=== PATIENT | female | born 1950 | race Caucasian/White ===

== ENCOUNTER 2020-11-29 09:10 | Outpatient (REF) | payer MEDICARE, SELFPAY ==
--- NOTE | ~2020-11-29 | XR_ITS ---
EXAMINATION: XR CERVICAL SPINE CLINICAL INFORMATION: Cervical radiculopathy at C6. COMPARISON: None TECHNIQUE: 3 views of the cervical spine were obtained. FINDINGS: There is mild straightening of cervical lordosis. The vertebral heights and alignment are normal. There is loss of C4-C5, C5-C6 and C6-C7 disc heights with mild ventral spondylosis. There is bilateral mild narrowing of neural foramina C3-C4, C4-C5, C5-C6 and C6-C7 disc levels from uncovertebral hypertrophic changes. No visible acute fracture or dislocation. The prevertebral and paravertebral soft tissues are normal. XR/XR cervical spine 4V IMPRESSION: Degenerative disc changes with ventral spondylosis of C4-C5 through C6-C7 disc levels with bilateral mild narrowing of neural foramina from underlying uncovertebral hypertrophic changes. There is straightening of cervical lordosis likely spasm. No visible acute fracture or dislocation seen.
== END 2020-11-29 09:11 | disposition home or self-care (01) ==
LOC: HO.XRAY 09:10
PROVIDERS: PCP Internal Medicine; Visit Provider Psychiatry & Neurology Neurology
DX: M54.12 Radiculopathy, cervical region (principal)
CPT/HCPCS: 72050

== ENCOUNTER → 2020-12-02 10:03 | Outpatient (REF) | payer MEDICARE, SELFPAY | LOC: HO.SL 10:03 | PROVIDERS: PCP Internal Medicine; Visit Provider Internal Medicine | DX: G47.33 Obstructive sleep apnea (adult) (pediatric) (principal) | CPT/HCPCS: 95806 ==

== ENCOUNTER → 2021-02-15 10:39 | Outpatient (BNVA) | payer MEDICARE, SELFPAY | PROVIDERS: PCP Internal Medicine; Referring Provider Internal Medicine; Visit Provider Psychiatry & Neurology Neurology | DX: G47.33 Obstructive sleep apnea (adult) (pediatric) (principal); G25.81 Restless legs syndrome | CPT/HCPCS: 99202 ==

== ENCOUNTER 2021-03-02 07:27 | Outpatient (REF) | payer MEDICARE, SELFPAY ==
[2021-03-02 07:40] LABS: MANUAL DIFF FLAG NO
[2021-03-02 08:07] LABS: Basophils Absolute Auto 0.1 X10*3/uL (0.0-0.2); Basophils Percent Auto 0.6 % (0-2); Eosinophils Absolute Auto 0.3 X10*3/uL (0.0-0.4); Eosinophils Percent Auto 2.8 % (0-4); Hematocrit 45.8 % (37-47); Hemoglobin 15.2 g/dl (12.0-16.0); Imm Gran Abs Auto 0.06 X10*3/uL (0.00-0.03); Imm Gran Pct Auto 0.6 % (0.0-0.4); Lymphocytes Absolute Auto 3.4 X10*3/uL (1.2-4.9); Lymphocytes Percent Auto 32.2 % (20-40); Mean Corpuscular HGB Conc 33.2 g/dl (31.0-35.0); Mean Corpuscular Hemoglobin 31.1 pg (27.0-33.0); Mean Corpuscular Volume 93.7 fL (80-98); Mean Platelet Volume 9.3 fL (9.4-12.3); Monocytes Absolute Auto 0.7 X10*3/uL (0.1-1.2); Monocytes Percent Auto 6.6 % (2-11); Neutrophils Percent Auto 57.2 % (45-73); Platelet Count 278 X10*3/uL (160-400); Red Blood Count 4.89 X10*6/uL (4.20-5.50); Red Cell Distribution Width 12.1 % (11.0-16.0); White Blood Count 10.5 X10*3/uL (4.8-10.8)
[2021-03-02 08:33] LABS: Alanine Aminotransferase 20 U/L (0-31); Albumin Level 4.1 g/dL (3.5-5.0); Alkaline Phosphatase 81 U/L (39-117); Anion Gap 9 (12-20); Aspartate Amino Transferase 17 U/L (5-31); Bilirubin Total 0.4 mg/dL (0.0-1.0); Blood Urea Nitrogen 11 mg/dL (9-16); Calcium 9.8 mg/dL (8.4-10.2); Carbon Dioxide 33 mmol/L (22-29); Chloride 103 mmol/L (96-108); Cholesterol 174 mg/dL; Estimated Glomerular Filt Rate > 60; Glucose Random 136 mg/dL (60-115); HDL Cholesterol 58 mg/dL; LDL Cholesterol Calculated 87 mg/dl; Potassium 4.9 mmol/L (3.3-5.1); Sodium 140 mmol/L (135-145); Total Protein 6.7 g/dL (6.5-8.0); Triglycerides 147 mg/dL
[2021-03-02 08:34] LABS: Creatinine Urine 103.54 mg/dL; Microalbum/Creatinine Ratio Ur 7.7 ug/mg cr
[2021-03-02 08:53] LABS: Free T4 (Free Thyroxine) 1.02 ng/dL (0.71-1.85); Thyroid Stimulating Hormone 1.46 uIU/mL (0.32-4.0)
[2021-03-02 09:47] LABS: Estimated Average Glucose 137 mg/dL; Hemoglobin A1c % 6.4 %
[2021-03-02 09:49] LABS: Folate 19.4 ng/mL (> or = 4.0); Vitamin B12 753 pg/mL (200-900)
== END 2021-03-02 07:28 | disposition home or self-care (01) ==
LOC: HO.LAB 07:27
PROVIDERS: PCP Internal Medicine; Visit Provider Internal Medicine
DX: E11.65 Type 2 diabetes mellitus with hyperglycemia (principal); K21.9 Gastro-esophageal reflux disease without esophagitis; E78.00 Pure hypercholesterolemia, unspecified
CPT/HCPCS: 36415; 80053; 80061; 82043; 82306; 82607; 82746; 83036; 84439; 84443; 85025

== ENCOUNTER 2021-04-11 07:43 | Day surgery (SDC) | payer MEDICARE, SELFPAY ==
[2021-04-04 10:43] VITALS: BMI 36.2
--- NOTE | 2021-04-07 08:18 | MHC.SHP ---
Pre-Procedural Eval Section A Date of Service: 04/07/21 The patient is an INPATIENT: No Changes since office visit: No Cold of Flu in the past 2 weeks, No New Medical Problems, No Changes in Medication and No Patient answered all questions The History & Physical has been completed within 30 days and I have reviewed it.: Yes Section B Chief Complaint: cataract right eye Allergies: Allergies Allergy/AdvReac Type Severity Reaction Status Date / Time cabergoline [CABERGOLINE] Allergy Severe ANGIOEDEMA Verified 04/04/21 10:39 lisinopril [LISINOPRIL] Allergy Severe ANGIOEDEMA Verified 04/04/21 10:39 empagliflozin [Jardiance] Allergy Intermediate skin Verified 04/04/21 10:39 infection Plan Diagnosis/Plan: Unchanged I have reviewed the history and physical and performed a pertinent physical examination on my patient. No changes have occurred unless specified.
--- NOTE | 2021-04-08 08:42 | HO.ANESPROP2 ---
Documented by User: Rosalina Tipton NP 04/08/21 08:43 HPI - Anesthesia Eval Consult details Narrative: 70yo F for Right Cataract Extraction IOL Insertion No prev cataract on record PCP cleared [facility] Active Problems Active Problems: All Active Problems (Updated 04/04/21 @ 10:46 by Genny Garrison RN) Shoulder pain, right (Acute) Restless legs syndrome (Acute) Screening for colon cancer (Acute) Post-menopausal (Acute) Adult general medical exam (Acute) Pre-op evaluation (Acute) GERD (gastroesophageal reflux disease) (Acute) Anxiety (Acute) Hypertension (Acute) Angioedema (Acute) Hypercholesteremia (Acute) Obstructive sleep apnea (Acute) Obesity (BMI 30-39.9) (Acute) Type 2 diabetes mellitus with hyperglycemia (Acute) Past Medical History Medical History (Updated 04/04/21 @ 10:46 by Genny Garrison RN) Angioedema Anxiety Basal cell carcinoma (BCC) in situ of skin COVID-19 vaccine series completed Diverticular disease GERD (gastroesophageal reflux disease) Hypercholesteremia Hypertension Obesity (BMI 30-39.9) Obstructive sleep apnea Polymyalgia rheumatica Type 2 diabetes mellitus with hyperglycemia Family History Family History Father Prostate cancer Acute CVA (cerebrovascular accident) Mother Uterine cancer COPD (chronic obstructive pulmonary disease) Sister Melanoma Brother Melanoma Paternal Grandfather Acute CVA (cerebrovascular accident) Paternal Aunt Breast cancer Surgical History Surgical History (Updated 04/04/21 @ 10:42 by Genny Garrison RN) History of arthroplasty of right knee History of cholecystectomy History of colonoscopy Hx of appendectomy S/P ADRIÁN-BSO Social History Social History Housing: House Are you a primary adult caregiver to a significant other at home: No Do you presently have visiting nurse or other home services: No Alcohol intake: former Patient Tobacco Use Status: Former Tobacco user Quit Date: age 20's Tobacco use type: Cigarette e-Cigarette/Vaping Use: Never Used Second Hand Smoke Exposure: No Use of substances other than those prescribed or required for medical reasons: No Have you been hit, kicked, punched, or otherwise hurt by someone within the past year? If so, by whom?: No Are you DNR?: No Advance Directives: Yes Advance Directives Information Provided: Yes Advance Directives on File: Yes Advance Directives Date on File: 02/08/16 Recently lost weight without trying: No Eating poorly because of decreased appetite: No Nutrition Risks: No Nutritional Risk Poor oral hygiene: No Current occupational status: employed Meds Allergies Allergy/AdvReac Type Severity Reaction Status Date / Time cabergoline [CABERGOLINE] Allergy Severe ANGIOEDEMA Verified 04/04/21 10:39 lisinopril [LISINOPRIL] Allergy Severe ANGIOEDEMA Verified 04/04/21 10:39 empagliflozin [Jardiance] Allergy Intermediate skin Verified 04/04/21 10:39 infection Home Medications Medication Instructions Recorded Confirmed Last Taken Type acetaminophen 325 mg tablet 325 mg PO QID PRN 03/10/20 04/04/21 Unknown History (Tylenol) aspirin 81 mg tablet,delayed 81 mg PO DAILY 03/10/20 04/04/21 Unknown History release (Adult Aspirin Regimen) cranberry 400 mg capsule 400 mg PO DAILY 03/10/20 04/04/21 Unknown History famotidine 20 mg tablet 20 mg PO BEDTIME 03/10/20 04/04/21 Unknown History fexofenadine 180 mg tablet 180 mg PO DAILY 03/10/20 04/04/21 Unknown History (Jesusita Allergy) meclizine 25 mg tablet 25 mg PO TID PRN 03/10/20 04/04/21 Unknown History multivitamin 1 tab PO DAILY 03/10/20 04/04/21 Unknown History naproxen 250 mg tablet 250 mg PO BID PRN 03/10/20 04/04/21 Unknown History omega-3 fatty acids 1,000 mg 1,000 mg PO DAILY 03/10/20 04/04/21 Unknown History capsule vitamin B complex 1 cap PO DAILY 03/10/20 04/04/21 Unknown History ascorbic acid (vitamin C) 500 mg 500 mg PO DAILY 03/25/21 04/04/21 Unknown History capsule sitagliptin 50 mg-metformin ER 500 1 tab PO BID tab 03/25/21 04/04/21 Unknown History mg tablet,extended release 24h mp (Janumet XR) losartan 100 mg tablet 100 mg PO BEDTIME 04/04/21 04/04/21 Unknown History Exam Exam Date and Time: April 08, 2021 0842 Height,Weight and Vital Signs: Height 5 ft 2 in Weight 89.811 kg Assessment and Plan Assessment Anesthesia Assessment: Chart Reviewed Documented by User: Maru Mendez MD 04/11/21 10:01 [facility] Past Medical History Medical History (Updated 04/04/21 @ 10:46 by Genny Garrison RN) Angioedema Anxiety Basal cell carcinoma (BCC) in situ of skin COVID-19 vaccine series completed Diverticular disease GERD (gastroesophageal reflux disease) Hypercholesteremia Hypertension Obesity (BMI 30-39.9) Obstructive sleep apnea Polymyalgia rheumatica Type 2 diabetes mellitus with hyperglycemia Family History Family History Father Prostate cancer Acute CVA (cerebrovascular accident) Mother Uterine cancer COPD (chronic obstructive pulmonary disease) Sister Melanoma Brother Melanoma Paternal Grandfather Acute CVA (cerebrovascular accident) Paternal Aunt Breast cancer Family history of problems with anesthesia: No Surgical History Surgical History (Updated 04/04/21 @ 10:42 by Genny Garrison RN) History of arthroplasty of right knee History of cholecystectomy History of colonoscopy Hx of appendectomy S/P ADRIÁN-BSO History of Problems with Anesthesia: No Social History Social History Housing: House Are you a primary adult caregiver to a significant other at home: No Do you presently have visiting nurse or other home services: No Alcohol intake: former Patient Tobacco Use Status: Former Tobacco user Quit Date: age 20's Tobacco use type: Cigarette e-Cigarette/Vaping Use: Never Used Second Hand Smoke Exposure: No Use of substances other than those prescribed or required for medical reasons: No Have you been hit, kicked, punched, or otherwise hurt by someone within the past year? If so, by whom?: No Are you DNR?: No Advance Directives: Yes Advance Directives Information Provided: Yes Advance Directives on File: Yes Advance Directives Date on File: 02/08/16 Recently lost weight without trying: No Eating poorly because of decreased appetite: No Nutrition Risks: No Nutritional Risk Poor oral hygiene: No Current occupational status: employed Meds Allergies Allergy/AdvReac Type Severity Reaction Status Date / Time cabergoline [CABERGOLINE] Allergy Severe ANGIOEDEMA Verified 04/04/21 10:39 lisinopril [LISINOPRIL] Allergy Severe ANGIOEDEMA Verified 04/04/21 10:39 empagliflozin [Jardiance] Allergy Intermediate skin Verified 04/04/21 10:39 infection Home Medications Medication Instructions Recorded Confirmed Last Taken Type acetaminophen 325 mg tablet 325 mg PO QID PRN 03/10/20 04/04/21 Unknown History (Tylenol) aspirin 81 mg tablet,delayed 81 mg PO DAILY 03/10/20 04/04/21 Unknown History release (Adult Aspirin Regimen) cranberry 400 mg capsule 400 mg PO DAILY 03/10/20 04/04/21 Unknown History famotidine 20 mg tablet 20 mg PO BEDTIME 03/10/20 04/04/21 Unknown History fexofenadine 180 mg tablet 180 mg PO DAILY 03/10/20 04/04/21 Unknown History (Jesusita Allergy) meclizine 25 mg tablet 25 mg PO TID PRN 03/10/20 04/04/21 Unknown History multivitamin 1 tab PO DAILY 03/10/20 04/04/21 Unknown History naproxen 250 mg tablet 250 mg PO BID PRN 03/10/20 04/04/21 Unknown History omega-3 fatty acids 1,000 mg 1,000 mg PO DAILY 03/10/20 04/04/21 Unknown History capsule vitamin B complex 1 cap PO DAILY 03/10/20 04/04/21 Unknown History ascorbic acid (vitamin C) 500 mg 500 mg PO DAILY 03/25/21 04/04/21 Unknown History capsule sitagliptin 50 mg-metformin ER 500 1 tab PO BID tab 03/25/21 04/04/21 Unknown History mg tablet,extended release 24h mp (Janumet XR) losartan 100 mg tablet 100 mg PO BEDTIME 04/04/21 04/04/21 Unknown History Exam Height,Weight and Vital Signs: Height 5 ft 2 in Weight 89.811 kg Vital Signs Temp Pulse Resp BP Pulse Ox 04/11/21 08:58 997.3 F H 78 16 150/85 H 97 Pertinent Lab Results Pertinent Lab Results: Lab Results 04/11/21 Range/Units 09:02 POC Glucose 125 H (60-115) mg/dL Narrative Narrative: Patient states feels a little swelling on lower lip right side. Episodes usually mild. Resolve spontaneously. Brought on by stress or fever. Sometimes steroids but states di not help. Never intubated. Usually superficial swelling. Only affected throat once several years ago. May have been one of the episodes related to drugs - cabergoline or lisinopril.Did not need intubation. Airway Mallampati Class: III TM Dist: >3cm Neck ROM: Full Loose/Missing/Broken Teeth: No Heart: RRR Lungs: CTAB Assessment and Plan Assessment Anesthesia Assessment: Anesthesia Plan Discussed Final Anesthetic Review Family History of Problems with Anesthesia: No History of Problems with Anesthesia: No NPO: Yes ASA Class: III Final Preanesthetic Review: No Changes in Pt Med Stat, Meds/Allgs Chart Reviewed, Consent Obtained/Reviewed and Anes Risks/Benef Reviewed Patient Risk: Intermediate Procedure Risk: Low Assessment/Block/Sedation in SS: Assess/Block/Sedation-SS Anesthetic Plan Anesthetic Plan: MAC: Disposition: Standard PACU
[2021-04-11 08:58] VITALS: BP 150/85; PULSE 78; RESP 16; TEMP 536.3; TEMP 997.3; O2SAT 97
[2021-04-11] MEDS: Tetracaine HCl/PF 0.5% Oph Sol 4 ML DROPS 1 DROP EYE-RIGHT (09:05)
[2021-04-11] MEDS: Lactated Ringers 500 ML 50 ML IV (09:07)
[2021-04-11] MEDS: Tropicamide 1 % Ophth Sol 3 ML BTL 1 DROP EYE-RIGHT ×3 (09:07→09:14)
[2021-04-11] MEDS: Phenylephrine HCL 2.5% Oph SoL 2 ML BOTTLE 1 DROP EYE-RIGHT ×3 (09:09→09:18)
[2021-04-11 09:14] LABS: Glucose, Whole Blood 125 mg/dL (60-115)
--- NOTE | 2021-04-11 10:41 | HO.PNOPHT ---
Ophthalmology Procedure Procedure Date of Service: 04/11/21 Ophthalmology Viscoelastic: Healon Duet Dual Pack Pro Ophthalmology Lenses: TECNIS [id number] (21.5) Procedure Notes: PREOPERATIVE DIAGNOSIS: Decreased visual acuity right eye secondary to cataract POSTOPERATIVE DIAGNOSIS: Same PROCEDURE: Right cataract extraction with intraocular lens insertion SURGEON: Ankit Bucio M.D. ANESTHESIA: Topical/MAC ESTIMATED BLOOD LOSS: None COMPLICATIONS: None After obtaining informed consent, the patient was brought to the operating room suite and placed in the supine position. After adequate sedation per anesthesia, topical drops of Tetracaine were given to the right eye. The eye was then prepped and draped in the usual sterile fashion. The operating room microscope was then positioned over the operative eye and a lid speculum placed. A paracentesis was created. Viscoelastic was then instilled into the anterior chamber. A three plane incision was then created temporally, utilizing a 2.85 mm keratome. Capsulotomy forceps were then utilized to create a circular tear capsulotomy. Hydrodissection and hydrodelineation were carried out until adequate mobilization of the nucleus occurred. Phacoemulsification was then utilized to remove the dense central nucleus followed by removal of the cortical material utilizing the automated aspiration irrigation unit. Viscoelastic was instilled into the posterior capsular bag followed by placement of a posterior chamber intraocular lens without difficulty. The residual Viscoelastic was then removed utilizing the automated IA machine. The wound was checked and found to be watertight. The patient tolerated the procedure well and the lid speculum was removed. Intracameral injection of Vigamox 0.1 mL followed by a subtenon injection of Kenalog-40 0.2 mL were administered. The patient will be seen in the a.m.
[2021-04-11 11:04] VITALS: BP 131/71; PULSE 84; RESP 16; TEMP 36.1; O2SAT 100
== END 2021-04-11 11:22 | disposition home or self-care (01) ==
PROVIDERS: PCP Internal Medicine; Visit Provider Ophthalmology
PROC: (CPT 66985; principal; 2021-04-11 10:30)
DX: H25.11 Age-related nuclear cataract, right eye (principal); Z83.511 Family history of glaucoma; H52.4 Presbyopia; I10 Essential (primary) hypertension; E11.65 Type 2 diabetes mellitus with hyperglycemia; M35.3 Polymyalgia rheumatica; G47.33 Obstructive sleep apnea (adult) (pediatric); E66.9 Obesity, unspecified; Z68.36 Body mass index [BMI] 36.0-36.9, adult; Z79.84 Long term (current) use of oral hypoglycemic drugs; Z79.82 Long term (current) use of aspirin; Z79.899 Other long term (current) drug therapy; Z99.89 Dependence on other enabling machines and devices; Z88.8 Allergy status to other drugs, medicaments and biological substances; Z87.891 Personal history of nicotine dependence
CPT/HCPCS: 66984; 82947; J2250; J3010; J3300; V2632

== ENCOUNTER 2021-04-21 08:32 | Outpatient (REF) | payer MEDICARE, SELFPAY ==
--- NOTE | ~2021-04-21 | MM_ITS ---
EXAMINATION: BONE DENSITOMETRY CLINICAL INDICATION: Asymptomatic menopausal state. COMPARISON: Previous BD dated 08/17/2016 and baseline BD dated 10/08/2006. TECHNIQUE: Using a [employer] DXA System (software version: 13.1) manufactured by [employer], dual-energy x-ray absorptiometry was performed of the lumbar spine and left hip. The images are of good technical quality. Summary results are attached. FINDINGS: AP SPINE L1-L4: Current: BMD 1.355 g/cm2, Z-score 2.3, T-score 1.5, normal, 10.1% increase from previous, 10.9% increase from baseline (<5% change is not significant). Prior: BMD 1.231 g/cm2. Baseline: BMD 1.222 g/cm2. LEFT FEMUR, NECK: Current: BMD 0.973 g/cm2, Z-score 0.7, T-score -0.5, normal. Prior: BMD 0.906 g/cm2. Baseline: BMD 1.110 g/cm2. LEFT FEMUR, TOTAL: Current: BMD 1.160 g/cm2, Z-score 2.1, T-score 1.2, normal, 4.7% increase from previous, 12.5% decrease from baseline (<5% change is not significant). Prior: BMD 1.108 g/cm2. Baseline: BMD 1.325 g/cm2. IDENTIFIED RISK FACTORS: Menopause, hysterectomy, bilateral oophorectomy, anticonvulsant. HISTORY OF FRACTURE: None listed. MEDICATIONS: Multivitamin. MM/XR DEXA axial skeleton IMPRESSION: 1. DIAGNOSIS: Normal bone density based on the lowest T-score value of -0.5 in the femoral neck applying World Health Organization criteria. 2. 10-YEAR FRACTURE RISK PREDICTION, FRAX: Major osteoporotic fracture (clinical spine, forearm, hip or shoulder) 7.2%. Hip fracture 0.5%. 3. Treatment Recommendations: NOF guidelines recommend consideration for treatment in postmenopausal women and men age 50 and older presenting with the following: -A hip or vertebral (clinical or morphometric) fracture. -T-score less than or equal to -2.5 at the femoral neck or spine after appropriate evaluation to exclude secondary causes. -Low bone mass at the hip or spine and a 10-year fracture probability by FRAX of greater than or equal to 3% for hip fracture or greater than or equal to 20% for major osteoporotic fracture based on the [place] adapted WHO algorithm. 4. Other Recommendations: All treatment decisions require clinical judgment and consideration of individual patient factors, including patient preferences, comorbidities, previous drug use, risk factors not captured in the FRAX model (e.g. frailty, falls, vitamin D deficiency, increased bone turnover, interval significant decline in bone density) and possible under or overestimation of fracture risk by FRAX. FUTURE SCAN RECOMMENDATION: People with diagnosed cases of osteoporosis or at high risk for fracture should have regular bone mineral density tests. For patients eligible for Medicare, routine testing is allowed once every 2 years. The testing frequency can be increased to one year for patients who have rapidly progressing disease, those who are receiving or discontinuing medical therapy to restore bone mass, or have additional risk factors.
== END 2021-04-21 08:33 | disposition home or self-care (01) ==
LOC: HO.MAMMO 08:32
PROVIDERS: PCP Internal Medicine; Visit Provider Nurse Practitioner Family
DX: Z13.820 Encounter for screening for osteoporosis (principal); Z78.0 Asymptomatic menopausal state; Z79.899 Other long term (current) drug therapy; Z90.710 Acquired absence of both cervix and uterus; Z90.722 Acquired absence of ovaries, bilateral
CPT/HCPCS: 77080

== ENCOUNTER 2021-04-25 06:54 | Day surgery (SDC) | payer MEDICARE, SELFPAY ==
[2021-04-04 10:48] VITALS: BMI 36.2
--- NOTE | 2021-04-21 16:17 | MHC.SHP ---
Pre-Procedural Eval Section A Date of Service: 04/21/21 The patient is an INPATIENT: No Changes since office visit: No Cold of Flu in the past 2 weeks, No New Medical Problems, No Changes in Medication and No Patient answered all questions The History & Physical has been completed within 30 days and I have reviewed it.: Yes Section B Chief Complaint: cataract left Allergies: Allergies Allergy/AdvReac Type Severity Reaction Status Date / Time cabergoline [CABERGOLINE] Allergy Severe ANGIOEDEMA Verified 04/04/21 10:39 lisinopril [LISINOPRIL] Allergy Severe ANGIOEDEMA Verified 04/04/21 10:39 empagliflozin [Jardiance] Allergy Intermediate skin Verified 04/04/21 10:39 infection Plan Diagnosis/Plan: Unchanged I have reviewed the history and physical and performed a pertinent physical examination on my patient. No changes have occurred unless specified.
--- NOTE | 2021-04-22 08:37 | P.CONAN_ITS ---
Documented by User: Rosalina Tipton NP 04/22/21 08:37 HPI - Anesthesia Eval Consult details Narrative: 70yo F for Left Cataract Extraction IOL Insertion PCP Cleared Right eye 04/11/2021 with TIVA: Fentanyl 50, Midaz 2 PMFSH Active Problems Active Problems: All Active Problems (Updated 04/04/21 @ 10:46 by Genny Garrison, BRYAN) Shoulder pain, right (Acute) Restless legs syndrome (Acute) Screening for colon cancer (Acute) Post-menopausal (Acute) Adult general medical exam (Acute) Pre-op evaluation (Acute) GERD (gastroesophageal reflux disease) (Acute) Anxiety (Acute) Hypertension (Acute) Angioedema (Acute) Hypercholesteremia (Acute) Obstructive sleep apnea (Acute) Obesity (BMI 30-39.9) (Acute) Type 2 diabetes mellitus with hyperglycemia (Acute) Past Medical History Medical History Angioedema Anxiety Basal cell carcinoma (BCC) in situ of skin COVID-19 vaccine series completed Diverticular disease GERD (gastroesophageal reflux disease) Hypercholesteremia Hypertension Obesity (BMI 30-39.9) Obstructive sleep apnea Polymyalgia rheumatica Type 2 diabetes mellitus with hyperglycemia Family History Family History Father Prostate cancer Acute CVA (cerebrovascular accident) Mother Uterine cancer COPD (chronic obstructive pulmonary disease) Sister Melanoma Brother Melanoma Paternal Grandfather Acute CVA (cerebrovascular accident) Paternal Aunt Breast cancer Family history of problems with anesthesia: No Surgical History Surgical History History of arthroplasty of right knee History of cholecystectomy History of colonoscopy Hx of appendectomy S/P ADRIÁN-BSO History of Problems with Anesthesia: No Social History Social History Housing: House Are you a primary urgent care physician assistant to a significant other at home: No Do you presently have visiting nurse or other home services: No Alcohol intake: former Patient Tobacco Use Status: Former Tobacco user Quit Date: age 20's Tobacco use type: Cigarette e-Cigarette/Vaping Use: Never Used Second Hand Smoke Exposure: No Use of substances other than those prescribed or required for medical reasons: No Have you been hit, kicked, punched, or otherwise hurt by someone within the past year? If so, by whom?: No Are you DNR?: No Advance Directives: Yes (states is Aramis Hardy) Advance Directives Information Provided: Yes Advance Directives on File: Yes Advance Directives Date on File: 02/08/16 Recently lost weight without trying: No Eating poorly because of decreased appetite: No Nutrition Risks: No Nutritional Risk Poor oral hygiene: No Current occupational status: employed Meds Allergies Allergy/AdvReac Type Severity Reaction Status Date / Time cabergoline [CABERGOLINE] Allergy Severe ANGIOEDEMA Verified 04/04/21 10:39 lisinopril [LISINOPRIL] Allergy Severe ANGIOEDEMA Verified 04/04/21 10:39 empagliflozin [Jardiance] Allergy Intermediate skin Verified 04/04/21 10:39 infection Home Medications Medication Instructions Recorded Confirmed Last Taken Type acetaminophen 325 mg tablet 325 mg PO QID PRN 03/10/20 04/04/21 Unknown History (Tylenol) aspirin 81 mg tablet,delayed 81 mg PO DAILY 03/10/20 04/04/21 Unknown History release (Adult Aspirin Regimen) cranberry 400 mg capsule 400 mg PO DAILY 03/10/20 04/04/21 Unknown History famotidine 20 mg tablet 20 mg PO BEDTIME 03/10/20 04/04/21 Unknown History fexofenadine 180 mg tablet 180 mg PO DAILY 03/10/20 04/04/21 Unknown History (Jesusita Allergy) meclizine 25 mg tablet 25 mg PO TID PRN 03/10/20 04/04/21 Unknown History multivitamin 1 tab PO DAILY 03/10/20 04/04/21 Unknown History naproxen 250 mg tablet 250 mg PO BID PRN 03/10/20 04/04/21 Unknown History omega-3 fatty acids 1,000 mg 1,000 mg PO DAILY 03/10/20 04/04/21 Unknown History capsule vitamin B complex 1 cap PO DAILY 03/10/20 04/04/21 Unknown History ascorbic acid (vitamin C) 500 mg 500 mg PO DAILY 03/25/21 04/04/21 Unknown His tory capsule sitagliptin 50 mg-metformin ER 500 1 tab PO BID tab 03/25/21 04/04/21 Unknown History mg tablet,extended release 24h mp (Janumet XR) losartan 100 mg tablet 100 mg PO BEDTIME 04/04/21 04/04/21 Unknown History Exam Exam Date and Time: April 22, 2021 0837 Height,Weight and Vital Signs: Height 5 ft 2 in Weight 89.811 kg Assessment and Plan Assessment Anesthesia Assessment: Chart Reviewed Final Anesthetic Review Family History of Problems with Anesthesia: No History of Problems with Anesthesia: No Documented by User: Maru Mendez MD 04/25/21 10:31 [facility] Past Medical History Medical History Angioedema Anxiety Basal cell carcinoma (BCC) in situ of skin COVID-19 vaccine series completed Diverticular disease GERD (gastroesophageal reflux disease) Hypercholesteremia Hypertension Obesity (BMI 30-39.9) Obstructive sleep apnea Polymyalgia rheumatica Type 2 diabetes mellitus with hyperglycemia Family History Family History Father Prostate cancer Acute CVA (cerebrovascular accident) Mother Uterine cancer COPD (chronic obstructive pulmonary disease) Sister Melanoma Brother Melanoma Paternal Grandfather Acute CVA (cerebrovascular accident) Paternal Aunt Breast cancer Surgical History Surgical History History of arthroplasty of right knee History of cholecystectomy History of colonoscopy Hx of appendectomy S/P ADRIÁN-BSO Social History Social History Housing: House Are you a primary urgent care physician assistant to a significant other at home: No Do you presently have visiting nurse or other home services: No Alcohol intake: former Patient Tobacco Use Status: Former Tobacco user Quit Date: age 20's Tobacco use type: Cigarette e-Cigarette/Vaping Use: Never Used Second Hand Smoke Exposure: No Use of substances other than those prescribed or required for medical reasons: No Have you been hit, kicked, punched, or otherwise hurt by someone within the past year? If so, by whom?: No Are you DNR?: No Advance Directives: Yes (states is Aramis Hardy) Advance Directives Information Provided: Yes Advance Directives on File: Yes Advance Directives Date on File: 02/08/16 Recently lost weight without trying: No Eating poorly because of decreased appetite: No Nutrition Risks: No Nutritional Risk Poor oral hygiene: No Current occupational status: employed Meds Allergies Allergy/AdvReac Type Severity Reaction Status Date / Time cabergoline [CABERGOLINE] Allergy Severe ANGIOEDEMA Verified 04/04/21 10:39 lisinopril [LISINOPRIL] Allergy Severe ANGIOEDEMA Verified 04/04/21 10:39 empagliflozin [Jardiance] Allergy Intermediate skin Verified 04/04/21 10:39 infection Home Medications Medication Instructions Recorded Confirmed Last Taken Type acetaminophen 325 mg tablet 325 mg PO QID PRN 03/10/20 04/04/21 Unknown History (Tylenol) aspirin 81 mg tablet,delayed 81 mg PO DAILY 03/10/20 04/04/21 Unknown History release (Adult Aspirin Regimen) cranberry 400 mg capsule 400 mg PO DAILY 03/10/20 04/04/21 Unknown History famotidine 20 mg tablet 20 mg PO BEDTIME 03/10/20 04/04/21 Unknown History fexofenadine 180 mg tablet 180 mg PO DAILY 03/10/20 04/04/21 Unknown History (Jesusita Allergy) meclizine 25 mg tablet 25 mg PO TID PRN 03/10/20 04/04/21 Unknown History multivitamin 1 tab PO DAILY 03/10/20 04/04/21 Unknown History naproxen 250 mg tablet 250 mg PO BID PRN 03/10/20 04/04/21 Unknown History omega-3 fatty acids 1,000 mg 1,000 mg PO DAILY 03/10/20 04/04/21 Unknown History capsule vitamin B complex 1 cap PO DAILY 03/10/20 04/04/21 Unknown History ascorbic acid (vitamin C) 500 mg 500 mg PO DAILY 03/25/21 04/04/21 Unknown History capsule sitagliptin 50 mg-metformin ER 500 1 tab PO BID tab 03/25/21 04/04/21 Unknown History mg tablet,extended release 24h mp (Janumet XR) losartan 100 mg tablet 100 mg PO BEDTIME 04/04/21 04/04/21 Unknown History Exam Height,Weight and Vital Signs: Height 5 ft 2 in Weight 89.811 kg Vital Signs Temp Pulse Resp BP Pulse Ox 04/25/21 09:50 97.8 F 79 16 129/81 96 04/25/21 08:09 97 F 83 18 135/78 97 Pertinent Lab Results Pertinent Lab Results: Lab Results 04/25/21 Range/Units 08:14 POC Glucose 139 H (60-115) mg/dL Airway Mallampati Class: III TM Dist: >3cm Neck ROM: Full Loose/Missing/Broken Teeth: No Heart: RRR Lungs: CTAB Assessment and Plan Assessment Anesthesia Assessment: Anesthesia Plan Discussed Final Anesthetic Review NPO: Yes ASA Class: III Final Preanesthetic Review: No Changes in Pt Med Stat, Meds/Allgs Chart Reviewed, Consent Obtained/Reviewed and Anes Risks/Benef Reviewed Patient Risk: Intermediate Procedure Risk: Low Assessment/Block/Sedation in SS: Assess/Block/Sedation-SS Anesthetic Plan Anesthetic Plan: MAC: Disposition: Standard PACU
[2021-04-25 08:09] VITALS: BP 135/78; PULSE 83; RESP 18; TEMP 36.1; O2SAT 97
[2021-04-25] MEDS: Lactated Ringers 500 ML 50 ML IV (08:16)
[2021-04-25] MEDS: Phenylephrine HCL 2.5% Oph SoL 2 ML BOTTLE 1 DROP EYE-LEFT ×3 (08:17→08:18)
[2021-04-25] MEDS: Tropicamide 1 % Ophth Sol 3 ML BTL 1 DROP EYE-LEFT ×3 (08:17→08:19)
[2021-04-25] MEDS: Tetracaine HCl/PF 0.5% Oph Sol 4 ML DROPS 1 DROP EYE-LEFT (08:17)
[2021-04-25 08:22] LABS: Glucose, Whole Blood 139 mg/dL (60-115)
--- NOTE | 2021-04-25 09:28 | HO.PNOPHT ---
Ophthalmology Procedure Procedure Date of Service: 04/25/21 Ophthalmology Viscoelastic: Healon Duet Dual Pack Pro Ophthalmology Lenses: TECNIS [id number] (21.5) Procedure Notes: PREOPERATIVE DIAGNOSIS: Decreased visual acuity left eye secondary to cataract POSTOPERATIVE DIAGNOSIS: Same PROCEDURE: Left cataract extraction with intraocular lens insertion SURGEON: Ankit Bucio M.D. ANESTHESIA: Topical/MAC ESTIMATED BLOOD LOSS: None COMPLICATIONS: None After obtaining informed consent, the patient was brought to the operation room suite and placed in the supine position. After adequate sedation per anesthesia, topical drops of Tetracaine were given to the left eye. The eye was then prepped and draped in the usual sterile fashion. The operating room microscope was then positioned over the operative eye and a lid speculum placed. A paracentesis was created. Viscoelastic was then instilled into the anterior chamber. A three plane incision was then created temporally, utilizing a 2.85 mm keratome. Capsulotomy forceps were then utilized to create a circular tear capsulotomy. Hydrodissection and hydrodelineation were carried out until adequate mobilization of the nucleus occurred. Phacoemulsification was then utilized to remove the dense central nucleus followed by removal of the cortical material utilizing the automated aspiration irrigation unit. Viscoat elastic was instilled into the posterior capsular bag followed by placement of a posterior chamber intraocular lens without difficulty. The residual Viscoat elastic was then removed utilizing the automated IA machine. The wound was check and found to be watertight. The patient tolerated the procedure well and the lid speculum was removed. Intracameral injection of Vigamox 0.1 mL followed by a subtenon injection of Kenalog-40 0.2 mL were administered. The patient will be seen in the a.m.
[2021-04-25 09:50] VITALS: BP 129/81; PULSE 79; RESP 16; TEMP 36.6; O2SAT 96
== END 2021-04-25 09:58 | disposition home or self-care (01) ==
PROVIDERS: PCP Internal Medicine; Visit Provider Ophthalmology
PROC: (CPT 66985; principal; 2021-04-25 09:30)
DX: H25.12 Age-related nuclear cataract, left eye (principal); H54.7 Unspecified visual loss; Z83.511 Family history of glaucoma; G47.33 Obstructive sleep apnea (adult) (pediatric); M35.3 Polymyalgia rheumatica; I10 Essential (primary) hypertension; E11.65 Type 2 diabetes mellitus with hyperglycemia; Z79.84 Long term (current) use of oral hypoglycemic drugs; Z79.82 Long term (current) use of aspirin; Z79.899 Other long term (current) drug therapy; Z88.8 Allergy status to other drugs, medicaments and biological substances; Z87.891 Personal history of nicotine dependence
CPT/HCPCS: 66984; 82947; J2250; J3010; J3300; V2632

== ENCOUNTER → 2021-05-03 09:33 | Outpatient (BNVA) | payer MEDICARE, SELFPAY | PROVIDERS: PCP Internal Medicine; Referring Provider Internal Medicine; Visit Provider Psychiatry & Neurology Neurology | DX: G47.33 Obstructive sleep apnea (adult) (pediatric) (principal); G25.81 Restless legs syndrome | CPT/HCPCS: 99212 ==

== ENCOUNTER → 2021-11-15 08:51 | Outpatient (BNVA) | payer MEDICARE, SELFPAY | PROVIDERS: PCP Internal Medicine; Visit Provider Psychiatry & Neurology Neurology | DX: G25.81 Restless legs syndrome (principal); G47.33 Obstructive sleep apnea (adult) (pediatric); Z79.899 Other long term (current) drug therapy; Z99.89 Dependence on other enabling machines and devices | CPT/HCPCS: 99212 ==

== ENCOUNTER 2022-01-26 09:19 | Emergency (ER) | payer MEDICARE, SELFPAY ==
--- NOTE | ~2022-01-26 | XR_ITS ---
EXAMINATION: XR CHEST CLINICAL INFORMATION: Chest pain. COMPARISON: None TECHNIQUE: 2 views of the chest were obtained. FINDINGS: No significant abnormality is noted involving the heart, lungs, mediastinum, bony thorax or soft tissues. XR/XR chest 2V IMPRESSION: No acute cardiopulmonary process.
[2022-01-26 09:24] VITALS: BP 156/94; PULSE 82; RESP 16; O2SAT 97; BMI 35.6
--- NOTE | 2022-01-26 09:28 | ECG_ITS ---
Test Reason : chest pain Blood Pressure : / mmHG Vent. Rate : 077 BPM Atrial Rate : 077 BPM P-R Int : 130 ms QRS Dur : 124 ms QT Int : 404 ms P-R-T Axes : 009 002 -17 degrees QTc Int : 457 ms Normal sinus rhythm Non-specific intra-ventricular conduction delay T wave abnormality, consider inferior ischemia Abnormal ECG When compared with ECG of 08-MAY-2017 09:41, QRS duration has increased T wave inversion now evident in Inferior leads Referred By: Generic ED Physician Electronically Signed By:MARIMAR ALVAREZ
--- NOTE | 2022-01-26 09:42 | ED.CHESTPAIN ---
HPI - Chest Pain General Chief Complaint: Chest Pain Stated Complaint: chest pain Time Seen by Provider: 01/26/22 09:42 Source: patient Mode of arrival: ambulatory Limitations: no limitations History of Present Illness HPI narrative: Patient is a 71 year old female presenting to the emergency department today with chest pain. Patient states that she would burp and the chest pain would resolve. Patient states that yesterday, she took a lorazepam yesterday and that helped the chest pain as well. Patient states that the pain is central and has gotten much better. Patient denies any dizziness, lightheadedness, abdominal pain, nausea, vomiting, fever, chills, blurry vision, double vision, loss of vision, difficulty breathing, shortness of breath, back pain, night sweats, pain with urination, increased urinary frequency, increased urinary urgency, blood in her urine or stool, syncope or a near syncopal episode, recent trauma or falls, bowel incontinence, bladder incontinence, bowel retention, bladder retention, or any other complaints at this time. MD complaint: chest pain Pain location: substernal Pain radiation: none Severity: mild Pain scale (0-10): 3 Quality: dull Relieving factors: medication-other (lorazepam) Exacerbating factors: nothing Treatment prior to arrival: none Related Data Home Medications Medication Instructions Recorded Confirmed acetaminophen 325 mg tablet 325 mg PO QID PRN Pain 03/10/20 01/24/22 (Tylenol) aspirin 81 mg tablet,delayed 81 mg PO DAILY 03/10/20 01/24/22 release (Adult Aspirin Regimen) cranberry 400 mg capsule 400 mg PO DAILY 03/10/20 07/07/21 famotidine 20 mg tablet 20 mg PO BEDTIME 03/10/20 01/24/22 fexofenadine 180 mg tablet 180 mg PO DAILY 03/10/20 01/24/22 (Jesusita Allergy) meclizine 25 mg tablet 25 mg PO TID PRN Vertigo 03/10/20 07/07/21 multivitamin 1 tab PO DAILY 03/10/20 01/24/22 naproxen 250 mg tablet 250 mg PO BID PRN Pain 03/10/20 01/24/22 omega-3 fatty acids 1,000 mg 1,000 mg PO DAILY 03/10/20 01/24/22 capsule vitamin B complex 1 cap PO DAILY 03/10/20 07/07/21 ascorbic acid (vitamin C) 500 mg 500 mg PO DAILY 03/25/21 07/07/21 capsule losartan 100 mg tablet 100 mg PO BEDTIME 04/04/21 01/24/22 Previous Rx's Medication Instructions Recorded metformin 500 mg tablet 500 mg PO BID 90 days #180 tabs 03/16/21 simvastatin 5 mg tablet 5 mg PO DAILY 90 days #90 tabs 03/25/21 semaglutide 1 mg/dose (2 mg/1.5 2 mg (1.5 mL) subcut QWEEK 90 days 05/24/21 mL) subcutaneous pen injector #19.5 mL semaglutide 1 mg/dose (2 mg/1.5 2 mg (1.5 mL) subcut QWEEK 90 days 06/07/21 mL) subcutaneous pen injector #12 ea (Ozempic) blood sugar diagnostic 1 strip miscellaneous BID for 08/19/21 diabetes mellitus 90 days #100 strips blood sugar diagnostic (OneTouch #100 ea 08/19/21 Ultra Test strips) gabapentin 100 mg capsule See Rx Instructions PO BEDTIME 30 11/17/21 days #90 caps lorazepam 1 mg tablet 1 mg PO TID PRN anxiety #30 tabs 12/28/21 Allergies Allergy/AdvReac Type Severity Reaction Status Date / Time cabergoline [CABERGOLINE] Allergy Severe ANGIOEDEMA Verified 12/21/21 09:19 lisinopril [LISINOPRIL] Allergy Severe ANGIOEDEMA Verified 12/21/21 09:19 empagliflozin [Jardiance] Allergy Intermediate skin Verified 12/21/21 09:19 infection Review of Systems Constitutional: Constitutional: Reports no additional constitutional complaints, Denies chills, Denies fever(s) and Denies night sweats Eyes: Eyes: Reports no additional eye complaints, Denies blurry vision, Denies change in vision, Denies diplopia, Denies eye discharge, Denies loss of vision and Denies eye pain ENT: Denies dizziness Cardiovascular: Cardiovascular: Reports no additional cardiovascular complaints, Reports chest pain, Denies lightheadedness, Denies Loss of Consciousness and Denies dyspnea Respiratory: Respiratory: Reports no additional respiratory complaints and Denies dyspnea Gastrointestinal: Gastrointestinal: Reports no additional gastrointestinal complaints, Denies abdominal pain, Denies melena, Denies hematochezia, Denies change in bowel habits and Denies change in stool character Genitourinary: Genitourinary: Denies hematuria, Denies urinary frequency, Denies dysuria, Denies urinary incontinence, Denies urinary hesitancy and Denies urinary urgency Musculoskeletal: Musculoskeletal: Reports no additional musculoskeletal complaints, Denies numbness and Denies tingling Neurologic: Denies dizziness, Denies loss of vision, Denies numbness and Denies tingling Psychiatric: Psychiatric: Reports no additional psychiatric complaints Endocrine: Endocrine: Reports no additional endocrine complaints Hematologic/Lymphatic: Hematologic/Lymphatic: Reports no additional hematologic/lymphatic complaints Allergic/Immunologic: Allergic/Immunologic: Reports no additional allergic/immunologic complaints [facility] Past Medical History Attestation statement: The following information was validated with the patient. Source: old records reviewed Medical History Angioedema Anxiety Basal cell carcinoma (BCC) in situ of skin COVID-19 vaccine series completed Diverticular disease GERD (gastroesophageal reflux disease) Hypercholesteremia Hypertension Obesity (BMI 30-39.9) Obstructive sleep apnea Polymyalgia rheumatica RBBB (right bundle branch block) Type 2 diabetes mellitus with hyperglycemia Surgical History History of arthroplasty of right knee History of cholecystectomy History of colonoscopy Hx of appendectomy Hx of cataract extraction S/P ADRIÁN-BSO Family History Family History Father Prostate cancer Acute CVA (cerebrovascular accident) Mother Uterine cancer COPD (chronic obstructive pulmonary disease) Sister Melanoma Brother Melanoma Paternal Grandfather Acute CVA (cerebrovascular accident) Paternal Aunt Breast cancer Social History Social History Housing: House Are you a primary wound care technician to a significant other at home: No Do you presently have visiting nurse or other home services: No Alcohol intake: never Patient Tobacco Use Status: Former Tobacco user Quit Date: age 20's Tobacco use type: Cigarette Smoked in Last 30 Days: No e-Cigarette/Vaping Use: Never Used Second Hand Smoke Exposure: No Use of substances other than those prescribed or required for medical reasons: No Advance Directives: Yes Advance Directives on File: Yes Advance Directives Date on File: 04/12/21 Current occupational status: employed Cognitive needs: No Hearing needs: No Vision needs: Yes Physical Exam Vital Signs: Vital Signs: Last Vital Signs Temp 98.4 F 01/26/22 11:25 Pulse 79 01/26/22 11:25 Resp 12 01/26/22 11:25 BP 134/72 01/26/22 11:25 Pulse Ox 96 01/26/22 11:25 O2 Del Method 01/26/22 11:25 BMI result Body Mass Index 35.6 Const: General: cooperative, no acute distress, alert and awake Nutritional Appearance: well nourished Orientation/consciousness: patient oriented x3 Limitations: no limitations HEENT: Head: Yes normal to inspection and Yes atraumatic Ears: hearing grossly normal bilaterally and external ears normal General nose exam: Normal external nose present, no nasal discharge noted and no epistaxis Face and sinus: Yes normal facial exam, No abrasion and No laceration Mouth: Normal oral and palatal mucosa present, no drooling and no muffled voice Eyes: General: appearance normal, both eyes and all related structures Periorbital: periorbital findings normal Eyelids: Yes eyelids normal Conjunctivae: conjunctivae normal Pupils: Equal, round and reactive pupils present EOM: EOMs intact bilaterally Neck: Neck: Yes normal visual inspection, Yes full ROM and Yes no lymphadenopathy Chest: Chest palpation & inspection: normal inspection of the chest Resp: Effort & Inspection: normal respiratory effort and able to speak in complete sentences Auscultation: clear to auscultation bilaterally Cardio: Rate: regular rate Rhythm: regular rhythm GI: Inspection: Yes normal to inspection Neuro: General: patient oriented x3 and moves all extremities Cranial nerves: Yes Equal, round and reactive pupils present Cognition (Neuro): normal cognition Motor exam (neuro): 5/5 motor strength present throughout Sensory Exam: Normal double simultaneous stimulation for sensation Coordination: [id number] test normal Extrem: General: Yes normal to inspection, Yes full ROM and Yes capillary refill normal Psych: Appearance: grossly normal Mental Status: mental status grossly normal Affect: normal affect Attitude: cooperative Thought process: Normal thought process present Thought content: Normal thought content present Insight: Good insight present (Psych) MDM - Chest Pain MDM Narrative Medical decision making narrative: Patient is a 71 year old female presenting to the emergency department today with substernal chest pain. Patient's physical exam was unremarkable. Patient's blood work was unremarkable. Patient's EKG was unremarkable. Patient's chest x-ray showed no acute process. I explained my physical exam findings as well as all test results to the patient. I answered all questions asked by the patient. I stressed the importance of the patient taking her medication as prescribed. I stressed the importance of the patient following up with her primary care provider. I stressed the importance of the patient returning to the emergency department immediately if her symptoms were to worsen or if she were to develop any dizziness, shortness of breath, difficulty breathing, chest pain, blurry vision, loss of vision, nausea, vomiting, abdominal pain, fever, chills, back pain, or any other complaints. Patient verbalized agreement and understanding with this treatment plan and discharge. Differential Diagnosis Differential diagnosis: Likely stable angina and atypical chest pain Medical Records Data Attestation: I reviewed the patient's medical records. Lab Data Attestation: I reviewed the patient's lab results. Result diagrams: 01/26/22 10:18 01/26/22 10:18 Labs: Lab Results 01/26/22 01/26/22 01/26/22 Range/Units 10:18 10:18 10:18 WBC 8.6 (4.8-10.8) X10*3/uL RBC 4.73 (4.20-5.50) X10*6/uL Hgb 14.9 (12.0-16.0) g/dl Hct 43.9 (37.0-47.0) % MCV 92.8 (80.0-98.0) fL MCH 31.5 (27.0-33.0) pg MCHC 33.9 (31.0-35.0) g/dl RDW 11.9 (11.0-16.0) % Plt Count 256 (160-400) X10*3/uL MPV 8.8 L (9.4-12.3) fL Immature Gran % (Auto) 0.5 H (0.0-0.4) % Neut % (Auto) 61.8 (45-73) % Lymph % (Auto) 28.7 (20-40) % Collier % (Auto) 6.1 (2-11) % Eos % (Auto) 2.3 (0-4) % Baso % (Auto) 0.6 (0-2) % Lymph # (Auto) 2.5 (1.2-4.9) X10*3/uL Collier # (Auto) 0.5 (0.1-1.2) X10*3/uL Eos # (Auto) 0.2 (0.0-0.4) X10*3/uL Baso # (Auto) 0.1 (0.0-0.2) X10*3/uL Abs Immat Gran (auto) 0.04 H (0.00-0.03) X10*3/uL Absolute Neuts (auto) 5.3 (2.0-8.3) x10*3/uL Absolute Nucleated RBC 0.000 (0.0-0.012) X10*3/uL Nucleated RBC % (auto) 0.0 (0.0-0.2) /100WBC Sodium 142 (135-145) mmol/L Potassium 4.5 (3.3-5.1) mmol/L Chloride 105 (96-108) mmol/L Carbon Dioxide 25 (22-29) mmol/L Anion Gap 17 (12-20) BUN 12 (9-16) mg/dL Creatinine 0.68 (0.5-1.4) mg/dL Estim Creat Clear Calc 78.4 Estimated GFR > 60 Random Glucose 110 (60-115) mg/dL Calcium 9.4 (8.4-10.2) mg/dL Magnesium 1.8 (1.6-2.6) mg/dL Total Bilirubin 0.4 (0.0-1.0) mg/dL AST 20 (5-31) U/L ALT 20 (0-31) U/L Alkaline Phosphatase 71 (39-117) U/L Troponin I High Sens < 3.5 (<3.5-17.0) ng/L Total Protein 6.9 (6.5-8.0) g/dL Albumin 4.1 (3.5-5.0) g/dL COVID-19 (COLLEEN) (Negative) COVID-19 Clin Com 01/26/22 Range/Units 10:18 WBC (4.8-10.8) X10*3/uL RBC (4.20-5.50) X10*6/uL Hgb (12.0-16.0) g/dl Hct (37.0-47.0) % MCV (80.0-98.0) fL MCH (27.0-33.0) pg MCHC (31.0-35.0) g/dl RDW (11.0-16.0) % Plt Count (160-400) X10*3/uL MPV (9.4-12.3) fL Immature Gran % (Auto) (0.0-0.4) % Neut % (Auto) (45-73) % Lymph % (Auto) (20-40) % Collier % (Auto) (2-11) % Eos % (Auto) (0-4) % Baso % (Auto) (0-2) % Lymph # (Auto) (1.2-4.9) X10*3/uL Collier # (Auto) (0.1-1.2) X10*3/uL Eos # (Auto) (0.0-0.4) X10*3/uL Baso # (Auto) (0.0-0.2) X10*3/uL Abs Immat Gran (auto) (0.00-0.03) X10*3/uL Absolute Neuts (auto) (2.0-8.3) x10*3/uL Absolute Nucleated RBC (0.0-0.012) X10*3/uL Nucleated RBC % (auto) (0.0-0.2) /100WBC Sodium (135-145) mmol/L Potassium (3.3-5.1) mmol/L Chloride (96-108) mmol/L Carbon Dioxide (22-29) mmol/L Anion Gap (12-20) BUN (9-16) mg/dL Creatinine (0.5-1.4) mg/dL Estim Creat Clear Calc Estimated GFR Random Glucose (60-115) mg/dL Calcium (8.4-10.2) mg/dL Magnesium (1.6-2.6) mg/dL Total Bilirubin (0.0-1.0) mg/dL AST (5-31) U/L ALT (0-31) U/L Alkaline Phosphatase (39-117) U/L Troponin I High Sens (<3.5-17.0) ng/L Total Protein (6.5-8.0) g/dL Albumin (3.5-5.0) g/dL COVID-19 (COLLEEN) Negative (Negative) COVID-19 Clin Com See Note Imaging Data Chest x-ray: Attestation: I personally reviewed and interpreted this imaging study as follows: My impression: No acute process. Radiologist's impression: EXAMINATION: XR CHEST CLINICAL INFORMATION: Chest pain. COMPARISON: None TECHNIQUE: 2 views of the chest were obtained. FINDINGS: No significant abnormality is noted involving the heart, lungs, mediastinum, bony thorax or soft tissues. XR/XR chest 2V IMPRESSION: No acute cardiopulmonary process. Dictated By: Clive Butcher MD Signed By: Electronically signed by Clive Butcher MD 01/26/22 1137 ECG Data ECG #1: Attestation: I personally reviewed and interpreted this ECG as follows: ECG interpretation date: 01/26/22 ECG interpretation time: 09:30 Prior ECG tracings: available for review Interpretation: Vent. Rate: 077 BPM ? ? Atrial Rate: 077 BPM P-R Int: 130 ms? QRS Dur: 124 ms QT Int: 404 ms ? ? ? P-R-T Axes: 009 002 -17 degrees QTc Int: 457 ms ? Normal sinus rhythm Non-specific intra-ventricular conduction delay T wave abnormality, consider inferior ischemia Abnormal ECG When compared with ECG of 08-MAY-2017 09:41, QRS duration has increased T wave inversion now evident in Inferior leads ? Electronically Signed By:MARIMAR ROSADO DOFACP Dictated By: Marimar Rosado DO Signed By: Electronically signed by Marimar Rosado DO 01/26/22 1147 Discharge Plan Discharge Clinical Impression: Chest pain Patient Disposition: Home, Self-Care Instructions: Chest Pain (DC) Additional Instructions: Follow up with your primary care provider. Return to the emergency department immediately if your symptoms worsen or if you develop any dizziness, shortness of breath, difficulty breathing, chest pain, blurry vision, loss of vision, nausea, vomiting, abdominal pain, fever, chills, back pain, or any other complaints. Prescriptions: No Action metformin 500 mg tablet 500 mg PO BID 90 Days Qty: 180 2RF semaglutide 1 mg/dose (2 mg/1.5 mL) pen injector 2 mg subcut QWEEK 90 Days Qty: 19.5 3RF Ozempic 1 mg/dose (2 mg/1.5 mL) pen injector 2 mg subcut QWEEK 90 Days Qty: 12 2RF (DME) OneTouch Ultra Test Strip See Rx Instructions .Route Qty: 100 11RF Rx Instructions: test twice a day blood sugar diagnostic Strip 1 strip miscellaneous BID 90 Days Qty: 100 11RF gabapentin 100 mg capsule See Rx Instructions PO BEDTIME MDD 3caps 30 Days Qty: 90 6RF Rx Instructions: 1- 3 caps orally bedtime; 1-3 caps at bedtime lorazepam 1 mg tablet 1 mg PO TID PRN (Reason: anxiety) Qty: 30 2RF losartan 100 mg tablet 100 mg PO BEDTIME multivitamin Tablet 1 tab PO DAILY vitamin B complex Capsule 1 cap PO DAILY acetaminophen [Tylenol] 325 mg tablet 325 mg PO QID PRN (Reason: Pain) naproxen 250 mg tablet 250 mg PO BID PRN (Reason: Pain) omega-3 fatty acids 1,000 mg capsule 1,000 mg PO DAILY fexofenadine [Jesusita Allergy] 180 mg tablet 180 mg PO DAILY cranberry 400 mg capsule 400 mg PO DAILY Rx Instructions: administer with a meal aspirin [Adult Aspirin Regimen] 81 mg tablet,delayed release (DR/EC) 81 mg PO DAILY meclizine 25 mg tablet 25 mg PO TID PRN (Reason: Vertigo) famotidine 20 mg tablet 20 mg PO BEDTIME ascorbic acid (vitamin C) 500 mg capsule 500 mg PO DAILY simvastatin 5 mg tablet 5 mg PO DAILY 90 Days Qty: 90 2RF Referrals: Deon Crain MD [Primary Care Provider] - Interventions: ED Discharge Assessment Last Done: 01/26/22 11:57 Discharge Date/Time: 01/26/22 11:57 Print Language: Tamazight
[2022-01-26 09:46] VITALS: BP 122/67; PULSE 81; RESP 10; TEMP 36.6; O2SAT 98
[2022-01-26 09:55] VITALS: BP 126/63; PULSE 80; RESP 12; TEMP 37; O2SAT 97
[2022-01-26 10:25] LABS: MANUAL DIFF FLAG NO
[2022-01-26 10:31] LABS: Basophils Absolute Auto 0.1 X10*3/uL (0.0-0.2); Basophils Percent Auto 0.6 % (0-2); Eosinophils Absolute Auto 0.2 X10*3/uL (0.0-0.4); Eosinophils Percent Auto 2.3 % (0-4); Hematocrit 43.9 % (37.0-47.0); Hemoglobin 14.9 g/dl (12.0-16.0); Imm Gran Abs Auto 0.04 X10*3/uL (0.00-0.03); Imm Gran Pct Auto 0.5 % (0.0-0.4); Lymphocytes Absolute Auto 2.5 X10*3/uL (1.2-4.9); Lymphocytes Percent Auto 28.7 % (20-40); Mean Corpuscular HGB Conc 33.9 g/dl (31.0-35.0); Mean Corpuscular Hemoglobin 31.5 pg (27.0-33.0); Mean Corpuscular Volume 92.8 fL (80.0-98.0); Mean Platelet Volume 8.8 fL (9.4-12.3); Monocytes Absolute Auto 0.5 X10*3/uL (0.1-1.2); Monocytes Percent Auto 6.1 % (2-11); Neutrophils Absolute Auto 5.3 x10*3/uL (2.0-8.3); Neutrophils Percent Auto 61.8 % (45-73); Platelet Count 256 X10*3/uL (160-400); Red Blood Count 4.73 X10*6/uL (4.20-5.50); Red Cell Distribution Width 11.9 % (11.0-16.0); White Blood Count 8.6 X10*3/uL (4.8-10.8)
[2022-01-26 10:47] LABS: COVID-19 Test Negative (Negative); IDNOW Serial# 16C4AD1C
[2022-01-26 10:57] LABS: Alanine Aminotransferase 20 U/L (0-31); Albumin Level 4.1 g/dL (3.5-5.0); Alkaline Phosphatase 71 U/L (39-117); Anion Gap 17 (12-20); Aspartate Amino Transferase 20 U/L (5-31); Bilirubin Total 0.4 mg/dL (0.0-1.0); Blood Urea Nitrogen 12 mg/dL (9-16); Calcium 9.4 mg/dL (8.4-10.2); Carbon Dioxide 25 mmol/L (22-29); Chloride 105 mmol/L (96-108); Creatinine Clr Calc Pharmacy 78.4; Estimated Glomerular Filt Rate > 60; Glucose Random 110 mg/dL (60-115); Magnesium 1.8 mg/dL (1.6-2.6); Potassium 4.5 mmol/L (3.3-5.1); Sodium 142 mmol/L (135-145); Total Protein 6.9 g/dL (6.5-8.0)
[2022-01-26 10:58] LABS: Troponin-I High Sensitivity < 3.5 ng/L (<3.5-17.0)
[2022-01-26 11:25] VITALS: BP 134/72; PULSE 79; RESP 12; TEMP 36.9; O2SAT 96
== END 2022-01-26 11:57 | disposition home or self-care (01) ==
PROVIDERS: Physician Assistant Medical; Emergency Provider Emergency Medicine Emergency Medical Services; PCP Internal Medicine
DX: R07.89 Other chest pain (principal); Z20.822 Contact with and (suspected) exposure to COVID-19; Z79.899 Other long term (current) drug therapy; Z87.891 Personal history of nicotine dependence
CPT/HCPCS: 71046; 80053; 83735; 84484; 85025; 87635; 93005; 99283; 99284

== ENCOUNTER 2022-01-27 07:20 | Day surgery (SDC) | payer MEDICARE, SELFPAY ==
[2022-01-24 09:45] VITALS: BMI 35.4
--- NOTE | 2022-01-26 09:10 | P.CONAN_ITS ---
Documented by User: Rosalina Tipton NP 01/26/22 09:14 HPI - Anesthesia Eval Consult details Narrative: 71yo F for Colonoscopy Angioedema Type 3 PMFSH Active Problems Active Problems: All Active Problems (Updated 01/24/22 @ 09:47 by Genny Garrison RN) Shoulder pain, right (Acute) Restless legs syndrome (Acute) Screening for colon cancer (Acute) Post-menopausal (Acute) Adult general medical exam (Acute) Pre-op evaluation (Acute) Palpitations (Acute) Major depression (Acute) GERD (gastroesophageal reflux disease) (Acute) Anxiety (Acute) Hypertension (Acute) Angioedema (Acute) Hypercholesteremia (Acute) Obstructive sleep apnea (Acute) Obesity (BMI 30-39.9) (Acute) Type 2 diabetes mellitus with hyperglycemia (Acute) Past Medical History Medical History Angioedema Anxiety Basal cell carcinoma (BCC) in situ of skin COVID-19 vaccine series completed Diverticular disease GERD (gastroesophageal reflux disease) Hypercholesteremia Hypertension Obesity (BMI 30-39.9) Obstructive sleep apnea Polymyalgia rheumatica RBBB (right bundle branch block) Type 2 diabetes mellitus with hyperglycemia Family History Family History Father Prostate cancer Acute CVA (cerebrovascular accident) Mother Uterine cancer COPD (chronic obstructive pulmonary disease) Sister Melanoma Brother Melanoma Paternal Grandfather Acute CVA (cerebrovascular accident) Paternal Aunt Breast cancer Family history of problems with anesthesia: No Surgical History Surgical History History of arthroplasty of right knee History of cholecystectomy History of colonoscopy Hx of appendectomy Hx of cataract extraction S/P ADRIÁN-BSO History of Problems with Anesthesia: No Social History Social History Housing: House Are you a primary home health care social worker to a significant other at home: No Do you presently have visiting nurse or other home services: No Alcohol intake: never Patient Tobacco Use Status: Former Tobacco user Quit Date: 1975 Tobacco use type: Cigarette e-Cigarette/Vaping Use: Never Used Second Hand Smoke Exposure: No Use of substances other than those prescribed or required for medical reasons: No Are you DNR?: No Advance Directives: Yes Advance Directives on File: Yes Advance Directives Date on File: 04/12/21 Current occupational status: employed Cognitive needs: No Hearing needs: No Vision needs: Yes Meds Allergies Allergy/AdvReac Type Severity Reaction Status Date / Time cabergoline [CABERGOLINE] Allergy Severe ANGIOEDEMA Verified 12/21/21 09:19 lisinopril [LISINOPRIL] Allergy Severe ANGIOEDEMA Verified 12/21/21 09:19 empagliflozin [Jardiance] Allergy Intermediate skin Verified 12/21/21 09:19 infection Home Medications Medication Instructions Recorded Confirmed Last Taken Type acetaminophen 325 mg tablet 325 mg PO QID PRN Pain 03/10/20 01/24/22 Unknown History (Tylenol) aspirin 81 mg tablet,delayed 81 mg PO DAILY 03/10/20 01/24/22 Unknown History release (Adult Aspirin Regimen) cranberry 400 mg capsule 400 mg PO DAILY 03/10/20 07/07/21 Unknown History famotidine 20 mg tablet 20 mg PO BEDTIME 03/10/20 01/24/22 Unknown History fexofenadine 180 mg tablet 180 mg PO DAILY 03/10/20 01/24/22 Unknown History (Jesusita Allergy) meclizine 25 mg tablet 25 mg PO TID PRN Vertigo 03/10/20 07/07/21 Unknown History multivitamin 1 tab PO DAILY 03/10/20 01/24/22 Unknown History naproxen 250 mg tablet 250 mg PO BID PRN Pain 03/10/20 01/24/22 Unknown History omega-3 fatty acids 1,000 mg 1,000 mg PO DAILY 03/10/20 01/24/22 Unknown History capsule vitamin B complex 1 cap PO DAILY 03/10/20 07/07/21 Unknown History ascorbic acid (vitamin C) 500 mg 500 mg PO DAILY 03/25/21 07/07/21 Unknown History capsule losartan 100 mg tablet 100 mg PO BEDTIME 04/04/21 01/24/22 Unknown History Exam Exam Date and Time: January 26, 2022 0910 Height,Weight and Vital Signs: Height 5 ft 3.5 in Weight 92.079 kg Assessment and Plan Assessment Anesthesia Assessment: Chart Reviewed Final Anesthetic Review Family History of Problems with Anesthesia: No History of Problems with Anesthesia: No Documented by User: Maru Mendez MD 01/27/22 10:15 HPI - Anesthesia Eval Consult details Narrative: 71yo F for Colonoscopy. Seen in ER yesterday with c/o chest pain. EKG ?inferior ischemia. H/o RBBB. Troponin negative. Chest pain thought by ER to be related to GERD. Some chest pain this morning. Associated with burping. Has since resolved. (Most episodes of CP are in the morning). Repeat EKG this morning ST. RBBB. Advised patient to follow up with PCP for possible cardiology referral. Patient agrees with plan. Will proceed with colonoscopy Angioedema Type 3 PMFSH Past Medical History Medical History Angioedema Anxiety Basal cell carcinoma (BCC) in situ of skin COVID-19 vaccine series completed Diverticular disease GERD (gastroesophageal reflux disease) Hypercholesteremia Hypertension Obesity (BMI 30-39.9) Obstructive sleep apnea Polymyalgia rheumatica RBBB (right bundle branch block) Type 2 diabetes mellitus with hyperglycemia Family History Family History Father Prostate cancer Acute CVA (cerebrovascular accident) Mother Uterine cancer COPD (chronic obstructive pulmonary disease) Sister Melanoma Brother Melanoma Paternal Grandfather Acute CVA (cerebrovascular accident) Paternal Aunt Breast cancer Surgical History Surgical History History of arthroplasty of right knee History of cholecystectomy History of colonoscopy Hx of appendectomy Hx of cataract extraction S/P ADRIÁN-BSO Social History Social History Housing: House Are you a primary home health care social worker to a significant other at home: No Do you presently have visiting nurse or other home services: No Alcohol intake: never Patient Tobacco Use Status: Former Tobacco user Quit Date: 1975 Tobacco use type: Cigarette e-Cigarette/Vaping Use: Never Used Second Hand Smoke Exposure: No Use of substances other than those prescribed or required for medical reasons: No Are you DNR?: No Advance Directives: Yes Advance Directives on File: Yes Advance Directives Date on File: 04/12/21 Current occupational status: employed Cognitive needs: No Hearing needs: No Vision needs: Yes Meds Allergies Allergy/AdvReac Type Severity Reaction Status Date / Time cabergoline [CABERGOLINE] Allergy Severe ANGIOEDEMA Verified 12/21/21 09:19 lisinopril [LISINOPRIL] Allergy Severe ANGIOEDEMA Verified 12/21/21 09:19 empagliflozin [Jardiance] Allergy Intermediate skin Verified 12/21/21 09:19 infection Home Medications Medication Instructions Recorded Confirmed Last Taken Type acetaminophen 325 mg tablet 325 mg PO QID PRN Pain 03/10/20 01/24/22 Unknown History (Tylenol) aspirin 81 mg tablet,delayed 81 mg PO DAILY 03/10/20 01/24/22 Unknown History release (Adult Aspirin Regimen) cranberry 400 mg capsule 400 mg PO DAILY 03/10/20 07/07/21 Unknown History famotidine 20 mg tablet 20 mg PO BEDTIME 03/10/20 01/24/22 Unknown History fexofenadine 180 mg tablet 180 mg PO DAILY 03/10/20 01/24/22 Unknown History (Jesusita Allergy) meclizine 25 mg tablet 25 mg PO TID PRN Vertigo 03/10/20 07/07/21 Unknown History multivitamin 1 tab PO DAILY 03/10/20 01/24/22 Unknown History naproxen 250 mg tablet 250 mg PO BID PRN Pain 03/10/20 01/24/22 Unknown History omega-3 fatty acids 1,000 mg 1,000 mg PO DAILY 03/10/20 01/24/22 Unknown History capsule vitamin B complex 1 cap PO DAILY 03/10/20 07/07/21 Unknown History ascorbic acid (vitamin C) 500 mg 500 mg PO DAILY 03/25/21 07/07/21 Unknown History capsule losartan 100 mg tablet 100 mg PO BEDTIME 04/04/21 01/24/22 Unknown History Exam Height,Weight and Vital Signs: Height 5 ft 3.5 in Weight 92.079 kg Vital Signs Temp Pulse Resp BP Pulse Ox O2 Del Method 01/27/22 07:53 97.7 F 116 H 18 139/79 98 Room Air Pertinent Lab Results Pertinent Lab Results: Lab Results 01/27/22 Range/Units 08:00 POC Glucose 135 H (60-115) mg/dL Narrative Narrative: 01/26/22: EKG- NSR 77. Non- specific IVCD. T wave abnormality ?inferior ischemia 01/27/22: EKG- ST 107. RBBB Airway Mallampati Class: III TM Dist: >3cm Neck ROM: Full Loose/Missing/Broken Teeth: No Heart: RRR Lungs: CTAB Assessment and Plan Assessment Anesthesia Assessment: Anesthesia Plan Discussed Final Anesthetic Review NPO: Yes ASA Class: III Final Preanesthetic Review: No Changes in Pt Med Stat, Meds/Allgs Chart Reviewed, Consent Obtained/Reviewed and Anes Risks/Benef Reviewed Patient Risk: Intermediate Procedure Risk: Low Assessment/Block/Sedation in SS: Assess/Block/Sedation-SS Anesthetic Plan Anesthetic Plan: MAC: Disposition: Standard PACU
--- NOTE | 2022-01-27 | ECG_ITS ---
Test Reason : chest pain Blood Pressure : / mmHG Vent. Rate : 107 BPM Atrial Rate : 107 BPM P-R Int : 136 ms QRS Dur : 126 ms QT Int : 368 ms P-R-T Axes : 032 -04 -18 degrees QTc Int : 491 ms Sinus tachycardia Right bundle branch block Abnormal ECG When compared with ECG of 26-JAN-2022 09:30, Right bundle branch block has replaced Non-specific intra-ventricular conduction delay Referred By: Maru Mendez Electronically Signed By:MARIMAR ALVAREZ
[2022-01-27 07:53] VITALS: BP 139/79; PULSE 116; RESP 18; TEMP 36.5; O2SAT 98
[2022-01-27 08:03] LABS: Glucose, Whole Blood 135 mg/dL (60-115)
[2022-01-27] MEDS: Lactated Ringers 1,000 ML 100 ML IVCONT (08:08)
--- NOTE | 2022-01-27 08:20 | PC.NURSE ---
When questioned for current pain level, patient states I do have some here and gestured to mid chest area I wont say chest pain because I went to the ER yesterday for chest odom and they cleared me, I think its GERD Patient in 110s-120s HR today, ?v changes to rhythm compared to yesterdays EKG. Dr Mendez aware, new 12 Lead EKG ordered.
--- NOTE | 2022-01-27 08:40 | P.HPSUR_ITS ---
Pre-Procedural Eval Section A Date of Service: 01/27/22 Section B Chief Complaint: screening Details of Present Illness: see H&P no changes Relevant Family History (Specify if Yes): No Relevant Social History: None Present Medications: None Medical History: No relevant PMH History of Previous Operations: No relevant previous surgery Allergies: Allergies Allergy/AdvReac Type Severity Reaction Status Date / Time cabergoline [CABERGOLINE] Allergy Severe ANGIOEDEMA Verified 12/21/21 09:19 lisinopril [LISINOPRIL] Allergy Severe ANGIOEDEMA Verified 12/21/21 09:19 empagliflozin [Jardiance] Allergy Intermediate skin Verified 12/21/21 09:19 infection Review of Systems Sugical H&P ROS: Negative: Constitution, Cardiovascular, Respiratory, Neurological, Psychiatric, Hem-Onc, Allergic/Immunologic, Gastrointestinal, Genitourinary, Musculoskeletal, Integumentary, Endocrine and Eyes/Ears/Nose/Throat Exam Surgical H&P Exam: Normal: HEENT, Normal: Heart, Normal: Lungs, Normal: Extr emities, Normal: Abdomen, Normal: Skin and Normal: Neurological Plan Diagnosis/Plan: Unchanged I have reviewed the history and physical and performed a pertinent physical examination on my patient. No changes have occurred unless specified.
[2022-01-27 09:18] VITALS: BP 115/62; PULSE 83; RESP 18; TEMP 37.3; O2SAT 95
--- NOTE | 2022-01-27 09:18 | PM.OP ---
Brief Operative Note Date of Service: 01/27/22 Pre-op diagnosis: screening Post-op diagnosis: same Procedure: colonoscopy Surgeon: Abhi Pedroza Anesthesia: MAC Was an Immigration Services Officer used for this Procedure?: No Estimated blood loss (mL): 2 Pathology: other Condition: stable Disposition: PACU
[2022-01-27 09:32] VITALS: BP 123/75; PULSE 83; RESP 16; TEMP 36.6; O2SAT 95
--- NOTE | 2022-01-27 22:11 | OP_ITS ---
SURGEON: Abhi Pedroza MD INDICATIONS: Colon cancer screening. PREOPERATIVE DIAGNOSIS: POSTOPERATIVE DIAGNOSIS: PROCEDURE PERFORMED: ESTIMATED BLOOD LOSS: COMPLICATIONS: ANESTHESIA: ASSISTANTS: SPECIMENS: PROCEDURE: Colonoscopy to the terminal ileum and biopsy. 01/27/22. MEDICATIONS: Monitored anesthesia care. DESCRIPTION OF PROCEDURE: History and physical performed. The risks and benefits of the procedure were explained to the patient. Informed consent was obtained. The patient was placed in the left lateral decubitus position. A digital rectal exam was performed and was found to be normal. The Olympus pediatric video colonoscope was introduced into the rectum and advanced to the cecum without difficulty. The cecum was identified by transillumination, palpation, and identification of ileocecal valve. Examination was performed. The scope was removed. She tolerated the procedure well and was taken to recovery in stable condition. FINDINGS: The terminal ileum was normal. The visualized colonic mucosa was normal. The quality of the prep was good. There was mild sigmoid diverticulosis with at least 1 inverted diverticulum. At 30 cm from the anal verge, was a less than 5 mm sessile polyp, which was removed with biopsy forceps. No other polyps were identified. Retroflexed examination was normal. Random biopsies were obtained from the sigmoid, because of the patient's history of intermittent episodic diarrhea. IMPRESSION: Colon polyp. RECOMMENDATIONS: Follow up the biopsy results. MD GEORGE Lopez/ENE / [id number] MTDD
== END 2022-01-27 10:15 | disposition home or self-care (01) ==
PROVIDERS: PCP Internal Medicine; Visit Provider Internal Medicine Gastroenterology
PROC: 0DJD8ZZ Inspection of Lower Intestinal Tract, Via Natural or Artificial Opening Endoscopic (ICD-10-PCS; CPT 45378; principal; 2022-01-27 08:40)
DX: Z12.11 Encounter for screening for malignant neoplasm of colon (principal); K63.5 Polyp of colon; K57.30 Diverticulosis of large intestine without perforation or abscess without bleeding; R19.7 Diarrhea, unspecified; G47.33 Obstructive sleep apnea (adult) (pediatric); I10 Essential (primary) hypertension; E78.00 Pure hypercholesterolemia, unspecified; G62.9 Polyneuropathy, unspecified; T78.3XXA Angioneurotic edema, initial encounter; E11.9 Type 2 diabetes mellitus without complications; Z79.84 Long term (current) use of oral hypoglycemic drugs; Z79.82 Long term (current) use of aspirin; Z99.89 Dependence on other enabling machines and devices; Z90.49 Acquired absence of other specified parts of digestive tract; Z87.891 Personal history of nicotine dependence
CPT/HCPCS: 45380; 82947; 88305; 93005

== ENCOUNTER 2022-01-31 11:57 | Outpatient (REF) | payer MEDICARE, SELFPAY ==
[2022-01-31 12:29] LABS: MANUAL DIFF FLAG NO
[2022-01-31 13:21] LABS: Basophils Absolute Auto 0.1 X10*3/uL (0.0-0.2); Basophils Percent Auto 0.5 % (0-2); Eosinophils Absolute Auto 0.2 X10*3/uL (0.0-0.4); Eosinophils Percent Auto 2.2 % (0-4); Hematocrit 43.9 % (37.0-47.0); Imm Gran Abs Auto 0.06 X10*3/uL (0.00-0.03); Imm Gran Pct Auto 0.6 % (0.0-0.4); Lymphocytes Absolute Auto 2.8 X10*3/uL (1.2-4.9); Lymphocytes Percent Auto 26.9 % (20-40); Mean Corpuscular HGB Conc 34.2 g/dl (31.0-35.0); Mean Corpuscular Hemoglobin 31.1 pg (27.0-33.0); Mean Corpuscular Volume 91.1 fL (80.0-98.0); Mean Platelet Volume 9.3 fL (9.4-12.3); Monocytes Absolute Auto 0.7 X10*3/uL (0.1-1.2); Monocytes Percent Auto 6.4 % (2-11); Neutrophils Absolute Auto 6.7 x10*3/uL (2.0-8.3); Neutrophils Percent Auto 63.4 % (45-73); Platelet Count 278 X10*3/uL (160-400); Red Blood Count 4.82 X10*6/uL (4.20-5.50); Red Cell Distribution Width 11.9 % (11.0-16.0); White Blood Count 10.5 X10*3/uL (4.8-10.8)
[2022-01-31 13:38] LABS: Estimated Average Glucose 120 mg/dL; Hemoglobin A1c % 5.8 %
[2022-01-31 13:43] LABS: Creatinine Urine 30.83 mg/dL; Microalbumin Urine < 5.0 mg/L
[2022-01-31 13:46] LABS: Troponin-I High Sensitivity < 3.5 ng/L (<3.5-17.0)
[2022-01-31 13:54] LABS: Alanine Aminotransferase 22 U/L (0-31); Albumin Level 4.3 g/dL (3.5-5.0); Alkaline Phosphatase 78 U/L (39-117); Anion Gap 16 (12-20); Aspartate Amino Transferase 19 U/L (5-31); Bilirubin Total 0.4 mg/dL (0.0-1.0); Blood Urea Nitrogen 10 mg/dL (9-16); Calcium 10.4 mg/dL (8.4-10.2); Carbon Dioxide 30 mmol/L (22-29); Chloride 101 mmol/L (96-108); Cholesterol 152 mg/dL; Estimated Glomerular Filt Rate > 60; Glucose Random 94 mg/dL (60-115); HDL Cholesterol 55 mg/dL; LDL Cholesterol Calculated 72 mg/dl; Potassium 4.8 mmol/L (3.3-5.1); Sodium 142 mmol/L (135-145); Triglycerides 129 mg/dL
[2022-01-31 14:04] LABS: Free T4 (Free Thyroxine) 1.14 ng/dL (0.71-1.85); Thyroid Stimulating Hormone 0.91 uIU/mL (0.32-4.0); Vitamin D 25-OH Total 54.5 ng/mL (>30)
[2022-01-31 14:25] LABS: Folate > 20.0 ng/mL (> or = 4.0); Vitamin B12 752 pg/mL (200-900)
== END 2022-01-31 11:58 | disposition home or self-care (01) ==
LOC: HO.LAB 11:57
PROVIDERS: PCP Internal Medicine; Visit Provider Internal Medicine
DX: R07.2 Precordial pain (principal); I10 Essential (primary) hypertension; E78.00 Pure hypercholesterolemia, unspecified; G47.33 Obstructive sleep apnea (adult) (pediatric)
CPT/HCPCS: 36415; 80053; 80061; 82043; 82306; 82607; 82746; 83036; 84439; 84443; 84484; 85025; 93005; 99202

== ENCOUNTER → 2022-02-01 14:42 | Outpatient (REF) | payer MEDICARE, SELFPAY ==
--- NOTE | 2022-02-01 14:44 | CA_ITS ---
Transthoracic Echocardiogram Patient (Last, First, Middle): Beckie Hardy P Gender: Female Date of : 1950 Age: 71 Procedure Date: 02/01/2022 Procedure Type: Transthoracic Echocardiogram Location: OP Height: 157.48 cm Weight: 88.45 kg BSA: 1.89 m2 Heart Rate: bpm BP: 136 / 82 mmHg Floors Buffer: SONAL Referring MD: Edgar Luz MD Executive Assistant To General Counsel: Zan Barrow MD Symptoms: R07.2 - Precordial pain Study Quality: Adequate ECG Rhythm: Sinus Conclusions: - 1. Normal LV systolic function with grade 1 diastolic dysfunction 2. Normal cardiac valvular Doppler 3. Normal RV systolic pressure 4. No gross pericardial effusion Findings Left Ventricle Normal left ventricular size, thickness, and systolic function. The visually estimated ejection fraction is between 60-65%. Spectral Doppler is indicative of an impaired relaxation filling pattern. E/E prime ratio is <8, consistent with normal filling pressures. Evidence suggests grade I (mild) diastolic dysfunction. Right Ventricle Normal right ventricular cavity size and systolic function. Atria The left atrium is likely dilated. There is no evidence of interatrial shunt. The right atrium is normal in size. Aortic Valve The aortic valve structure and function is likely normal. There is no aortic valve stenosis. There is no aortic valve regurgitation. Mitral Valve Likely normal mitral valve structure and function. There is trace mitral valve regurgitation. There is no mitral valve stenosis. Pulmonic Valve The pulmonic valve was not well visualized. Tricuspid Valve Likely normal tricuspid valve structure and function. There is trace tricuspid valve regurgitation. The right ventricular systolic pressure is normal. The right ventricular systolic pressure is 24 mmHg. Normal right atrial pressure. There is no evidence of pulmonary hypertension. Great Vessels All visible segments of the aorta are normal in size. The pulmonary artery was not well visualized. Venous The inferior vena cava is normal in size and collapses greater than 50% with inspiration. Pericardium/Pleural There is no evidence of pericardial effusion. Prior Study Comparison No prior study available for comparison. Measurements 2D Linear Measurements IVSd: 0.88 0.6-0.9/0.6-1.0 cm LVIDd: 4.51 3.9-5.3/4.2-5.9 cm LVIDd Index: 2.39 2.4-3.2/2.2-3.1 cm/m2 LVIDs: 2.96 2.0-3.6 cm LVPWd: 0.73 0.7-1.1 cm LA Diam: 3.90 2.7-3.8/3.0-4.0 cm LAIDs Index: 2.06 1.5-2.3 cm/m2 LV Mass: 142.75 67-162/88-224 g LV Mass Index: 75.53 43-95/49-115 g/m2 LVOT Diam: 2.20 3.0+(-)1.3 cm 2D Systolic Function EF 4C: 64.60 >55% EF 2C: 64.50 >55% EF BiP: 64.20 >55% Mitral Valve MV Pk E: 0.69 MV PK A: 0.68 MV Decel Time: 182.00 E/A: 1.00 E'Lateral: 7.40 E'Medial: 7.18 E/E' Med: 9.60 E/E' Lat: 9.30 PHT: 53.00 MVA PHT: 4.15 Decel [place]: 3.77 Aortic Valve AoV Pk Kem: 1.39 AoV Mn Kem: 0.96 AoV VTI: 0.27 AoV Pk Grad: 8.00 Aov Mn Grad: 4.00 LIANNE Cont.VTI: 2.98 LVOT LVOT Pk Kem: 1.12 LVOT Mn Kem: 0.73 LVOT VTI: 0.21 LVOT Pk Grad: 5.00 LVOT Mn Grad: 3.00 LVOT Diam: 2.20 LVOT Area: 3.80 Diastolic Function MV Pk E: 0.69 MV Pk A: 0.68 E/A: 1.00 E'Medial: 7.18 E/E' Med: 9.60 E' Laterial: 7.40 E/E' Lat: 9.30 Right Ventricle TAPSE (mm): 21.40 TVS' Kem: 10.90 Tricuspid Valve TR Pk Kem: 2.29 TR Pk Grad: 21.00 RA Press: 3.00 RVSP: 24.00 Great Vessels Aorta Sinus of Valsalva: 3.20 2.0-3.5 cm Ao Asc: 3.90 2.1-3.4 cm Pulmonary Veins Pulm Vein S/D 1.20 Pulmonary Valve PV Pk Kem: 0.97 Peak PV Grad: 4.00 Updated in Other Vendor System with Status of Final Zan Barrow MD electronically signed on 02/01/2022 6:09:35 PM with status of Final
== END ==
LOC: HO.CARD 14:42
PROVIDERS: PCP Internal Medicine; Visit Provider Internal Medicine
DX: R07.2 Precordial pain (principal)
CPT/HCPCS: 93306

== ENCOUNTER → 2022-02-03 07:37 | Outpatient (REF) | payer MEDICARE, SELFPAY ==
--- NOTE | ~2022-02-03 | NM_ITS ---
Myocardial perfusion study Indication: Precordial chest pain Technique: The patient was brought in for a Lexiscan perfusion study on 02/03/2022. Patient performed low-level exercise and was injected 0.4 mg of Lexiscan intravenously. Within a minute of injection, 25 mCi of sestamibi was given intravenously. Images were obtained using the SPECT gamma camera interlaced with the gating device. Images were obtained in supine position. Resting perfusion study was performed on 02/06/2022. Patient was administered 25 mCi of sestamibi intravenously at rest. Images were then obtained in supine position. Images obtained with and without CT attenuation. Total DLP 135 mGy-cm. Images were processed with the software and compared side to side in short axis, horizontal long axis and vertical long axis views. Findings: The stress perfusion study showed non attenuated images show normal uptake of radiotracer in all segments of LV myocardium. Attenuation corrected images show mildly reduced uptake in the apex of the LV myocardium.. The gated study shows normal LV systolic function with calculated LVEF of 68%. LV cavity is normal in size. The gated study shows normal systolic wall thickening and contraction of segments. Resting study shows non attenuated images show uptake in the apex of the LV myocardium. Remainder of the LV myocardium is normally perfused. Attenuation corrected images show moderately reduced uptake in the apex of the LV myocardium.. Gating at rest reveals normal systolic wall motion with ejection fraction at 63%. The findings are consistent with normal myocardial perfusion. AK/AK cardiolite stress test Impression: 1. Myocardial perfusion imaging study shows normal myocardial perfusion 2. Gated LVEF is 68% 3. Transient ischemic dilatation not present EKG is Nondiagnostic for ischemia
--- NOTE | 2022-02-03 07:41 | CA_ITS ---
Acquisition Time: 2022-02-03 08:28:45 Total Exercise Time: 00:02:00 Test Indications: RBBB Medications: SEE CHART Protocol: LEXISCAN Max HR: 139 BPM 93% of Pred: 149 BPM Max BP: 154/100 mmHG Max Work Load: 1.0 METS Pharmacological stress test with Lexiscan injection, while sitting and kicking her legs, without anginal symptoms, without arrythmia, with normotensive response to injection, with nondiagnostic EKG for ischemia. In recovery she was treated with Aminophylline 75mg IVP to reverse Lexiscan. Nuclear images pending. Test reviewed [facility] Dr Barrow Referred By: Edgar Luz Overread By: BREANN ALFARO
== END ==
LOC: HO.CARD 07:37
PROVIDERS: PCP Internal Medicine; Visit Provider Internal Medicine
DX: R07.2 Precordial pain (principal)
CPT/HCPCS: 78452; 93017; A9500; J0280; J2785

== ENCOUNTER → 2022-02-13 10:13 | Outpatient (BNVA) | payer MEDICARE, SELFPAY | PROVIDERS: PCP Internal Medicine; Referring Provider Internal Medicine; Visit Provider Internal Medicine | DX: R07.2 Precordial pain (principal); E11.65 Type 2 diabetes mellitus with hyperglycemia; I10 Essential (primary) hypertension; E78.00 Pure hypercholesterolemia, unspecified; G47.33 Obstructive sleep apnea (adult) (pediatric) | CPT/HCPCS: 99212 ==

== ENCOUNTER → 2022-06-27 09:38 | Outpatient (BNVA) | payer MEDICARE, SELFPAY | PROVIDERS: PCP Internal Medicine; Visit Provider Nurse Practitioner Family | DX: G47.33 Obstructive sleep apnea (adult) (pediatric) (principal) | CPT/HCPCS: 99212 ==

== ENCOUNTER 2022-08-24 15:23 | Outpatient (REF) | payer MEDICARE, SELFPAY | END 2022-08-24 15:24 | disposition home or self-care (01) | LOC: HO.LAB 15:23 | PROVIDERS: PCP Internal Medicine; Visit Provider Internal Medicine Gastroenterology | DX: Z13.89 Encounter for screening for other disorder (principal) ==

== ENCOUNTER 2022-08-25 06:50 | Outpatient (REF) | payer MEDICARE, SELFPAY ==
[2022-08-25 10:14] LABS: Leukocytes Stool Qualitative NEGATIVE (NEGATIVE)
[2022-09-01 20:09] LABS: Calprotectin, Fecal 43 mcg/g
== END 2022-08-25 06:51 | disposition home or self-care (01) ==
LOC: HO.LNP 06:50
PROVIDERS: Visit Provider Internal Medicine Gastroenterology
DX: Z13.89 Encounter for screening for other disorder (principal)
CPT/HCPCS: 83993; 87177; 87209; 87507; 89055

== ENCOUNTER 2022-09-01 10:05 | Outpatient (REF) | payer MEDICARE, SELFPAY ==
[2022-09-01 14:14] LABS: Adenovirus F 40/41 Not Detected (Not Detect.); Astrovirus Not Detected (Not Detect.); Campylobacter Not Detected (Not Detect.); Cryptosporidium Not Detected (Not Detect.); Cyclospora cayetanensis Not Detected (Not Detect.); E. coli EAEC Not Detected (Not Detect.); E. coli EPEC Not Detected (Not Detect.); E. coli ETEC Not Detected (Not Detect.); E. coli STEC Not Detected (Not Detect.); Entamoeba histolytica Not Detected (Not Detect.); Giardia lamblia Not Detected (Not Detect.); Norovirus GI/GII Not Detected (Not Detect.); Plesiomonas shigelloides Not Detected (Not Detect.); Rotavirus A Not Detected (Not Detect.); Salmonella Not Detected (Not Detect.); Sapovirus Not Detected (Not Detect.); Shigella sp./EIEC Not Detected (Not Detect.); Vibrio Not Detected (Not Detect.); Vibrio Cholerae Not Detected (Not Detect.); Yersinia enterocolitica Not Detected (Not Detect.)
== END 2022-09-01 10:06 | disposition home or self-care (01) ==
LOC: HO.LNP 10:05
PROVIDERS: Visit Provider Internal Medicine Gastroenterology
DX: R19.7 Diarrhea, unspecified (principal)
CPT/HCPCS: 87507

== ENCOUNTER 2023-03-26 05:58 | Outpatient (REF) | payer MEDICARE, SELFPAY ==
[2023-03-26 06:11] LABS: MANUAL DIFF FLAG NO
[2023-03-26 07:38] LABS: Basophils Absolute Auto 0.1 X10*3/uL (0.0-0.2); Basophils Percent Auto 0.8 % (0-2); Eosinophils Absolute Auto 0.3 X10*3/uL (0.0-0.4); Eosinophils Percent Auto 3.2 % (0-4); Hematocrit 46.6 % (37.0-47.0); Hemoglobin 15.4 g/dl (12.0-16.0); Imm Gran Abs Auto 0.04 X10*3/uL (0.00-0.03); Imm Gran Pct Auto 0.4 % (0.0-0.4); Lymphocytes Absolute Auto 2.3 X10*3/uL (1.2-4.9); Lymphocytes Percent Auto 25.6 % (20-40); Mean Corpuscular Hemoglobin 31.4 pg (27.0-33.0); Mean Corpuscular Volume 95.1 fL (80.0-98.0); Mean Platelet Volume 9.3 fL (9.4-12.3); Monocytes Absolute Auto 0.6 X10*3/uL (0.1-1.2); Monocytes Percent Auto 6.6 % (2-11); Neutrophils Absolute Auto 5.7 x10*3/uL (2.0-8.3); Neutrophils Percent Auto 63.4 % (45-73); Platelet Count 262 X10*3/uL (160-400); Red Cell Distribution Width 11.9 % (11.0-16.0)
[2023-03-26 07:50] LABS: Estimated Average Glucose 117 mg/dL; Hemoglobin A1c % 5.7 % (<6.0)
[2023-03-26 08:38] LABS: Creatinine Urine 94.51 mg/dL; Microalbum/Creatinine Ratio Ur 7.4 ug/mg cr (<30)
[2023-03-26 08:38] LABS: Alanine Aminotransferase 23 U/L (0-31); Albumin Level 4.1 g/dL (3.5-5.0); Alkaline Phosphatase 90 U/L (39-117); Anion Gap 12 (12-20); Aspartate Amino Transferase 21 U/L (5-31); Bilirubin Total 0.5 mg/dL (0.0-1.0); Blood Urea Nitrogen 12 mg/dL (9-16); Calcium 10.1 mg/dL (8.4-10.2); Carbon Dioxide 30 mmol/L (22-29); Chloride 103 mmol/L (96-108); Cholesterol 176 mg/dL (<200); Estimated Glomerular Filt Rate > 60; Glucose Random 138 mg/dL (60-115); HDL Cholesterol 63 mg/dL (>40); LDL Cholesterol Calculated 99 mg/dL (<100); Potassium 5.1 mmol/L (3.3-5.1); Sodium 140 mmol/L (135-145); Total Protein 7.3 g/dL (6.5-8.0); Triglycerides 70 mg/dL (<150)
[2023-03-26 08:46] LABS: Vitamin D 25-OH Total 54.8 ng/mL (>30)
[2023-03-26 08:57] LABS: Thyroid Stimulating Hormone 2.12 uIU/mL (0.32-4.0)
[2023-03-26 09:00] LABS: Vitamin B12 654 pg/mL (200-900)
== END 2023-03-26 05:59 | disposition home or self-care (01) ==
LOC: HO.LAB 05:58
PROVIDERS: PCP Internal Medicine; Visit Provider Internal Medicine
DX: E11.65 Type 2 diabetes mellitus with hyperglycemia (principal); E78.00 Pure hypercholesterolemia, unspecified; E55.9 Vitamin D deficiency, unspecified
CPT/HCPCS: 36415; 80053; 80061; 82043; 82306; 82570; 82607; 82746; 83036; 84439; 84443; 85025

== ENCOUNTER 2023-03-30 09:22 | Outpatient (AMB) | payer MEDICARE, SELFPAY ==
--- NOTE | 2023-03-30 09:23 | A.OFFVIS_ITS ---
Intake Vital Signs 03/30/23 09:28 Height 5 ft 3 in Weight 187 lb 2 oz BMI 33.1 BP 130/70 Blood Pressure Location Lt brachial Position Sitting Pulse 74 Pulse Source Pulse Oximeter Pulse Oximetry (%) 95 Oxygen Delivery Method Room Air Intake Visit Reasons: [facility] G0439 Intake Note: Patient is here for an Annual Wellness Visit. Agricultural Extension Specialist Required: No Weather Analyst: Weather Analyst offered & declined Accompanied by: Self / Same As Patient Allergies cabergoline [CABERGOLINE] Allergy (Severe, Verified 03/30/23 09:38) ANGIOEDEMA lisinopril [LISINOPRIL] Allergy (Severe, Verified 03/30/23 09:38) ANGIOEDEMA empagliflozin [Jardiance] Allergy (Intermediate, Verified 03/30/23 09:38) skin infection Medication List - Last Reconciled 03/30/23 by NEFTALI Curran acetaminophen (Tylenol) 325 mg PO QID PRN ascorbic acid (vitamin C) 500 mg PO DAILY betamethasone valerate 0.1% 1 appl topical BID PRN blood sugar diagnostic 1 strip miscellaneous BID 90 days blood sugar diagnostic (OneTouch Ultra Test strips) test once a day cranberry 400 mg PO DAILY [Diabetic shoes and inserts As directed] famotidine 20 mg PO BID fexofenadine (Jesusita Allergy) 180 mg PO DAILY fluticasone propionate 50 mcg/actuation (Flonase Allergy Relief) 2 sprays intranasal DAILY gabapentin 100 - 300 mg (1 - 3 x 100 mg) PO BEDTIME 90 days lorazepam 1 mg PO TID PRN losartan 100 mg PO BEDTIME meclizine 25 mg PO TID PRN metformin 500 mg PO BID 90 days semaglutide 1 mg (0.75 mL) subcut QWEEK 90 days sertraline 25 mg PO DAILY simvastatin 5 mg PO DAILY 90 days vitamin B complex 1 cap PO DAILY HPI V G0439 HPI Details Patient is a 72-year-old female who presents today for subsequent wellness visit. Patient of Dr. Crain. Today we discussed patient's need for bone density screening. Mammogram normal 12/2022 with [facility]. Colonoscopy 01/2022 with hyperplastic mucosal polyp was done by Dr. Pedroza. Up-to-date with immunizations. [place] of care was reviewed with the patient and she was provided with a screening schedule. Healthcare proxy and MOLST forms on file. [facility] Medical History (Updated 03/30/23 @ 09:49 by NEFTALI Curran) Post-menopausal Medicare annual wellness visit, initial Pre-op evaluation Precordial chest pain Acute electrocardiogram changes RBBB (right bundle branch block) COVID-19 vaccine series completed Screening for colon cancer Diverticular disease Basal cell carcinoma (BCC) in situ of skin Polymyalgia rheumatica GERD (gastroesophageal reflux disease) Anxiety Hypertension Angioedema Hypercholesteremia Obstructive sleep apnea Obesity (BMI 30-39.9) Type 2 diabetes mellitus with hyperglycemia Surgical History Hx of cataract extraction History of colonoscopy History of arthroplasty of right knee Hx of appendectomy History of cholecystectomy S/P ADRIÁN-BSO Family History Father Prostate cancer Acute CVA (cerebrovascular accident) Mother Uterine cancer COPD (chronic obstructive pulmonary disease) Sister Melanoma Brother Melanoma Paternal Grandfather Acute CVA (cerebrovascular accident) Paternal Aunt Breast cancer Social History Housing: House Are you a primary acute care physical therapist to a significant other at home: No Do you presently have visiting nurse or other home services: No Alcohol intake: never Patient Tobacco Use Status: Former Tobacco user Quit Date: 1975 Tobacco use type: Cigarette e-Cigarette/Vaping Use: Never Used Second Hand Smoke Exposure: No Advance Directives Date on File: 04/12/21 Current occupational status: employed Cognitive needs: No Hearing needs: No Vision needs: Yes Questionnaire Medicare Wellness Checkup [age] What gender do you identify with?: female During the past 4 weeks, how much have you been bothered by emotional problems such as feeling anxious, depressed, irritable, sad or downhearted, and blue?: moderately During the past 4 weeks, has your physical & emotional health limited your social activities with family, friends, neighbors, or groups?: slightly During the past 4 weeks, how much bodily pain have you generally had?: moderate pain During the past 4 weeks, was someone available to help you if you needed & wanted help?: yes, as much as I wanted During the past 4 weeks, what was the hardest physical activity you could do for at least 2 minutes?: heavy Can you get to places out of walking distance without help? (For eg., can you travel alone on buses, taxis or drive your car?): Yes Can you go shopping for groceries or clothes without someone's help?: Yes Can you prepare your own meals?: Yes Can you do your housework without help?: Yes Because of any health problems, do you need the help of another person with your personal care needs such as eating, bathing, dressing or getting around the house?: No Can you handle your own money without help?: Yes During the past 4 weeks, how would you rate your health in general?: very good During the past 4 weeks how have things been going for you?: pretty well Are you having difficulties driving your car?: no Do you always fasten your seat belt when you are in a car?: yes, usually During past 4 weeks, have you been bothered by the following: never: Falling or dizzy when standing up, Sexual problems?, Trouble eating well? and Problems using the telephone? and sometimes: Teeth or denture problems? and Tiredness or fatigue? Have you fallen 2 or more times in the past year?: No Are you afraid of falling?: Yes Are you a smoker?: no During the past 4 weeks, how many drinks of wine, beer, or other alcoholic beverages did you have?: no alcohol at all Do you exercise for about 20 minutes 3 or more times a week?: yes, all the time Have you been given information to help with the following?: no: Hazards in your house that might hurt you? and no: Keeping track of your medications? How often do you have trouble taking medicines the way you have been told to take them?: I always take medicine as prescribed How confident are you that you can control & manage most of your health problems?: very confident What is your race?: White Mini Mental State Exam (MMSE) Orientation What is the (year) (season) (date) (day) (month)?: year, season, date, day and month Score Score: 5 Activity of Daily Living Bathing - sponge bath, tub bath or shower: receives no assistance (gets in/out by self, if usual bathing means Dressing - getting clothes from closets & drawers, including inner/outer garments & fasteners.: gets clothes & gets completely dressed without help Toileting - going to the 'toilet room' for urine/bowel elimination & cleaning self/arranging clothes: goes to toilet room, cleans self, arranges clothes without help Transfer: moves in & out of bed and chair without help (may use support object) Continence: controls urination/bowel movements completely by self Feeding: feeds self without help Total Score: 0 Information obtained from: patient Using telephone: independent Traveling: independent Shopping: independent Preparing meals: independent Housework: independent Taking medicine: independent Managing money: independent PHQ-9 Over the last 2 weeks, how often have you been bothered by any of the following problems? 1. Little interest or pleasure in doing things: not at all 2. Feeling down, depressed, or hopeless: several days 3. Trouble falling or staying asleep, or sleeping too much: several days 4. Feeling tired or having little energy: more than half the days 5. Poor appetite or overeating: more than half the days 6. Feeling bad about yourself - or that you are a failure or have let yourself or your family down: several days 7. Trouble concentrating on things, such as reading the newspaper or watching television: not at all 8. Moving or speaking so slowly that other people could have noticed. Or the opposite - being so fidgety or restless that you have been moving around a lot more than usual: not at all 9. Thoughts that you would be better off or of hurting yourself in some way: not at all Total score: 7 Depression Screening Interpretation: Negative Depression Screening Done: Yes 42044 - PHQ-9 Billing: Yes Source: Developed by Drs. Marcos Joshi, Margret Ochoa, Jeferson Mcintosh and colleagues, with an educational aaron from [employer]. Thrive Questionnaire Date Thrive assessed: 03/30/23 I am a: Patient What is your living situation today?: I have a steady place to live Within the past 12 months, did the food you bought not last and you didn't have the money to get more?: Never true Within the past 12 months, did you worry whether your food would run out before you got money to buy more?: Never true Do you have trouble paying for medicines?: No Do you have trouble getting transportation to medical appointments?: No Do you have trouble paying your heating and electricity bill?: No Do you have trouble taking care of your child, family member or friend?: No Do you have trouble with day-to-day activities such as bathing, preparing meals, shopping, managing finances, etc.?: No Are you currently unemployed and looking for a job?: No Are you interested in more education?: No Currently or been in a relationship where the following occur: no concerns reported SUSAN-7 AMB Questionnaire SUSAN-7 Date SUSAN - 7 assessed: 10/25/22 Source: Developed by Drs. Marcos Joshi, Margret Ochoa, Jeferson Mcintosh and colleagues, with an educational aaron from [employer]. Physical Exam Vital Signs: Last Vital Signs Pulse 74 03/30/23 09:28 BP 130/70 03/30/23 09:28 Pulse Ox 95 03/30/23 09:28 Oxygen Delivery Method Room Air 03/30/23 09:28 BMI result Body Mass Index 33.1 Const General: cooperative and no acute distress Orientation/consciousness: patient oriented x3 HEENT Other: Whisper test: pass Neuro Other: Balance: Normal Get up and walk: able to Romberg: negative Tandem gait: able to General: patient oriented x3 Assessment & Plan Assessment & Plan (1) Adult general medical exam: Code(s): Z00.00 - Encounter for general adult medical examination without abnormal findings (2) Post-menopausal: Code(s): Z78.0 - Asymptomatic menopausal state (3) GERD (gastroesophageal reflux disease): Code(s): K21.9 - Gastro-esophageal reflux disease without esophagitis Qualifiers: Esophagitis presence: without esophagitis Qualified Code(s): K21.9 - Gastro-esophageal reflux disease without esophagitis Plan: Famotidine 20 mg bid Encouraged to avoid GERD trigger foods (4) Anxiety: Code(s): F41.9 - Anxiety disorder, unspecified Plan: Lorazepam 1 mg 3 times a day as needed (5) Hypertension: Code(s): I10 - Essential (primary) hypertension Qualifiers: Hypertension type: essential hypertension Qualified Code(s): I10 - Essential (primary) hypertension Plan: Losartan 100 mg at hs Reinforced low-sodium diet (6) Hypercholesteremia: Code(s): E78.00 - Pure hypercholesterolemia, unspecified Plan: Simvastatin 5 mg daily Reinforced low-cholesterol diet (7) Obstructive sleep apnea: Comment: uses CPAP Code(s): G47.33 - Obstructive sleep apnea (adult) (pediatric) Plan: On CPAP, continue to follow-up with sleep medicine (8) Obesity (BMI 30-39.9): Code(s): E66.9 - Obesity, unspecified Plan: Encouraged healthy food choices and exercise as tolerated (9) Type 2 diabetes mellitus with hyperglycemia: Code(s): E11.65 - Type 2 diabetes mellitus with hyperglycemia Qualifiers: Diabetes mellitus director equipment insulin use: without director equipment use Qualified Code(s): E11.65 - Type 2 diabetes mellitus with hyperglycemia Plan: A1c 5.7 03/2023 Continue current treatment Reinforced low-carbohydrate diet Diabetic eye exam within the last year (10) Major depression: Comment: decline referral 03/2022 Code(s): F32.9 - Major depressive disorder, single episode, unspecified Plan: Continue sertraline (11) Angioedema: Comment: idiopathic angioedema type 3 [employer] Code(s): T78.3XXA - Angioneurotic edema, initial encounter Qualifiers: Encounter type: sequela Qualified Code(s): T78.3XXS - Angioneurotic edema, sequela Plan: Stable Orders: Orders XR DEXA axial skeleton 04/23/23 Z78.0 - Asymptomatic menopausal state Quality Reporting (2019) Depression/Bipolar (159/160/161/177) PHQ-9: Total score: 7 Coding Level of Care Code Medicare Subsequent (G0439) Diagnoses Adult general medical exam Z00.00 Post-menopausal Z78.0 Gastroesophageal reflux disease without esophagitis K21.9 Esophagitis presence: without esophagitis Anxiety F41.9 Essential hypertension I10 Hypertension type: essential hypertension Hypercholesteremia E78.00 Obstructive sleep apnea G47.33 Obesity (BMI 30-39.9) E66.9 Type 2 diabetes mellitus with hyperglycemia, without long-term current use of insulin E11.65 Diabetes mellitus director equipment insulin use: without mcc use Major depression F32.9 Angioedema, sequela T78.3XXS Encounter type: sequela CPT Codes Advance Care Planning - Advance Care Planning discussion: On file, no changes ([id number]) Advance Care Planning - Time spent: 1-15 minutes, on File ([id number]) Advance Care Planning Advance Care Planning discussion: On file, no changes Date of discussion: 03/30/23 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
[2023-03-30 09:28] VITALS: BP 130/70; PULSE 74; O2SAT 95; BMI 33.1
== END 2023-03-30 09:54 | disposition home or self-care (01) ==
PROVIDERS: Visit Provider Nurse Practitioner Family
DX: Z00.00 Encounter for general adult medical examination without abnormal findings (principal); E11.65 Type 2 diabetes mellitus with hyperglycemia; Z78.0 Asymptomatic menopausal state; K21.9 Gastro-esophageal reflux disease without esophagitis; F41.9 Anxiety disorder, unspecified; I10 Essential (primary) hypertension; E78.00 Pure hypercholesterolemia, unspecified; G47.33 Obstructive sleep apnea (adult) (pediatric); E66.9 Obesity, unspecified; F32.9 Major depressive disorder, single episode, unspecified; T78.3XXS Angioneurotic edema, sequela
CPT/HCPCS: 1123F; G0439

== ENCOUNTER 2023-04-25 07:55 | Outpatient (REF) | payer MEDICARE, SELFPAY ==
--- NOTE | ~2023-04-25 | MM_ITS ---
EXAMINATION: BONE DENSITOMETRY CLINICAL INDICATION: Menopause. COMPARISON: Previous BD dated 04/21/2021 and baseline BD dated 10/08/2006. TECHNIQUE: Using a [employer] DXA System (software version: 13.1) manufactured by [employer], dual-energy x-ray absorptiometry was performed of the lumbar spine and left hip. The images are of good technical quality. Summary results are attached. FINDINGS: LEFT FEMUR, NECK: Current: BMD 0.904 g/cm2, Z-score 0.4, T-score -1.0, normal. Prior: BMD 0.973 g/cm2. Baseline: BMD 1.110 g/cm2. LEFT FEMUR, TOTAL: Current: BMD 1.078 g/cm2, Z-score 1.7, T-score 0.6, normal, 7.1% decrease from previous, 18.6% decrease from baseline (<5% change is not significant). Prior: BMD 1.160 g/cm2. Baseline: BMD 1.325 g/cm2. AP SPINE L1-L4: Current: BMD 1.371 g/cm2, Z-score 2.7, T-score 1.6, normal, 1.2% increase from previous, 12.2% increase from baseline (<5% change is not significant). Prior: BMD 1.355 g/cm2. Baseline: BMD 1.222 g/cm2. IDENTIFIED RISK FACTORS: Menopause, hysterectomy, anticonvulsant, bilateral oophorectomy. HISTORY OF FRACTURE: None listed. MEDICATIONS: None listed. MM/XR DEXA axial skeleton IMPRESSION: 1. DIAGNOSIS: Normal bone density based on the lowest T-score value of -1.0 in the lumbar spine applying World Health Organization criteria. 2. 10-YEAR FRACTURE RISK PREDICTION, FRAX: According to the guidelines, FRAX calculation should only be performed on patients in the osteopenia bone density category. Therefore, FRAX was not performed on this patient. 3. Treatment Recommendations: NOF guidelines recommend consideration for treatment in postmenopausal women and men age 50 and older presenting with the following: -A hip or vertebral (clinical or morphometric) fracture. -T-score less than or equal to -2.5 at the femoral neck or spine after appropriate evaluation to exclude secondary causes. -Low bone mass at the hip or spine and a 10-year fracture probability by FRAX of greater than or equal to 3% for hip fracture or greater than or equal to 20% for major osteoporotic fracture based on the [place] adapted WHO algorithm. 4. Other Recommendations: All treatment decisions require clinical judgment and consideration of individual patient factors, including patient preferences, comorbidities, previous drug use, risk factors not captured in the FRAX model (e.g. frailty, falls, vitamin D deficiency, increased bone turnover, interval significant decline in bone density) and possible under or overestimation of fracture risk by FRAX. FUTURE SCAN RECOMMENDATION: People with diagnosed cases of osteoporosis or at high risk for fracture should have regular bone mineral density tests. For patients eligible for Medicare, routine testing is allowed once every 2 years. The testing frequency can be increased to one year for patients who have rapidly progressing disease, those who are receiving or discontinuing medical therapy to restore bone mass, or have additional risk factors.
== END 2023-04-25 07:56 | disposition home or self-care (01) ==
LOC: HO.MAMMO 07:55
PROVIDERS: PCP Internal Medicine; Visit Provider Nurse Practitioner Family
DX: Z13.820 Encounter for screening for osteoporosis (principal); Z78.0 Asymptomatic menopausal state
CPT/HCPCS: 77080

== ENCOUNTER 2023-06-26 08:43 | Outpatient (AMB) | payer MEDICARE, SELFPAY ==
--- NOTE | 2023-06-26 08:52 | A.OFFVIS_ITS ---
Intake Vital Signs 06/26/23 08:58 Height 5 ft 2 in Weight 186 lb BMI 34.0 BP 134/80 Blood Pressure Location Lt brachial Position Sitting Pulse 79 Pulse Source Pulse Oximeter Pulse Oximetry (%) 98 Oxygen Delivery Method Room Air Intake Visit Reasons: 1 year f/u for ANKUSH - CONF Intake Note: Patient presents for 1 year f/u not getting enough deep sleep Allergies cabergoline [CABERGOLINE] Allergy (Severe, Verified 06/26/23 08:56) ANGIOEDEMA lisinopril [LISINOPRIL] Allergy (Severe, Verified 06/26/23 08:56) ANGIOEDEMA empagliflozin [Jardiance] Allergy (Intermediate, Verified 06/26/23 08:56) skin infection HPI HPI Comments History of Present Illness Details 72 y/o female patient presents for follo w up of ANKUSH on CPAP. She had oral surgery done in March, not allow to use CPAP for two weeks. The CPAP compliance and therapy (03/28/22-06/25/22) response reviewed with the patient. Pt is on APAP [id number]. Usage days 100 % and average usage hours 9 hours. The median pressure is 10.9 and the residual AHI was 1.4 Pt reports that she sleeps well with CPAP, and daytime sleepiness has improved. She walks several times a week, lost wt some, too. [facility] Medical History (Updated 03/30/23 @ 09:49 by NEFTALI Curran) Post-menopausal Medicare annual wellness visit, initial Pre-op evaluation Precordial chest pain Acute electrocardiogram changes RBBB (right bundle branch block) COVID-19 vaccine series completed Screening for colon cancer Diverticular disease Basal cell carcinoma (BCC) in situ of skin Polymyalgia rheumatica GERD (gastroesophageal reflux disease) Anxiety Hypertension Angioedema Hypercholesteremia Obstructive sleep apnea Obesity (BMI 30-39.9) Type 2 diabetes mellitus with hyperglycemia Surgical History Hx of cataract extraction History of colonoscopy History of arthroplasty of right knee Hx of appendectomy History of cholecystectomy S/P ADRIÁN-BSO Family History Father Prostate cancer Acute CVA (cerebrovascular accident) Mother Uterine cancer COPD (chronic obstructive pulmonary disease) Sister Melanoma Brother Melanoma Paternal Grandfather Acute CVA (cerebrovascular accident) Paternal Aunt Breast cancer Social History Housing: House Are you a primary out of school hours care worker to a significant other at home: No Do you presently have visiting nurse or other home services: No Alcohol intake: never Patient Tobacco Use Status: Former Tobacco user Quit Date: 1975 Tobacco use type: Cigarette e-Cigarette/Vaping Use: Never Used Second Hand Smoke Exposure: No Advance Directives Date on File: 04/12/21 Current occupational status: employed Cognitive needs: No Hearing needs: No Vision needs: Yes Review of Systems Const All systems reviewed & are unremarkable except as noted in HPI and below Physical Exam Vital Signs: Last Vital Signs Pulse 79 06/26/23 08:58 BP 134/80 06/26/23 08:58 Pulse Ox 98 06/26/23 08:58 Oxygen Delivery Method Room Air 06/26/23 08:58 BMI result Body Mass Index 34.0 Const General: cooperative, healthy appearing, comfortable and no acute distress Orientation/consciousness: patient oriented x3 HEENT Head: Yes normal to inspection Mouth: other (mallampatti grade 3) Resp Effort & Inspection: normal respiratory effort and able to speak in complete sentences Neuro General: patient oriented x3 and gait normal Cranial nerves: Yes CN's II-XII intact bilaterally Cognition (Neuro): normal cognition Motor exam (neuro): 5/5 motor strength present throughout Psych Appearance: grossly normal Mental Status: mental status grossly normal Speech and movement: Normal speech and movement present Affect: normal affect Attitude: cooperative Assessment & Plan Assessment & Plan (1) Obstructive sleep apnea: Comment: uses CPAP Code(s): G47.33 - Obstructive sleep apnea (adult) (pediatric) Plan Advised patient to continue to use APAP [id number] as patient experiences good clinical effects. Continue to do regular exercise. Clean mask and tubing regularly. Coding Level of Care Code Est Pt Level 3 (73902) Diagnoses Obstructive sleep apnea G47.33
[2023-06-26 08:58] VITALS: BP 134/80; PULSE 79; O2SAT 98; BMI 34.0
== END 2023-06-26 09:17 | disposition home or self-care (01) ==
PROVIDERS: Visit Provider Nurse Practitioner Family
DX: G47.33 Obstructive sleep apnea (adult) (pediatric) (principal)
CPT/HCPCS: 99213

== ENCOUNTER → 2023-06-26 08:43 | Outpatient (BNVA) | payer MEDICARE, SELFPAY | PROVIDERS: Visit Provider Nurse Practitioner Family | DX: G47.33 Obstructive sleep apnea (adult) (pediatric) (principal) | CPT/HCPCS: 99212 ==

== ENCOUNTER 2023-10-04 09:49 | Outpatient (AMB) | payer MEDICARE, SELFPAY ==
--- NOTE | 2023-10-04 09:58 | MHC.PC.OV ---
Vital Signs 10/04/23 09:59 Height 5 ft 2 in Weight 191 lb BMI 34.9 BP 122/70 Blood Pressure Location Lt brachial Position Sitting Pulse 70 Pulse Source Pulse Oximeter Pulse Oximetry (%) 98 Oxygen Delivery Method Room Air Intake Visit Reasons: DM Allergies cabergoline [CABERGOLINE] Allergy (Severe, Verified 10/04/23 09:59) ANGIOEDEMA lisinopril [LISINOPRIL] Allergy (Severe, Verified 10/04/23 09:59) ANGIOEDEMA empagliflozin [Jardiance] Allergy (Intermediate, Verified 10/04/23 09:59) skin infection Medication List - Last Reconciled 10/04/23 by Deon Crain MD acetaminophen (Tylenol) 325 mg PO QID PRN ascorbic acid (vitamin C) 500 mg PO DAILY betamethasone valerate 0.1% 1 appl topical BID PRN blood sugar diagnostic 1 strip miscellaneous BID 90 days blood sugar diagnostic (OneTouch Ultra Test strips) test once a day cranberry 400 mg PO DAILY [Diabetic shoes and inserts As directed] famotidine 20 mg PO BID fexofenadine (Jesusita Allergy) 180 mg PO DAILY fluticasone propionate 50 mcg/actuation (Flonase Allergy Relief) 2 sprays intranasal DAILY gabapentin 100 - 300 mg (1 - 3 x 100 mg) PO BEDTIME 90 days loperamide (Imodium A-D) 2 mg PO Q6H PRN lorazepam 1 mg PO TID PRN losartan 100 mg PO BEDTIME magnesium oxide 500 mg PO DAILY meclizine 25 mg PO TID PRN metformin 500 mg PO BID 90 days semaglutide 1 mg (0.75 mL) subcut QWEEK 90 days sertraline 25 mg PO DAILY simvastatin 5 mg PO DAILY 90 days vitamin B complex 1 cap PO DAILY Tobacco use date assessed: 10/04/23 Fall risk assessment: No Falls in past year Last assessed Fall Risk: 10/04/23 Dental Screening Dental Screen Date: 10/04/23 Did you have a dental visit in the last 12 months?: Yes Did you have a dental problem in the last 6 months where you did not have access to dental care?: No Was dental information given to patient?: Patient has dentist HPI DM HPI Details 72-year-old obese female with GERD generalized anxiety hypertension hypercholesterolemia obstructive sleep apnea controlled diabetes mellitus and depression coming in for follow-up last seen in March 2023. Patient is endoscopy is up-to-date bone density is due mammogram is due. Patient follows up with Neurology for obstructive sleep apnea continues to use the CPAP and benefits from this. IBS diarrhea and advisde by GI immodium. Diet changed daughter move. [facility] Medical History (Updated 10/04/23 @ 10:38 by Deon Crain MD) Post-menopausal Medicare annual wellness visit, initial Pre-op evaluation Precordial chest pain Acute electrocardiogram changes RBBB (right bundle branch block) COVID-19 vaccine series completed Screening for colon cancer Diverticular disease Basal cell carcinoma (BCC) in situ of skin Polymyalgia rheumatica GERD (gastroesophageal reflux disease) Anxiety Hypertension Angioedema Hypercholesteremia Obstructive sleep apnea Obesity (BMI 30-39.9) Type 2 diabetes mellitus with hyperglycemia Surgical History Hx of cataract extraction History of colonoscopy History of arthroplasty of right knee Hx of appendectomy History of cholecystectomy S/P ADRIÁN-BSO Family History Father Prostate cancer Acute CVA (cerebrovascular accident) Mother Uterine cancer COPD (chronic obstructive pulmonary disease) Sister Melanoma Brother Melanoma Paternal Grandfather Acute CVA (cerebrovascular accident) Paternal Aunt Breast cancer Social History Housing: House Are you a primary ocular care aide to a significant other at home: No Do you presently have visiting nurse or other home services: No Alcohol intake: never Patient Tobacco Use Status: Former Tobacco user Quit Date: 1975 Tobacco use type: Cigarette e-Cigarette/Vaping Use: Never Used Second Hand Smoke Exposure: No Advance Directives Date on File: 04/12/21 Current occupational status: employed Cognitive needs: No Hearing needs: No Vision needs: Yes Questionnaire PHQ-9 Over the last 2 weeks, how often have you been bothered by any of the following problems? 1. Little interest or pleasure in doing things: not at all 2. Feeling down, depressed, or hopeless: several days 3. Trouble falling or staying asleep, or sleeping too much: several days 4. Feeling tired or having little energy: more than half the days 5. Poor appetite or overeating: more than half the days 6. Feeling bad about yourself - or that you are a failure or have let yourself or your family down: several days 7. Trouble concentrating on things, such as reading the newspaper or watching television: not at all 8. Moving or speaking so slowly that other people could have noticed. Or the opposite - being so fidgety or restless that you have been moving around a lot more than usual: not at all 9. Thoughts that you would be better off or of hurting yourself in some way: not at all Total score: 7 Depression Screening Interpretation: Negative Depression Screening Done: Yes 54308 - PHQ-9 Billing: Yes Source: Developed by Drs. Marcos Joshi, Margret Ochoa, Jeferson Mcintosh and colleagues, with an educational aaron from [employer]. Thrive Questionnaire Date Thrive assessed: 10/04/23 I am a: Patient What is your living situation today?: I have a steady place to live Within the past 12 months, did the food you bought not last and you didn't have the money to get more?: Never true Within the past 12 months, did you worry whether your food would run out before you got money to buy more?: Never true Do you have trouble paying for medicines?: No Do you have trouble getting transportation to medical appointments?: No Do you have trouble paying your heating and electricity bill?: No Do you have trouble taking care of your child, family member or friend?: No Do you have trouble with day-to-day activities such as bathing, preparing meals, shopping, managing finances, etc.?: No Are you currently unemployed and looking for a job?: No Are you interested in more education?: No Currently or been in a relationship where the following occur: no concerns reported THRIVE Score: 0 AUDIT C Alcohol Use Questionnaire (AUDIT-C) 1. How often do you have a drink containing alcohol?: Never 2. How many drinks containing alcohol do you have on a typical day when you are drinking?: 1 or 2 3. How often do you have six or more drinks on one occasion?: Never Total Score: 0 SUSAN-7 AMB Questionnaire SUSAN-7 Date SUSAN - 7 assessed: 10/04/23 Feeling nervous, anxious, or on edge: 0 = Not at all Not being able to stop or control worryin = Not at all Worrying too much about different things: 0 = Not at all Trouble relaxin = Not at all Being so restless that it is hard to sit still: 0 = Not at all Becoming easily annoyed or irritable: 0 = Not at all Feeling afraid as if something awful might happen: 0 = Not at all Total SUSAN-7 score (0-4 normal; 5-9 mild; 10-14 moderate; 15-21 severe): 0 Source: Developed by Drs. Marcos Joshi, Margret Ochoa, Jeferson Mcintosh and colleagues, with an educational aaron from [employer]. Physical exam (Primary Care) Vital Signs: Last Vital Signs Pulse 70 10/04/23 09:59 BP 122/70 10/04/23 09:59 Pulse Ox 98 10/04/23 09:59 Oxygen Delivery Method Room Air 10/04/23 09:59 BMI result Body Mass Index 34.9 Tobacco/Smoking Status: Tobacco use Status Tobacco use date assessed 10/04/23 10/04/23 10:00 Patient Tobacco Use Status Former Tobacco user 10/04/23 10:00 Tobacco use type Cigarette 10/04/23 10:00 e-Cigarette/Vaping Use Never Used 10/04/23 10:00 PHQ-9: PHQ-9 Score PHQ-9: Total score 7 10/04/23 10:17 Depression Screening Interpretation: Negative Thrive Assessment: Date of Thrive Assessment Date Thrive assessed 10/04/23 10/04/23 10:00 Currently or been in a relationship where the following occur: no concerns reported Const General: alert; No acute distress Eyes Conjunctivae: conjunctivae normal Resp Auscultation: clear to auscultation bilaterally Cardio Rate: regular rate Rhythm: regular rhythm GI Inspection: Yes normal to inspection Extrem General: Yes normal to inspection and No edema Results AMB Hemoglobin A1c AMB Hemoglobin A1c 5.7 % Last Edit by Alva Real CMA on 10/04/23 10:18 Results Reviewed Results Reviewed: Laboratory Last Values Hgb A1c (Clinic) 5.7 % (4.0-6.0) 10/04/23 10:00 Assessment and Plan Assessment & Plan (1) Type 2 diabetes mellitus with hyperglycemia: Code(s): E11.65 - Type 2 diabetes mellitus with hyperglycemia Qualifiers: Diabetes mellitus local intermodal truck driver insulin use: without local intermodal truck driver use Qualified Code(s): E11.65 - Type 2 diabetes mellitus with hyperglycemia Plan: Decrease the amount of carbohydrate intake, pasta, bread, rice and potatoes are all sugar and that is aside from all the sweet stuff, remember that fruits are good but they are Sweet also. Hemoglobin A1c goal of less than 7.0 presently on metformin 500 mg twice a day has been prescribed semaglutide question of covered (2) Obesity (BMI 30-39.9): Code(s): E66.9 - Obesity, unspecified Plan: Diet and exercise (3) Obstructive sleep apnea: Comment: uses CPAP Code(s): G47.33 - Obstructive sleep apnea (adult) (pediatric) Plan: Patient follows up with Neurology uses the CPAP faithfully more than 4 hours a night and benefits from this (4) Hypercholesteremia: Code(s): E78.00 - Pure hypercholesterolemia, unspecified Plan: Avoid fried foods, chicken skin, eggs, butter margarine, pastries and meat. Be it pork or beef they have a lot of cholesterol LDL goal of less than 100 and triglyceride of less than 150 March 2023 last blood work at goal on simvastatin 5 mg at bedtime (5) Hypertension: Code(s): I10 - Essential (primary) hypertension Qualifiers: Hypertension type: essential hypertension Qualified Code(s): I10 - Essential (primary) hypertension Plan: Continue with blood pressure medication. Decrease salt intake and exercise takes losartan 100 mg once a day (6) GERD (gastroesophageal reflux disease): Code(s): K21.9 - Gastro-esophageal reflux disease without esophagitis Qualifiers: Esophagitis presence: without esophagitis Qualified Code(s): K21.9 - Gastro-esophageal reflux disease without esophagitis Plan: Avoid the foods that causes that usually spicy foods, tomato products, juices, coffee, soda and foods that your sensitive to. After eating do not lie down, allow 3-4 hours before in lie down. And keep the head of bed above 30 degrees to avoid the acid from going up. (7) Major depression: Comment: decline referral 03/2022 Code(s): F32.9 - Major depressive disorder, single episode, unspecified Plan: Patient has been started on sertraline 25 mg once a day and lorazepam (8) Vertigo: Code(s): R42 - Dizziness and giddiness Orders: Orders AMB Hemoglobin A1c Today Z13.9 - Encounter for screening, unspecified Medications: Changed From sertraline 25 mg PO DAILY 90 tabs 2RF F32.9 - Major depressive disorder, single episode, unspecified To sertraline 50 mg PO DAILY 90 tabs 1RF F32.9 - Major depressive disorder, single episode, unspecified Refilled losartan 100 mg PO BEDTIME 90 tabs 3RF I10 - Essential (primary) hypertension gabapentin 100 - 300 mg (1 - 3 x 100 mg) PO BEDTIME 90 days 270 caps 3RF metformin 500 mg PO BID 90 days 180 tabs 2RF E11.65 - Type 2 diabetes mellitus with hyperglycemia Coding Level of Care Code Est Pt Level 4 (64453) Diagnoses Type 2 diabetes mellitus with hyperglycemia, without long-term current use of insulin E11.65 Diabetes mellitus local intermodal truck driver insulin use: without local intermodal truck driver use Obesity (BMI 30-39.9) E66.9 Obstructive sleep apnea G47.33 Hypercholesteremia E78.00 Essential hypertension I10 Hypertension type: essential hypertension Gastroesophageal reflux disease without esophagitis K21.9 Esophagitis presence: without esophagitis Major depression F32.9 Vertigo R42
[2023-10-04 09:59] VITALS: BP 122/70; PULSE 70; O2SAT 98; BMI 34.9
== END 2023-10-04 10:46 | disposition home or self-care (01) ==
PROVIDERS: PCP Internal Medicine; Visit Provider Internal Medicine
DX: E11.65 Type 2 diabetes mellitus with hyperglycemia (principal); E66.9 Obesity, unspecified; G47.33 Obstructive sleep apnea (adult) (pediatric); Z68.34 Body mass index [BMI] 34.0-34.9, adult; E78.00 Pure hypercholesterolemia, unspecified; I10 Essential (primary) hypertension; K21.9 Gastro-esophageal reflux disease without esophagitis; F32.9 Major depressive disorder, single episode, unspecified; R42 Dizziness and giddiness
CPT/HCPCS: 83036; 99214

== ENCOUNTER 2023-12-06 06:06 | Outpatient (REF) | payer MEDICARE, SELFPAY ==
[2023-12-06 06:18] LABS: MANUAL DIFF FLAG NO
[2023-12-06 07:20] LABS: Basophils Absolute Auto 0.1 X10*3/uL (0.0-0.2); Basophils Percent Auto 0.8 % (0-2); Eosinophils Absolute Auto 0.3 X10*3/uL (0.0-0.4); Eosinophils Percent Auto 3.7 % (0-4); Hematocrit 43.9 % (37.0-47.0); Hemoglobin 14.6 g/dl (12.0-16.0); Imm Gran Abs Auto 0.12 X10*3/uL (0.00-0.03); Imm Gran Pct Auto 1.4 % (0.0-0.4); Lymphocytes Absolute Auto 2.4 X10*3/uL (1.2-4.9); Lymphocytes Percent Auto 28.3 % (20-40); Mean Corpuscular HGB Conc 33.3 g/dl (31.0-35.0); Mean Corpuscular Hemoglobin 31.5 pg (27.0-33.0); Mean Corpuscular Volume 94.8 fL (80.0-98.0); Mean Platelet Volume 9.1 fL (9.4-12.3); Monocytes Absolute Auto 0.6 X10*3/uL (0.1-1.2); Monocytes Percent Auto 6.6 % (2-11); Neutrophils Absolute Auto 5.1 x10*3/uL (2.0-8.3); Neutrophils Percent Auto 59.2 % (45-73); Platelet Count 242 X10*3/uL (160-400); Red Blood Count 4.63 X10*6/uL (4.20-5.50); White Blood Count 8.6 X10*3/uL (4.8-10.8)
[2023-12-06 07:29] LABS: Appearance Urine Clear; Color Urine Yellow; Glucose Urine UA Negative (Negative); Leukocyte Esterase Urine Negative (Negative); Nitrite Urine Negative (Negative); Specific Gravity - Urine 1.015 (1.005-1.025); Urine Blood Negative (Negative); Urine Ketones Negative (Negative); Urine Protein Negative (Neg-Trace)
[2023-12-06 07:34] LABS: Bacteria Urine None Seen (None Seen); Hyaline Casts Urine 0-2 /LPF (0-2); RBC Urine 0-2 /HPF (0-2); Squamous Epithelial Cell Urine 0-2 /HPF (0-2); WBC Urine 0-5 /HPF (0-5)
[2023-12-06 07:49] LABS: Creatinine Urine 59.41 mg/dL
[2023-12-06 07:59] LABS: Alanine Aminotransferase 19 U/L (0-31); Albumin Level 4.1 g/dL (3.5-5.0); Alkaline Phosphatase 88 U/L (39-117); Anion Gap 17 (12-20); Aspartate Amino Transferase 17 U/L (5-31); Bilirubin Total 0.5 mg/dL (0.0-1.0); Blood Urea Nitrogen 14 mg/dL (9-16); Calcium 10.6 mg/dL (8.4-10.2); Carbon Dioxide 28 mmol/L (22-29); Chloride 101 mmol/L (96-108); Estimated Glomerular Filt Rate > 60; Glucose Random 145 mg/dL (60-115); Magnesium 1.9 mg/dL (1.6-2.6); Potassium 5.1 mmol/L (3.3-5.1); Sodium 141 mmol/L (135-145); Total Protein 6.7 g/dL (6.5-8.0)
[2023-12-06 08:00] LABS: Erythrocyte Sedimentation Rate 12 MM/HR (0-20)
[2023-12-06 08:14] LABS: Free T4 (Free Thyroxine) 0.99 ng/dL (0.71-1.85); Thyroid Stimulating Hormone 1.63 uIU/mL (0.32-4.0)
[2023-12-06 08:20] LABS: Vitamin B12 701 pg/mL (200-900)
== END 2023-12-06 06:07 | disposition home or self-care (01) ==
LOC: HO.LAB 06:06
PROVIDERS: PCP Internal Medicine; Visit Provider Internal Medicine
DX: M25.50 Pain in unspecified joint (principal); E11.65 Type 2 diabetes mellitus with hyperglycemia
CPT/HCPCS: 36415; 80053; 81001; 82550; 82570; 82607; 82746; 83735; 84439; 84443; 85025; 85652

== ENCOUNTER 2024-01-11 15:28 | Outpatient (AMB) | payer MEDICARE, SELFPAY ==
[2024-01-11 15:33] VITALS: BP 130/78; PULSE 81; O2SAT 96; BMI 34.7
--- NOTE | 2024-01-11 15:33 | A.OFFPC_ITS ---
Vital Signs 01/11/24 15:33 Height 5 ft 2 in Weight 190 lb BMI 34.7 BP 130/78 Blood Pressure Location Lt brachial Position Sitting Pulse 81 Pulse Source Pulse Oximeter Pulse Oximetry (%) 96 Oxygen Delivery Method Room Air Intake Visit Reasons: Rash Transition Mgr Rn Required: No Accompanied by: Self / Same As Patient Allergies cabergoline [CABERGOLINE] Allergy (Severe, Verified 01/11/24 15:34) ANGIOEDEMA lisinopril [LISINOPRIL] Allergy (Severe, Verified 01/11/24 15:34) ANGIOEDEMA empagliflozin [Jardiance] Allergy (Intermediate, Verified 01/11/24 15:34) skin infection Tobacco use date assessed: 01/11/24 Fall risk assessment: No Falls in past year Last assessed Fall Risk: 01/11/24 Dental Screening Dental Screen Date: 01/11/24 Did you have a dental visit in the last 12 months?: Yes Did you have a dental problem in the last 6 months where you did not have access to dental care?: No Was dental information given to patient?: Patient has dentist HPI Rash HPI Details 73-year-old obese female with diabetes m ellitus obstructive sleep apnea hypertension hypercholesterolemia GERD and major depression last seen in 10/08/2023. Patient is up-to-date with a colonoscopy January 2022 up-to-date with bone density and mammogram. stopped simvastatin due to pain . 2 weeks ago arm rash leg and L chest area. does weeding, did ointment and now benadryl gel. on [facility] Medical History (Updated 12/05/23 @ 16:02 by Deon Crain MD) Post-menopausal Medicare annual wellness visit, initial Pre-op evaluation Precordial chest pain Acute electrocardiogram changes RBBB (right bundle branch block) COVID-19 vaccine series completed Screening for colon cancer Diverticular disease Basal cell carcinoma (BCC) in situ of skin Polymyalgia rheumatica GERD (gastroesophageal reflux disease) Anxiety Hypertension Angioedema Hypercholesteremia Obstructive sleep apnea Obesity (BMI 30-39.9) Type 2 diabetes mellitus with hyperglycemia Surgical History Hx of cataract extraction History of colonoscopy History of arthroplasty of right knee Hx of appendectomy History of cholecystectomy S/P ADRIÁN-BSO Family History Father Prostate cancer Acute CVA (cerebrovascular accident) Mother Uterine cancer COPD (chronic obstructive pulmonary disease) Sister Melanoma Brother Melanoma Paternal Grandfather Acute CVA (cerebrovascular accident) Paternal Aunt Breast cancer Social History Housing: House Are you a primary day care assistant to a significant other at home: No Do you presently have visiting nurse or other home services: No Alcohol intake: never Patient Tobacco Use Status: Former Tobacco user Tobacco use type: Cigarette e-Cigarette/Vaping Use: Never Used Second Hand Smoke Exposure: No Advance Directives Date on File: 04/12/21 Current occupational status: employed Cognitive needs: No Hearing needs: No Vision needs: Yes Questionnaire PHQ-9 Over the last 2 weeks, how often have you been bothered by any of the following problems? 1. Little interest or pleasure in doing things: not at all 2. Feeling down, depressed, or hopeless: several days 3. Trouble falling or staying asleep, or sleeping too much: several days 4. Feeling tired or having little energy: more than half the days 5. Poor appetite or overeating: more than half the days 6. Feeling bad about yourself - or that you are a failure or have let yourself or your family down: several days 7. Trouble concentrating on things, such as reading the newspaper or watching television: not at all 8. Moving or speaking so slowly that other people could have noticed. Or the opposite - being so fidgety or restless that you have been moving around a lot more than usual: not at all 9. Thoughts that you would be better off or of hurting yourself in some way: not at all Total score: 7 Depression Screening Interpretation: Negative Depression Screening Done: Yes 21684 - PHQ-9 Billing: Yes Source: Developed by Drs. Marcos Joshi, Margret Ochoa, Jeferson Mcintosh and colleagues, with an educational aaron from [employer]. Thrive Questionnaire Date Thrive assessed: 01/11/24 I am a: Patient What is your living situation today?: I have a steady place to live Within the past 12 months, did the food you bought not last and you didn't have the money to get more?: Never true Within the past 12 months, did you worry whether your food would run out before you got money to buy more?: Never true Do you have trouble paying for medicines?: No Do you have trouble getting transportation to medical appointments?: No Do you have trouble paying your heating and electricity bill?: No Do you have trouble taking care of your child, family member or friend?: No Do you have trouble with day-to-day activities such as bathing, preparing meals, shopping, managing finances, etc.?: No Are you currently unemployed and looking for a job?: No Are you interested in more education?: No Please select the resources that you would like help with: None Currently or been in a relationship where the following occur: No concerns reported THRIVE Score: 0 AUDIT C Alcohol Use Questionnaire (AUDIT-C) 1. How often do you have a drink containing alcohol?: Never 2. How many drinks containing alcohol do you have on a typical day when you are drinking?: 1 or 2 3. How often do you have six or more drinks on one occasion?: Never Total Score: 0 SUSAN-7 AMB Questionnaire SUSAN-7 Date SUSAN - 7 assessed: 01/11/24 Feeling nervous, anxious, or on edge: 0 = Not at all Not being able to stop or control worryin = Not at all Worrying too much about different things: 0 = Not at all Trouble relaxin = Not at all Being so restless that it is hard to sit still: 0 = Not at all Becoming easily annoyed or irritable: 0 = Not at all Feeling afraid as if something awful might happen: 0 = Not at all Total SUSAN-7 score (0-4 normal; 5-9 mild; 10-14 moderate; 15-21 severe): 0 Source: Developed by Drs. Marcos Joshi, Margret Ochoa, Jeferson Mcintosh and colleagues, with an educational aaron from [employer]. Physical exam (Primary Care) Vital Signs: Last Vital Signs Pulse 81 01/11/24 15:33 BP 130/78 01/11/24 15:33 Pulse Ox 96 01/11/24 15:33 Oxygen Delivery Method Room Air 01/11/24 15:33 BMI result Body Mass Index 34.7 Tobacco/Smoking Status: Tobacco use Status Tobacco use date assessed 01/11/24 01/11/24 15:35 Patient Tobacco Use Status Former Tobacco user 01/11/24 15:35 Tobacco use type Cigarette 01/11/24 15:35 e-Cigarette/Vaping Use Never Used 01/11/24 15:35 PHQ-9: PHQ-9 Score PHQ-9: Total score 7 01/11/24 16:22 Depression Screening Interpretation: Negative Thrive Assessment: Date of Thrive Assessment Date Thrive assessed 01/11/24 01/11/24 15:35 Currently or been in a relationship where the following occur: No concerns reported Const General: alert; No acute distress Eyes Conjunctivae: conjunctivae normal Resp Auscultation: clear to auscultation bilaterally Cardio Rate: regular rate Rhythm: regular rhythm GI Inspection: Yes normal to inspection Extrem General: Yes normal to inspection and No edema Results AMB Hemoglobin A1c AMB Hemoglobin A1c 5.6 % Last Edit by SANIA Leone on 01/11/24 16 :32 Assessment and Plan Assessment & Plan (1) Type 2 diabetes mellitus with hyperglycemia: Code(s): E11.65 - Type 2 diabetes mellitus with hyperglycemia Qualifiers: Diabetes mellitus penitentiary insulin use: without intermediate frame tender use Qualified Code(s): E11.65 - Type 2 diabetes mellitus with hyperglycemia Plan: Decrease the amount of carbohydrate intake, pasta, bread, rice and potatoes are all sugar and that is aside from all the sweet stuff, remember that fruits are good but they are Sweet also. Hemoglobin A1c goal of less than 7.0 patient is on metformin and started on semaglutide (2) Obesity (BMI 30-39.9): Code(s): E66.9 - Obesity, unspecified Plan: Diet and exercise (3) Hypercholesteremia: Code(s): E78.00 - Pure hypercholesterolemia, unspecified Plan: Avoid fried foods, chicken skin, eggs, butter margarine, pastries and meat. Be it pork or beef they have a lot of cholesterol LDL goal of less than 100 and triglyceride of less than 150 on simvastatin 5 mg once a (4) Hypertension: Code(s): I10 - Essential (primary) hypertension Qualifiers: Hypertension type: essential hypertension Qualified Code(s): I10 - Essential (primary) hypertension Plan: Continue with blood pressure medication. Decrease salt intake and exercise takes losartan 100 mg once a day (5) Allergic contact dermatitis: Code(s): L23.9 - Allergic contact dermatitis, unspecified cause Plan: steroid and hydroxyzine prescription sent in Orders: Orders AMB Hemoglobin A1c Today E11.65 - Type 2 diabetes mellitus with hyperglycemia Medications: New hydroxyzine HCl 25 mg PO TID PRN 21 tabs 0RF itching L23.9 - Allergic contact dermatitis, unspecified cause prednisone 4 tabs QD x 2 days then 3 tabs QD x 2 days then 2 tabs Qd x 2 days then 1 tab QD x 2 days PO daily; 20 tabs 0RF J45.909 - Unspecified asthma, uncomplicated, L23.9 - Allergic contact dermatitis, unspecified cause Changed From semaglutide 1 mg (0.75 mL) subcut QWEEK 90 days 9.75 mL 3RF E11.65 - Type 2 diabetes mellitus with hyperglycemia To semaglutide 2 mg (0.75 mL) subcut QWEEK 90 days 9.75 mL 3RF E11.65 - Type 2 diabetes mellitus with hyperglycemia Coding Level of Care Code Est Pt Level 4 (93393) Diagnoses Type 2 diabetes mellitus with hyperglycemia, without long-term current use of insulin E11.65 Diabetes mellitus penitentiary insulin use: without intermediate frame tender use Obesity (BMI 30-39.9) E66.9 Hypercholesteremia E78.00 Essential hypertension I10 Hypertension type: essential hypertension Allergic contact dermatitis L23.9
== END 2024-01-11 16:52 | disposition home or self-care (01) ==
PROVIDERS: PCP Internal Medicine; Visit Provider Internal Medicine
DX: E11.65 Type 2 diabetes mellitus with hyperglycemia (principal); E66.9 Obesity, unspecified; Z68.34 Body mass index [BMI] 34.0-34.9, adult; E78.00 Pure hypercholesterolemia, unspecified; I10 Essential (primary) hypertension; L23.9 Allergic contact dermatitis, unspecified cause
CPT/HCPCS: 83036; 99214

== ENCOUNTER 2024-01-24 09:07 | Outpatient (REF) | payer MEDICARE, SELFPAY ==
--- NOTE | ~2024-01-24 | XR_ITS ---
EXAMINATION: XR LUMBOSACRAL SPINE CLINICAL INFORMATION: Back pain. COMPARISON: CT abdomen/pelvis dated 12/02/2014. TECHNIQUE: Three views of the lumbosacral spine. FINDINGS: Minimal levocurvature of the lumbar spine which may be positional. The lumbar lordosis is maintained. No acute fracture or subluxation. No loss of vertebral body height. Multilevel loss of intervertebral disc height with endplate osteophytes and multilevel bilateral facet arthropathy, progressed when compared to the prior CT. No concerning lytic or blastic osseous lesion. Right upper quadrant surgical clips. XR/XR lumbar spine 2-3V IMPRESSION: Multilevel degenerative disc disease and bilateral facet arthropathy, progressed when compared to the prior CT. Electronically signed by: Ben Bob MD 02/07/2024 08:56 PM EDT
--- NOTE | ~2024-01-24 | XR_ITS ---
EXAMINATION: XR BILATERAL HIPS WITH AP PELVIS CLINICAL INFORMATION: Left hip pain. Evaluate for DJD. COMPARISON: CT dated 12/02/2014. TECHNIQUE: AP view of the pelvis and frog-leg lateral views of each hip were obtained. FINDINGS: Small acetabular osteophytes are noted at both hips, left side greater than right. Joint spaces appear well-preserved. Pubic symphysis is normal. SI joints are unremarkable. Enthesopathic spurring is present at the anterior superior iliac spines. There is facet arthropathy in the lower lumbar spine. SI joints are unremarkable. No acute soft tissue findings. XR/XR hips LAUREL min 3V IMPRESSION: 1. 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 2. Facet arthropathy in the lower lumbar spine. Electronically signed by: Michael Young MD 01/30/2024 02:29 PM EDT RP
--- NOTE | ~2024-01-24 | XR_ITS ---
EXAMINATION: XR KNEE, RIGHT XR KNEE, LEFT CLINICAL INFORMATION: Status post right total knee arthroplasty. Evaluate for DJD in the knees. COMPARISON: 02/08/2017 TECHNIQUE: Three views of each knee. FINDINGS: RIGHT KNEE: Prosthetic components of the total knee arthroplasty are appropriately aligned without periprosthetic fracture or abnormal lucency. No component migration. Trace effusion. LEFT KNEE: [id number] tricompartmental osteophytes. Joint spaces appear relatively well preserved. No joint effusion. Bone mineralization is normal. Soft tissues are unremarkable. XR/XR knee LT 3V IMPRESSION: 1. Appropriate alignment of the right total knee arthroplasty without evidence of complications. 2. 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 Electronically signed by: Michael Young MD 01/30/2024 02:01 PM EDT
--- NOTE | ~2024-01-24 | XR_ITS ---
EXAMINATION: XR KNEE, RIGHT XR KNEE, LEFT CLINICAL INFORMATION: Status post right total knee arthroplasty. Evaluate for DJD in the knees. COMPARISON: 02/08/2017 TECHNIQUE: Three views of each knee. FINDINGS: RIGHT KNEE: Prosthetic components of the total knee arthroplasty are appropriately aligned without periprosthetic fracture or abnormal lucency. No component migration. Trace effusion. LEFT KNEE: [id number] tricompartmental osteophytes. Joint spaces appear relatively well preserved. No joint effusion. Bone mineralization is normal. Soft tissues are unremarkable. XR/XR knee RT 3V IMPRESSION: 1. Appropriate alignment of the right total knee arthroplasty without evidence of complications. 2. 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 Electronically signed by: Michael Young MD 01/30/2024 02:01 PM EDT
== END 2024-01-24 09:08 | disposition home or self-care (01) ==
LOC: HO.HOSX 09:07
PROVIDERS: PCP Internal Medicine; Visit Provider Physical Medicine & Rehabilitation
DX: M25.559 Pain in unspecified hip (principal); M54.9 Dorsalgia, unspecified; M25.50 Pain in unspecified joint
CPT/HCPCS: 72100; 73522; 73562; 99202

== ENCOUNTER 2024-01-24 09:07 | Outpatient (AMB) | payer MEDICARE, SELFPAY ==
--- NOTE | 2024-01-24 09:10 | A.OFFVIS_ITS ---
Vital Signs 01/24/24 09:12 Height 5 ft 2 in Weight 188 lb BMI 34.4 Intake Visit Reasons: MEDICAL DOCTOR- B/L hip pain Intake Note: Beckie is a 73 year old female who presents today as a new patient with complaints of bilateral hip pain radiating into her legs. Right worse than left. She expresses her legs feel very stiff and having very bad knee pain that radiates into her calves that started in early spring. Patient reports she has difficulty ambulating up and down stairs and getting up from kneeling after gardening. Her pain is localized in her hip, thigh and right knee but at night her right hip is what mainly keeps her up and describes this as an aching pain. Tylenol and ibuprofen offer her moderate relief. Denies numbness and tingling in her B/L hips and knees. Denies recent injuries. 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 Allergies cabergoline [CABERGOLINE] Allergy (Severe, Verified 01/24/24 09:12) ANGIOEDEMA lisinopril [LISINOPRIL] Allergy (Severe, Verified 01/24/24 09:12) ANGIOEDEMA empagliflozin [Jardiance] Allergy (Intermediate, Verified 01/24/24 09:12) skin infection Medication List - Last Reconciled 01/24/24 by Yvette Knight MD acetaminophen (Tylenol) 325 mg PO QID PRN ascorbic acid (vitamin C) 500 mg PO DAILY betamethasone valerate 0.1% 1 appl topical BID PRN blood sugar diagnostic 1 strip miscellaneous BID 90 days blood sugar diagnostic (OneTouch Ultra Test strips) test once a day cranberry 400 mg PO DAILY [Diabetic shoes and inserts As directed] famotidine 20 mg PO BID fexofenadine (Jesusita Allergy) 180 mg PO DAILY fluticasone propionate 50 mcg/actuation (Flonase Allergy Relief) 2 sprays intranasal DAILY gabapentin 100 - 300 mg (1 - 3 x 100 mg) PO BEDTIME 90 days hydroxyzine HCl 25 mg PO TID PRN loperamide (Imodium A-D) 2 mg PO Q6H PRN loperamide (Imodium A-D) 2 mg PO Q6H PRN lorazepam 1 mg PO TID PRN losartan 100 mg PO BEDTIME magnesium oxide 500 mg PO DAILY meclizine 25 mg PO TID PRN metformin 500 mg PO BID 90 days prednisone 4 tabs QD x 2 days then 3 tabs QD x 2 days then 2 tabs Qd x 2 days then 1 tab QD x 2 days PO daily; semaglutide 2 mg (0.75 mL) subcut QWEEK 90 days sertraline 50 mg PO DAILY simvastatin 5 mg PO DAILY 90 days vitamin B complex 1 cap PO DAILY HPI Comments Details: Says pain is generally pointing to bilateral hip/pelvis, going to calves, says sometimes whole body aches (both upper and lower body) in general. Feels tired easily. She still tries gardening and kneeling, but has gotten worse recently. Getting up from chair feels stiff and needs time. This started in the spring. Denies back pain. Years ago she was treated for PMR. She had elevated ESR back then which she says it is not elevated now. B12 and D were also within normal. CK not elevated. No imaging done. History of DM. History of following Dr. 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 PENDING SALE TO [facility] Medical History (Updated 01/24/24 @ 10:06 by Yvette Knight MD) Post-menopausal Medicare annual wellness visit, initial Pre-op evaluation Precordial chest pain Acute electrocardiogram changes RBBB (right bundle branch block) COVID-19 vaccine series completed Screening for colon cancer Diverticular disease Basal cell carcinoma (BCC) in situ of skin Polymyalgia rheumatica GERD (gastroesophageal reflux disease) Anxiety Hypertension Angioedema Hypercholesteremia Obstructive sleep apnea Obesity (BMI 30-39.9) Type 2 diabetes mellitus with hyperglycemia Surgical History Hx of cataract extraction History of colonoscopy History of arthroplasty of right knee Hx of appendectomy History of cholecystectomy S/P ADRIÁN-BSO Family History Father Prostate cancer Acute CVA (cerebrovascular accident) Mother Uterine cancer COPD (chronic obstructive pulmonary disease) Sister Melanoma Brother Melanoma Paternal Grandfather Acute CVA (cerebrovascular accident) Paternal Aunt Breast cancer Social History (Updated 01/24/24 @ 09:14 by MICKEY Lamas) Housing: House Are you a primary career resource specialist to a significant other at home: No Do you presently have visiting nurse or other home services: No Alcohol intake: never Patient Tobacco Use Status: Former Tobacco user Tobacco use type: Cigarette e-Cigarette/Vaping Use: Never Used Second Hand Smoke Exposure: No Advance Directives Date on File: 04/12/21 Current occupational status: employed 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 Patient was appropriately conversant and oriented. Good historian. MSK: No specific abnormalities found on inspection of the spine and all extremities. No pain with palpation over the lumbar area. Lumbar ROM was full. Bilateral hip, knee and ankle ROM WNL. No ligamentous laxity or crepitance. No increased effusion. Straight-leg raising test negative. FABERE test positive left groin pain. Strength is 5/5 in all muscle groups tested. No increased tone noted. Neurological: Neurologic examination of the upper and lower extremities was nonfocal with intact sensation, muscle stretch reflexes and without focal motor deficits . Robb?s negative bilaterally. Babinski was down going bilaterally. Clonus was negative. Gait is slightly antalgic without loss of balance. Results Reviewed Results Reviewed: Ordering Physician: Annalisa Penn Results: Date of Service: 04/25/23 Follow Up: Procedure(s): XR DEXA axial skeleton Accession Number(s): [id number] cc: Deon Crain MD; Annalisa Penn~ EXAMINATION: BONE DENSITOMETRY CLINICAL INDICATION: Menopause. COMPARISON: Previous BD dated 04/21/2021 and baseline BD dated 10/08/2006. TECHNIQUE: Using a [employer] DXA System (software version: 13.1) manufactured by [employer], dual-energy x-ray absorptiometry was performed of the lumbar spine and left hip. The images are of good technical quality. Summary results are attached. FINDINGS: LEFT FEMUR, NECK: Current: BMD 0.904 g/cm2, Z-score 0.4, T-score -1.0, normal. Prior: BMD 0.973 g/cm2. Baseline: BMD 1.110 g/cm2. LEFT FEMUR, TOTAL: Current: BMD 1.078 g/cm2, Z-score 1.7, T-score 0.6, normal, 7.1% decrease from previous, 18.6% decrease from baseline (<5% change is not significant). Prior: BMD 1.160 g/cm2. Baseline: BMD 1.325 g/cm2. AP SPINE L1-L4: Current: BMD 1.371 g/cm2, Z-score 2.7, T-score 1.6, normal, 1.2% increase from previous, 12.2% increase from baseline (<5% change is not significant). Prior: BMD 1.355 g/cm2. Baseline: BMD 1.222 g/cm2. IDENTIFIED RISK FACTORS: Menopause, hysterectomy, anticonvulsant, bilateral oophorectomy. HISTORY OF FRACTURE: None listed. MEDICATIONS: None listed. I reviewed records from the following: PCP Assessment & Plan Assessment & Plan (1) Joint pain: Code(s): M25.50 - Pain in unspecified joint Category: Medical Qualifiers: Joint pain location: hip Laterality: bilateral Qualified Code(s): M25.551 - Pain in right hip; M25.552 - Pain in left hip (2) Arthralgia, pelvis: Code(s): M25.559 - Pain in unspecified hip Category: Medical Qualifiers: Laterality: left Qualified Code(s): M25.552 - Pain in left hip Plan Somewhat diffuse arthralgia from hips to knees. Not specifically coming from lumbar spine. Described as easily fatigued and achy. Exam shows positive left groin pain with SUDHIR test, suggestive of hip DJD? Blood work recently done with normal ESR, CK, vitamin B12 and vitamin-D. We will do further imaging. Ordering lumbar spine x-rays, knee x-rays and hip x-rays. If lumbar spine x-ray shows disc space narrowing or severe spondylosis, then we will consider further imaging with lumbar MRI to rule out spinal stenosis. If hip x-ray shows DJD, we may possibly refer to pain management for intra- articular hip injection under fluoroscopy or ultrasound. Assessment and plan discussed with patient, and patient was agreeable. All questions were answered thoroughly. We will touch base with patient after x-ray results. Yvette Knight MD, PABLO Board Certified, [place] Board of Physical Medicine and Rehabilitation (ABPMR) Board Certified, [place] Board of Electrodiagnostic Medicine (ABEM) Orders: Orders XR lumbar spine 2-3V Today M25.50 - Pain in unspecified joint, M25.559 - Pain in unspecified hip, M54.9 - Dorsalgia, unspecified XR knee LT 3V Today M25.50 - Pain in unspecified joint, M25.559 - Pain in unspecified hip XR knee RT 3V Today M25.50 - Pain in unspecified joint, M25.559 - Pain in unspecified hip XR hips LAUREL min 3V Today M25.50 - Pain in unspecified joint, M25.559 - Pain in unspecified hip Coding Level of Care Code New Pt Level 4 (16852) Diagnoses Pain of both hip joints M25.551; M25.552 Joint pain location: hip Laterality: bilateral Arthralgia of left side of pelvis M25.552 Laterality: left
[2024-01-24 09:12] VITALS: BMI 34.4
== END 2024-01-24 10:05 | disposition home or self-care (01) ==
PROVIDERS: PCP Internal Medicine; Visit Provider Physical Medicine & Rehabilitation
DX: M25.551 Pain in right hip (principal); M25.552 Pain in left hip
CPT/HCPCS: 99203

== ENCOUNTER 2024-03-27 10:42 | Outpatient (AMB) | payer MEDICARE, SELFPAY ==
--- NOTE | 2024-03-27 10:44 | MHC.OFFVIS ---
Intake Visit Reasons: OV- B/L hip pain follow up Intake Note: Beckie is a 73 year old female who presents today for a follow up visit of her bilateral hip pain. She reports she has been doing PT, she is working on her weakness however she said this is not helping her pain in her thighs. She feels the PT is making her body more aware of her pains. She takes Aleve for pain and finds moderate relief. Today she would like to review her xray reports. Allergies cabergoline [CABERGOLINE] Allergy (Severe, Verified 03/27/24 10:48) ANGIOEDEMA lisinopril [LISINOPRIL] Allergy (Severe, Verified 03/27/24 10:48) ANGIOEDEMA empagliflozin [Jardiance] Allergy (Intermediate, Verified 03/27/24 10:48) skin infection Medication List - Last Reconciled 03/27/24 by Yvette Knight MD acetaminophen (Tylenol) 325 mg PO QID PRN ascorbic acid (vitamin C) 500 mg PO DAILY betamethasone valerate 0.1% 1 appl topical BID PRN blood sugar diagnostic 1 strip miscellaneous BID 90 days blood sugar diagnostic ([employer]comTouch Ultra Test strips) test once a day cranberry 400 mg PO DAILY [Diabetic shoes and inserts As directed] famotidine 20 mg PO BID fexofenadine (Jesusita Allergy) 180 mg PO DAILY fluticasone propionate 50 mcg/actuation (Flonase Allergy Relief) 2 sprays intranasal DAILY gabapentin 100 - 300 mg (1 - 3 x 100 mg) PO BEDTIME 90 days hydroxyzine HCl 25 mg PO TID PRN loperamide (Imodium A-D) 2 mg PO Q6H PRN loperamide (Imodium A-D) 2 mg PO Q6H PRN lorazepam 1 mg PO TID PRN losartan 100 mg PO BEDTIME magnesium oxide 500 mg PO DAILY meclizine 25 mg PO TID PRN metformin 500 mg PO BID 90 days prednisone 4 tabs QD x 2 days then 3 tabs QD x 2 days then 2 tabs Qd x 2 days then 1 tab QD x 2 days PO daily; semaglutide 2 mg (0.75 mL) subcut QWEEK 90 days sertraline 50 mg PO DAILY simvastatin 5 mg PO DAILY 90 days vitamin B complex 1 cap PO DAILY HPI Comments Details: Says pain is generally pointing to bilateral hip/pelvis, going to calves, says sometimes whole body aches (both upper and lower body) in general. Feels tired easily. She still tries gardening and kneeling, but has gotten worse recently. Getting up from chair feels stiff and needs time. This started in the spring. Denies back pain. Years ago she was treated for PMR. She had elevated ESR back then which she says it is not elevated now. B12 and D were also within normal. CK not elevated. No imaging done. History of DM. History of following Dr. 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 Most of pain is going up the stairs, usually in the outer thighs, which would feel rock hard. When she gets up from prolonged sitting, she'd have pain again for thighs. More aware of pain in the hips and lower back pain since she's been going to PT. No claudication, can walk 2 miles, 3-4 times a week. [facility] Medical History Post-menopausal Medicare annual wellness visit, initial Pre-op evaluation Precordial chest pain Acute electrocardiogram changes RBBB (right bundle branch block) COVID-19 vaccine series completed Screening for colon cancer Diverticular disease Basal cell carcinoma (BCC) in situ of skin Polymyalgia rheumatica GERD (gastroesophageal reflux disease) Anxiety Hypertension Angioedema Hypercholesteremia Obstructive sleep apnea Obesity (BMI 30-39.9) Type 2 diabetes mellitus with hyperglycemia Surgical History Hx of cataract extraction History of colonoscopy History of arthroplasty of right knee Hx of appendectomy History of cholecystectomy S/P ADRIÁN-BSO Family History Father Prostate cancer Acute CVA (cerebrovascular accident) Mother Uterine cancer COPD (chronic obstructive pulmonary disease) Sister Melanoma Brother Melanoma Paternal Grandfather Acute CVA (cerebrovascular accident) Paternal Aunt Breast cancer Social History Housing: House Are you a primary daycare director to a significant other at home: No Do you presently have visiting nurse or other home services: No Alcohol intake: never Patient Tobacco Use Status: Former Tobacco user Tobacco use type: Cigarette e-Cigarette/Vaping Use: Never Used Second Hand Smoke Exposure: No Advance Directives Date on File: 04/12/21 Current occupational status: employed 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 Patient was appropriately conversant and oriented. Good historian. MSK: No specific abnormalities found on inspection of the spine and all extremities. No pain with palpation over the lumbar area. No specific tenderness over SI joint or GT. Lumbar ROM was full. Bilateral hip, knee and ankle ROM WNL. No ligamentous laxity or crepitance. No increased effusion. Slump sit negative. Strength is 5/5 in all muscle groups tested. No increased tone noted. Neurological: Neurologic examination of the upper and lower extremities was nonfocal with intact sensation, muscle stretch reflexes and without focal motor deficits . Babinski was down going bilaterally. Clonus was negative. Gait is antalgic without loss of balance. Results Reviewed Results Reviewed: Ordering Physician: Yvette Fontana Date of Service: 01/24/24 Procedure(s): XR lumbar spine 2-3V Accession Number(s): [id number] cc: Deon Crain MD; Yvette Fontana EXAMINATION: XR LUMBOSACRAL SPINE CLINICAL INFORMATION: Back pain. COMPARISON: CT abdomen/pelvis dated 12/02/2014. TECHNIQUE: Three views of the lumbosacral spine. FINDINGS: Minimal levocurvature of the lumbar spine which may be positional. The lumbar lordosis is maintained. No acute fracture or subluxation. No loss of vertebral body height. Multilevel loss of intervertebral disc height with endplate osteophytes and multilevel bilateral facet arthropathy, progressed when compared to the prior CT. No concerning lytic or blastic osseous lesion. Right upper quadrant surgical clips. XR/XR lumbar spine 2-3V IMPRESSION: Multilevel degenerative disc disease and bilateral facet arthropathy, progressed when compared to the prior CT. Electronically signed by: Ben Bob MD 02/07/2024 08:56 PM EDT Ordering Physician: Yvette Fontana Date of Service: 01/24/24 Procedure(s): XR hips LAUREL min 3V Accession Number(s): [id number] cc: Deon Crain MD; Yvette Fontana~ EXAMINATION: XR BILATERAL HIPS WITH AP PELVIS CLINICAL INFORMATION: Left hip pain. Evaluate for DJD. COMPARISON: CT dated 12/02/2014. TECHNIQUE: AP view of the pelvis and frog-leg lateral views of each hip were obtained. FINDINGS: Small acetabular osteophytes are noted at both hips, left side greater than right. Joint spaces appear well-preserved. Pubic symphysis is normal. SI joints are unremarkable. Enthesopathic spurring is present at the anterior superior iliac spines. There is facet arthropathy in the lower lumbar spine. SI joints are unremarkable. No acute soft tissue findings. XR/XR hips LAUREL min 3V IMPRESSION: 1. 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 2. Facet arthropathy in the lower lumbar spine. Electronically signed by: Michael Young MD 01/30/2024 02:29 PM EDT Workstation: [employer] Ordering Physician: Yvette Fontana Date of Service: 01/24/24 Procedure(s): XR knee LT 3V Accession Number(s): [id number] cc: Deon Crain MD; Yvette Fontana~ EXAMINATION: XR KNEE, RIGHT XR KNEE, LEFT CLINICAL INFORMATION: Status post right total knee arthroplasty. Evaluate for DJD in the knees. COMPARISON: 02/08/2017 TECHNIQUE: Three views of each knee. FINDINGS: RIGHT KNEE: Prosthetic components of the total knee arthroplasty are appropriately aligned without periprosthetic fracture or abnormal lucency. No component migration. Trace effusion. LEFT KNEE: [id number] tricompartmental osteophytes. Joint spaces appear relatively well preserved. No joint effusion. Bone mineralization is normal. Soft tissues are unremarkable. XR/XR knee LT 3V IMPRESSION: 1. Appropriate alignment of the right total knee arthroplasty without evidence of complications. 2. 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 Electronically signed by: Michael Young MD 01/30/2024 02:01 PM EDT RP Workstation: [employer] Assessment & Plan Assessment & Plan (1) Joint pain: Code(s): M25.50 - Pain in unspecified joint Category: Medical Qualifiers: Joint pain location: hip Laterality: bilateral Qualified Code(s): M25.551 - Pain in right hip; M25.552 - Pain in left hip (2) Lumbar radiculopathy: Code(s): M54.16 - Radiculopathy, lumbar region Category: Medical Plan Presented initially with somewhat diffuse arthralgia from hips to knees. Degenerative changes seen on plain x-rays of lumbar and hips. Her description of pain today suggests lumbar origin rather than hip joint. Patient had undergone adequate conservative management including PT without complete improvement of condition. It would be reasonable to obtain further imaging such as MRI. An MRI would help rule out any serious condition, guide treatment and assess prognosis for recovery. Specifically ruling out L3-4 or L4-5 spinal stenosis or disc herniation. Assessment and plan discussed with patient, and patient was agreeable. All questions were answered thoroughly. Follow up after MRI. Yvette Knight MD, PABLO Board Certified, [place] [employer] and Rehabilitation (ABPMR) Board Certified, [place] Board [employer] Electrodiagnostic Medicine (ABEM) Orders: Orders MR lumbar spine wo con Today M54.16 - Radiculopathy, lumbar region Coding Level of Care Code Est Pt Level 4 (13152) Diagnoses Pain of both hip joints M25.551; M25.552 Joint pain location: hip Laterality: bilateral Lumbar radiculopathy M54.16
== END 2024-03-27 11:10 | disposition home or self-care (01) ==
LOC: HO.HOS 10:43
PROVIDERS: PCP Internal Medicine; Visit Provider Physical Medicine & Rehabilitation
DX: M25.551 Pain in right hip (principal); M25.552 Pain in left hip; M54.16 Radiculopathy, lumbar region
CPT/HCPCS: 99213

== ENCOUNTER → 2024-03-27 10:42 | Outpatient (BNVA) | payer MEDICARE, SELFPAY | PROVIDERS: PCP Internal Medicine; Visit Provider Physical Medicine & Rehabilitation | DX: M25.551 Pain in right hip (principal); M25.552 Pain in left hip; M79.652 Pain in left thigh; M79.651 Pain in right thigh; M54.16 Radiculopathy, lumbar region | CPT/HCPCS: 99212 ==

== ENCOUNTER 2024-04-04 15:17 | Outpatient (AMB) | payer MEDICARE, SELFPAY ==
[2024-04-04 15:18] VITALS: BP 140/82; PULSE 78; O2SAT 98; BMI 34.6
--- NOTE | 2024-04-04 15:18 | AM.OFFVISMDC ---
Intake Vital Signs 04/04/24 15:18 04/04/24 16:06 Height 5 ft 2 in Weight 189 lb BMI 34.6 BP 140/82 H 140/80 H Blood Pressure Location Lt brachial Lt brachial Position Sitting Sitting Pulse 78 Pulse Source Pulse Oximeter Pulse Oximetry (%) 98 Oxygen Delivery Method Room Air Intake Visit Reasons: AWV Intake Note: Patient is here for an Annual Wellness Visit. Allergies cabergoline [CABERGOLINE] Allergy (Severe, Verified 04/04/24 15:51) ANGIOEDEMA lisinopril [LISINOPRIL] Allergy (Severe, Verified 04/04/24 15:51) ANGIOEDEMA empagliflozin [Jardiance] Allergy (Intermediate, Verified 04/04/24 15:51) skin infection Medication List - Last Reconciled 04/04/24 by CHESTER Brown-Malcom acetaminophen (Tylenol) 325 mg PO QID PRN ascorbic acid (vitamin C) 500 mg PO DAILY betamethasone valerate 0.1% 1 appl topical BID PRN blood sugar diagnostic 1 strip miscellaneous BID 90 days blood sugar diagnostic (Stream MediaTouch Ultra Test strips) test once a day cranberry 400 mg PO DAILY [Diabetic shoes and inserts As directed] famotidine 20 mg PO BID fexofenadine (Jesusita Allergy) 180 mg PO DAILY fluticasone propionate 50 mcg/actuation (Flonase Allergy Relief) 2 sprays intranasal DAILY gabapentin 100 - 300 mg (1 - 3 x 100 mg) PO BEDTIME 90 days hydroxyzine HCl 25 mg PO TID PRN loperamide (Imodium A-D) 2 mg PO Q6H PRN loperamide (Imodium A-D) 2 mg PO Q6H PRN lorazepam 1 mg PO TID PRN losartan 100 mg PO BEDTIME magnesium oxide 500 mg PO DAILY meclizine 25 mg PO TID PRN metformin 500 mg PO BID 90 days semaglutide 2 mg (0.75 mL) subcut QWEEK 90 days sertraline 50 mg PO DAILY simvastatin 5 mg PO DAILY 90 days vitamin B complex 1 cap PO DAILY HPI AWV HPI Details 73-year-old obese female with diabetes mellitus, obstructive sleep apnea, hypertension, hypercholesterolemia, GERD, and major depression last seen by Dr. Crain December 2023 coming in for annual wellness visit. In review of the notes, patient was seen by Orthopedics for bilateral hip pain and advised to have MRI obtained. Patient states she has been working with physical therapy for her arthralgia and has scheduled for next Sunday. She mentioned she has been having more irritable bowel syndrome than usual and has not increase in diarrhea and fecal incontinence. She does have a previous history this and has not noticed an increase in her symptoms since increasing the Ozempic however it has becoming more of a problem for her. She follows with Dr. Bucio for regular eye exams. [facility] Medical History Post-menopausal Medicare annual wellness visit, initial Pre-op evaluation Precordial chest pain Acute electrocardiogram changes RBBB (right bundle branch block) COVID-19 vaccine series completed Screening for colon cancer Diverticular disease Basal cell carcinoma (BCC) in situ of skin Polymyalgia rheumatica GERD (gastroesophageal reflux disease) Anxiety Hypertension Angioedema Hypercholesteremia Obstructive sleep apnea Obesity (BMI 30-39.9) Type 2 diabetes mellitus with hyperglycemia Surgical History Hx of cataract extraction History of colonoscopy History of arthroplasty of right knee Hx of appendectomy History of cholecystectomy S/P ADRIÁN-BSO Family History Father Prostate cancer Acute CVA (cerebrovascular accident) Mother Uterine cancer COPD (chronic obstructive pulmonary disease) Sister Melanoma Brother Melanoma Paternal Grandfather Acute CVA (cerebrovascular accident) Paternal Aunt Breast cancer Social History Housing: House Are you a primary health care coordinator to a significant other at home: No Do you presently have visiting nurse or other home services: No Alcohol intake: never Patient Tobacco Use Status: Former Tobacco user Tobacco use type: Cigarette e-Cigarette/Vaping Use: Never Used Second Hand Smoke Exposure: No Advance Directives Date on File: 04/12/21 Current occupational status: employed Current occupation: [employer] Cognitive needs: No Hearing needs: No Vision needs: Yes Questionnaire Medicare Wellness Checkup [age] What gender do you identify with?: female During the past 4 weeks, how much have you been bothered by emotional problems such as feeling anxious, depressed, irritable, sad or downhearted, and blue?: slightly During the past 4 weeks, has your physical & emotional health limited your social activities with family, friends, neighbors, or groups?: moderately During the past 4 weeks, how much bodily pain have you generally had?: moderate pain During the past 4 weeks, was someone available to help you if you needed & wanted help?: yes, quite a bit During the past 4 weeks, what was the hardest physical activity you could do for at least 2 minutes?: moderate Can you get to places out of walking distance without help? (For eg., can you travel alone on buses, taxis or drive your car?): Yes Can you go shopping for groceries or clothes without someone's help?: Yes Can you prepare your own meals?: Yes Can you do your housework without help?: Yes Because of any health problems, do you need the help of another person with your personal care needs such as eating, bathing, dressing or getting around the house?: No Can you handle your own money without help?: Yes During the past 4 weeks, how would you rate your health in general?: good During the past 4 weeks how have things been going for you?: pretty well Are you having difficulties driving your car?: no Do you always fasten your seat belt when you are in a car?: yes, usually During past 4 weeks, have you been bothered by the following: never: Sexual problems?, Trouble eating well?, Teeth or denture problems? and Problems using the telephone?, seldom: Falling or dizzy when standing up and often: Tiredness or fatigue? Have you fallen 2 or more times in the past year?: No Are you afraid of falling?: Yes Are you a smoker?: no During the past 4 weeks, how many drinks of wine, beer, or other alcoholic beverages did you have?: no alcohol at all Do you exercise for about 20 minutes 3 or more times a week?: yes, all the time Have you been given information to help with the following?: no: Hazards in your house that might hurt you? and no: Keeping track of your medications? How often do you have trouble taking medicines the way you have been told to take them?: I always take medicine as prescribed How confident are you that you can control & manage most of your health problems?: very confident What is your race?: White PHQ-9 Over the last 2 weeks, how often have you been bothered by any of the following problems? 1. Little interest or pleasure in doing things: several days 2. Feeling down, depressed, or hopeless: several days 3. Trouble falling or staying asleep, or sleeping too much: several days 4. Feeling tired or having little energy: more than half the days 5. Poor appetite or overeating: several days 6. Feeling bad about yourself - or that you are a failure or have let yourself or your family down: not at all 7. Trouble concentrating on things, such as reading the newspaper or watching television: not at all 8. Moving or speaking so slowly that other people could have noticed. Or the opposite - being so fidgety or restless that you have been moving around a lot more than usual: not at all 9. Thoughts that you would be better off or of hurting yourself in some way: not at all Total score: 6 Depression Screening Interpretation: Positive Depression Screening Follow-up: Existing condition and In treatment Depression Screening Done: Yes 45898 - PHQ-9 Billing: Yes Source: Developed by Drs. Marcos Joshi, Margret Ochoa, Jeferson Mcintosh and colleagues, with an educational aaron from [employer]. Review of Systems Const Denies body aches, Denies fatigue, Denies fever(s), Denies frequent falls, Denies headache(s) and Denies weakness Eyes Reports no additional complaints and Denies change in vision ENT Denies dysphagia, Denies dizziness, Denies facial pain, Denies headache(s), Denies nasal congestion and Denies odynophagia Card Denies chest pain, Denies syncope, Denies irregular heart rhythm, Denies leg edema, Denies lightheadedness and Denies dyspnea Resp Denies cough and Denies dyspnea GI Denies abdominal pain, Denies constipation, Denies dysphagia, Denies dyspepsia, Reports fecal incontinence, Reports diarrhea, Reports loose stools, Reports nausea, Denies odynophagia and Denies vomiting Denies urinary frequency, Denies dysuria, Denies urinary hesitancy and Denies urinary urgency Musc Denies back pain and Denies myalgias Skin/Breast Reports system reviewed and no additional complaints, except as documented Neuro Denies dizziness, Denies syncope, Denies frequent falls, Denies headache(s) and Denies weakness Psych Reports no additional complaints Endo Denies fatigue Physical Exam Vital Signs: Last Vital Signs Pulse 78 04/04/24 15:18 BP 140/80 H 04/04/24 16:06 Pulse Ox 98 04/04/24 15:18 Oxygen Delivery Method Room Air 04/04/24 15:18 BMI result Body Mass Index 34.6 Const General: cooperative, healthy appearing, comfortable and no acute distress Orientation/consciousness: patient oriented x3 HEENT Head: Yes normocephalic Ears: hearing grossly normal bilaterally, external ears normal, TM's normal bilaterally and EAC's normal General nose exam: Normal external nose present Face and sinus: Yes normal facial exam and Yes sinuses nontender Mouth: Normal oral and palatal mucosa present and tongue normal Throat: Yes posterior oropharynx normal Eyes General: appearance normal, both eyes and all related structures Conjunctivae: conjunctivae normal Pupils: Equal, round and reactive pupils present EOM: EOMs intact bilaterally and No Nystagmus present Neck Neck: Yes normal visual inspection, Yes full ROM and Yes no lymphadenopathy Chest Chest palpation & inspection: normal inspection of the chest Resp Effort & Inspection: normal respiratory effort Auscultation: clear to auscultation bilaterally, no crackles, no rales, no rhonchi, no wheezes and breath sounds present Cardio Rate: regular rate Rhythm: regular rhythm Peripheral pulses: radial pulses present and dorsalis pedis present GI Inspection: Yes normal to inspection and No Abdominal wall edema Palpation (GI): Soft to palpation, not firm and nontender Auscultation: normal bowel sounds Rectal Exam - Female: deferred General: Yes no CVA tenderness Back/Spine/Pelvis Back: no CVA tenderness Skin General skin exam: no rashes or lesions noted Neuro General: patient oriented x3 Cranial nerves: Yes Equal, round and reactive pupils present, Yes Midline tongue present, Yes Ability to bilaterally elevate shoulders present and No Nystagmus present Gait exam (Neuro): Normal gait present Extrem General: Yes normal to inspection, Yes full ROM, No no pedal edema and No edema Psych Speech and movement: Normal speech and movement present Affect: normal affect Insight: Good insight present (Psych) Judgement: Good judgement present (Psych) Office Procedures Flu Questionnaire Does the patient have a severe egg allergy?: No Does the patient have severe life threatening allergies?: No Does the patient have a fever or illness today?: No Has the patient ever had Guillain-Haverhill Syndrome?: No Has the patient ever had any past reaction to a flu shot?: No Immunizations Fluarix Triv 3743-5484 (PF) 45 mcg (15 mcg x 3)/0.5 mL IM syringe Performing Provider: Suzan Irving PA-C Performing [facility] Administered by: SANIA Donovan on 04/04/24 16:13 Dose Route Admin Location Dispensed Lot Number Expiration Date [facility] Tissue Coordinator 0.5 mL IM Left Deltoid 0.5 mL [id number] 11/17/24 [id number] Talking Data VIS Given Date VIS Provided VIS Publication Date 04/04/24 Single Vaccine 20 Eligibility Eligibility Date Funding Source Not [facility] Eligible 04/04/24 Private Assessment & Plan Assessment & Plan (1) Back pain: Code(s): M54.9 - Dorsalgia, unspecified Plan: Continue to follow with Orthopedics. (2) Arthralgia, pelvis: Code(s): M25.559 - Pain in unspecified hip Qualifiers: Laterality: left Qualified Code(s): M25.552 - Pain in left hip Plan: Continue with the follow with Orthopedics. MRI to be scheduled. (3) Major depression: Comment: decline referral 03/2022 Code(s): F32.9 - Major depressive disorder, single episode, unspecified Plan: Continue on current medication regimen. Feels well on this medication. (4) GERD (gastroesophageal reflux disease): Code(s): K21.9 - Gastro-esophageal reflux disease without esophagitis Qualifiers: Esophagitis presence: without esophagitis Qualified Code(s): K21.9 - Gastro-esophageal reflux disease without esophagitis Plan: Avoid trigger foods such as citrus, tomato products, soda, caffeine, spicy foods and other foods that may be irritating to your stomach. Avoid laying flat 3-4 hours after eating and elevate the head of the bed 30 degrees to prevent acid from moving into the esophagus. (5) Anxiety: Code(s): F41.9 - Anxiety disorder, unspecified Plan: Patient feels generally well on her current medication regimen. Declining counseling referral at this time. (6) Hypertension: Code(s): I10 - Essential (primary) hypertension Qualifiers: Hypertension type: essential hypertension Qualified Code(s): I10 - Essential (primary) hypertension Plan: Continue on current blood pressure medication. Avoid salt intake and encourage healthy diet and regular exercise. Blood pressure elevated on exam advised to follow up in 3 months. (7) Hypercholesteremia: Code(s): E78.00 - Pure hypercholesterolemia, unspecified Plan: Avoid foods that are high in cholesterol such as red meat, fried foods, eggs and baked goods. Triglyceride goal of less than 150 and LDL goal of less than 100. Continue on simvastatin 5 (8) Obstructive sleep apnea: Comment: uses CPAP Code(s): G47.33 - Obstructive sleep apnea (adult) (pediatric) Plan: Uses CPAP faithfully at least 4 hours a night and benefits from this therapy. (9) Obesity (BMI 30-39.9): Code(s): E66.9 - Obesity, unspecified Plan: Healthy diet and regular exercise is encouraged. (10) Type 2 diabetes mellitus with hyperglycemia: Code(s): E11.65 - Type 2 diabetes mellitus with hyperglycemia Qualifiers: Diabetes mellitus terminal operations manager insulin use: without terminal operations manager use Qualified Code(s): E11.65 - Type 2 diabetes mellitus with hyperglycemia Plan: Decrease the amount of carbohydrates such as pasta, bread, rice, and potatoes and limit the amount of sweets. Although fruits are generally healthy they should be eaten in moderation as they are still high in sugar. Hemoglobin A1c goal of less than 7%. (11) Medicare annual wellness visit, subsequent: Code(s): Z00.00 - Encounter for general adult medical examination without abnormal findings Plan: Patient is up-to-date on all recommended routine screenings and vaccinations for her age. Follow up in 1 year or sooner if new problems arise. [place] of care was reviewed with patient patient was provided with a written screening schedule. Healthcare proxy/ MOLST forms were reviewed with patient and are on file. (12) Diarrhea: Code(s): R19.7 - Diarrhea, unspecified Plan: Referral placed for GI as she has tried Imodium and cholestyramine in the past without good relief. Has been seen by GI in the past and advised to use Imodium is looking for additional workup. (13) Fecal incontinence: Code(s): R15.9 - Full incontinence of feces Plan: See above (14) Decreased hearing: Code(s): H91.90 - Unspecified hearing loss, unspecified ear Plan: Referral placed for audiogram. Plan This note was constructed using voice recognition software. While every effort has been made to ensure accuracy and correctional treatment specialist, still areas may have been included sometimes these areas may affect the content or meeting of the given symptoms. Total time spent caring for the patient today was 30 minutes. This includes time spent before the visit reviewing the chart, time spent during the visit, and time spent after the visit and documentation. Orders: Orders Influenza [id number] Immunization Today Z23 - Encounter for immunization Referrals Speech and Hearing Referral H91.90 - Unspecified hearing loss, unspecified ear Gastroenterology Referral R15.9 - Full incontinence of feces, R19.7 - Diarrhea, unspecified Medications: New Fluarix Triv [id number] (PF) (flu vacc [id number] 6mos up(PF)) 0.5 mL IM ONCE 0.5 mL 0RF NS Z23 - Encounter for immunization Refilled famotidine 20 mg PO BID 180 tabs 2RF K21.9 - Gastro-esophageal reflux disease without esophagitis metformin 500 mg PO BID 180 tabs 2RF 90 days E11.65 - Type 2 diabetes mellitus with hyperglycemia sertraline 50 mg PO DAILY 90 tabs 1RF F32.9 - Major depressive disorder, single episode, unspecified blood sugar diagnostic (Stream MediaTouch Ultra Test strips) test once a day 100 ea 3RF test blood sugar once a day E11.65 - Type 2 diabetes mellitus with hyperglycemia Quality Reporting (2019) Depression/Bipolar (159/160/161/177) PHQ-9: Total score: 6 Coding Level of Care Code Medicare Subsequent (G0439) Diagnoses Back pain M54.9 Arthralgia of left side of pelvis M25.552 Laterality: left Major depression F32.9 Gastroesophageal reflux disease without esophagitis K21.9 Esophagitis presence: without esophagitis Anxiety F41.9 Essential hypertension I10 Hypertension type: essential hypertension Hypercholesteremia E78.00 Obstructive sleep apnea G47.33 Obesity (BMI 30-39.9) E66.9 Type 2 diabetes mellitus with hyperglycemia, without long-term current use of insulin E11.65 Diabetes mellitus terminal operations manager insulin use: without terminal operations manager use Medicare annual wellness visit, subsequent Z00.00 Diarrhea R19.7 Fecal incontinence R15.9 Decreased hearing H91.90 Additional Codes PHQ-9 - 60289 - PHQ-9 Billing: Yes ([id number])
[2024-04-04 16:06] VITALS: BP 140/80
== END 2024-04-04 16:35 | disposition home or self-care (01) ==
PROVIDERS: PCP Internal Medicine
DX: Z00.00 Encounter for general adult medical examination without abnormal findings (principal); E11.65 Type 2 diabetes mellitus with hyperglycemia; M54.9 Dorsalgia, unspecified; M25.552 Pain in left hip; F32.9 Major depressive disorder, single episode, unspecified; K21.9 Gastro-esophageal reflux disease without esophagitis; F41.9 Anxiety disorder, unspecified; I10 Essential (primary) hypertension; E78.00 Pure hypercholesterolemia, unspecified; G47.33 Obstructive sleep apnea (adult) (pediatric); E66.9 Obesity, unspecified; R19.7 Diarrhea, unspecified

== ENCOUNTER → 2024-04-04 15:17 | Outpatient (BNVA) | payer MEDICARE, SELFPAY | PROVIDERS: PCP Internal Medicine | DX: Z23 Encounter for immunization (principal); E11.65 Type 2 diabetes mellitus with hyperglycemia; M54.9 Dorsalgia, unspecified; M25.552 Pain in left hip; F32.9 Major depressive disorder, single episode, unspecified; K21.9 Gastro-esophageal reflux disease without esophagitis; F41.9 Anxiety disorder, unspecified; I10 Essential (primary) hypertension; E78.00 Pure hypercholesterolemia, unspecified; G47.33 Obstructive sleep apnea (adult) (pediatric); E66.9 Obesity, unspecified; R19.7 Diarrhea, unspecified; R15.9 Full incontinence of feces; H91.90 Unspecified hearing loss, unspecified ear | CPT/HCPCS: 90471; 90656; 96127 ==

== ENCOUNTER 2024-04-11 08:54 | Outpatient (RCR) | payer MEDICARE, SELFPAY ==
--- NOTE | 2024-03-10 15:21 | MHC.PT.EP ---
[facility] [place] Office [place] [facility] [place] [facility] [address] Tino Bronson [address] [phone] F: [phone] F: [phone] F: [phone] F: [phone] Physical Therapy Plan of Care Date of Evaluation: 03/10/24 Date of Surgery: Diagnosis: PAIN IN BILAT HIPS, ARTHRALGIA, PELVIS AND LBP Assessment: 73 YO FEMALE REF TO PT WITH LAUREL HIP PAIN/ ARTHRALGIA, PELVIC AND LS SORENESS- SHE HAS A H/O Rt TKA YRS AGO AND PERIPHERAL NEUROPATHY. OBJECTIVE FINDINGS: (+) LUMBOPELVIC ASYMM CREATING LLI, STRENGTH DEFICITS IN LUMBOPELVIC AND MILDLY IN HIPS, DECR TRUNK AROM, LIMITED SQUAT MECHANICS, AND FLUCTUATING PAIN IN HER HIPS AND THIGHS/ LUMBOSACRAL TENSION- MILD TRUNK AROM RESTRICTIONS. SHE HAS DECENT STRENGTH IN HER LEs. FUNCTIONALLY, THE Pt HAS DECR SRINIVAS TO PROLONGED STANDING, STAIR NAVIGATION, AND SHE NOTES INCR SORENESS AFTER A BUSY DAY. THE Pt AGREES W PT POC FOR BRIEF PT TO DEV A HEP/ SX MGMT TECHN. Frequency and Duration: The patient will be seen 2 x WK x 3 WKS Short Term Goals: *DECR HIP LEs SORENESS TO 2-3/10 *INITIATE HEP *INCREASE AWARENESS OF BODY MECH TO REDUCE LS STRESS Alf Goals: *INDEP HEP AND SX MGMT TECHN *IMPROVED FUNCT MOB SRINIVAS-> WFL FUNCT SQUAT AND GEN BODY MECH W SIMUL ADLs *IMPROVED LEFI, AT EVAL 52/80 Treatment Plan: Modalities to reduce pain, spasms and effusion. Manual therapy to restore motion and function. Therapeutic exercise to improve strength and flexibility. Neuromuscular re-education for posture and balance. Therapeutic activities to return to functional activities of daily living. Electronically signed by: LEONOR METZ,PT Please sign and return to therapist. Thank you for your referral.
--- NOTE | 2024-04-11 15:09 | MHC.PT.DC ---
[facility] [place] Office [place] Office [place] Office [address] [phone] F: [phone] F: [phone] F: [phone] F: [phone] Physical Therapy Discharge Report Diagnosis: PAIN IN BILAT HIPS, ARTHRALGIA, PELVIS AND LBP Date of Surgery: Date of Evaluation: 03/10/24 Date of Discharge: 04/11/24 Treatments to Date: 10 Cancellations to Date: 1 No Shows to Date: 0 Discharge Status: Achieved Goals Improved Function Independent with HEP Patient Elected to Stop Discharge Summary: Beckie has met her Pt goals at this time- We educ and simul body mechanics to improve her transfers/ reduce stress to LS/ hips as she is caring for her sister. She states the ex have helped her feel stronger and she is indep with her HEP. Her pain has decr significantly. her LEFI scaor at discharge is 55/80. Electronically signed by: Bessie Campo, PT Please sign and return to therapist. Thank you for your referral.
== END 2024-04-11 15:09 | disposition home or self-care (01) ==
LOC: HO.PT 08:54
PROVIDERS: PCP Internal Medicine; Visit Provider Physical Medicine & Rehabilitation
DX: M25.552 Pain in left hip (principal); M25.551 Pain in right hip; M54.9 Dorsalgia, unspecified
CPT/HCPCS: 97110; 97161; 97530

== ENCOUNTER → 2024-04-11 16:32 | Outpatient (BNV) | payer MEDICARE, SELFPAY | PROVIDERS: PCP Internal Medicine; Visit Provider Radiology Diagnostic Radiology | DX: M47.896 Other spondylosis, lumbar region (principal); N28.89 Other specified disorders of kidney and ureter | CPT/HCPCS: 72148 ==

== ENCOUNTER 2024-04-11 16:58 | Outpatient (REF) | payer MEDICARE, SELFPAY | END 2024-04-11 16:59 | disposition home or self-care (01) | LOC: HO.MRI 16:58 | PROVIDERS: PCP Internal Medicine; Visit Provider Physical Medicine & Rehabilitation | DX: M54.16 Radiculopathy, lumbar region (principal) | CPT/HCPCS: 72148 ==

== ENCOUNTER 2024-05-20 10:48 | Outpatient (REF) | payer MEDICARE, SELFPAY ==
--- OUTSIDE RECORDS SUMMARY | 2024-05-20 11:02 | XMS_ITS | Patient Health Record ---
Author Organization [facility] Address [address] [place] [address] Care Team Providers Care Tonger Name Role Phone Po Deon CAAL Primary Care Provider Abhi Marcus Jr ALLERGIES Allergen (clinical drug ingredient) Drug/Non Drug Allergy documented on EMR Reaction Allergy Type Onset Date Status cabergoline Cabergoline Unknown Drug Allergy Act amparo angiotensin-converting enzyme inhibitor (FN) LUKE Inhibitors Unknown Drug Allergy Acti ve REASON FOR REFERRAL No Information MEDICATIONS Medication SIG (Take, Route, Frequency, Duration) Notes Start Date End Date Status Aspirin 81 MG 1 tablet Orally Once a day Active Fish Oil 1200 MG 1 capsule Orally Onc e a day Active Vitamin C 500 MG 1 tablet Orally Once a day Active Multivitamin - 1 tablet Orally Once a day Active Fexofenadine HCl 30 MG 1 tablet Orally O nce a day Active Vitamin B Complex - as directed Orally Active Famotidine 40 MG 1 tablet at bedtime Orally Twice a day Active Sertraline HCl 25 MG 1 tablet Orally Onc e a day for 30 day(s) Active Gabapentin 300 MG 1 tablet Orally Once a day Active Naproxen Sodium 220 MG 1 tablet with sherry d or milk as needed Orally as needed for pain Active Ozempic (1 MG/DOSE) 4 MG/3ML as directed Subcutaneous once weekly Active Lorazepam Active MiraLax (colon prep) 17 GM/SCOOP mixed with Gatorade or Crystal Light Orally begin at 5:00 p.m. the day before the procedure for 1 day 11/14/2021 Active metFORMIN HCl 500 MG 1 tablet with a yessica l Orally bid Active Simvastatin 5 MG 1 tablet in the even ing Orally Once a day Active Acetaminophen 500 MG 2 tablets ORALLY as needed for pain Active Losartan Potassium 100 MG 1 tablet Orall y Once a day Active IMMUNIZATIONS Vaccine Route Administration Date Status Comme nts Influenza Unknown 02/18/2021 Administered Influenza Unknown 11/27/2022 Administered SOCIAL HISTORY Tobacco Use: Social History Observation Description Date Details (start date - stop date) Former Smoker NA - NA Sex Assigned At : Social History Observation Description Sex Assigned At Unknown Tobacco Use/Smoking Question Answer Notes Patient is a former smoker How long has it been since you last smoked? > 10 years Alcohol Screen Question Answer Notes Did you have a drink containing alcohol in the p ast year? No Points 0 Interpretation Negative PROBLEMS Problem Type ICD Code Onset Dates Problem Status W/U Status Risk SNOMED Code Notes Problem Colon cancer screening (Z12.11) Active confirmed 193708840 Problem Long-term use of aspirin therapy (Z79.82) Active confirmed 312073561 Problem Diarrhea, unspecified type (R19.7) Active confirmed 54077416 PLAN OF TREATMENT Pending Test Test Name Order Date STOOL WBC 08/22/2022 CALPROTECTIN, STOOL 08/22/2022 GI PANEL 08/22/2022 Future Test Test Name Order Date COLONOSCOPY 11/14/2021 Insurance Providers Payer Name Payer Address Payer Phone Subscriber Number Group Number Insured Name Patient Relationship to Insured Coverage Start Date Coverage End Date MEDICARE OF [place] [address] [place] [address] [phone] [id number] PREETI VILLALOBOS Self - patient is the insured MED[employer] ATTN CLAIMS [address] [place] [phone] [id number] PREETI VILLALOBOS Self - patient is the insured MEDICAL (GENERAL) HISTORY Medical History History ICD Code diabetes Hypertension Elevated cholesterol Neuropathy Angioedema ANKUSH/CPAP Colonoscopy 02/09, diverticul osis, hyperplastic polyp, normal biopsies, ten-year followup. Surgical History Surgery Date(Month/Year) gallbladder cataract both eyes 2020 appendix total hysterectomy 2008 right knee replacement 2015
--- OUTSIDE RECORDS SUMMARY | 2024-05-20 11:02 | XMS_ITS ---
Author Organization [facility] Address [address] [place] [phone] Care Team Providers Care Customer Sales Distributor Name Role Phone Po Deon CAAL Primary Care Provider Abhi Marcus Jr ALLERGIES Allergen (clinical drug ingredient) Drug/Non Drug Allergy documented on EMR Reaction Allergy Type Onset Date Status cabergoline Cabergoline Unknown Drug Allergy Act amparo angiotensin-converting enzyme inhibitor (FN) LUKE Inhibitors Unknown Drug Allergy Acti ve REASON FOR VISIT Patient presents today for DIARRHEA MEDICATIONS Medication SIG (Take, Route, Frequency, Duration) Notes Start Date End Date Status Gabapentin 300 MG 1 tablet Orally Once a day Active Ozempic (1 MG/DOSE) 4 MG/3ML as directed Subcutaneous once weekly Active MiraLax (colon prep) 17 GM/SCOOP mixed with Gatorade or Crystal Light Orally begin at 5:00 p.m. the day before the procedure for 1 day 11/14/2021 Active Simvastatin 5 MG 1 tablet in the even ing Orally Once a day Active Losartan Potassium 100 MG 1 tablet Orall y Once a day Active Aspirin 81 MG 1 tablet Orally Once a day Active Fish Oil 1200 MG 1 capsule Orally Onc e a day Active Multivitamin - 1 tablet Orally Once a day Active Fexofenadine HCl 30 MG 1 tablet Orally O nce a day Active Famotidine 40 MG 1 tablet at bedtime Orally Twice a day Active Vitamin C 500 MG 1 tablet Orally Once a day Active Naproxen Sodium 220 MG 1 tablet with sherry d or milk as needed Orally as needed for pain Active Lorazepam Active metFORMIN HCl 500 MG 1 tablet with a yessica l Orally bid Active Acetaminophen 500 MG 2 tablets ORALLY as needed for pain Active Vitamin B Complex - as directed Orally Active Sertraline HCl 25 MG 1 tablet Orally Onc e a day for 30 day(s) Active SOCIAL HISTORY Tobacco Use: Social History Observation [...] ast year? No Points 0 Interpretation Negative VITAL SIGNS BMI 31.63 kg/m2 11/27/2022 Blood pressure systolic 000 mm Hg 11/28/19 23 Blood pressure diastolic 00 mm Hg 023 Height 63.5 in 11/27/2022 Temperature 98.0 degrees Fahrenheit 11/28/19 23 Weight 181.4 lbs 11/27/2022 Encounters Encounter Location Date Provider Diagnosis [facility] [address] [place] [address] 11/27/2022 Abhi Pedroza Jr Diarrhea, unspecified type R19.7 ASSESSMENTS Encounter Date Diagnosis Assessment Notes Treatment Notes Treatment Clinical Notes 11/27/2022 Diarrhea, unspecified type (ICD-10 - R19.7) Diarrhea - what to ask your health care provider - adult material was printed PLAN OF TREATMENT Treatment Notes Assessment Notes Diarrhea, unspecified type Diarrhea - wh at to ask your health care provider - adult material was printed Next Appt Details Follow Up: 1 Year, Reason:
== END 2024-05-20 10:49 | disposition home or self-care (01) ==
LOC: HO.SH 10:48
DX: Z01.118 Encounter for examination of ears and hearing with other abnormal findings (principal); H91.93 Unspecified hearing loss, bilateral
CPT/HCPCS: 92557; 92567

== ENCOUNTER 2024-06-13 11:53 | Outpatient (AMB) | payer MEDICARE, SELFPAY ==
--- NOTE | 2024-06-13 11:59 | A.OFFVIS_ITS ---
Vital Signs 06/13/24 12:00 Height 5 ft 2 in Weight 189 lb BMI 34.6 Intake Visit Reasons: OV- Lumbar Spine MRI Review Intake Note: Beckie 73 yr old female presents today for her lumbar MRI review. Allergies cabergoline [CABERGOLINE] Allergy (Severe, Verified 06/13/24 12:01) ANGIOEDEMA lisinopril [LISINOPRIL] Allergy (Severe, Verified 06/13/24 12:01) ANGIOEDEMA empagliflozin [Jardiance] Allergy (Intermediate, Verified 06/13/24 12:01) skin infection Medication List - Last Reconciled 06/13/24 by Yvette Knight MD acetaminophen (Tylenol) 325 mg PO QID PRN ascorbic acid (vitamin C) 500 mg PO DAILY betamethasone valerate 0.1% 1 appl topical BID PRN blood sugar diagnostic 1 strip miscellaneous BID 90 days blood sugar diagnostic (Acuity Medical InternationalTouch Ultra Test strips) test once a day cranberry 400 mg PO DAILY [Diabetic shoes and inserts As directed] famotidine 20 mg PO BID fexofenadine (Jesusita Allergy) 180 mg PO DAILY fluticasone propionate 50 mcg/actuation (Flonase Allergy Relief) 2 sprays intranasal DAILY gabapentin 100 - 300 mg (1 - 3 x 100 mg) PO BEDTIME 90 days hydroxyzine HCl 25 mg PO TID PRN loperamide (Imodium A-D) 2 mg PO Q6H PRN loperamide (Imodium A-D) 2 mg PO Q6H PRN lorazepam 1 mg PO TID PRN losartan 100 mg PO BEDTIME magnesium oxide 500 mg PO DAILY meclizine 25 mg PO TID PRN metformin 500 mg PO BID 90 days semaglutide 2 mg (0.75 mL) subcut QWEEK 90 days sertraline 50 mg PO DAILY simvastatin 5 mg PO DAILY 90 days vitamin B complex 1 cap PO DAILY HPI Comments Details: Says pain is generally pointing to bilateral hip/pelvis, going to calves, says sometimes whole body aches (both upper and lower body) in general. Feels tired easily. She still tries gardening and kneeling, but has gotten worse recently. Getting up from chair feels stiff and needs time. This started in the spring. Denies back pain. Years ago she was treated for PMR. She had elevated ESR back then which she says it is not elevated now. B12 and D were also within normal. CK not elevated. No imaging done. History of DM. History of following Dr. 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 Most of pain is going up the stairs, usually in the outer thighs, which would feel rock hard. When she gets up from prolonged sitting, she'd have pain again for thighs. More aware of pain in the hips and lower back pain since she's been going to PT. No claudication, can walk 2 miles, 3-4 times a week. Visit today for MRI review. Disc desiccation seen on L3-4, L4-5 and L5-S1, resulting in foraminal stenosis. Facet degeneration. No significant central spinal stenosis. Today says right sided calf/leg pain is no longer, but has noted it more left side. After PT sessions, noting more buttocks ache especially with walking. COUNT INCLUDES THE [facility] Medical History Post-menopausal Medicare annual wellness visit, initial Pre-op evaluation Precordial chest pain Acute electrocardiogram changes RBBB (right bundle branch block) COVID-19 vaccine series completed Screening for colon cancer Diverticular disease Basal cell carcinoma (BCC) in situ of skin Polymyalgia rheumatica GERD (gastroesophageal reflux disease) Anxiety Hypertension Angioedema Hypercholesteremia Obstructive sleep apnea Obesity (BMI 30-39.9) Type 2 diabetes mellitus with hyperglycemia Surgical History Hx of cataract extraction History of colonoscopy History of arthroplasty of right knee Hx of appendectomy History of cholecystectomy S/P ADRIÁN-BSO Family History Father Prostate cancer Acute CVA (cerebrovascular accident) Mother Uterine cancer COPD (chronic obstructive pulmonary disease) Sister Melanoma Brother Melanoma Paternal Grandfather Acute CVA (cerebrovascular accident) Paternal Aunt Breast cancer Social History Housing: House Are you a primary nonfarm animal caretaker to a significant other at home: No Do you presently have visiting nurse or other home services: No Alcohol intake: never Patient Tobacco Use Status: Former Tobacco user Tobacco use type: Cigarette e-Cigarette/Vaping Use: Never Used Second Hand Smoke Exposure: No Advance Directives Date on File: 04/12/21 Current occupational status: employed 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 Patient was appropriately conversant and oriented. Good historian. Results Reviewed Results Reviewed: Ordering Physician: Yvette Fontana Date of Service: 04/11/24 Procedure(s): MR lumbar spine wo con Accession Number(s): [id number] cc: Deon Crain MD; Yvette Fontana~ EXAMINATION: MR LUMBAR SPINE WITHOUT CONTRAST CLINICAL INFORMATION: Radiculopathy, lumbar region. Evaluate L3-4 and L4-5 discs. COMPARISON: None available. TECHNIQUE: MRI of the lumbar spine was obtained using routine sequences without contrast. FINDINGS: Submitted for interpretation on May 08, 2024. Last rib-bearing vertebra labeled T12. Bone marrow inhomogeneity. No bone marrow STIR signal abnormality. Multilevel marginal osteophyte formation and disc desiccation from T11-12 to L4-5. Grade 1 retrolisthesis, L2-3. Conus medullaris ends at inferior endplate of L1 with normal signal. T12-L1: No disc herniation. No neuroforamina stenosis. L1-2: Facet joint hypertrophy as well as ligamentum flavum. No disc herniation. No neuroforamina stenosis. L2-3: Broad-based disc bulging. Facet joint and ligamentum flavum hypertrophy. Decreased AP diameter of the thecal sac. Bilateral neuroforamina narrowing involving mostly the right side. Small, 4 mm focal flow signal in the posterior left facet joint. L3-4: Broad-based disc bulging. Facet joint and ligamentum flavum hypertrophy. Reduced AP diameter of the thecal sac. Bilateral neuroforamina narrowing encroaching the neural elements. L4-5: Broad-based disc bulging abutting the L5 exiting nerve roots on the lateral recesses. Facet joint and ligamentum flavum hypertrophy. Reduced AP diameter of the thecal sac and bilateral neuroforamina stenosis encroaching the neural elements. L5-S1: Right-sided asymmetric disc bulging abutting the right S1 and L5 exiting nerve roots. Facet joint hypertrophy. No central spinal canal stenosis. Bilateral neuroforamina stenosis encroaching the neural elements on a degenerative basis. No prevertebral compartment hematoma, mass or fluid collection. There is a 1 cm hypointense T2 lesion in the posterior midportion/lower pole junction of the right kidney. MR/MR lumbar spine wo con IMPRESSION: Multilevel lumbar spondylosis more conspicuous at L4-5, L5-S1 and L3-4 encroaching the neural elements of the thecal sac and exiting nerve roots. Probable hemorrhagic versus calcific lesion, right kidney. Electronically signed by: Deon Emerson MD 05/08/2024 01:40 PM EST Assessment & Plan Assessment & Plan (1) Joint pain: Code(s): M25.50 - Pain in unspecified joint Category: Medical Qualifiers: Joint pain location: hip Laterality: bilateral Qualified Code(s): M25.551 - Pain in right hip; M25.552 - Pain in left hip (2) Lumbar radiculopathy: Code(s): M54.16 - Radiculopathy, lumbar region Category: Medical Plan We looked at lumbar MRI films together. Visualized disc desiccation in at least 3 levels with foraminal stenosis but no central spinal stenosis. We talked about injections but her pain keeps moving from 1 side to another. So we decided to defer injections for now. We talked about possibility of PMR. She was previously treated for PMR with methotrexate and Celebrex. But her more recent ESR was not that elevated. She would take Aleve 200 mg p.r.n. as needed. 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 Flanagan. The best she can do at this point I think is to keep active, try to walk for exercise daily. Assessment and plan discussed with patient, and patient was agreeable. All questions were answered thoroughly. She will call us if she needed injections. Yvette Knight MD, PABLO Board Certified, [place] Board of Physical Medicine and Rehabilitation (ABPMR) Board Certified, [place] Board of Electrodiagnostic Medicine (ABEM) Coding Level of Care Code Est Pt Level 3 (76958) Diagnoses Pain of both hip joints M25.551; M25.552 Joint pain location: hip Laterality: bilateral Lumbar radiculopathy M54.16
[2024-06-13 12:00] VITALS: BMI 34.6
--- OUTSIDE RECORDS SUMMARY | 2024-06-13 14:03 | XMS_ITS | Clinical Summary ---
Author Organization [facility] Address [address] [place] [address] Care Team Providers Care Batch Plant Operator Name Role Phone Unavailable Primary Care Provider Unavailabl e Social History Tobacco Use Types Packs/Day Years Used Date Smoking Tobacco: Never Assessed Intimate Partner Violence Answer Date R ecorded Fear of Current or Ex-Partner Not on file Emotionally Abused Not on file 01/11/2023 Physically Abused Not on file 01/11/2023 Sexually Abused Not on file 01/11/2023 Feel Safe at Home Not on file 01/11/2023 Comments Unknown Sex and Gender Information Value Date Recorded Sex Assigned at Not on file Legal Sex Female 1:43 PM EST Gender Identity Not on file Sexual Orientation Not on file Plan of Treatment Health Maintenance Due Date Last Done Comments Hepatitis C Screening 1950 DTaP/Tdap/Td (1 - Tdap) 1968 Mammogram/Breast Imaging 1990 Colon Cancer Screening 12/29/1995 Pneumococcal 50+ years (1 of 1 - PCV) 2000 Zoster (Shingrix) (1 of 2) 2000 Bone Density 12/29/2015 COVID-19 Vaccine ( - 2023-2 5 season) 2024 Influenza (#1) 2024 RSV (1 - 1-dose 75+ series) 2025 HPV Vaccine Aged Out No longer eligi ble based on patient's age to complete this topic Hep A Aged Out No longer eligi ble based on patient's age to complete this topic Hep B Aged Out No longer eligi ble based on patient's age to complete this topic Hib Aged Out No longer eligi ble based on patient's age to complete this topic Meningococcal ACWY Aged Out No longer eligible based on patient's age to complete this topic Pap Smear Discontinued Zoster (Zostavax) Discontinued
--- OUTSIDE RECORDS SUMMARY | 2024-06-13 14:03 | XMS_ITS | Patient Health Record ---
Author Organization [facility] Address [address] [place] [id number] Care Team Providers Care Deputy Sheriff Custody Name Role Phone Deon Crain MD Primary Care Provider Abhi Marcus Jr Unavailable ALLERGIES Allergen (clinical drug ingredient) Drug/Non Drug [...] Problem Colon cancer screening (Z12.11) Active confirmed [id number] Problem Long-term use of aspirin therapy (Z79.82) Active confirmed [id number] Problem Diarrhea, unspecified type (R19.7) Active confirmed [id number] Encounters Encounter Location Date Provider Diagnosis [facility] [address] [place] [address] 05/30/2024 Abhi Pedroza Jr PLAN OF TREATMENT Pending Test Test Name Order Date STOOL WBC 08/22/2022 CALPROTECTIN, STOOL 08/22/2022 GI PANEL 08/22/2022 Future Test Test Name Order Date COLONOSCOPY 11/14/2021 Next Appt Details Provider Name:Abhi marroquin Jr, 09/01/2024 01:15:00 PM, [address] [place] [address], [address], [place], [address], Insurance Providers Payer Name Payer Address Payer Phone Subscriber Number Group Number Insured Name Patient Relationship to Insured Coverage Start Date Coverage End Date [place]ARE [place] [address] [place] [address] [id number] PREETI VILLALOBOS Self - patient is the insured MEDEX ATTN CLAIMS [address] [place] [address] [id number] PREETI VILLALOBOS Self - patient is the insured MEDICAL (GENERAL) HISTORY Medical History History ICD Code diabetes Hypertension Elevated cholesterol Neuropathy Angioedema ANKUSH/CPAP Colonoscopy 02/09, diverticul osis, hyperplastic polyp, normal biopsies, ten-year followup. Surgical History Surgery Date(Month/Year) gallbladder cataract both eyes 2020 appendix total hysterectomy 2008 right knee replacement 2015
--- OUTSIDE RECORDS SUMMARY | 2024-06-13 14:04 | XMS_ITS ---
Author Organization [facility] Address [address] [place] [address] Care Team Providers Care Active Directory Systems Administrator Name Role Phone Deon Crain MD Primary Care Provider Abhi Marcus Jr [phone] REASON FOR VISIT we received referral Encounters Encounter Location Date Provider Diagnosis [facility] [address] [place] [address] [address] [place] [address] 05/30/2024 Abhi Pedroza Jr PLAN OF TREATMENT Next Appt Details Provider Name:Abhi marroquin Jr, 09/01/2024 01:15:00 PM, [address] [place] [address], [address], [place], [address],
== END 2024-06-13 12:24 | disposition home or self-care (01) ==
PROVIDERS: PCP Internal Medicine; Visit Provider Physical Medicine & Rehabilitation
DX: M25.551 Pain in right hip (principal); M25.552 Pain in left hip; M54.16 Radiculopathy, lumbar region
CPT/HCPCS: 99213

== ENCOUNTER → 2024-06-13 11:53 | Outpatient (BNVA) | payer MEDICARE, SELFPAY | PROVIDERS: PCP Internal Medicine; Visit Provider Physical Medicine & Rehabilitation | DX: M25.551 Pain in right hip (principal); M25.552 Pain in left hip; M54.16 Radiculopathy, lumbar region | CPT/HCPCS: 99212 ==

== ENCOUNTER → 2024-06-27 09:13 | Outpatient (BNVA) | payer MEDICARE, SELFPAY | PROVIDERS: PCP Internal Medicine; Visit Provider Physician Assistant Medical | DX: G47.33 Obstructive sleep apnea (adult) (pediatric) (principal); E66.9 Obesity, unspecified; F41.9 Anxiety disorder, unspecified; Z68.35 Body mass index [BMI] 35.0-35.9, adult | CPT/HCPCS: 99212 ==

== ENCOUNTER → 2024-06-27 09:13 | Outpatient (AMB) | payer MEDICARE, SELFPAY ==
--- NOTE | 2024-06-27 09:17 | A.OFFVIS_ITS ---
Vital Signs 06/27/24 09:17 Height 5 ft 2 in Weight 192 lb BMI 35.1 BP 130/80 Blood Pressure Location Lt brachial Position Sitting Pulse 79 Pulse Source Pulse Oximeter Pulse Oximetry (%) 95 Oxygen Delivery Method Room Air Intake Visit Reasons: 1yr follow up ANKUSH Batch Analyst Required: No Accompanied by: Self / Same As Patient Allergies cabergoline [CABERGOLINE] Allergy (Severe, Verified 06/27/24 09:22) ANGIOEDEMA lisinopril [LISINOPRIL] Allergy (Severe, Verified 06/27/24 09:22) ANGIOEDEMA empagliflozin [Jardiance] Allergy (Intermediate, Verified 06/27/24 09:22) skin infection HPI Comments Details: 73 year old female here for a one year sleep evaluation. She cleans her tubing, and nose pillows, fills the reservoir with water as needed. She goes to bed at 9pm and gets up at 5am, she wakes up for the bathroom 1x. She drinks lots of water daily and now taking metamucil, for IBS, she gets constipated however does move her bowels. She denies morning headaches. Denies RLS, and falls. She has an MRI in Apr 2024, bulging disc in thoracic and Lumbar spine with d egeneration. She goes to physical therapy and follows up with Dr. Fontana, Cutter Machine Tender. Her diet is good, she lives alone so doesn't cook, but occasionally will make one big meal, eats sweets. She is taking gabapentin for neuropathy ,burning, numbness, tingling, very sensitive. STM is poor at baseline, she doesn't remember what she ate yesterday, and uses a calendar on her phone. She is able to cope with stressors in her life. She walks 5x a week at least 2 miles in [employer], the [employer] indoors. She volunteers at the [employer], and forces herself to be more active. MMSE 30/30. [facility] Medical History Post-menopausal Medicare annual wellness visit, initial Pre-op evaluation Precordial chest pain Acute electrocardiogram changes RBBB (right bundle branch block) COVID-19 vaccine series completed Screening for colon cancer Diverticular disease Basal cell carcinoma (BCC) in situ of skin Polymyalgia rheumatica GERD (gastroesophageal reflux disease) Anxiety Hypertension Angioedema Hypercholesteremia Obstructive sleep apnea Obesity (BMI 30-39.9) Type 2 diabetes mellitus with hyperglycemia Surgical History Hx of cataract extraction History of colonoscopy History of arthroplasty of right knee Hx of appendectomy History of cholecystectomy S/P ADRIÁN-BSO Family History Father Prostate cancer Acute CVA (cerebrovascular accident) Mother Uterine cancer COPD (chronic obstructive pulmonary disease) Sister Melanoma Brother Melanoma Paternal Grandfather Acute CVA (cerebrovascular accident) Paternal Aunt Breast cancer Social History Housing: House Are you a primary customer care voice consultant to a significant other at home: No Do you presently have visiting nurse or other home services: No Alcohol intake: never Patient Tobacco Use Status: Former Tobacco user Tobacco use type: Cigarette e-Cigarette/Vaping Use: Never Used Second Hand Smoke Exposure: No Advance Directives Date on File: 04/12/21 Current occupational status: employed 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 Cognitive needs: No Hearing needs: No Vision needs: Yes Review of Systems Const All systems reviewed & are unremarkable except as noted in HPI and below Physical Exam Vital Signs: Last Vital Signs Pulse 79 06/27/24 09:17 BP 130/80 06/27/24 09:17 Pulse Ox 95 06/27/24 09:17 Oxygen Delivery Method Room Air 06/27/24 09:17 BMI result Body Mass Index 35.1 Const General: cooperative, comfortable and no acute distress Orientation/consciousness: patient oriented x3 HEENT Face and sinus: Yes normal facial exam and Yes face symmetric Throat: Yes other ([place] score of 4) Eyes Pupils: Equal, round and reactive pupils present Neck Neck: Yes full ROM Resp Effort & Inspection: normal respiratory effort and able to speak in complete sentences Neuro General: patient oriented x3 Cranial nerves: Yes CN's II-XII intact bilaterally, Yes Facial sensation intact/muscles of mastication intact, Yes Equal, round and reactive pupils present, Yes Normal accommodation reflex present, Yes Nystagmus not present, Yes Normal facial strength present, Yes Midline tongue present, Yes Ability to bilaterally rotate head present and Yes Ability to bilaterally elevate shoulders present Gait exam (Neuro): Normal gait present Motor exam (neuro): 5/5 motor strength present throughout, no tremor noted and N ormal motor muscle tone present throughout Deep tendon reflexes (DTR's): Right triceps reflex intensity grade: 2+, Left triceps reflex intensity grade: 2+, Rt Biceps (C5, C6): 2+, Left biceps reflex intensity grade: 2+, Right brachioradialis reflex intensity grade: 2+, Left brachioradialis reflex intensity grade: 2+, Right patellar reflex intensity grade: 3+ and Left patellar reflex intensity grade: 3+ Psych Thought process: Normal thought process present Thought content: Normal thought content present Orientation What is the (year) (season) (date) (day) (month)?: year, season, date, day and month Where are we (state) (county) (town or city) (hospital) (floor)?: state, county, town or city, hospital/clinic and floor Registration Name of 3 unrelated objects clearly and slowly, then ask patient to repeat all 3 of them. (1st repeat determines score. Make sure they can repeat all three): object 1, object 2 and object 3 Attention & Calculation (CHOOSE ONE) Ask pt to begin with 100 & count backward by 7. Stop after 5 repeats. If pt cannot ask them to spell the word WORLD backward.: 93, 86, 79, 72 and 65 Recall Ask patient to repeat the 3 items from question #3.: object 1, object 2 and object 3 Language Show patient a wristwatch & ask what it is. Repeat for pencil.: watch and pencil Ask the patient to repeat the phrase 'No ifs, ands, or buts' after you.: correct Ask the patient to 'take a piece of paper with their right hand' 'fold paper in half' 'place paper on floor': take paper in right hand, fold paper in half and place paper on floor Print the sentence 'CLOSE YOUR EYES' on a piece. If patient actually closes eyes then score.: followed written direction Give patient a blank piece of paper & ask to write a sentence. Score if it contains a noun & verb.: sentence contains subject and verb Ask patient to copy figure of intersecting pentagons exactly. Score if all 10 angles & 2 intersects are included.: all 10 angles present & 2 are intersected Score Score: 30 Results Reviewed Results Reviewed: ANKUSH Compliance Report 03/2024- 06/19/2024 >4 hours 90/90 8hours 26min APAP [id number] pressures 12.9- 17.3 Leaks 5-48 AHI 1.1 Assessment & Plan Assessment & Plan (1) Obstructive sleep apnea: Comment: uses CPAP Code(s): G47.33 - Obstructive sleep apnea (adult) (pediatric) Category: Medical (2) Obesity (BMI 30-39.9): Code(s): E66.9 - Obesity, unspecified Category: Medical (3) Anxiety: Code(s): F41.9 - Anxiety disorder, unspecified Category: Medical Plan Sleep Apnea Continue to use APAP [id number] as patient experiences good clinical effects. Continue to walk regularly and start to implement yoga for tone and strengthening. Clean mask and tubing regularly, and contact [facility] or office if you need adjustments in pressures and we can refer you for a titration study. Continue with Gabapentin 100-300mg PO at bedtime and Monitor A1c, for Neuropathy. F/U in one year or sooner as needed. Coding Level of Care Code Est Pt Level 3 (88121) Diagnoses Obstructive sleep apnea G47.33 Obesity (BMI 30-39.9) E66.9 Anxiety F41.9 Time Spent (min) 30 Comment Improving
== END | disposition home or self-care (01) ==
PROVIDERS: PCP Internal Medicine; Visit Provider Physician Assistant Medical
CPT/HCPCS: 99213

== ENCOUNTER 2024-07-07 08:53 | Outpatient (AMB) | payer MEDICARE, SELFPAY ==
--- OUTSIDE RECORDS SUMMARY | 2024-07-07 08:57 | XMS_ITS | Clinical Summary ---
Author Organization [facility] Address [address] [place] [address] Care Team Providers Care M48/M60 Tank Driver Name Role Phone Unavailable Primary Care Provider [...]
--- OUTSIDE RECORDS SUMMARY | 2024-07-07 08:57 | XMS_ITS ---
Author Organization [facility] Address [address] [place] [address] Care Team Providers Care Sap Basis Name Role Phone Deon Crain MD Primary Care Provider Abhi Marcus Jr REASON FOR VISIT we received referral Encounters Encounter Location Date Provider Diagnosis [facility] [address] [place] [address] [address] [place] [address] 05/30/2024 Abhi Pedroza Jr PLAN OF TREATMENT Next Appt Details Provider Name:Abhi marroquin Jr, 09/01/2024 01:15:00 PM, [address] [place] [address], [address], [place], [address],
--- OUTSIDE RECORDS SUMMARY | 2024-07-07 08:57 | XMS_ITS | Patient Health Record ---
Author Organization [facility] Address [address] [place] [id number] Care Team Providers Care Accounting Manager Assistant Controller Name Role Phone Deon Crain MD Primary Care Provider Ahbi Marcus Jr Unavailable ALLERGIES Allergen (clinical drug [...] Problem Colon cancer screening (Z12.11) Active confirmed [id number] Problem Long-term use of aspirin therapy (Z79.82) Active confirmed [id number] Problem Diarrhea, unspecified type (R19.7) Active confirmed [id number] Encounters Encounter Location Date Provider Diagnosis [facility] [address] [place] [address] 05/30/2024 Abhi Pedroza Jr PLAN OF TREATMENT Pending Test Test Name Order Date STOOL WBC 08/22/2022 CALPROTECTIN, STOOL 08/22/2022 GI PANEL 08/22/2022 Future Test Test Name Order Date COLONOSCOPY 11/14/2021 Next Appt Details Provider Name:Abhi marroquin Jr, 09/01/2024 01:15:00 PM, [address] [place] [address], [address], [place], [address], Insurance Providers Payer Name Payer Address Payer Phone Subscriber Number Group Number Insured Name Patient Relationship to Insured Coverage Start Date Coverage End Date MEDICARE [place] [address] [place] [address] [id number] PREETI VILLALOBOS Self - patient is the insured MEDEX ATTN CLAIMS [address] [place] [address] [id number] PREETI VILLALOBOS Self - patient is the insured MEDICAL (GENERAL) HISTORY Medical History History ICD Code diabetes Hypertension Elevated cholesterol Neuropathy Angioedema ANKUSH/CPAP Colonoscopy 02/09, diverticul osis, hyperplastic polyp, normal biopsies, ten-year followup. Surgical History Surgery Date(Month/Year) gallbladder cataract both eyes 2020 appendix total hysterectomy 2008 right knee replacement 2015
--- NOTE | 2024-07-07 09:14 | MHC.PC.OV ---
Vital Signs 07/07/24 09:24 Height 5 ft 2 in Weight 191 lb 12.835 oz BMI 35.1 BP 132/80 Blood Pressure Location Lt brachial Position Sitting Pulse 72 Pulse Source Pulse Oximeter Pulse Oximetry (%) 96 Oxygen Delivery Method Room Air Intake Visit Reasons: f/u DM and HTN Intake Note: Patient here for a follow up DM, HTN Pharmacy Operations Coordinator Required: No Allergies cabergoline [CABERGOLINE] Allergy (Severe, Verified 07/07/24 09:15) ANGIOEDEMA lisinopril [LISINOPRIL] Allergy (Severe, Verified 07/07/24 09:15) ANGIOEDEMA empagliflozin [Jardiance] Allergy (Intermediate, Verified 07/07/24 09:15) skin infection Medication List - Last Reconciled 07/07/24 by Suzan Irving PA-C acetaminophen (Tylenol) 325 mg PO QID PRN ascorbic acid (vitamin C) 500 mg PO DAILY betamethasone valerate 0.1% 1 appl topical BID PRN blood sugar diagnostic 1 strip miscellaneous BID 90 days blood sugar diagnostic (Medical Simulationuch Ultra Test strips) test once a day cranberry fruit 400 mg PO DAILY [Diabetic shoes and inserts As directed] famotidine 20 mg PO BID fexofenadine (Jesusita Allergy) 180 mg PO DAILY fluticasone propionate 50 mcg/actuation (Flonase Allergy Relief) 2 sprays intranasal DAILY gabapentin 100 - 300 mg (1 - 3 x 100 mg) PO BEDTIME 90 days hydroxyzine HCl 25 mg PO TID PRN loperamide (Imodium A-D) 2 mg PO Q6H PRN loperamide (Imodium A-D) 2 mg PO Q6H PRN lorazepam 1 mg PO TID PRN losartan 100 mg PO BEDTIME magnesium oxide 500 mg PO DAILY meclizine 25 mg PO TID PRN metformin 500 mg PO BID 90 days semaglutide 2 mg (0.75 mL) subcut QWEEK 90 days sertraline 50 mg PO DAILY simvastatin 5 mg PO DAILY 90 days vitamin B complex 1 cap PO DAILY Tobacco use date assessed: 07/07/24 Fall risk assessment: No Falls in past year Last assessed Fall Risk: 07/07/24 Dental Screening Dental Screen Date: 07/07/24 Did you have a dental visit in the last 12 months?: Yes Did you have a dental problem in the last 6 months where you did not have access to dental care?: No Was dental information given to patient?: Patient has dentist HPI f/u DM and HTN HPI Details 73-year-old female with past medical history of diabetes mellitus, obstructive sleep apnea, hypertension, hypercholesterolemia, GERD and major depression last seen 03/2024 coming in for follow up on diabetes. In review of the notes patient was seen by Neurology 06/2024 for obstructive sleep apnea advised to continue on CPAP and gabapentin and follow up in 1 year. Presenting with concerns regarding her Type 2 Diabetes Mellitus management. She reports chronic diarrhea effectively controlled by Metamucil, noting improved bowel regularity and consistency. Glycemic control is evidenced by an HbA1c of 5.1, with daily morning glucose readings between 120-140 mg/dL. The patient experienced significant weight loss with Ozempic, yet an increase to 2 mg provoked nausea without additional weight changes. She wishes to transition to Mounjaro for better symptom management. Notably, she has been on sertraline following a traumatic life event, impacting her emotional wellbeing, and is contemplating a gradual cessation of this medication. [facility] Medical History Post-menopausal Medicare annual wellness visit, initial Pre-op evaluation Precordial chest pain Acute electrocardiogram changes RBBB (right bundle branch block) COVID-19 vaccine series completed Screening for colon cancer Diverticular disease Basal cell carcinoma (BCC) in situ of skin Polymyalgia rheumatica GERD (gastroesophageal reflux disease) Anxiety Hypertension Angioedema Hypercholesteremia Obstructive sleep apnea Obesity (BMI 30-39.9) Type 2 diabetes mellitus with hyperglycemia Surgical History Hx of cataract extraction History of colonoscopy History of arthroplasty of right knee Hx of appendectomy History of cholecystectomy S/P ADRIÁN-BSO Family History Father Prostate cancer Acute CVA (cerebrovascular accident) Mother Uterine cancer COPD (chronic obstructive pulmonary disease) Sister Melanoma Brother Melanoma Paternal Grandfather Acute CVA (cerebrovascular accident) Paternal Aunt Breast cancer Social History Housing: House Are you a primary customer care consultant to a significant other at home: No Do you presently have visiting nurse or other home services: No Alcohol intake: never Patient Tobacco Use Status: Former Tobacco user Tobacco use type: Cigarette e-Cigarette/Vaping Use: Never Used Second Hand Smoke Exposure: No Advance Directives Date on File: 04/12/21 service: No Current occupational status: employed 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 1. Little interest or pleasure in doing things: not at all 2. Feeling down, depressed, or hopeless: not at all 3. Trouble falling or staying asleep, or sleeping too much: not at all 4. Feeling tired or having little energy: not at all 5. Poor appetite or overeating: not at all 6. Feeling bad about yourself - or that you are a failure or have let yourself or your family down: not at all 7. Trouble concentrating on things, such as reading the newspaper or watching television: not at all 8. Moving or speaking so slowly that other people could have noticed. Or the opposite - being so fidgety or restless that you have been moving around a lot more than usual: not at all 9. Thoughts that you would be better off or of hurting yourself in some way: not at all Total score: 0 Source: Developed by Drs. Marcos Joshi, Margret Ochoa, Jeferson Mcintosh and colleagues, with an educational aaron from [employer]. Thrive Questionnaire Date Thrive assessed: 07/07/24 I am a: Patient What is your living situation today?: I have a steady place to live Within the past 12 months, did the food you bought not last and you didn't have the money to get more?: Never true Within the past 12 months, did you worry whether your food would run out before you got money to buy more?: Never true Do you have trouble paying for medicines?: No Do you have trouble getting transportation to medical appointments?: No Do you have trouble paying your heating and electricity bill?: No Do you have trouble taking care of your child, family member or friend?: No Do you have trouble with day-to-day activities such as bathing, preparing meals, shopping, managing finances, etc.?: No Are you currently unemployed and looking for a job?: No Are you interested in more education?: No Please select the resources that you would like help with: None Currently or been in a relationship where the following occur: No concerns reported THRIVE Score: 0 AUDIT C Alcohol Use Questionnaire (AUDIT-C) 1. How often do you have a drink containing alcohol?: Never Total Score: 0 SUSAN-7 AMB Questionnaire SUSAN-7 Date SUSAN - 7 assessed: 07/07/24 Feeling nervous, anxious, or on edge: 0 = Not at all Not being able to stop or control worryin = Not at all Worrying too much about different things: 0 = Not at all Trouble relaxin = Not at all Being so restless that it is hard to sit still: 0 = Not at all Becoming easily annoyed or irritable: 0 = Not at all Feeling afraid as if something awful might happen: 0 = Not at all Total SUSAN-7 score (0-4 normal; 5-9 mild; 10-14 moderate; 15-21 severe): 0 Source: Developed by Drs. Marcos Joshi, Margret Ochoa, Jeferson Mcintosh and colleagues, with an educational aaron from [employer]. Review of Systems Const Denies body aches, Denies chills, Denies fever(s), Denies headache(s) and Denies poor appetite Eyes Reports no additional complaints ENT Denies dysphagia, Denies dizziness, Denies headache(s) and Denies odynophagia Card Denies chest pain, Denies syncope, Denies edema, Denies irregular heart rhythm, Denies lightheadedness and Denies dyspnea Resp Denies cough and Denies dyspnea GI Denies abdominal pain, Denies constipation, Denies dysphagia, Denies diarrhea, Denies nausea, Denies odynophagia and Denies vomiting Reports no additional complaints Musc Reports no additional complaints and Denies abnormal gait Skin/Breast Reports system reviewed and no additional complaints, except as documented Neuro Denies abnormal gait, Denies dizziness, Denies syncope and Denies headache(s) Psych Reports no additional complaints Physical exam (Primary Care) Vital Signs: Last Vital Signs Pulse 72 07/07/24 09:24 BP 132/80 07/07/24 09:24 Pulse Ox 96 07/07/24 09:24 Oxygen Delivery Method Room Air 07/07/24 09:24 BMI result Body Mass Index 35.1 Tobacco/Smoking Status: Tobacco use Status Tobacco use date assessed 07/07/24 07/07/24 09:18 Patient Tobacco Use Status Former Tobacco user 07/07/24 09:18 Tobacco use type Cigarette 07/07/24 09:18 e-Cigarette/Vaping Use Never Used 07/07/24 09:18 PHQ-9: PHQ-9 Score PHQ-9: Total score 0 07/07/24 09:18 Thrive Assessment: Date of Thrive Assessment Date Thrive assessed 07/07/24 07/07/24 09:18 Currently or been in a relationship where the following occur: No concerns reported Const General: cooperative, healthy appearing, comfortable and no acute distress Orientation/consciousness: patient oriented x3 HENMT Head: Yes normocephalic Ears: hearing grossly normal bilaterally General nose exam: Normal external nose present Eyes General: appearance normal, both eyes and all related structures Conjunctivae: conjunctivae normal Neck Neck: Yes full ROM and Yes no lymphadenopathy Resp Effort & Inspection: normal respiratory effort Auscultation: clear to auscultation bilaterally, no crackles, no rales, no rhonchi and no wheezes Cardio Rate: regular rate Rhythm: regular rhythm Skin General skin exam: no rashes or lesions noted Neuro General: patient oriented x3 Gait exam (Neuro): Normal gait present Extrem General: Yes normal to inspection, Yes full ROM and No edema Psych Affect: normal affect Attitude: cooperative Insight: Good insight present (Psych) Judgement: Good judgement present (Psych) Results AMB Hemoglobin A1c AMB Hemoglobin A1c 5.1 % Last Edit by SANIA Poole on 07/07/24 09:28 Results Reviewed Results Reviewed: Laboratory Last Values Hgb A1c (Clinic) 5.1 % (4.0-6.0) 07/07/24 09:13 Coding Level of Care Code Est Pt Level 4 (96488) Diagnoses Fecal incontinence R15.9 Diarrhea R19.7 Major depression F32.9 Gastroesophageal reflux disease without esophagitis K21.9 Esophagitis presence: without esophagitis Essential hypertension I10 Hypertension type: essential hypertension Obstructive sleep apnea G47.33 Obesity (BMI 30-39.9) E66.9 Type 2 diabetes mellitus with hyperglycemia, without long-term current use of insulin E11.65 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 Continue on Metamucil (2) Diarrhea: Code(s): R19.7 - Diarrhea, unspecified Category: Medical Plan: Diarrhea resolved with the use of Metamucil continue to follow with [facility] as needed and continue on fiber supplement. (3) Major depression: Comment: decline referral 03/2022 Code(s): F32.9 - Major depressive disorder, single episode, unspecified Category: Medical Plan: Plan to taper off of sertraline 25 mg daily for 1 week then 25 mg every other day for 1 week before discontinuing. Attention to her emotional health will include a gradual reduction of sertraline, with vigilant observation for any resurgence of depressive symptoms, ensuring she maintains adequate mood stability. Monitor for signs of withdrawal and reach out to the office if you experience any symptoms. (4) GERD (gastroesophageal reflux disease): Code(s): K21.9 - Gastro-esophageal reflux disease without esophagitis Category: Medical Qualifiers: Esophagitis presence: without esophagitis Qualified Code(s): K21.9 - Gastro-esophageal reflux disease without esophagitis Plan: Avoid trigger foods such as citrus, tomato products, soda, caffeine, spicy foods and other foods that may be irritating to your stomach. Avoid laying flat 3-4 hours after eating and elevate the head of the bed 30 degrees to prevent acid from moving into the esophagus. (5) Hypertension: Code(s): I10 - Essential (primary) hypertension Category: Medical Qualifiers: Hypertension type: essential hypertension Qualified Code(s): I10 - Essential (primary) hypertension Plan: Continue on current blood pressure medication. Avoid salt intake and encourage healthy diet and regular exercise. (6) Obstructive sleep apnea: Comment: uses CPAP Code(s): G47.33 - Obstructive sleep apnea (adult) (pediatric) Category: Medical Plan: Recently seen by Neurology advised to continue on CPAP. Uses CPAP faithfully at least 4 hours a night and benefits from this therapy. (7) Obesity (BMI 30-39.9): Code(s): E66.9 - Obesity, unspecified Category: Medical Plan: Healthy diet and regular exercise is encouraged. Patient no longer seeing weight loss with the semaglutide plan to switch to Mounjaro for with management of diabetes and weight loss. (8) Type 2 diabetes mellitus with hyperglycemia: Code(s): E11.65 - Type 2 diabetes mellitus with hyperglycemia Category: Medical Qualifiers: Diabetes mellitus long wall mining machine tender insulin use: without long wall mining machine tender use Qualified Code(s): E11.65 - Type 2 diabetes mellitus with hyperglycemia Plan: Decrease the amount of carbohydrates such as pasta, bread, rice, and potatoes and limit the amount of sweets. Although fruits are generally healthy they should be eaten in moderation as they are still high in sugar. Hemoglobin A1c goal of less than 7%. A1c 5.1% in the clinic today. Due to low A1c Metformin dosing will be reduced to minimize any potential contribution to her chronic diarrhea. She will stop Ozempic for 1 complete week before starting Mounjaro at the initial dosage of 2.5 mg. Careful monitoring of blood glucose levels post-change is critical. Plan This note was constructed using voice recognition software. While every effort has been made to ensure accuracy and suppository molding machine operator, still areas may have been included sometimes these areas may affect the content or meeting of the given symptoms. Total time spent caring for the patient today was 20 minutes. This includes time spent before the visit reviewing the chart, time spent during the visit, and time spent after the visit and documentation. Patient was informed and verbally consented to the use of an ambient scribe for clinic note documentation during this visit. Orders: Orders AMB Hemoglobin A1c Today E11.65 - Type 2 diabetes mellitus with hyperglycemia
[2024-07-07 09:24] VITALS: BP 132/80; PULSE 72; O2SAT 96; BMI 35.1
== END 2024-07-07 09:52 | disposition home or self-care (01) ==
PROVIDERS: PCP Internal Medicine
DX: R15.9 Full incontinence of feces (principal); R19.7 Diarrhea, unspecified; F32.9 Major depressive disorder, single episode, unspecified; K21.9 Gastro-esophageal reflux disease without esophagitis; I10 Essential (primary) hypertension; G47.33 Obstructive sleep apnea (adult) (pediatric); E66.9 Obesity, unspecified; E11.65 Type 2 diabetes mellitus with hyperglycemia

== ENCOUNTER → 2024-07-07 08:53 | Outpatient (BNVA) | payer MEDICARE, SELFPAY | PROVIDERS: PCP Internal Medicine | DX: R15.9 Full incontinence of feces (principal); R19.7 Diarrhea, unspecified; E11.65 Type 2 diabetes mellitus with hyperglycemia; F32.9 Major depressive disorder, single episode, unspecified; K21.9 Gastro-esophageal reflux disease without esophagitis; I10 Essential (primary) hypertension; G47.33 Obstructive sleep apnea (adult) (pediatric); E66.9 Obesity, unspecified | CPT/HCPCS: 83036; 99212 ==

== ENCOUNTER 2024-08-12 10:41 | Outpatient (REF) | payer MEDICARE, SELFPAY ==
--- NOTE | ~2024-08-12 | XR_ITS ---
EXAMINATION: XR SHOULDER, RIGHT CLINICAL INFORMATION: M25.519 - Pain in unspecified shoulder COMPARISON: None available. TECHNIQUE: AP external rotation, Grashey, scapular Y, and axillary views of the right shoulder. FINDINGS: No acute cortical disruption or malalignment. Mild sclerosis and the articular surface of the acromioclavicular joint. No lytic or blastic lesions. No subcutaneous emphysema. XR/XR shoulder RT min 2V IMPRESSION: Mild degenerative changes, acromioclavicular joint. Electronically signed by: Deon Emerson MD 08/13/2024 10:56 AM EDT
== END 2024-08-12 10:42 | disposition home or self-care (01) ==
LOC: HO.HOSX 10:41
PROVIDERS: PCP Internal Medicine; Visit Provider Physician Assistant
DX: M24.111 Other articular cartilage disorders, right shoulder (principal); M75.101 Unspecified rotator cuff tear or rupture of right shoulder, not specified as traumatic; E11.9 Type 2 diabetes mellitus without complications
CPT/HCPCS: 20610; 73030; 99202; J1010; J2003

== ENCOUNTER 2024-08-12 10:41 | Outpatient (AMB) | payer MEDICARE, SELFPAY ==
--- NOTE | 2024-08-12 10:53 | A.OFFVIS_ITS ---
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 No hx of injury. Patient reports ongoing pain for about a year. She states that her pain is on the anterior aspect of the shoulder and it radiates up to her neck. She expresses that her pain is worse with movement and laying on her side. Patient has tried taking Aleve with relief. 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 Hardy is a 73-year-old right-hand dominant female who presents to the office today for evaluation of right shoulder pain. She reports the pain has been ongoing for the past year and has slowly been progressing. She denies any injury or trauma to the area. She has been working out under the supervision of a chiropractor to develop a program that involves working out with shoulder modifications due to pain. She has tried taking Aleve with mild relief. [facility] Medical History Post-menopausal Medicare annual wellness visit, initial Pre-op evaluation Precordial chest pain Acute electrocardiogram changes RBBB (right bundle branch block) COVID-19 vaccine series completed Screening for colon cancer Diverticular disease Basal cell carcinoma (BCC) in situ of skin Polymyalgia rheumatica GERD (gastroesophageal reflux disease) Anxiety Hypertension Angioedema Hypercholesteremia Obstructive sleep apnea Obesity (BMI 30-39.9) Type 2 diabetes mellitus with hyperglycemia Surgical History Hx of cataract extraction History of colonoscopy History of arthroplasty of right knee Hx of appendectomy History of cholecystectomy S/P ADRIÁN-BSO Family History Father Prostate cancer Acute CVA (cerebrovascular accident) Mother Uterine cancer COPD (chronic obstructive pulmonary disease) Sister Melanoma Brother Melanoma Paternal Grandfather Acute CVA (cerebrovascular accident) Paternal Aunt Breast cancer Social History Housing: House Are you a primary overnight caregiver to a significant other at home: No Do you presently have visiting nurse or other home services: No Alcohol intake: never Patient Tobacco Use Status: Former Tobacco user Tobacco use type: Cigarette e-Cigarette/Vaping Use: Never Used Second Hand Smoke Exposure: No Advance Directives Date on File: 04/12/21 service: No Current occupational status: employed 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 No ecchymosis, erythema, or edema. Full shoulder ROM in all planes. Pain with cross-body reach. 3/5 strength with empty can. Negative drop arm. NVI. Office Procedures AMB Joint Injection/Aspiration Joint Injection/Aspiration Primary Site: right shoulder Prep: site was prepped using aseptic technique, ethochloride spray was applied and injection warnings given Injected: 40 mg of, DepoMedrol, with 8 mL of (2% plain lido ) and in the subcromial space Approach Used: posterolateral Procedure: The patient tolerated the procedure well, but had some pain with the injection and there was some relief with the local anesthesia Coding 17717 - Large joint Procedure code (CPT) selection complete Assessment & Plan Assessment & Plan (1) Painful arc syndrome of right shoulder: Code(s): M75.101 - Unspecified rotator cuff tear or rupture of right shoulder, not specified as traumatic Category: Medical (2) Diabetes: Code(s): E11.9 - Type 2 diabetes mellitus without complications Plan Ms. Hardy is a 73-year-old right-hand dominant female who presents to the office today for evaluation of right shoulder pain. She reports the pain has been ongoing for the past year and has slowly been progressing. She denies any injury or trauma to the area. She has been working out under the supervision of a chiropractor to develop a program that involves working out with shoulder modifications due to pain. She has tried taking Aleve with mild relief. The patient was offered a cortisone injection in the right shoulder with 40 mg of DepoMedrol. The patient was explained the risks, benefits, and alternatives to receiving this injection. After receiving consent for the injection, the patient had the procedure done while in the office today. The patient tolerated the procedure well with no complications. Due to the patient?s history of diabetes, they were instructed to monitor their blood glucose level. The patient was informed that they could see a rise in their numbers and if the numbers became too high, they were instructed to call their PCP. The patient was also informed that they could have facial flushing as a side effect of the injection, but this will pass. Follow-up will be p.r.n., or sooner if needed X-rays of the right shoulder which were obtained while in the office today and were reviewed by me, Darling Clark PA-C, revealed no acute fracture dislocation. Orders: Orders XR shoulder RT min 2V Today M25.519 - Pain in unspecified shoulder Coding Level of Care Code New Pt Level 4 (68125) Diagnoses Painful arc syndrome of right shoulder M75.101 Diabetes E11.9 CPT Codes Coding - 66409 Large joint: 17464 - Large joint ([id number])
[2024-08-12 11:01] VITALS: BMI 34.9
--- OUTSIDE RECORDS SUMMARY | 2024-08-12 12:54 | XMS_ITS | Patient Health Record ---
Author Organization [facility] Address [address] [place] [address] Care Team Providers Care Assembler Installer General Name Role Phone Deon Crain MD Primary Care Provider Abhi Marcus Jr Unavailable Allergies Allergen (clinical drug ingredient) Drug/Non Drug Allergy documented on EMR Reaction Allergy Type Onset Date Status cabergoline Cabergoline Unknown Drug Allergy Act amparo angiotensin-converting enzyme inhibitor (FN) LUKE Inhibitors Unknown Drug Allergy Acti ve Reason For Referral No Information Medications Medication SIG (Take, Route, Frequency, Duration) Notes [...] tablet Orall y Once a day Active Immunizations Vaccine Route Administration Date Status Comme nts Influenza Unknown 02/18/2021 Administered Influenza Unknown 11/27/2022 Administered Social History Tobacco Use: Social History Observation Description Date Details (start date - stop date) Former Smoker NA - NA Tobacco Use/Smoking Question Answer Notes Patient is a former smoker How long has it been since you last smoked? > 10 years Alcohol Screen Question Answer Notes Did you have a drink containing alcohol in the p ast year? No Points 0 Interpretation Negative Problems Problem Type SNOMED Code ICD Code Onset Dates Problem Status W/U Status Risk Notes Problem 547261332 Colon cancer screening (Z12.11) Active confirmed Problem 984174323 Long-term use of aspirin therapy (Z79.82) Active confirmed Problem 02526466 Diarrhea, unspecified type (R19.7) Active confirmed Encounters Encounter Location Date Provider Diagnosis [facility] [address] [place] [address] 05/30/2024 Abhi Pedroza Jr Plan Of Treatment Pending Test Test Name Order Date STOOL WBC 08/22/2022 CALPROTECTIN, STOOL 08/22/2022 GI PANEL 08/22/2022 Future Test Test Name Order Date COLONOSCOPY 11/14/2021 Next Appt Details Provider Name:Abhi marroquin Jr, 09/01/2024 01:15:00 PM, [address] [place] [address], [address], [place], [address], Insurance Providers Payer Name Payer Address Payer Phone Subscriber Number Group Number Insured Name Patient Relationship to Insured Coverage Start Date Coverage End Date MEDICARE OF [place] [address] [place] [address] [phone] [id number] PREETI VILLALOBOS Self - patient is the insured MED[employer] ATTN CLAIMS [address] [place] [address] [phone] [id number] PREETI VILLALOBOS Self - patient is the insured Medical (General) History Medical History History ICD Code diabetes Hypertension Elevated cholesterol Neuropathy Angioedema ANKUSH/CPAP Colonoscopy 02/09, diverticul osis, hyperplastic polyp, normal biopsies, ten-year followup. Surgical History Surgery Date(Month/Year) gallbladder cataract both eyes 2020 appendix total hysterectomy 2008 right knee replacement 2015
--- OUTSIDE RECORDS SUMMARY | 2024-08-12 12:54 | XMS_ITS ---
Author Organization [facility] Address [address] [place] [address] Care Team Providers Care Compressor Engineer Name Role Phone Deon Crain MD Primary Care Provider Yelena Pedroza Jr, Abhi Navarro REASON FOR VISIT we received referral Encounters Encounter Location Date Provider Diagnosis [facility] [address] [place] [address] 05/30/2024 Abhi Pedroza Jr Plan Of Treatment Next Appt Details Provider Name:Abhi marroquin Jr, 09/01/2024 01:15:00 PM, [address] [place] [address], [address], [place], [address], Progress Notes * PREETI VILLALOBOS PDOB:1950 (73 yo F)Acc No.[id number]:05/30/2024 Patient:?PREETI VILLALOBOS :1950???Age:73 Y???Sex:Female Address:[address] [place] [address], [address] * true * Date:? Generated for Sedricki nikko/Xochilt/eTransmitting on:?08/12/2024 12:54 PM EDT
--- OUTSIDE RECORDS SUMMARY | 2024-08-12 12:54 | XMS_ITS | Clinical Summary ---
Author Organization [facility] Address [address] [place] [address] Care Team Providers Care Photoengraving Finisher Name Role Phone Unavailable Primary Care Provider [...]
== END 2024-08-12 11:22 | disposition home or self-care (01) ==
LOC: HO.HOS 10:41
PROVIDERS: PCP Internal Medicine; Visit Provider Physician Assistant
DX: M75.101 Unspecified rotator cuff tear or rupture of right shoulder, not specified as traumatic (principal); E11.9 Type 2 diabetes mellitus without complications
CPT/HCPCS: 20610; 99204

== ENCOUNTER → 2024-08-12 11:01 | Outpatient (BNV) | payer MEDICARE, SELFPAY | PROVIDERS: PCP Internal Medicine; Visit Provider Radiology Diagnostic Radiology | DX: M19.011 Primary osteoarthritis, right shoulder (principal) | CPT/HCPCS: 73030 ==

== ENCOUNTER 2024-08-22 08:04 | Outpatient (REF) | payer MEDICARE, SELFPAY ==
--- OUTSIDE RECORDS SUMMARY | 2024-08-25 08:18 | XMS_ITS | Clinical Summary ---
Author Organization [facility] Address [address] [place] [address] Care Team Providers Care Behavioral Health Tech Name Role Phone Unavailable Primary Care Provider [...] (1 - Tdap) 1968 Mammogram/Breast Imaging 1990 Pneumococcal 50+ years (1 of 1 - [...]
--- OUTSIDE RECORDS SUMMARY | 2024-08-25 08:18 | XMS_ITS | Patient Health Record ---
Author Organization [facility] Address [address] [place] [address] Care Team Providers Care Senior Adults Director Name Role Phone Deon Crain MD Primary [...] Problem Status W/U Status Risk Notes Problem 441807531 Colon cancer screening (Z12.11) Active confirmed Problem 096558937 Long-term use of aspirin therapy (Z79.82) Active confirmed Problem 98474524 Diarrhea, unspecified type (R19.7) Active confirmed Encounters Encounter Location Date Provider Diagnosis [facility] [address] [place] [address] 05/30/2024 Abhi Pedroza Jr Plan Of Treatment Pending Test Test Name Order Date STOOL WBC 08/22/2022 CALPROTECTIN, STOOL 08/22/2022 GI PANEL 08/22/2022 Future Test Test Name Order Date COLONOSCOPY 11/14/2021 Next Appt Details Provider Name:Abhi marroquin Jr, 09/01/2024 01:15:00 PM, [address] [place] [address], [address], [place], [address], Insurance Providers Payer Name Payer Address Payer Phone Subscriber Number Group Number Insured Name Patient Relationship to Insured Coverage Start Date Coverage End Date MED[place]ARE OF [place] [address] [place] [address] [id number] PREETI VILLALOBOS Self - patient is the insured MEDEX ATTN CLAIMS [address] [place] [phone] [id number] PREETI VILLALOBOS Self - patient is the insured Medical (General) History Medical History History ICD Code diabetes Hypertension Elevated cholesterol Neuropathy Angioedema ANKUSH/CPAP Colonoscopy 02/09, diverticul osis, hyperplastic polyp, normal biopsies, ten-year followup. Surgical History Surgery Date(Month/Year) gallbladder cataract both eyes 2020 appendix total hysterectomy 2008 right knee replacement 2015
--- OUTSIDE RECORDS SUMMARY | 2024-08-25 08:19 | XMS_ITS ---
Author Organization [facility] Address [address] [place] [address] Care Team Providers Care Fruit Farmer Name Role Phone Deon Crain MD Primary Care Provider Yelena Pedroza Jr, Abhi Navarro [phone] REASON FOR VISIT we received referral Encounters Encounter Location Date Provider Diagnosis [facility] [address] [place] [address] 05/30/2024 Abhi Pedroza Jr Plan Of Treatment Next Appt Details Provider Name:Abhi marroquin Jr, 09/01/2024 01:15:00 PM, [address] [place] [address], [address], [place], [address], Progress Notes * PREETI VILLALOBOS PDOB:1950 (73 yo F)Acc No.[id number]:05/30/2024 Patient:?PREETI VILLALOBOS :1950???Age:73 Y???Sex:Female Address:[address] [place] [address], [address] * true * Date:? Generated for Sedricki nikko/Xochilt/eTransmitting on:?08/25/2024 08:18 AM EDT
== END 2024-08-22 08:05 | disposition home or self-care (01) ==
LOC: HO.HOSX 08:04
PROVIDERS: Visit Provider Physician Assistant
DX: Z13.89 Encounter for screening for other disorder (principal)

== ENCOUNTER 2024-10-06 08:55 | Outpatient (AMB) | payer MEDICARE, SELFPAY ==
--- NOTE | 2024-10-06 08:59 | A.OFFPC_ITS ---
Vital Signs 10/06/24 09:02 Height 5 ft 2 in Weight 190 lb BMI 34.7 BP 134/70 Blood Pressure Location Lt brachial Position Sitting Pulse 75 Pulse Source Pulse Oximeter Temp 97.1 F Temp Source Temporal Artery Scan Pulse Oximetry (%) 95 Oxygen Delivery Method Room Air Intake Visit Reasons: 3 months Intake Note: Patient is here to follow up on DM, Lumbar radiculopathy, HTN, ANKUSH. Video Engineer Required: No Doubler Helper: Not Required per policy Accompanied by: Self / Same As Patient Allergies cabergoline [CABERGOLINE] Allergy (Severe, Verified 10/06/24 09:07) ANGIOEDEMA lisinopril [LISINOPRIL] Allergy (Severe, Verified 10/06/24 09:07) ANGIOEDEMA empagliflozin [Jardiance] Allergy (Intermediate, Verified 10/06/24 09:07) skin infection Medication List - Last Reviewed 10/06/24 by SANIA Mak acetaminophen (Tylenol) 325 mg PO QID PRN ascorbic acid (vitamin C) 500 mg PO DAILY betamethasone valerate 0.1% 1 appl topical BID PRN blood sugar diagnostic 1 strip miscellaneous BID 90 days blood sugar diagnostic (Ghz TechnologyTouch Ultra Test strips) test once a day cranberry fruit 400 mg PO DAILY [Diabetic shoes and inserts As directed] famotidine 20 mg PO BID fexofenadine (Jesusita Allergy) 180 mg PO DAILY fluticasone propionate 50 mcg/actuation (Flonase Allergy Relief) 2 sprays intranasal DAILY gabapentin 100 - 300 mg (1 - 3 x 100 mg) PO BEDTIME 90 days hydroxyzine HCl 25 mg PO TID PRN loperamide (Imodium A-D) 2 mg PO Q6H PRN loperamide (Imodium A-D) 2 mg PO Q6H PRN lorazepam 1 mg PO TID PRN losartan 100 mg PO BEDTIME meclizine 25 mg PO TID PRN metformin 500 mg PO BIDWMEAL 90 days psyllium husk (Metamucil) 2 tsp PO DAILY tirzepatide 7.5 mg (0.5 mL) subcut QWEEK 90 days vitamin B complex 1 cap PO DAILY Tobacco use date assessed: 10/06/24 Fall risk assessment: 1 Fall in past year (07/2024) Last assessed Fall Risk: 10/06/24 Dental Screening Dental Screen Date: 07/07/24 HPI 3 months HPI Details 73-year-old female with past medical his tory of diabetes mellitus, obstructive sleep apnea, hypertension, hypercholesterolemia, GERD and major depression last seen 06/2024 coming in for follow up. In review of the notes, patient was seen by Orthopedics 07/2024 for right shoulder pain given shoulder injection and advised to follow up as needed. Presenting with diabetes management concerns generalized muscle aches. She reported that her current diabetes management with Mounjaro 7.5 mg has not been as effective, with a previously stable A1c rising from 5.1% to 6.2%. She continues to have increased appetite does not feel she has lost any weight. She experiences joint pain and generalized fatigue, exacerbated by physical activities like gardening and stair climbing. Patient has a history of polymya lgia rheumatica successfully managed with Celebrex in the past, with current symptoms similar to those past experiences. Patient reports in improved mood since discontinuing sertraline. [facility] Medical History Post-menopausal Medicare annual wellness visit, initial Pre-op evaluation Precordial chest pain Acute electrocardiogram changes RBBB (right bundle branch block) COVID-19 vaccine series completed Screening for colon cancer Diverticular disease Basal cell carcinoma (BCC) in situ of skin Polymyalgia rheumatica GERD (gastroesophageal reflux disease) Anxiety Hypertension Angioedema Hypercholesteremia Obstructive sleep apnea Obesity (BMI 30-39.9) Type 2 diabetes mellitus with hyperglycemia Surgical History Hx of cataract extraction History of colonoscopy History of arthroplasty of right knee Hx of appendectomy History of cholecystectomy S/P ADRIÁN-BSO Family History Father Prostate cancer Acute CVA (cerebrovascular accident) Mother Uterine cancer COPD (chronic obstructive pulmonary disease) Sister Melanoma Brother Melanoma Paternal Grandfather Acute CVA (cerebrovascular accident) Paternal Aunt Breast cancer Social History Housing: House Are you a primary day care worker to a significant other at home: No Do you presently have visiting nurse or other home services: No Alcohol intake: never Patient Tobacco Use Status: Former Tobacco user Tobacco use type: Cigarette e-Cigarette/Vaping Use: Never Used Second Hand Smoke Exposure: Yes Advance Directives Date on File: 04/12/21 service: No Current occupational status: employed Current occupation: [employer] Cognitive needs: No Hearing needs: No Vision needs: Yes Questionnaire PHQ-9 Over the last 2 weeks, how often have you been bothered by any of the following problems? 1. Little interest or pleasure in doing things: not at all 2. Feeling down, depressed, or hopeless: not at all 3. Trouble falling or staying asleep, or sleeping too much: several days 4. Feeling tired or having little energy: several days 5. Poor appetite or overeating: not at all 6. Feeling bad about yourself - or that you are a failure or have let yourself or your family down: not at all 7. Trouble concentrating on things, such as reading the newspaper or watching television: not at all 8. Moving or speaking so slowly that other people could have noticed. Or the opposite - being so fidgety or restless that you have been moving around a lot more than usual: not at all 9. Thoughts that you would be better off or of hurting yourself in some way: not at all Total score: 2 Depression Screening Interpretation: Positive Depression Screening Done: Yes Source: Developed by Drs. Marcos Joshi, Margret Ochoa, Jeferson Mcintosh and colleagues, with an educational aaron from [employer]. Thrive Questionnaire Date Thrive assessed: 09/30/24 I am a: Patient What is your living situation today?: I have a steady place to live Within the past 12 months, did the food you bought not last and you didn't have the money to get more?: Never true Within the past 12 months, did you worry whether your food would run out before you got money to buy more?: Never true Do you have trouble paying for medicines?: No Do you have trouble getting transportation to medical appointments?: No Do you have trouble paying your heating and electricity bill?: No Do you have trouble taking care of your child, family member or friend?: No Do you have trouble with day-to-day activities such as bathing, preparing meals, shopping, managing finances, etc.?: No Are you currently unemployed and looking for a job?: No Are you interested in more education?: No Please select the resources that you would like help with: None Currently or been in a relationship where the following occur: No concerns reported THRIVE Score: 0 AUDIT C Alcohol Use Questionnaire (AUDIT-C) 1. How often do you have a drink containing alcohol?: Never Total Score: 0 SUSAN-7 AMB Questionnaire SUSAN-7 Date SUSAN - 7 assessed: 10/06/24 Feeling nervous, anxious, or on edge: 1 = Several days Not being able to stop or control worryin = Several days Worrying too much about different things: 1 = Several days Trouble relaxin = Several days Being so restless that it is hard to sit still: 0 = Not at all Becoming easily annoyed or irritable: 0 = Not at all Feeling afraid as if something awful might happen: 1 = Several days Total SUSAN-7 score (0-4 normal; 5-9 mild; 10-14 moderate; 15-21 severe): 5 Source: Developed by Drs. Marcos Joshi, Margret Ochoa, Jeferson Mcintosh and colleagues, with an educational aaron from [employer]. Review of Systems Const Denies body aches, Denies chills, Denies fever(s), Denies headache(s) and Denies poor appetite Eyes Reports no additional complaints ENT Denies dysphagia, Denies dizziness, Denies headache(s) and Denies odynophagia Card Denies chest pain, Denies syncope, Denies edema, Denies irregular heart rhythm, Denies lightheadedness and Denies dyspnea Resp Denies cough and Denies dyspnea GI Denies abdominal pain, Denies constipation, Denies dysphagia, Denies diarrhea, Denies nausea, Denies odynophagia and Denies vomiting Reports no additional complaints Musc Reports no additional complaints and Denies abnormal gait Skin/Breast Reports system reviewed and no additional complaints, except as documented Neuro Denies abnormal gait, Denies dizziness, Denies syncope and Denies headache(s) Psych Reports no additional complaints Physical exam (Primary Care) Tobacco/Smoking Status: Tobacco use Status Tobacco use date assessed 07/07/24 07/07/24 09:18 Patient Tobacco Use Status Former Tobacco user 07/07/24 09:18 Tobacco use type Cigarette 07/07/24 09:18 e-Cigarette/Vaping Use Never Used 07/07/24 09:18 Depression Screening Interpretation: Positive Thrive Assessment: Date of Thrive Assessment Date Thrive assessed 09/30/24 09/29/24 21:20 Currently or been in a relationship where the following occur: No concerns reported Const General: cooperative, healthy appearing, comfortable and no acute distress Orientation/consciousness: patient oriented x3 HENMT Head: Yes normocephalic Ears: hearing grossly normal bilaterally General nose exam: Normal external nose present Eyes General: appearance normal, both eyes and all related structures Conjunctivae: conjunctivae normal Neck Neck: Yes full ROM and Yes no lymphadenopathy Resp Effort & Inspection: normal respiratory effort Auscultation: clear to auscultation bilaterally, no crackles, no rales, no rhonc hi and no wheezes Cardio Rate: regular rate Rhythm: regular rhythm Skin General skin exam: no rashes or lesions noted Neuro General: patient oriented x3 Gait exam (Neuro): Normal gait present Extrem General: Yes normal to inspection, Yes full ROM and No edema Psych Affect: normal affect Attitude: cooperative Insight: Good insight present (Psych) Judgement: Good judgement present (Psych) Results AMB Hemoglobin A1c AMB Hemoglobin A1c 6.2 % Last Edit by SANIA Mak on 10/06/24 09:13 Coding Level of Care Code Est Pt Level 3 (12218) Diagnoses Diarrhea R19.7 Major depression F32.9 Gastroesophageal reflux disease without esophagitis K21.9 Esophagitis presence: without esophagitis Essential hypertension I10 Hypertension type: essential hypertension Obesity (BMI 30-39.9) E66.9 Type 2 diabetes mellitus with hyperglycemia, without long-term current use of insulin E11.65 Diabetes mellitus intermediate frame tender insulin use: without group home use Generalized muscle ache M79.10 Assessment & Plan Assessment & Plan (1) Diarrhea: Code(s): R19.7 - Diarrhea, unspecified Category: Medical Plan: Diarrhea resolved with the use of Metamucil continue to follow with [facility] as needed and continue on fiber supplement. (2) Major depression: Comment: decline referral 03/2022 Code(s): F32.9 - Major depressive disorder, single episode, unspecified Category: Medical Plan: Patient was recently discontinued off of her sertraline and feels her mood has improved. Continue to monitor symptoms at this time. (3) GERD (gastroesophageal reflux disease): Code(s): K21.9 - Gastro-esophageal reflux disease without esophagitis Category: Medical Qualifiers: Esophagitis presence: without esophagitis Qualified Code(s): K21.9 - Gastro-esophageal reflux disease without esophagitis Plan: Avoid trigger foods such as citrus, tomato products, soda, caffeine, spicy foods and other foods that may be irritating to your stomach. Avoid laying flat 3-4 hours after eating and elevate the head of the bed 30 degrees to prevent acid from moving into the esophagus. (4) Hypertension: Code(s): I10 - Essential (primary) hypertension Category: Medical Qualifiers: Hypertension type: essential hypertension Qualified Code(s): I10 - Essential (primary) hypertension Plan: Continue on current blood pressure medication. Avoid salt intake and encourage healthy diet and regular exercise. (5) Obesity (BMI 30-39.9): Code(s): E66.9 - Obesity, unspecified Category: Medical Plan: Healthy diet and regular exercise is encouraged. Patient is on Mounjaro 7.5 mg (6) Type 2 diabetes mellitus with hyperglycemia: Code(s): E11.65 - Type 2 diabetes mellitus with hyperglycemia Category: Medical Qualifiers: Diabetes mellitus intermediate frame tender insulin use: without intermediate frame tender use Qualified Code(s): E11.65 - Type 2 diabetes mellitus with hyperglycemia Plan: Decrease the amount of carbohydrates such as pasta, bread, rice, and potatoes and limit the amount of sweets. Although fruits are generally healthy they should be eaten in moderation as they are still high in sugar. Hemoglobin A1c g oal of less than 7%. Metformin was discontinued at last visit but was continued after rising blood sugars. On Mounjaro 7.5mg plan to increase due to elevation of A1c from 5.1% to 6.2%. (7) Generalized muscle ache: Code(s): M79.10 - Myalgia, unspecified site Category: Medical Plan: Patient complaining of generalized muscle aches after certain activities such as gardening and climbing stairs. She does have a previous history of polymyalgia rheumatica and feels these symptoms are similar to her previous experiences. Plan to obtain inflammatory markers and autoimmune testing for further evaluation. Plan The patient's Mounjaro dosage will be increased to 10 mg while carefully monitoring her blood glucose levels. It is planned to reduce Metformin as the Mounjaro dosage increases. We will order blood work to assess for inflammatory markers related to potential polymyalgia rheumatica. Despite the recent A1c elevation likely due to cortisone injection, we continue corticosteroid use as required for shoulder pain while addressing any subsequent blood sugar changes. We'll maintain her antihypertensive and lipid-lowering therapies with simvastatin and losartan, ensuring they are effective. There are no urgent psychiatric concerns at present with the cessation of sertraline proving beneficial, and exercise remains a recommendation. A follow-up appointment is scheduled in three months to review the treatment adjustments. This note was constructed using voice recognition software. While every effort has been made to ensure accuracy and rn perioperative, still areas may have been included sometimes these areas may affect the content or meeting of the given symptoms. Total time spent caring for the patient today was 20 minutes. This includes time spent before the visit reviewing the chart, time spent during the visit, and time spent after the visit and documentation. Patient was informed and verbally consented to the use of an ambient scribe for clinic note documentation during this visit. Orders: Orders AMB Hemoglobin A1c Today E11.65 - Type 2 diabetes mellitus with hyperglycemia Complete Blood Count Auto Diff Today E11.65 - Type 2 diabetes mellitus with hyperglycemia Comprehensive Met. Panel Today E11.65 - Type 2 diabetes mellitus with hyperglycemia Thyroid Stimulating Hormone Today E11.65 - Type 2 diabetes mellitus with hyperglycemia Erythrocyte Sedimentation Rate Today M79.10 - Myalgia, unspecified site C Reactive Protein Today M79.10 - Myalgia, unspecified site YAO Reflex Titer and Pattern Today M79.10 - Myalgia, unspecified site Free T4 (Free Thyroxine) Today E11.65 - Type 2 diabetes mellitus with hyperglycemia Lipid Panel Today E11.65 - Type 2 diabetes mellitus with hyperglycemia, E78.00 - Pure hypercholesterolemia, unspecified Vitamin B12 and Folate Today E11.65 - Type 2 diabetes mellitus with hyper glycemia Vitamin D 25-OH Total Today E11.65 - Type 2 diabetes mellitus with hyperglycemia CHAVA 1 Antibody Today M79.10 - Myalgia, unspecified site Medications: New tirzepatide (Mounjaro) 10 mg (0.5 mL) subcut QWEEK 2 mL 0RF Refilled metformin 500 mg PO BIDWMEAL 90 days 180 tabs 2RF E11.65 - Type 2 diabetes mellitus with hyperglycemia simvastatin 5 mg PO DAILY 90 days 90 tabs 2RF losartan 100 mg PO BEDTIME 90 tabs 3RF I10 - Essential (primary) hypertension Discontinued tirzepatide Discontinued Reason: Patient Completed Course 7.5 mg (0.5 mL) subcut QWEEK 90 days 6.5 mL 1RF E11.65 - Type 2 diabetes mellitus with hyperglycemia
[2024-10-06 09:02] VITALS: BP 134/70; PULSE 75; TEMP 36.2; O2SAT 95; BMI 34.7
--- OUTSIDE RECORDS SUMMARY | 2024-10-06 09:04 | XMS_ITS | Clinical Summary ---
Author Organization [facility] Address [address] [place] [address] Care Team Providers Care Laminating Machine Offbearer Name Role Phone Unavailable Primary Care Provider [...]
== END 2024-10-06 09:42 | disposition home or self-care (01) ==
LOC: HO.HMCH 08:56
PROVIDERS: PCP Internal Medicine
DX: R19.7 Diarrhea, unspecified (principal); E11.65 Type 2 diabetes mellitus with hyperglycemia; Z68.34 Body mass index [BMI] 34.0-34.9, adult; E66.9 Obesity, unspecified; F32.9 Major depressive disorder, single episode, unspecified; K21.9 Gastro-esophageal reflux disease without esophagitis; I10 Essential (primary) hypertension; M79.10 Myalgia, unspecified site

== ENCOUNTER → 2024-10-06 08:55 | Outpatient (BNVA) | payer MEDICARE, SELFPAY | PROVIDERS: PCP Internal Medicine | DX: R19.7 Diarrhea, unspecified (principal); F32.9 Major depressive disorder, single episode, unspecified; K21.9 Gastro-esophageal reflux disease without esophagitis; I10 Essential (primary) hypertension; E66.9 Obesity, unspecified; E11.65 Type 2 diabetes mellitus with hyperglycemia; M79.10 Myalgia, unspecified site | CPT/HCPCS: 83036; 99212 ==

== ENCOUNTER 2024-10-22 06:00 | Outpatient (REF) | payer MEDICARE, SELFPAY ==
[2024-10-22 06:13] LABS: MANUAL DIFF FLAG NO
[2024-10-22 07:15] LABS: Basophils Absolute Auto 0.1 X10*3/uL (0.0-0.2); Basophils Percent Auto 0.8 % (0-2); Eosinophils Absolute Auto 0.6 X10*3/uL (0.0-0.4); Eosinophils Percent Auto 6.8 % (0-4); Hematocrit 42.1 % (37.0-47.0); Hemoglobin 14.3 g/dl (12.0-16.0); Imm Gran Abs Auto 0.05 X10*3/uL (0.00-0.03); Imm Gran Pct Auto 0.6 % (0.0-0.4); Lymphocytes Absolute Auto 2.5 X10*3/uL (1.2-4.9); Lymphocytes Percent Auto 29.1 % (20-40); Mean Corpuscular Hemoglobin 31.8 pg (27.0-33.0); Mean Corpuscular Volume 93.8 fL (80.0-98.0); Mean Platelet Volume 9.2 fL (9.4-12.3); Monocytes Absolute Auto 0.8 X10*3/uL (0.1-1.2); Monocytes Percent Auto 8.7 % (2-11); Neutrophils Absolute Auto 4.7 x10*3/uL (2.0-8.3); Platelet Count 251 X10*3/uL (160-400); Red Blood Count 4.49 X10*6/uL (4.20-5.50); Red Cell Distribution Width 11.9 % (11.0-16.0); White Blood Count 8.6 X10*3/uL (4.8-10.8)
[2024-10-22 07:56] LABS: Alanine Aminotransferase 21 U/L (0-31); Albumin Level 3.9 g/dL (3.5-5.0); Anion Gap 13 (12-20); Aspartate Amino Transferase 29 U/L (5-31); Bilirubin Total 0.4 mg/dL (0.0-1.0); Blood Urea Nitrogen 25 mg/dL (9-16); C Reactive Protein 0.11 mg/dL (< or = 0.50); Calcium 9.5 mg/dL (8.4-10.2); Carbon Dioxide 28 mmol/L (22-29); Chloride 108 mmol/L (96-108); Cholesterol 135 mg/dL (<200); Estimated Glomerular Filt Rate > 60; Glucose Random 115 mg/dL (60-115); HDL Cholesterol 51 mg/dL (>40); LDL Cholesterol Calculated 47 mg/dL (<100); Potassium 4.8 mmol/L (3.3-5.1); Sodium 144 mmol/L (135-145); Total Protein 6.5 g/dL (6.5-8.0); Triglycerides 186 mg/dL (<150)
[2024-10-22 08:01] LABS: Free T4 (Free Thyroxine) 1.11 ng/dL (0.71-1.85); Thyroid Stimulating Hormone 2.24 uIU/mL (0.32-4.0); Vitamin D 25-OH Total 48.3 ng/mL (>30)
[2024-10-22 08:02] LABS: Erythrocyte Sedimentation Rate 14 MM/HR (0-20)
[2024-10-22 08:11] LABS: Folate 11.9 ng/mL (> or = 4.0); Vitamin B12 485 pg/mL (200-900)
[2024-10-22 13:11] LABS: Alkaline Phosphatase 74 U/L (39-117)
[2024-10-23 20:43] LABS: JO 1 Antibody <1.0 NEG AI (<1.0 NEG)
[2024-10-27 11:19] LABS: Anti Nuclear Antibody Screen NEGATIVE (NEGATIVE)
== END 2024-10-22 06:01 | disposition home or self-care (01) ==
LOC: HO.LAB 06:00
DX: E78.00 Pure hypercholesterolemia, unspecified (principal); M79.10 Myalgia, unspecified site; E11.65 Type 2 diabetes mellitus with hyperglycemia
CPT/HCPCS: 36415; 80053; 80061; 82306; 82607; 82746; 84439; 84443; 85025; 85652; 86038; 86140; 86235

== ENCOUNTER 2024-11-10 10:46 | Outpatient (REF) | payer MEDICARE, SELFPAY ==
--- NOTE | ~2024-11-10 | XR_ITS ---
EXAMINATION: XR CHEST CLINICAL INFORMATION: I10 - Essential (primary) hypertension COMPARISON: 01/26/2022. TECHNIQUE: 2 views of the chest were obtained. FINDINGS: The cardiac, hilar, and mediastinal contours are normal. Aortic mural calcification. The lungs are clear bilaterally. There is no pneumothorax or pleural effusion. There is no focal osseous or soft tissue abnormality. Cholecystectomy clips noted. XR/XR chest 2V IMPRESSION: No active pulmonary disease. Electronically signed by: Michael Royal MD 11/10/2024 12:44 PM EDT
[2024-11-11 09:49] LABS: EBV-VCA IgG Ab >750.00 U/mL; EBV-VCA IgM Ab <36.00 U/mL
== END 2024-11-10 10:47 | disposition home or self-care (01) ==
LOC: HO.LAB 10:46
PROVIDERS: Visit Provider Internal Medicine
DX: E11.65 Type 2 diabetes mellitus with hyperglycemia (principal); E66.9 Obesity, unspecified; Z68.33 Body mass index [BMI] 33.0-33.9, adult; G47.33 Obstructive sleep apnea (adult) (pediatric); E78.00 Pure hypercholesterolemia, unspecified; I10 Essential (primary) hypertension; M79.10 Myalgia, unspecified site; Z13.31 Encounter for screening for depression
CPT/HCPCS: 36415; 71046; 86664; 86665; 96127; 99212

== ENCOUNTER 2024-11-10 10:46 | Outpatient (AMB) | payer MEDICARE, SELFPAY ==
[2024-11-10 11:06] VITALS: BP 138/90; PULSE 79; TEMP 36.2; O2SAT 99; BMI 33.9
--- NOTE | 2024-11-10 11:06 | A.OFFPC_ITS ---
Vital Signs 11/10/24 11:06 Height 5 ft 2 in Weight 185 lb 8 oz BMI 33.9 BP 138/90 H Blood Pressure Location Lt brachial Position Sitting Pulse 79 Pulse Source Pulse Oximeter Temp 97.1 F Temp Source Temporal Artery Scan Pulse Oximetry (%) 99 Oxygen Delivery Method Room Air Intake Visit Reasons: Per Portal Message Allergies cabergoline (CABERGOLINE) Allergy (Severe, Verified 11/10/24 11:08) ANGIOEDEMA lisinopril (LISINOPRIL) Allergy (Severe, Verified 11/10/24 11:08) ANGIOEDEMA empagliflozin (Jardiance) Allergy (Intermediate, Verified 11/10/24 11:08) skin infection Tobacco use date assessed: 11/10/24 Fall risk assessment: 1 Fall in past year Last assessed Fall Risk: 11/10/24 Dental Screening Dental Screen Date: 11/10/24 Did you have a dental visit in the last 12 months?: Yes Did you have a dental problem in the last 6 months where you did not have access to dental care?: No Was dental information given to patient?: Patient has dentist [facility] Medical History Post-menopausal Medicare annual wellness visit, initial Pre-op evaluation Precordial chest pain Acute electrocardiogram changes RBBB (right bundle branch block) COVID-19 vaccine series completed Screening for colon cancer Diverticular disease Basal cell carcinoma (BCC) in situ of skin Polymyalgia rheumatica GERD (gastroesophageal reflux disease) Anxiety Hypertension Angioedema Hypercholesteremia Obstructive sleep apnea Obesity (BMI 30-39.9) Type 2 diabetes mellitus with hyperglycemia Surgical History Hx of cataract extraction History of colonoscopy History of arthroplasty of right knee Hx of appendectomy History of cholecystectomy S/P ADRIÁN-BSO Family History Father Prostate cancer Acute CVA (cerebrovascular accident) Mother Uterine cancer COPD (chronic obstructive pulmonary disease) Sister Melanoma Brother Melanoma Paternal Grandfather Acute CVA (cerebrovascular accident) Paternal Aunt Breast cancer Social History Housing: House Are you a primary anesthesiologist and critical care to a significant other at home: No Do you presently have visiting nurse or other home services: No Alcohol intake: never Patient Tobacco Use Status: Former Tobacco user Tobacco use type: Cigarette e-Cigarette/Vaping Use: Never Used Second Hand Smoke Exposure: Yes Advance Directives Date on File: 04/12/21 service: No Current occupational status: employed 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 1. Little interest or pleasure in doing things: not at all 2. Feeling down, depressed, or hopeless: not at all 3. Trouble falling or staying asleep, or sleeping too much: several days 4. Feeling tired or having little energy: several days 5. Poor appetite or overeating: not at all 6. Feeling bad about yourself - or that you are a failure or have let yourself or your family down: not at all 7. Trouble concentrating on things, such as reading the newspaper or watching television: not at all 8. Moving or speaking so slowly that other people could have noticed. Or the opposite - being so fidgety or restless that you have been moving around a lot more than usual: not at all 9. Thoughts that you would be better off or of hurting yourself in some way: not at all Total score: 2 Depression Screening Interpretation: Positive Depression Screening Done: Yes Source: Developed by Drs. Marcos Joshi, Margret Ochoa, Jeferson Mcintosh and colleagues, with an educational aaron from [employer]. Thrive Questionnaire Date Thrive assessed: 11/10/24 I am a: Patient What is your living situation today?: I have a steady place to live Within the past 12 months, did the food you bought not last and you didn't have the money to get more?: Never true Within the past 12 months, did you worry whether your food would run out before you got money to buy more?: Never true Do you have trouble paying for medicines?: No Do you have trouble getting transportation to medical appointments?: No Do you have trouble paying your heating and electricity bill?: No Do you have trouble taking care of your child, family member or friend?: No Do you have trouble with day-to-day activities such as bathing, preparing meals, shopping, managing finances, etc.?: No Are you currently unemployed and looking for a job?: No Are you interested in more education?: No Please select the resources that you would like help with: None Currently or been in a relationship where the following occur: No concerns reported THRIVE Score: 0 AUDIT C Alcohol Use Questionnaire (AUDIT-C) 1. How often do you have a drink containing alcohol?: Never 3. How often do you have six or more drinks on one occasion?: Never Total Score: 0 SUSAN-7 AMB Questionnaire SUSAN-7 Date SUSAN - 7 assessed: 10/06/24 Feeling nervous, anxious, or on edge: 1 = Several days Not being able to stop or control worryin = Several days Worrying too much about different things: 1 = Several days Trouble relaxin = Several days Being so restless that it is hard to sit still: 0 = Not at all Becoming easily annoyed or irritable: 0 = Not at all Feeling afraid as if something awful might happen: 1 = Several days Total SUSAN-7 score (0-4 normal; 5-9 mild; 10-14 moderate; 15-21 severe): 5 Source: Developed by Drs. Marcos Joshi, Margret Ochoa, Jeferson Mcintosh and colleagues, with an educational aaron from [employer]. Physical exam (Primary Care) Vital Signs: Last Vital Signs Temp 97.1 F 11/10/24 11:06 Pulse 79 11/10/24 11:06 BP 138/90 H 11/10/24 11:06 Pulse Ox 99 11/10/24 11:06 Oxygen Delivery Method Room Air 11/10/24 11:06 BMI result Body Mass Index 33.9 Tobacco/Smoking Status: Tobacco use Status Tobacco use date assessed 11/10/24 11/10/24 11:11 Patient Tobacco Use Status Former Tobacco user 11/10/24 11:11 Tobacco use type Cigarette 11/10/24 11:11 e-Cigarette/Vaping Use Never Used 11/10/24 11:11 PHQ-9: PHQ-9 Score PHQ-9: Total score 2 11/10/24 11:38 Depression Screening Interpretation: Positive Thrive Assessment: Date of Thrive Assessment Date Thrive assessed 11/10/24 11/10/24 11:11 Currently or been in a relationship where the following occur: No concerns reported Const General: alert; No acute distress Eyes Conjunctivae: conjunctivae normal Resp Auscultation: clear to auscultation bilaterally Cardio Rate: regular rate Rhythm: regular rhythm GI Inspection: Yes normal to inspection Extrem General: Yes normal to inspection and No edema Coding Level of Care Code Est Pt Level 4 (34889) Diagnoses Type 2 diabetes mellitus with hyperglycemia, without long-term current use of insulin E11.65 Diabetes mellitus medical terminologist insulin use: without medical terminologist use Obesity (BMI 30-39.9) E66.9 Obstructive sleep apnea G47.33 Hypercholesteremia E78.00 Essential hypertension I10 Hypertension type: essential hypertension Myalgia M79.10 Assessment & Plan Assessment & Plan (1) Type 2 diabetes mellitus with hyperglycemia: Code(s): E11.65 - Type 2 diabetes mellitus with hyperglycemia Category: Medical Qualifiers: Diabetes mellitus fci insulin use: without medical terminologist use Qualified Code(s): E11.65 - Type 2 diabetes mellitus with hyperglycemia (2) Obesity (BMI 30-39.9): Code(s): E66.9 - Obesity, unspecified Category: Medical (3) Obstructive sleep apnea: Comment: uses CPAP Code(s): G47.33 - Obstructive sleep apnea (adult) (pediatric) Category: Medical (4) Hypercholesteremia: Code(s): E78.00 - Pure hypercholesterolemia, unspecified Category: Medical (5) Hypertension: Code(s): I10 - Essential (primary) hypertension Category: Medical Qualifiers: Hypertension type: essential hypertension Qualified Code(s): I10 - Essential (primary) hypertension (6) Myalgia: Code(s): M79.10 - Myalgia, unspecified site Category: Medical Plan History of Present Illness The patient is a 73-year-old female presenting with fatigue and muscle aches. She has a history of controlled Type 2 Diabetes Mellitus, Obstructive Sleep Apnea, Hypercholesterolemia, Hypertension, Angioedema, Gastroesophageal Reflux Disease, and Major Depressive Disorder. Recently, she has experienced a 5-pound weight loss. The patient reports persistent fatigue and muscle aches for over a year. She suspects her headaches might be related to trigeminal neuralgia, and her family suggested Lyme disease due to elevated eosinophils. Consultation with a [facility] umatologist and physical therapy provided some relief. She has a history of polymyalgia rheumatica, with a normal sedimentation rate, and is not on steroids. Intermittent fevers and night sweats have been noted, with worsening fatigue despite regular exercise. Her last blood work in October showed normal counts, eosinophils at 6.8%, normal kidney and liver function, and a hemoglobin A1c of 6.2%. She is on Mounjaro injections for diabetes, which might be affecting her blood sugar levels. Her irritable bowel syndrome is controlled with Metamucil, with no recent changes in bowel habits or abdominal pain. Preventative care includes a colonoscopy in January 2022, a bone density test in April 2023, and an up-to-date mammogram as of December 2023. Health Maintenance - Colonoscopy in January 2022 - Bone Density Test in April 2023 - Mammogram up to date as of December 2023 Social History - Exercise: Engages in walking three times a week and gym workouts three times a week. - Diet: Following a high-protein diet, which has led to low blood sugar levels. Review of Systems - General: Reports fatigue and weight loss. - Neurological: Reports headaches and muscle aches; denies palpitations. - Gastrointestinal: Denies changes in bowel habits or abdominal pain. - Respiratory: Denies shortness of breath. - Musculoskeletal: Reports muscle aches and fatigue. - Endocrine: Reports low blood sugar levels. Physical Exam Results - Labs: Normal blood count with eosinophils at 6.8%, normal kidney and liver function, hemoglobin A1c of 6.2%, LDL of 47. Plan The patient will pause Mounjaro injections for two weeks to determine its impact on blood sugar levels. A Lyme disease test is ordered to explore the cause of elevated eosinophils and fatigue. A chest X-ray is planned to exclude any underlying conditions causing her symptoms. She is encouraged to continue her exercise regimen and high-protein diet, with careful monitoring of blood sugar levels. Follow-up visits will be arranged to discuss test outcomes and modify treatment as needed. Patient was informed and verbally consented to the use of an ambient scribe for clinic note documentation during this visit. Discussion Notes I discussed with the patient the potential impact of Mounjaro on her blood sugar levels and the plan to pause its use for two weeks. We talked about the possibility of Lyme disease given her symptoms and elevated eosinophils, and I ordered a test for confirmation. A chest X-ray was recommended to rule out other causes of her symptoms. I advised her to continue her exercise routine and high- protein diet, while monitoring her blood sugar levels. We agreed on follow-up appointments to review test results and adjust her treatment plan accordingly. Patient Instructions - Pause Mounjaro injections for two weeks and monitor blood sugar levels. - Continue regular exercise and maintain a high-protein diet. - Attend follow-up appointments to discuss test results and treatment adjustments. Orders: Orders Lyme IgG & IgM for CSF Today M79.10 - Myalgia, unspecified site Amy-Colon Virus Profile Today I10 - Essential (primary) hypertension XR chest 2V Today I10 - Essential (primary) hypertension Medications: Discontinued hydroxyzine HCl Discontinued Reason: Change Referral Type 25 mg PO TID PRN 21 tabs 0RF itching L23.9 - Allergic contact dermatitis, unspecified cause fluticasone propionate 50 mcg/actuation (Flonase Allergy Relief) administer into each nostril Discontinued Reason: Change Referral Type 2 sprays intranasal DAILY 16 grams 3RF T78.40XA - Allergy, unspecified, initial encounter metformin Discontinued Reason: Duplicate 500 mg PO BIDWMEAL 90 days 180 tabs 2RF E11.65 - Type 2 diabetes mellitus with hyperglycemia
--- OUTSIDE RECORDS SUMMARY | 2024-11-10 12:07 | XMS_ITS | Clinical Summary ---
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
== END 2024-11-10 11:53 | disposition home or self-care (01) ==
LOC: HO.HMCH 10:47
PROVIDERS: Visit Provider Internal Medicine
DX: E11.65 Type 2 diabetes mellitus with hyperglycemia (principal); E66.9 Obesity, unspecified; Z68.33 Body mass index [BMI] 33.0-33.9, adult; G47.33 Obstructive sleep apnea (adult) (pediatric); E78.00 Pure hypercholesterolemia, unspecified; I10 Essential (primary) hypertension; M79.10 Myalgia, unspecified site

== ENCOUNTER → 2024-11-10 12:23 | Outpatient (BNV) | payer MEDICARE, SELFPAY | PROVIDERS: Visit Provider Radiology Diagnostic Radiology | DX: I10 Essential (primary) hypertension (principal) | CPT/HCPCS: 71046 ==

== ENCOUNTER 2025-02-03 10:32 | Outpatient (AMB) | payer MEDICARE, SELFPAY ==
[2025-02-03 10:41] VITALS: BP 132/82; PULSE 75; TEMP 36.3; O2SAT 99; BMI 34.0
--- NOTE | 2025-02-03 10:41 | A.OFFPC_ITS ---
Vital Signs 02/03/25 10:41 Height 5 ft 2 in Weight 186 lb 2 oz BMI 34.0 BP 132/82 Blood Pressure Location Lt brachial Position Sitting Pulse 75 Pulse Source Pulse Oximeter Temp 97.3 F Temp Source Temporal Artery Scan Pulse Oximetry (%) 99 Oxygen Delivery Method Room Air Intake Visit Reasons: f/u DM Allergies cabergoline (CABERGOLINE) Allergy (Severe, Verified 02/03/25 10:44) ANGIOEDEMA lisinopril (LISINOPRIL) Allergy (Severe, Verified 02/03/25 10:44) ANGIOEDEMA empagliflozin (Jardiance) Allergy (Intermediate, Verified 02/03/25 10:44) skin infection Medication List - Last Reconciled 02/03/25 by Deon Crain, acetaminophen (Tylenol) 325 mg PO QID PRN ascorbic acid (vitamin C) 1,000 mg PO DAILY betamethasone valerate 0.1% 1 appl topical BID PRN blood sugar diagnostic 1 strip miscellaneous BID 90 days blood sugar diagnostic (Fabule Ultra Test strips) test once a day cranberry fruit 400 mg PO DAILY [Diabetic shoes and inserts As directed] famotidine 20 mg PO BID fexofenadine (Jesusita Allergy) 180 mg PO DAILY gabapentin 100 - 300 mg (1 - 3 x 100 mg) PO BEDTIME loperamide (Imodium A-D) 2 mg PO Q6H PRN loperamide (Imodium A-D) 2 mg PO Q6H PRN lorazepam 1 mg PO TID PRN losartan 100 mg PO BEDTIME metformin 500 mg PO BID naproxen sodium (Flanax (naproxen)) 440 mg PO BID PRN psyllium husk (Metamucil) 2 tsp PO DAILY semaglutide (Ozempic) 1 mg (0.75 mL) subcut QWEEK 90 days simvastatin 5 mg PO DAILY 90 days vitamin B complex 1 cap PO DAILY Tobacco use date assessed: 02/03/25 Fall risk assessment: 1 Fall in past year Last assessed Fall Risk: 02/03/25 Dental Screening Dental Screen Date: 02/03/25 Did you have a dental visit in the last 12 months?: Yes Did you have a dental problem in the last 6 months where you did not have access to dental care?: No Was dental information given to patient?: Patient has [facility] Medical History Post-menopausal Medicare annual wellness visit, initial Pre-op evaluation Precordial chest pain Acute electrocardiogram changes RBBB (right bundle branch block) COVID-19 vaccine series completed Screening for colon cancer Diverticular disease Basal cell carcinoma (BCC) in situ of skin Polymyalgia rheumatica GERD (gastroesophageal reflux disease) Anxiety Hypertension Angioedema Hypercholesteremia Obstructive sleep apnea Obesity (BMI 30-39.9) Type 2 diabetes mellitus with hyperglycemia Surgical History Hx of cataract extraction History of colonoscopy History of arthroplasty of right knee Hx of appendectomy History of cholecystectomy S/P ADRIÁN-BSO Family History Father Prostate cancer Acute CVA (cerebrovascular accident) Mother Uterine cancer COPD (chronic obstructive pulmonary disease) Sister Melanoma Brother Melanoma Paternal Grandfather Acute CVA (cerebrovascular accident) Paternal Aunt Breast cancer Social History Housing: House Are you a primary career portals teacher to a significant other at home: No Do you presently have visiting nurse or other home services: No Alcohol intake: never Patient Tobacco Use Status: Former Tobacco user Tobacco use type: Cigarette e-Cigarette/Vaping Use: Never Used Second Hand Smoke Exposure: Yes Advance Directives Date on File: 04/12/21 service: No Current occupational status: employed 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 1. Little interest or pleasure in doing things: not at all 2. Feeling down, depressed, or hopeless: not at all 3. Trouble falling or staying asleep, or sleeping too much: several days 4. Feeling tired or having little energy: several days 5. Poor appetite or overeating: not at all 6. Feeling bad about yourself - or that you are a failure or have let yourself or your family down: not at all 7. Trouble concentrating on things, such as reading the newspaper or watching television: not at all 8. Moving or speaking so slowly that other people could have noticed. Or the opposite - being so fidgety or restless that you have been moving around a lot more than usual: not at all 9. Thoughts that you would be better off or of hurting yourself in some way: not at all Total score: 2 Depression Screening Interpretation: Positive Depression Screening Done: Yes Source: Developed by Drs. Marcos Joshi, Margret Ochoa, Jeferson Mcintosh and colleagues, with an educational aaron from [employer]. Thrive Questionnaire Date Thrive assessed: 11/10/24 I am a: Patient What is your living situation today?: I have a steady place to live Within the past 12 months, did the food you bought not last and you didn't have the money to get more?: Never true Within the past 12 months, did you worry whether your food would run out before you got money to buy more?: Never true Do you have trouble paying for medicines?: No Do you have trouble getting transportation to medical appointments?: No Do you have trouble paying your heating and electricity bill?: No Do you have trouble taking care of your child, family member or friend?: No Do you have trouble with day-to-day activities such as bathing, preparing meals, shopping, managing finances, etc.?: No Are you currently unemployed and looking for a job?: No Are you interested in more education?: No Please select the resources that you would like help with: None Currently or been in a relationship where the following occur: No concerns reported THRIVE Score: 0 AUDIT C Alcohol Use Questionnaire (AUDIT-C) 1. How often do you have a drink containing alcohol?: Never 3. How often do you have six or more drinks on one occasion?: Never Total Score: 0 SUSAN-7 AMB Questionnaire SUSAN-7 Date SUSAN - 7 assessed: 10/06/24 Feeling nervous, anxious, or on edge: 1 = Several days Not being able to stop or control worryin = Several days Worrying too much about different things: 1 = Several days Trouble relaxin = Several days Being so restless that it is hard to sit still: 0 = Not at all Becoming easily annoyed or irritable: 0 = Not at all Feeling afraid as if something awful might happen: 1 = Several days Total SUSAN-7 score (0-4 normal; 5-9 mild; 10-14 moderate; 15-21 severe): 5 Source: Developed by Drs. Marcos Joshi, Margret Ochoa, Jeferson Mcintosh and colleagues, with an educational aaron from [employer]. Physical exam (Primary Care) Vital Signs: Last Vital Signs Temp 97.3 F 02/03/25 10:41 Pulse 75 02/03/25 10:41 BP 132/82 02/03/25 10:41 Pulse Ox 99 02/03/25 10:41 Oxygen Delivery Method Room Air 02/03/25 10:41 BMI result Body Mass Index 34.0 Tobacco/Smoking Status: Tobacco use Status Tobacco use date assessed 02/03/25 02/03/25 10:46 Patient Tobacco Use Status Former Tobacco user 02/03/25 10:46 Tobacco use type Cigarette 02/03/25 10:46 e-Cigarette/Vaping Use Never Used 02/03/25 10:46 PHQ-9: PHQ-9 Score PHQ-9: Total score 2 02/03/25 11:18 Depression Screening Interpretation: Positive Thrive Assessment: Date of Thrive Assessment Date Thrive assessed 11/10/24 02/03/25 10:46 Currently or been in a relationship where the following occur: No concerns reported Const General: alert; No acute distress Eyes Conjunctivae: conjunctivae normal Resp Auscultation: clear to auscultation bilaterally Cardio Rate: regular rate Rhythm: regular rhythm GI Inspection: Yes normal to inspection Extrem General: Yes normal to inspection and No edema Results AMB Hemoglobin A1c AMB Hemoglobin A1c 6.4 % Last Edit by Annika Leonardo CMA on 02/03/25 10:49 Immunizations Tenivac (PF) 5 Lf unit-2 Lf unit/0.5 mL intramuscular suspension Performing Provider: Deon Crain MD [facility] Administered by: Annika Leonardo CMA on 02/03/25 11:17 Dose Route Admin Location Dispensed Lot Number Expiration Date [facility] Engineer And Geologist 0.5 mL IM Right Deltoid 0.5 mL [id number] 08/19/26 65968-614-79 [employer] Total Dispensed Waste 0.5 mL 0 % VIS Given Date VIS Provided VIS Publication Date 02/03/25 Single Vaccine 20 Eligibility Eligibility Date Funding Source Not VFC Eligible 02/03/25 Private Results Reviewed Results Reviewed: Laboratory Last Values Hgb A1c (Clinic) 6.4 % (4.0-6.0) H 02/03/25 10:46 Coding Level of Care Code Est Pt Level 4 (68664) Complex EM visit Add On G2211 Diagnoses Type 2 diabetes mellitus with hyperglycemia, without long-term current use of insulin E11.65 Diabetes mellitus technician terminal and repeater insulin use: without senior care use Obesity (BMI 30-39.9) E66.9 Hypercholesteremia E78.00 Essential hypertension I10 Hypertension type: essential hypertension Major depression F32.9 Assessment & Plan Assessment & Plan (1) Type 2 diabetes mellitus with hyperglycemia: Code(s): E11.65 - Type 2 diabetes mellitus with hyperglycemia Category: Medical Qualifiers: Diabetes mellitus senior care insulin use: without technician terminal and repeater use Qualified Code(s): E11.65 - Type 2 diabetes mellitus with hyperglycemia Plan: Decrease the amount of carbohydrate intake, pasta, bread, rice and potatoes are all sugar and that is aside from all the sweet stuff, remember that fruits are good but they are Sweet also. Hemoglobin A1c goal of less than 7.0. Patient is on metformin 500 mg twice a day Tosha has been prescribed 7.5 mg once a week (2) Obesity (BMI 30-39.9): Code(s): E66.9 - Obesity, unspecified Category: Medical Plan: Diet and exercise (3) Hypercholesteremia: Code(s): E78.00 - Pure hypercholesterolemia, unspecified Category: Medical Plan: Avoid fried foods, chicken skin, eggs, butter margarine, pastries and meat. Be it pork or beef they have a lot of cholesterol October 2024 last blood work on simvastatin 5 mg once a day patient is at goal LDL goal of less than 100 and triglyceride of less than 150 (4) Hypertension: Code(s): I10 - Essential (primary) hypertension Category: Medical Qualifiers: Hypertension type: essential hypertension Qualified Code(s): I10 - Essential (primary) hypertension Plan: Continue with blood pressure medication. Decrease salt intake and exercise on losartan 100 mg once a day (5) Major depression: Comment: decline referral 03/2022 Code(s): F32.9 - Major depressive disorder, single episode, unspecified Category: Medical Plan: Lorazepam as needed gabapentin Plan History of Present Illness The patient is a 74-year-old female presenting for a follow-up visit. The patient has a history of diabetes mellitus, managed with metformin and Mounjaro, with a hemoglobin A1c of 6.4 in October 2024. She reports blood sugar fluctuations with Mounjaro and prefers Ozempic for better stability. The patient has obstructive sleep apnea, uses a CPAP machine, and reports fatigue and lack of stamina since spring. She is considering an overnight oximetry test for further evaluation. The patient manages hypercholesterolemia with simvastatin, achieving an LDL of 4 7, below the target of 100. Hypertension is controlled with losartan, and her blood pressure is stable. The patient has a history of GERD and depression, though specific management was not discussed. The patient is obese and attends a gym three times a week, which may influence her blood sugar levels. Preventative care includes a recent mammogram, a bone density test due, and a colonoscopy last done in 2021. Health Maintenance - Mammogram performed in December 2024 - Bone density test due later this year - Colonoscopy last performed in January 2022 - Tetanus vaccination needed, last received in 2014 - Flu shot recommended for February - COVID booster discussed Social History - Exercise: Attends gym three times a week Review of Systems - General: Reports fatigue and lack of stamina since spring - Respiratory: Reports nasal congestion, denies chest pain - Cardiovascular: Denies chest pain, reports regular heart rhythm - Neurological: Reports feeling tired, denies headaches Physical Exam Results - Labs: Hemoglobin A1c 6.4 in October 2024, LDL cholesterol 47 - Tests: Mammogram in December 2024, colonoscopy in January 2022 Plan Patient was informed and verbally consented to the use of an ambient scribe for clinic note documentation during this visit. 1. Diabetes Mellitus The patient's diabetes mellitus is managed with metformin and Mounjaro, with a hemoglobin A1c of 6.4. She prefers Ozempic for better blood sugar stability, and a prescription for Ozempic 1 mg has been planned. 2. Obstructive Sleep Apnea The patient uses a CPAP machine but reports fatigue and lack of stamina. An overnight oximetry test is considered to evaluate her oxygen saturation during sleep. 3. Hypercholesterolemia The patient's hypercholesterolemia is managed with simvastatin, achieving an LDL of 47, below the target of 100. 4. Hypertension The patient's hypertension is managed with losartan, and her blood pressure is well-controlled. 5. Preventative Care Preventative care includes a recent mammogram, a bone density test due, and a colonoscopy last done in 2021. A tetanus vaccination is needed, and a flu shot is recommended for February. A COVID booster was discussed. Discussion Notes During the visit, we discussed the management of the patient's diabetes mellitus, including the transition from Mounjaro to Ozempic for better blood sugar stability. We also reviewed her obstructive sleep apnea management and considered an overnight oximetry test to assess her oxygen saturation levels during sleep. Preventative care measures were addressed, including the need for a tetanus vaccination and a flu shot in February. Patient Instructions - Continue taking metformin and follow the plan to switch to Ozempic as discussed. - Schedule an overnight oximetry test to monitor sleep oxygen levels. - Get a tetanus shot and flu shot as recommended. - Maintain regular exercise routine at the gym. Orders: Orders Td Immunization Today Z23 - Encounter for immunization AMB Hemoglobin A1c Today Z13.9 - Encounter for screening, unspecified Overnight Pulse Oximetry Today G47.33 - Obstructive sleep apnea (adult) (pediatric) Medications: New semaglutide (Ozempic) 1 mg (0.75 mL) subcut QWEEK 9.75 mL 3RF 90 days E11.65 - Type 2 diabetes mellitus with hyperglycemia Discontinued tirzepatide (Mounjaro) Discontinued Reason: Patient Refused 7.5 mg (0.5 mL) subcut QWEEK 6 mL 1RF
--- OUTSIDE RECORDS SUMMARY | 2025-02-03 13:49 | XMS_ITS | Clinical Summary ---
Author Organization [facility] Address [address] [place] [address] Care Team Providers Care Collaborating Supervising Physician Name Role Phone Unavailable Primary Care Provider [...] COVID-19 Vaccine ( - 2023-2 5 season) 2025 Influenza (#1) 2025 RSV (1 - 1-dose 75+ series) 2025 HPV Vaccine (No Doses Required) Completed Hep A Aged Out No longer eligi [...]
--- OUTSIDE RECORDS SUMMARY | 2025-02-03 13:49 | XMS_ITS | Encounter Summary ---
Author Organization [facility] Address [address] [place] [address] [place] [address] Phone Care Team Providers Care Shrimp Trawler Name Role Phone Deon Crain MD Primary Care Provider [phone] Encounter Details Date Type Department Care Team (Late st Contact Info) Description 08/03/2017 Transcribe Orders [facility] Laboratory [address] [place] [address] Triston Carlisle, [address] [facility], [address] [id number] [email or web address] Elevated calcitonin level (Primary Dx) Social History Tobacco Use Types Packs/Day Years Used Date Smoking Tobacco: Never Assessed Comments Unknown Sex and Gender Information Value Date Recorded Sex Assigned at Female 12/14/2017 9:12 PM EDT Legal Sex Female 5:27 PM EST Gender Identity Female 12/14/2017 9:12 PM EDT Sexual Orientation Straight 12/14/2017 9: 12 PM EDT documented as of this encounter Plan of Treatment Not on file documented as of this encounter Results * Ionized calcium (08/03/2017 4:32 PM EDT) IONIZED CALCIUM 1.22 1.14 - 1.37 mmol/L [facility] Blood 08/03/2017 4:32 PM EDT 08/03/2017 4:35 PM EDT Triston Carlisle DO LAB BLOOD ORDERABLES Final R esult [facility] [address] [place] [address] documented in this encounter Visit Diagnoses Diagnosis Elevated calcitonin level- Primary documented in this encounter Care Teams Shrimp Trawler Relationship Specialty Start Date End Date Deon Crain MD [address] [place] [address] PCP - General Internal Medicine 07/24/17 documented as of this encounter Additional Source Comments The information contained in this document represents components of the legal health record. It is not the complete legal health record.[facility]
--- OUTSIDE RECORDS SUMMARY | 2025-02-03 13:49 | XMS_ITS | Encounter Summary ---
Author Organization [facility] Address [facility] [employer] [facility] [address] [place] [address] Phone Care Team Providers Care Dry Cure Worker Name Role Phone Deon Crain MD Primary Care Provider [phone] Encounter Details Date Type Department Care Team (Late st Contact Info) Description 07/24/2017 Transcribe Orders [facility] Laboratory [address] [place] [address] Triston Carlisle, DO [address] [facility], [address] [address] [email or web address] Non-seasonal allergic rhinitis, unspecified chronicity, unspecified trigger (Primary Dx) Social History Tobacco Use Types [...] documented as of this encounter Results * C1 inhibitor, antigen (07/24/2017 3:00 PM EST) C1ES INHIBITOR AG 33 19 - 37 mg/dL [facility] DPT OF LAB MED AND PAT+ Blood 07/24/2017 3:00 PM EST 07/24/2017 3:07 PM EST us Via [employer] LAB BLOOD ORDERABLES Final R esult Performing Organization Address City/[facility]/ZIP Co de Phone Number [facility] DPT OF LAB MED AND PAT+ [address] [place] [address] * C1 inhibitor, functional (07/24/2017 3:00 PM EST) C1 INHIB FUNCTIONAL 87 %of norm [facility] DPT OF LAB MED AND PAT+ Comment: (NOTE) REFERENCE VALUE >67 (Normal) 41-67 (Equivocal) <41 (Abnormal) Blood 07/24/2017 3:00 PM EST 07/24/2017 3:07 PM EST [employer] LAB BLOOD ORDERABLES Final R [employer] Performing Organization Address [facility] Co de Phone Number [facility] DPT OF LAB MED AND PAT+ [address] [place] [address] * (ABNORMAL) CBC and differential (07/24/2017 3:00 PM EST) Pathologist [facility] WBC 10.73 3.40 - 11.20 K/uL [facility] RBC 4.96(H) 3.80 - 4.80 M/uL [facility] HGB 15.4(H) 12.0 - 15.0 g/dL [facility] HCT 45.6 36.0 - 46.0 % [facility] PLT 259 130 - 400 K/uL [facility] MCV 91.9 79.0 - 98.0 fL [facility] MCH 31.0 27.0 - 34.8 pg [facility] MCHC 33.8 31.5 - 36.0 g/dL [facility] RDW 12.6 10.8 - 14.6 % [facility] MPV 10.0 9.4 - 12.4 fl [facility] NRBC 0.00 /100 WBCs [facility] ABSOLUTE NRBC 0.00 K/uL [facility] DIFF METHOD Auto [facility] NEUTS 68.6 45.30 - 77.70 % [facility] LYMPHS 22.6 12.30 - 39.70 % [facility] MONOS 5.6 4.10 - 12.80 % [facility] EOS 2.2 0 - 7.2 % [facility] BASOS 0.5 0 - 2.80 % [facility] Granulocytes, immature (%) 0.5 0.0 - 0.9 % [facility] ABSOLUTE NEUTS 7.36 1.40 - 7.70 K/uL [facility] ABSOLUTE LYMPHS 2.43 0.60 - 3.20 K/uL [facility] ABSOLUTE MONOS 0.60(H) 0.11 - 0.59 K/uL [facility] ABSOLUTE EOS 0.24 0.01 - 0.50 K/uL [facility] ABSOLUTE BASOS 0.05 0.00 - 0.08 K/uL [facility] Granulocytes, immature 0.05 0.00 - 0.05 K/uL [facility] Blood 07/24/2017 3:00 PM EST 07/24/2017 3:07 PM EST us Triston Carlisle DO LAB BLOOD ORDERABLES Final R esult [address] [address] * (ABNORMAL) Comprehensive metabolic panel (07/24/2017 3:00 PM EST) SODIUM 142 133 - 146 mmol/L [facility] POTASSIUM 3.5 3.3 - 5.1 mmol/L [facility] CHLORIDE 100 96 - 108 mmol/L [facility] CO2 25 21 - 35 mmol/L [facility] BUN 15 6 - 19 mg/dL [facility] CREATININE 0.50 0.5 - 1.5 mg/dL [facility] GLUCOSE 84 70 - 99 mg/dL [facility] ALBUMIN 4.3 3.9 - 4.8 g/dL [facility] TOTAL PROTEIN 7.7 6.5 - 8.0 g/dL [facility] CALCIUM 10.6(H) 8.4 - 10.3 mg/dL [facility] ALKALINE PHOSPHATASE 84 39 - 117 U/L [facility] TOTAL BILIRUBIN 0.3 0.0 - 1.2 mg/dL [facility] AST 24 0 - 37 U/L [facility] ALT 28 0 - 40 U/L [facility] GLOBULIN 3.4 1 - 4.8 g/dL [facility] EGFR 101 >59 mL/min/1.7 3m2 [facility] Comment:If patient is black, multiply result by 1.159. The eGFR calculation has changed from the MDRD equation to the CKD-EPI equation as of July 24, 2017. ANION GAP 21(H) 10 - 20 mmol/L [facility] Blood 07/24/2017 3:00 PM EST 07/24/2017 3:07 PM EST [facility] LAB BLOOD ORDERABLES Final R esult Performing Organization Address City/[facility]/ZIP Co de Phone Number [facility] [address] [place] [address] * Complement C4 (07/24/2017 3:00 PM EST) COMPLEMENT C4 37 14 - 40 mg/dL [facility] DPT OF LAB MED AND PAT+ Blood 07/24/2017 3:00 PM EST 07/24/2017 3:07 PM EST [facility] LAB BLOOD ORDERABLES Final R esult [facility] DPT OF LAB MED AND PAT+ [address] [place] [address] documented in this encounter Visit Diagnoses Diagnosis Non-seasonal allergic rhinitis, unspecified chronicity, unspecified trigger- Primary documented in this encounter Care Teams Dry Cure Worker Relationship Specialty Start Date End Date Paras, Deon Perkins MD [address] [place] [address] PCP - General Internal Medicine 07/24/17 documented as of this encounter Additional Source Comments The information contained in this document represents components of the legal health record. It is not the complete legal health record.[facility]
--- OUTSIDE RECORDS SUMMARY | 2025-02-03 13:49 | XMS_ITS | Clinical Summary ---
Author Organization [facility] Address [address] [place] [id number] Phone Care Team Providers Care Special Projects Coordinator Name Role Phone Deon Crain MD Primary Care Provider Allergies Active Allergy Reactions Criticality Noted Date Comments Ever Inhibitors 12/14/2017 Diphenhydramine Hcl Angioedema 12/15/2017 Cabergoline 12/14/2017 Lisinopril 12/14/2017 Medications SITagliptin-metFO RMIN (JANUMET) 50-500 mg per tablet Take 1 tablet by mouth 2 (two) times a day with meals. Active losartan (COZAAR) 25 MG tablet Take 25 mg by mouth daily. Active celecoxib (CELEBREX) 200 MG capsule Take 200 mg by mouth daily. Active simvastatin (ZOCOR) 5 MG tablet Take 5 mg by mouth nightly. Active amitriptyline (ELAVIL) 25 MG tablet Take 25 mg by mouth nightly. Active raNITIdine (ZANTAC) 75 MG tablet Take 75 mg by mouth daily. Active cetirizine (ZYRTEC) 10 MG tablet Take 10 mg by mouth every evening. Active fexofenadine (IRINEO) 180 MG tablet Take 180 mg by mouth daily. Active omega-3 fatty acids-fish oil 340-1,000 mg Cap 1 capsule daily. Active aspirin 81 MG EC tablet Take 81 mg by mouth daily. Active therapeutic multivitamin tablet Take 1 tablet by mouth daily. Active LORazepam (ATIVAN) 0.5 MG tablet Take 0.5 mg by mouth every 6 (six) hours as needed for anxiety (0.5 to 1 mg). Active b complex vitamins capsule Take 1 capsule by mouth daily. Active naproxen sodium (ALEVE) 220 MG tablet Take 220 mg by mouth every 12 (twelve) hours as needed for fever (1 to 2 tabets PRN). Active acetaminophen (TYLENOL) 325 mg tablet Take 650 mg by mouth every 4 (four) hours as needed for mild pain or fever. Active hydrOXYzine HCl (ATARAX) 10 MG tablet Take 10 mg by mouth every 6 (six) hours as needed (Angioedema. Pt has never taken 12/15/17). Active semaglutide (OZEMPIC) 1 mg/dose (4 mg/3 mL) PnIj 1 mg as directed. Once weekly Active metFORMIN (GLUCOPHAGE) 500 MG tablet Take 500 mg by mouth 2 (two) times a day. 2 Active gabapentin (NEURONTIN) 100 MG capsule Take 1 capsule by mouth daily. 1 Active famotidine (PEPCID) 20 MG tablet Take 20 mg by mouth daily. Active Social History Tobacco Use Types Packs/Day Years Used Date Smoking Tobacco: Never Smokeless Tobacco: Never Alcohol Use Standard Drinks/Week Comments No 0 (1 standard drink = 0.6 oz pur e alcohol) Education Answer Date Recorded Are you interested in more education? Not on marce e 09/20/2022 Are you concerned about learning? Not on file 09/20/2022 No 09/20/2022 No 09/20/2022 Digital Access Answer Date Recorded No 10/15/2022 No 10/15/2022 No 10/15/2022 Reliable internet access at home? Not on file 10/15/2022 Device with a working camera? Not on file Comments No Sex and Gender Information Value Date Recorded Sex Assigned at Female 12/14/2017 9:12 PM EDT Legal Sex Female 5:27 PM EST Gender Identity Female 12/14/2017 9:12 PM EDT Sexual Orientation Straight 12/14/2017 9: 12 PM EDT Last Filed Vital Signs Vital Sign Reading Time Taken Comments Blood Pressure 127/87 12/15/2017 6:01 AM EDT Pulse 80 12/15/2017 6:01 AM EDT Temperature 36.6 C (97.9 F) 12/15/2017 6:01 AM EDT Respiratory Rate 16 12/15/2017 6:01 AM EDT Oxygen Saturation 97% 12/15/2017 6:01 AM EDT Inhaled Oxygen Concentration - - Weight 88.5 kg (195 lb) 12/13/2021 10:44 AM EDT pt reported Height 157.5 cm (5' 2 ) 12/13/2021 10:44 AM EDT Body Mass Index 35.67 12/13/2021 10:44 AM EDT Plan of Treatment Health Maintenance Due Date Last Done Comments LIPID PANEL 1950 DEPRESSION SCREENING 1962 HEPATITIS C SCREENING 1968 MAMMOGRAM 1990 COLOGUARD 12/29/1995 COLONOSCOPY 12/29/1995 COLORECTAL CANCER SCREENING 12/29/1995 FIT TEST 12/29/1995 FOBT 12/29/1995 SIGMOIDOSCOPY 12/29/1995 VIRTUAL COLONOSCOPY 12/29/1995 OSTEOPOROSIS SCREENING INITIAL (ONE-TIME) 12/29/2015 PNEUMOCOCCAL VACCINES (50+ years) (2 of 2 - PPSV23) 08/01/2017 08/01/2016 CREATININE LEVEL 07/24/2018 07/24/2017 POTASSIUM LEVEL 07/24/2018 07/24/2017 Adult Td,Tdap Booster 06/02/2024 06/02/2014, 008 INFLUENZA VACCINE (#1) 2024 , 02/18/2020, 03/12/2019, Additional history exists COVID-19 VACCINE (3 - 2024- season) 2025 07/14/2020, 06/16/2020 RSV VACCINE (1 - 1-dose 75+ series) 2025 HEPATITIS A VACCINES Aged Out 01/13/2009, 06/25/19 08 No longer eligible based on patient's age to complete this topic ZOSTER VACCINES Completed 06/22/2019, 03/12/2019 SMOKING STATUS SCREENING (Once After 26 Yrs) Completed 12/13/2021 HIB VACCINES Aged Out No longer eligi ble based on patient's age to complete this topic MENINGOCOCCAL VACCINES (ACWY) Aged Out No longer eligible based on patient's age to complete this topic MENINGOCOCCAL VACCINES (B) Aged Out N o longer eligible based on patient's age to complete this topic Medical Devices Not on file Procedures Procedure Name Priority Date/Time Associated Diagnosis Comments COMPREHENSIVE METABOLIC PANEL Routine 07/24/2017 3:00 PM EST Non-seasonal allergic rhinitis, unspecified chronicity, unspecified trigger from Last 3 Months or Most Recently Relevant to Health Maintenance Results * (ABNORMAL) Comprehensive metabolic panel (07/24/2017 3:00 PM EST) SODIUM 142 133 - 146 mmol/L [facility] POTASSIUM 3.5 3.3 - 5.1 mmol/L [facility] CHLORIDE 100 96 - 108 mmol/L [facility] CO2 25 21 - 35 mmol/L [facility] BUN 15 6 - 19 mg/dL [facility] CREATININE 0.50 0.5 - 1.5 mg/dL [facility] GLUCOSE 84 70 - 99 mg/dL [facility] ALBUMIN 4.3 3.9 - 4.8 g/dL [facility] TOTAL PROTEIN 7.7 6.5 - 8.0 g/dL [facility] CALCIUM 10.6(H) 8.4 - 10.3 mg/dL [facility] ALKALINE PHOSPHATASE 84 39 - 117 U/L [facility] TOTAL BILIRUBIN 0.3 0.0 - 1.2 mg/dL [facility] AST 24 0 - 37 U/L [facility] ALT 28 0 - 40 U/L [facility] GLOBULIN 3.4 1 - 4.8 g/dL [facility] EGFR 101 >59 mL/min/1.7 3m2 [facility] Comment:If patient is black, multiply result by 1.159. The eGFR calculation has changed from the MDRD equation to the CKD-EPI equation as of July 24, 2017. ANION GAP 21(H) 10 - 20 mmol/L [facility] Blood 07/24/2017 3:00 PM EST 07/24/2017 3:07 PM EST us Triston Carlisle DO LAB BLOOD ORDERABLES Final R esult [facility] [address] [place] [address] from Last 3 Months or Most Recently Relevant to Health Maintenance Insurance [employer] SUPPLEMENT MEDICARE PART A & B [employer] SUPPLEMENT MEDICARE PART A & B [employer] SUPPLEMENT MEDICARE PART A & B [employer] MEDICARE PART A & B [employer] SU[employer] MEDICARE PART A & B [employer] SU[employer] MEDICARE PART A & B [facility] MEDEX SUPPLEMENT MEDICARE PART A & B [employer] MED[employer]PPLEMENT MEDICARE PART A & B [employer] SUPPLEMENT [employer] Address: [facility] [id number] [place] [address] MEDICARE PART A & B Care Teams Special Projects Coordinator Relationship Specialty Start Date End Date Deon Crain MD [address] [place] [address] Drive [address] [place] [phone] PCP - General Internal Medicine 07/24/17 Additional Source Comments The information contained in this document represents components of the legal health record. It is not the complete legal health record.[facility]
== END 2025-02-03 11:28 | disposition home or self-care (01) ==
LOC: HO.HMCH 10:33
PROVIDERS: PCP Internal Medicine; Visit Provider Internal Medicine
DX: E11.65 Type 2 diabetes mellitus with hyperglycemia (principal); E66.9 Obesity, unspecified; Z68.34 Body mass index [BMI] 34.0-34.9, adult; E78.00 Pure hypercholesterolemia, unspecified; I10 Essential (primary) hypertension; F32.9 Major depressive disorder, single episode, unspecified; Z23 Encounter for immunization

== ENCOUNTER → 2025-02-03 10:32 | Outpatient (BNVA) | payer MEDICARE, SELFPAY | PROVIDERS: PCP Internal Medicine; Visit Provider Internal Medicine | DX: E11.65 Type 2 diabetes mellitus with hyperglycemia (principal); E66.9 Obesity, unspecified; Z23 Encounter for immunization; E78.00 Pure hypercholesterolemia, unspecified; I10 Essential (primary) hypertension; F32.9 Major depressive disorder, single episode, unspecified; Z68.34 Body mass index [BMI] 34.0-34.9, adult | CPT/HCPCS: 83036; 90471; 90714; 96127; 99212 ==

== ENCOUNTER 2025-04-08 09:52 | Outpatient (AMB) | payer MEDICARE, SELFPAY ==
--- OUTSIDE RECORDS SUMMARY | 2024-09-01 08:15 | XMS_ITS ---
Author Organization [facility] Address [address] [place] [address] Care Team Providers Care Director Clinical Data Name Role Phone Deon Crain MD Primary Care Provider Abhi Marcus Jr [phone] REASON FOR VISIT Patient presents today for incontinence Encounters Encounter Location Date Provider Diagnosis [facility] [address] [place] [address] 09/01/2024 Abhi Pedroza Jr Plan Of Treatment No Information Progress Notes * PREETI VILLALOBOS PDOB:1950 (74 yo F)Acc No.[id number]:09/01/2024 Progress Notes Patient: PREETI CARDOZA Provider: Ericka Pedroza MD :1950 A ge:73 Y S ex:Female Date:09/01/2024 Address:[address] [place], [place] [id number] Pcp:Deon Crain MD Subjective: * Chief Complaints: * P atient presents today for incontinence * The named appointment provid er may or may not be the originator of this progress note, and it is not deemed complete until electronically signed by the appointment provider. Sign off status: Pending * Provider: Ericka Pedroza MD Date: 0 09/01/2024 Generated for Printi ng/Fabgg/eTransmitting on: 1 06/08/2024 06:27 PM EST
[2025-04-08 10:13] VITALS: BP 140/88; PULSE 86; TEMP 36.7; O2SAT 96; BMI 34.1
--- NOTE | 2025-04-08 10:16 | A.OFFVIS_ITS ---
Intake Vital Signs 04/08/25 10:13 04/08/25 10:56 Height 5 ft 2 in Weight 186 lb 8 oz BMI 34.1 BP 140/88 H 130/82 Blood Pressure Location Lt brachial Lt brachial Position Sitting Sitting Pulse 86 Pulse Source Pulse Oximeter Temp 98.1 F Temp Source Temporal Artery Scan Pulse Oximetry (%) 96 Oxygen Delivery Method Room Air Intake Visit Reasons: SWV [id number] Allergies cabergoline (CABERGOLINE) Allergy (Severe, Verified 04/08/25 10:31) ANGIOEDEMA lisinopril (LISINOPRIL) Allergy (Severe, Verified 04/08/25 10:31) ANGIOEDEMA empagliflozin (Jardiance) Allergy (Intermediate, Verified 04/08/25 10:31) skin infection Medication List - Last Reconciled 04/08/25 by Suzan Irving PA-C acetaminophen (Tylenol) 325 mg PO QID PRN ascorbic acid (vitamin C) 1,000 mg PO DAILY betamethasone valerate 0.1% 1 appl topical BID PRN blood sugar diagnostic 1 strip miscellaneous BID 90 days blood sugar diagnostic (OneTouch Ultra Test strips) test once a day cranberry fruit 400 mg PO DAILY [Diabetic shoes and inserts As directed] famotidine 20 mg PO BID fexofenadine (Jesusita Allergy) 180 mg PO DAILY gabapentin 100 - 300 mg (1 - 3 x 100 mg) PO BEDTIME loperamide (Imodium A-D) 2 mg PO Q6H PRN loperamide (Imodium A-D) 2 mg PO Q6H PRN lorazepam 1 mg PO TID PRN losartan 100 mg PO BEDTIME metformin 500 mg PO BID naproxen sodium (Flanax (naproxen)) 440 mg PO BID PRN psyllium husk (Metamucil) 2 tsp PO DAILY semaglutide 2 mg (0.75 mL) subcut QWEEK 90 days simvastatin 5 mg PO DAILY 90 days vitamin B complex 1 cap PO DAILY HPI SWV G0439 HPI Details 74-year-old female with past medical his tory of diabetes mellitus, obstructive sleep apnea, hypercholesterolemia, hypertension, GERD, depression last seen 01/2025 coming in for annual exam. The patient is a 74-year-old female presenting for evaluation of memory lapses and a new diffuse burning, tingling sensation. She reports recent episodes of memory lapse, such as forgetting she had just cut her sister's fingernails, which is causing her concern. The patient also describes a new, increasingly frequent burning, tingling sensation that occurs all over her body, including her arms and legs, primarily during the daytime. She does not report associated numbness, pain or weakness. Past medical history is significant for peripheral neuropathy in her feet and sore legs, for which she takes gabapentin 300 mg at bedtime, occasionally requiring an extra dose once a week. mammogram: 12/2024 colonscopy: 01/2022 DEXA: 04/2023 vaccines: [facility] Medical History Post-menopausal Medicare annual wellness visit, initial Pre-op evaluation Precordial chest pain Acute electrocardiogram changes RBBB (right bundle branch block) COVID-19 vaccine series completed Screening for colon cancer Diverticular disease Basal cell carcinoma (BCC) in situ of skin Polymyalgia rheumatica GERD (gastroesophageal reflux disease) Anxiety Hypertension Angioedema Hypercholesteremia Obstructive sleep apnea Obesity (BMI 30-39.9) Type 2 diabetes mellitus with hyperglycemia Surgical History Hx of cataract extraction History of colonoscopy History of arthroplasty of right knee Hx of appendectomy History of cholecystectomy S/P ADRIÁN-BSO Family History Father Prostate cancer Acute CVA (cerebrovascular accident) Mother Uterine cancer COPD (chronic obstructive pulmonary disease) Sister Melanoma Brother Melanoma Paternal Grandfather Acute CVA (cerebrovascular accident) Paternal Aunt Breast cancer Social History Housing: House Are you a primary clinical care leader to a significant other at home: No Do you presently have visiting nurse or other home services: No Alcohol intake: never Patient Tobacco Use Status: Former Tobacco user Tobacco use type: Cigarette e-Cigarette/Vaping Use: Never Used Second Hand Smoke Exposure: Yes Advance Directives Date on File: 04/12/21 service: No Current occupational status: employed 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 Cognitive needs: No Hearing needs: No Vision needs: Yes Questionnaire Medicare Wellness Checkup [age] What gender do you identify with?: female During the past 4 weeks, how much have you been bothered by emotional problems such as feeling anxious, depressed, irritable, sad or downhearted, and blue?: slightly During the past 4 weeks, has your physical & emotional health limited your social activities with family, friends, neighbors, or groups?: not at all During the past 4 weeks, how much bodily pain have you generally had?: very mild pain During the past 4 weeks, was someone available to help you if you needed & wanted help?: yes, quite a bit During the past 4 weeks, what was the hardest physical activity you could do for at least 2 minutes?: moderate Can you get to places out of walking distance without help? (For eg., can you travel alone on buses, taxis or drive your car?): Yes Can you go shopping for groceries or clothes without someone's help?: Yes Can you prepare your own meals?: Yes Can you do your housework without help?: Yes Because of any health problems, do you need the help of another person with your personal care needs such as eating, bathing, dressing or getting around the house?: No Can you handle your own money without help?: Yes During the past 4 weeks, how would you rate your health in general?: very good During the past 4 weeks how have things been going for you?: pretty well Are you having difficulties driving your car?: no Do you always fasten your seat belt when you are in a car?: yes, usually During past 4 weeks, have you been bothered by the following: never: Falling or dizzy when standing up, Sexual problems?, Trouble eating well? and Problems using the telephone? and seldom: Teeth or denture problems? and Tiredness or fatigue? Have you fallen 2 or more times in the past year?: No Are you afraid of falling?: Yes Are you a smoker?: no During the past 4 weeks, how many drinks of wine, beer, or other alcoholic beverages did you have?: no alcohol at all Do you exercise for about 20 minutes 3 or more times a week?: yes, most of the time Have you been given information to help with the following?: no: Hazards in your house that might hurt you? and no: Keeping track of your medications? How often do you have trouble taking medicines the way you have been told to take them?: I always take medicine as prescribed How confident are you that you can control & manage most of your health problems?: very confident What is your race?: White Mini Mental State Exam (MMSE) Orientation What is the (year) (season) (date) (day) (month)?: year, season, date, day and month Where are we (state) (county) (town or city) (hospital) (floor)?: state, county, town or city, hospital/clinic and floor Registration Name of 3 unrelated objects clearly and slowly, then ask patient to repeat all 3 of them. (1st repeat determines score. Make sure they can repeat all three): object 1, object 2 and object 3 Attention & Calculation (CHOOSE ONE) Ask pt to begin with 100 & count backward by 7. Stop after 5 repeats. If pt cannot ask them to spell the word WORLD backward.: 93, 86, 79, 72 and 65 Recall Ask patient to repeat the 3 items from question #3.: object 1, object 2 and object 3 Language Show patient a wristwatch & ask what it is. Repeat for pencil.: watch and pencil Ask the patient to repeat the phrase 'No ifs, ands, or buts' after you.: correct Ask the patient to 'take a piece of paper with their right hand' 'fold paper in half' 'place paper on floor': take paper in right hand, fold paper in half and place paper on floor Print the sentence 'CLOSE YOUR EYES' on a piece. If patient actually closes eyes then score.: followed written direction Give patient a blank piece of paper & ask to write a sentence. Score if it contains a noun & verb.: sentence contains subject and verb Ask patient to copy figure of intersecting pentagons exactly. Score if all 10 angles & 2 intersects are included.: all 10 angles present & 2 are intersected Score Score: 30 PHQ-9 Over the last 2 weeks, how often have you been bothered by any of the following problems? 1. Little interest or pleasure in doing things: not at all 2. Feeling down, depressed, or hopeless: not at all 3. Trouble falling or staying asleep, or sleeping too much: several days 4. Feeling tired or having little energy: several days 5. Poor appetite or overeating: not at all 6. Feeling bad about yourself - or that you are a failure or have let yourself or your family down: not at all 7. Trouble concentrating on things, such as reading the newspaper or watching television: not at all 8. Moving or speaking so slowly that other people could have noticed. Or the opposite - being so fidgety or restless that you have been moving around a lot more than usual: not at all 9. Thoughts that you would be better off or of hurting yourself in some way: not at all Total score: 2 Depression Screening Interpretation: Negative Depression Screening Done: Yes Source: Developed by Drs. Marcos Joshi, Margret Ochoa, Jeferson Mcintosh and colleagues, with an educational aaron from [employer]. Review of Systems Const Denies body aches, Denies fatigue, Denies fever(s), Denies frequent falls, Denies headache(s) and Denies weakness Eyes Reports no additional complaints and Denies change in vision ENT Denies dysphagia, Denies dizziness, Denies facial pain, Denies headache(s), Denies nasal congestion and Denies odynophagia Card Denies chest pain, Denies syncope, Denies irregular heart rhythm, Denies leg edema, Denies lightheadedness and Denies dyspnea Resp Denies cough and Denies dyspnea GI Denies constipation, Denies dysphagia, Denies dyspepsia, Denies diarrhea, Denies nausea, Denies odynophagia and Denies vomiting Denies urinary frequency, Denies dysuria, Denies urinary hesitancy and Denies urinary urgency Musc Denies back pain and Denies myalgias Skin/Breast Reports system reviewed and no additional complaints, except as documented Neuro Denies dizziness, Denies syncope, Denies frequent falls, Denies headache(s) and Denies weakness Psych Reports no additional complaints Endo Denies fatigue Physical Exam Vital Signs: Last Vital Signs Temp 98.1 F 04/08/25 10:13 Pulse 86 04/08/25 10:13 BP 140/88 H 04/08/25 10:13 Pulse Ox 96 04/08/25 10:13 Oxygen Delivery Method Room Air 04/08/25 10:13 BMI result Body Mass Index 34.1 Const General: cooperative, healthy appearing, comfortable and no acute distress Orientation/consciousness: patient oriented x3 HEENT Head: Yes normocephalic Ears: hearing grossly normal bilaterally, external ears normal, TM's normal bilaterally and EAC's normal General nose exam: Normal external nose present Face and sinus: Yes normal facial exam and Yes sinuses nontender Mouth: Normal oral and palatal mucosa present and tongue normal Throat: Yes posterior oropharynx normal Eyes General: appearance normal, both eyes and all related structures Conjunctivae: conjunctivae normal Pupils: Equal, round and reactive pupils present EOM: EOMs intact bilaterally and No Nystagmus present Neck Neck: Yes normal visual inspection, Yes full ROM and Yes no lymphadenopathy Chest Chest palpation & inspection: normal inspection of the chest Resp Effort & Inspection: normal respiratory effort Auscultation: clear to auscultation bilaterally, no crackles, no rales, no rhonchi, no wheezes and breath sounds present Cardio Rate: regular rate Rhythm: regular rhythm Peripheral pulses: radial pulses present and dorsalis pedis present GI Inspection: Yes normal to inspection and No Abdominal wall edema Palpation (GI): Soft to palpation, not firm and nontender Auscultation: normal bowel sounds Rectal Exam - Female: deferred General: Yes no CVA tenderness Back/Spine/Pelvis Back: no CVA tenderness Skin General skin exam: no rashes or lesions noted Neuro Other: intact strength, sensation and pulses in virgie UE and LE General: patient oriented x3 Cranial nerves: Yes Equal, round and reactive pupils present, Yes Midline tongue present, Yes Ability to bilaterally elevate shoulders present and No Nystagmus present Gait exam (Neuro): Normal gait present Extrem General: Yes normal to inspection, Yes full ROM, No no pedal edema and No edema Psych Speech and movement: Normal speech and movement present Affect: normal affect Insight: Good insight present (Psych) Judgement: Good judgement present (Psych) Assessment & Plan Assessment & Plan (1) Medicare annual wellness visit, subsequent: Code(s): Z00.00 - Encounter for general adult medical examination without abnormal findings Plan: [place] of care was reviewed with patient patient was provided with a written screening schedule. Healthcare proxy/ MOLST forms were reviewed with patient and these have been completed previously. Healthy diet and regular exercise is encouraged. (2) Type 2 diabetes mellitus with hyperglycemia: Code(s): E11.65 - Type 2 diabetes mellitus with hyperglycemia Qualifiers: Diabetes mellitus director long term care insulin use: without penitentiary use Qualified Code(s): E11.65 - Type 2 diabetes mellitus with hyperglycemia Plan: Decrease the amount of carbohydrates such as pasta, bread, rice, and potatoes and limit the amount of sweets. Although fruits are generally healthy they should be eaten in moderation as they are still high in sugar. Hemoglobin A1c goal of less than 7%. Last A1c within goal. (3) Obesity (BMI 30-39.9): Code(s): E66.9 - Obesity, unspecified Plan: Healthy diet and regular exercise is encouraged. (4) Hypercholesteremia: Code(s): E78.00 - Pure hypercholesterolemia, unspecified Plan: Avoid foods that are high in cholesterol such as red meat, fried foods, eggs and baked goods. Triglyceride goal of less than 150 and LDL goal of less than 100. (5) Hypertension: Code(s): I10 - Essential (primary) hypertension Qualifiers: Hypertension type: essential hypertension Qualified Code(s): I10 - Essential (primary) hypertension Plan: Continue with blood pressure medication. Decrease salt intake and exercise on losartan 100 mg once a day (6) Major depression: Comment: decline referral 03/2022 Code(s): F32.9 - Major depressive disorder, single episode, unspecified Plan: Lorazepam as needed gabapentin (7) GERD (gastroesophageal reflux disease): Code(s): K21.9 - Gastro-esophageal reflux disease without esophagitis Qualifiers: Esophagitis presence: without esophagitis Qualified Code(s): K21.9 - Gastro-esophageal reflux disease without esophagitis Plan: Avoid trigger foods such as citrus, tomato products, soda, caffeine, spicy foods and other foods that may be irritating to your stomach. Avoid laying flat 3-4 hours after eating and elevate the head of the bed 30 degrees to prevent acid from moving into the esophagus. (8) Obstructive sleep apnea: Comment: uses CPAP Code(s): G47.33 - Obstructive sleep apnea (adult) (pediatric) Plan: Uses CPAP faithfully at least 4 hours a night and benefits from this therapy. (9) Numbness: Code(s): R20.0 - Anesthesia of skin Plan: To evaluate the new onset of diffuse burning and tingling sensations, blood work will be ordered to investigate potential causes such as vitamin deficiencies or toxicity. Lab orders will include a CBC, B12, folate, and inflammatory markers (sedimentation rate and CRP), given her history of polymyalgia rheumatica. If the lab results are unrevealing, the plan is to involve her neurologist for further evaluation, which may include an EMG. Plan This note was constructed using voice recognition software. While every effort has been made to ensure accuracy and rubber tubing backer, still areas may have been included sometimes these areas may affect the content or meeting of the given symptoms. Total time spent caring for the patient today was 20 minutes. This includes time spent before the visit reviewing the chart, time spent during the visit, and time spent after the visit and documentation. Patient was informed and verbally consented to the use of an ambient scribe for clinic note documentation during this visit. Orders: Orders Vitamin B12 and Folate Today Z13.21 - Encounter for screening for nutritional disorder Comprehensive Met. Panel Today M79.10 - Myalgia, unspecified site, Z00.00 - Encounter for general adult medical examination without abnormal findings XR DEXA axial skeleton Today Z78.0 - Asymptomatic menopausal state Complete Blood Count Auto Diff Today K21.9 - Gastro-esophageal reflux disease without esophagitis, Z13.0 - Encounter for screening for diseases of the blood and blood-forming organs and certain disorders involving the immune mechanism Erythrocyte Sedimentation Rate Today M79.10 - Myalgia, unspecified site C Reactive Protein Today M79.10 - Myalgia, unspecified site Quality Reporting (2020) Depression/Bipolar (159/160/161/177) PHQ-9: Total score: 2 Coding Level of Care Code Medicare Subsequent (G0439) Diagnoses Medicare annual wellness visit, subsequent Z00.00 Type 2 diabetes mellitus with hyperglycemia, without long-term current use of insulin E11.65 Diabetes mellitus penitentiary insulin use: without penitentiary use Obesity (BMI 30-39.9) E66.9 Hypercholesteremia E78.00 Essential hypertension I10 Hypertension type: essential hypertension Major depression F32.9 Gastroesophageal reflux disease without esophagitis K21.9 Esophagitis presence: without esophagitis Obstructive sleep apnea G47.33 Numbness R20.0 CPT Codes Advance Care Planning - Advance Care Planning discussion: On file, no changes ([id number]) Advance Care Planning - Time spent: 1-15 minutes, on File ([id number]) Advance Care Planning Advance Care Planning discussion: On file, no changes Date of discussion: 04/08/25 Who was present: myself, patient Forms completed: Health Care Proxy and MOLST Time spent: 1-15 minutes, on File
[2025-04-08 10:56] VITALS: BP 130/82
--- OUTSIDE RECORDS SUMMARY | 2025-04-08 18:27 | XMS_ITS | Patient Health Record ---
Author Organization [facility] Address [address] [place] [id number] Care Team Providers Care Business Intelligence Administrator Name Role Phone Deon Crain MD Primary Care Provider bAhi Marcus Jr Unavailable [phone] Allergies Allergen (clinical drug ingredient) Drug/Non Drug Allergy documented on EMR Reaction Allergy Type Onset Date Status angiotensin-converting enzyme inhibitor (FN) LUKE Inhibitors Unknown Drug Allergy Acti ve cabergoline Cabergoline Unknown Drug Allergy Act amparo Reason For Referral No Information Medications Medication SIG (Take, Route, Frequency, Duration) Notes Start Date End Date Status Aspirin 81 MG Tablet Chewable 1 tablet Orally Once a day Active Fish Oil 1200 MG Capsule 1 capsule Orall y Once a day Active Vitamin C 500 MG Capsule 1 tablet Orally Once a day Active Multivitamin - Tablet 1 tablet Orally On ce a day Active Fexofenadine HCl 30 MG Tablet Disintegrating 1 tablet Orally Once a day Active Vitamin B Complex - Capsule as directed Orally Active Famotidine 40 MG Tablet 1 tablet at bedt cordelia Orally Twice a day Active Sertraline HCl 25 MG Tablet 1 tablet Ora lly Once a day; Duration: 30 day(s) Active Gabapentin 300 MG Capsule 1 tablet Orall y Once a day Active Naproxen Sodium 220 MG Tablet 1 tablet with food or milk as needed Orally as needed for pain Active Ozempic (1 MG/DOSE) 4 MG/3ML Solution Pen-injector as directed Subcutaneous once weekly Active Lorazepam Active MiraLax (colon prep) 17 GM/SCOOP Powder mixed with Gatorade or Crystal Light Orally begin at 5:00 p.m. the day before the procedure; Duration: 1 day 11/14/2021 Active metFORMIN HCl 500 MG Tablet 1 tablet wit h a meal Orally bid Active Simvastatin 5 MG Tablet 1 tablet in the evening Orally Once a day Active Acetaminophen 500 MG Capsule 2 tablets ORALLY as needed for pain Active Losartan Potassium 100 MG Tablet 1 tablet Orally Once a day Active Immunizations Vaccine Route Administration Date Status Comme nts Influenza Unknown 02/18/2021 Administered Influenza Unknown 11/27/2022 Administered Social History Tobacco Use: Social History Observation Description Date Details (start date - stop date) Former Smoker NA - NA Social History Drugs/Alcohol: Social Info Question Answer Notes Alcohol Screen Did you have a drink containing alcohol in the past year? No Points 0 Interpretation Negative Tobacco Use: Social Info Question Answer Notes Tobacco Use/Smoking Patient is a former smoker How long has it been since you last smoked? > 10 years Additional Details Category Social Info Options Details Miscellaneous: Marital status: Occupation: works part-time/ , retired Problems Problem Type SNOMED Code ICD Code Onset Dates Problem Status W/U Status Risk Notes Problem Colon cancer screening (279078590) Colon cancer screening (Z12.11) Active confirmed Problem Long-term current use of antiplatelet drug (064306700440005 ) Long-term use of aspirin therapy (Z79.82) Active confirmed Problem Diarrhea (03989364) Diarrhea, unspecified type (R19.7) Active confirmed Encounters Encounter Location Date Provider Diagnosis [facility] [address] [place] [id number] 05/30/2024 Abhi Pedroza Jr [facility] [address] [place] [id number] 08/28/2024 Abhi Pedroza Jr Plan Of Treatment Pending Test Test Name Order Date STOOL WBC 08/22/2022 CALPROTECTIN, STOOL 08/22/2022 GI PANEL 08/22/2022 Future Test Test Name Order Date COLONOSCOPY 11/14/2021 Insurance Providers Payer Name Payer Address Payer Phone Subscriber Number Group Number Insured Name Patient Relationship to Insured Coverage Start Date Coverage End Date MEDICARE OF [place] [address] [place] [address] [id number] PREETI VILLALOBOS Self - patient is the insured [employer] ATTN CLAIMS [address] [place] [address] [id number] Self - patient is the insured Medical (General) History Medical History History ICD Code diabetes Hypertension Elevated cholesterol Neuropathy Angioedema ANKUSH/CPAP Colonoscopy 02/09, diverticul osis, hyperplastic polyp, normal biopsies, ten-year followup. Surgical History Surgery Date(Month/Year) gallbladder cataract both eyes 2020 appendix total hysterectomy 2008 right knee replacement 2015
== END 2025-04-08 10:59 | disposition home or self-care (01) ==
LOC: HO.HMCH 09:53
PROVIDERS: PCP Internal Medicine
DX: Z00.00 Encounter for general adult medical examination without abnormal findings (principal); E11.65 Type 2 diabetes mellitus with hyperglycemia; E66.9 Obesity, unspecified; Z68.34 Body mass index [BMI] 34.0-34.9, adult; I10 Essential (primary) hypertension; E78.00 Pure hypercholesterolemia, unspecified; F32.9 Major depressive disorder, single episode, unspecified; K21.9 Gastro-esophageal reflux disease without esophagitis; G47.33 Obstructive sleep apnea (adult) (pediatric); R20.0 Anesthesia of skin

== ENCOUNTER 2025-04-08 09:52 | Outpatient (REF) | payer MEDICARE, SELFPAY ==
[2025-04-08 11:16] LABS: MANUAL DIFF FLAG NO
[2025-04-08 11:37] LABS: Hematocrit 46.2 % (37.0-47.0); Hemoglobin 15.7 g/dl (12.0-16.0); Imm Gran Abs Auto 0.03 X10*3/uL (0.00-0.03); Imm Gran Pct Auto 0.3 % (0.0-0.4); Lymphocytes Absolute Auto 2.9 X10*3/uL (1.2-4.9); Mean Corpuscular HGB Conc 34.0 g/dl (31.0-35.0); Mean Corpuscular Hemoglobin 31.5 pg (27.0-33.0); Mean Corpuscular Volume 92.6 fL (80.0-98.0); NRBC Abs Auto 0.000 X10*3/uL (0.0-0.012); NRBC Pct Auto 0.0 /100WBC (0.0-0.2); Platelet Count 275 X10*3/uL (160-400); Red Blood Count 4.99 X10*6/uL (4.20-5.50); White Blood Count 10.7 X10*3/uL (4.8-10.8)
[2025-04-08 13:54] LABS: Alanine Aminotransferase 22 U/L (0-31); Albumin Level 4.5 g/dL (3.5-5.0); Alkaline Phosphatase 74 U/L (39-117); Anion Gap 13 (12-20); Aspartate Amino Transferase 25 U/L (5-31); Blood Urea Nitrogen 12 mg/dL (9-16); Calcium 10.1 mg/dL (8.4-10.2); Carbon Dioxide 28 mmol/L (22-29); Chloride 103 mmol/L (96-108); Estimated Glomerular Filt Rate > 60; Potassium 4.7 mmol/L (3.3-5.1); Sodium 139 mmol/L (135-145); Total Protein 7.2 g/dL (6.5-8.0)
[2025-04-08 14:53] LABS: Folate 16.3 ng/mL (> or = 4.0); Vitamin B12 534 pg/mL (200-900)
== END 2025-04-08 09:53 | disposition home or self-care (01) ==
LOC: HO.LAB 09:52
PROVIDERS: PCP Internal Medicine
DX: Z00.00 Encounter for general adult medical examination without abnormal findings (principal); M79.10 Myalgia, unspecified site; K21.9 Gastro-esophageal reflux disease without esophagitis; E11.65 Type 2 diabetes mellitus with hyperglycemia; E66.9 Obesity, unspecified; E78.00 Pure hypercholesterolemia, unspecified; I10 Essential (primary) hypertension; F32.9 Major depressive disorder, single episode, unspecified; G47.33 Obstructive sleep apnea (adult) (pediatric); R20.0 Anesthesia of skin; Z13.0 Encounter for screening for diseases of the blood and blood-forming organs and certain disorders involving the immune mechanism; Z13.21 Encounter for screening for nutritional disorder; Z79.899 Other long term (current) drug therapy
CPT/HCPCS: 36415; 80053; 82607; 82746; 85025; 85652; 86140

== ENCOUNTER 2025-04-23 17:31 | Observation (INO) | payer MEDICARE, SELFPAY ==
--- NOTE | ~2025-04-23 | CT_ITS ---
CLINICAL HISTORY: Stroke Protocol CT Brain without contrast Comparison: None FINDINGS: Cortical sulci: There is diffuse prominence of the cortical sulci compatible with age-related atrophy. Ventricles: Normal for age Brain parenchyma: There is patchy lucency throughout the deep white matter indicating chronic microvascular leukomalacia. Extra axial spaces: Normal Posterior Fossa: Normal Extracranial soft tissues: Normal Additional abnormality: None IMPRESSION: Age-related atrophy with chronic microvascular leukomalacia. No hemorrhage, mass effect, or acute findings identified. This document has been electronically signed by: Darshan Deloen MD on 04/23/2025 18:08:18
--- NOTE | ~2025-04-23 | CT_ITS ---
CLINICAL HISTORY: Stroke Protocol CT angiography head and neck with contrast. 3D Postprocessing. Comparison: CT/SR - CT HEAD FOR STROKE - 04/23/25 17:51 EST Findings: Examination is limited by imaging noise. Atherosclerosis calcification of the carotid bulbs and left V4 segment. No significant stenoses of the internal carotid artery or vertebral artery. Intracranial arteries are patent. No aneurysm, dissection, hemodynamically significant stenoses, or occlusion. 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 Hypoplastic right P1. No abnormal intracranial enhancement. The visualized thyroid gland is unremarkable. No cervical mass or fluid collection. Lung apices clear. No acute fracture. Contrast filling defects of the superior sagittal venous sinus is likely due to arachnoid granulation. IMPRESSION: Patent head and neck CTA. This document has been electronically signed by: Darshan Deleon MD on 04/23/2025 19:07:29
[2025-04-23 17:32] VITALS: BP 175/101; PULSE 116; RESP 20; TEMP 36.5; O2SAT 97; BMI 33.9
--- NOTE | 2025-04-23 17:48 | ECG_ITS ---
Test Reason : STROKE ALERT Blood Pressure : */* mmHG Vent. Rate : 111 BPM Atrial Rate : 111 BPM P-R Int : 146 ms QRS Dur : 134 ms QT Int : 366 ms P-R-T Axes : 150 192 190 degrees QTcB Int : 497 ms Suspect limb lead reversal, interpretation assumes no reversal Normal sinus rhythm Right bundle branch block Nonspecific ST and T wave abnormality Abnormal ECG When compared with ECG of 27-Jan-2022 08:15, QRS axis Shifted left Referred By: Micheal Marino Electronically Signed By: SETH WHITNEY
--- NOTE | 2025-04-23 17:49 | ED.NEUROSD ---
HPI - Neuro Symptoms/Deficit General Chief Complaint: Neuro Symptoms/Deficit Stated Complaint: ? STROKE Time Seen by Provider: 04/23/25 17:40 Source: patient, family (Daughter) and old records reviewed Mode of arrival: ambulatory Limitations: no limitations History of Present Illness ED Provider: DR. Marino HPI Narrative: A 74-year-old female brought in with her daughter for evaluation of possible stroke. Patient started to have symptoms around noon time feeling disoriented, foggy, has no memory of texting people on her phone and blurry vision of her left eye, patient also been having problem expressing herself. Patient is not taking anticoagulation, no history of strokes in the past. Patient walked into the emergency department. Patient feels slightly improved. Related Data Home Medications ?Medication ?Instructions ?Recorded ?Confirmed acetaminophen 325 mg tablet 325 mg PO QID PRN Pain 03/10/20 04/08/25 (Tylenol) cranberry fruit 400 mg capsule 400 mg PO DAILY 03/10/20 04/08/25 vitamin B complex 1 cap PO DAILY 03/10/20 04/08/25 loperamide 2 mg capsule (Imodium 2 mg PO Q6H PRN 10/04/23 04/08/25 A-D) loperamide 2 mg capsule (Imodium 2 mg PO Q6H PRN 01/24/24 04/08/25 A-D) psyllium husk 3.4 gram/5.4 gram 2 tsp PO DAILY 10/06/24 04/08/25 oral powder (Metamucil) naproxen sodium 220 mg tablet 440 mg PO BID PRN 11/10/24 04/08/25 (Flanax (naproxen)) ascorbic acid (vitamin C) 1,000 mg 1,000 mg PO DAILY 02/03/25 04/08/25 capsule Previous Rx's ?Medication ?Instructions ?Recorded blood sugar diagnostic 1 strip miscellaneous BID for 08/19/21 diabetes mellitus 90 days #100 strips fexofenadine 180 mg tablet 180 mg PO DAILY #90 tabs 10/10/22 ([facility]) lorazepam 1 mg tablet 1 mg PO TID PRN anxiety #30 tabs 10/10/22 betamethasone valerate 0.1 % 1 appl topical BID PRN skin 10/25/22 topical ointment irritation #45 grams blood sugar diagnostic (OneTouch #100 ea 04/04/24 Ultra Test strips) famotidine 20 mg tablet 20 mg PO BID #180 tabs 04/04/24 Diabetic shoes and inserts #1 ea 08/19/24 losartan 100 mg tablet 100 mg PO BEDTIME #90 tabs 10/06/24 simvastatin 5 mg tablet 5 mg PO DAILY 90 days #90 tabs 10/06/24 gabapentin 100 mg capsule 100 - 300 mg (1 - 3 x 100 mg) PO 11/03/24 BEDTIME #270 caps semaglutide 2 mg/dose (8 mg/3 mL) 2 mg (0.75 mL) subcut QWEEK 90 03/03/25 subcutaneous pen injector days #9.75 mL metformin 500 mg tablet 500 mg PO BID #180 tabs 03/30/25 Allergies Allergy/AdvReac Type Severity Reaction Status Date / Time cabergoline (CABERGOLINE) Allergy Severe ANGIOEDEMA Verified 04/23/25 17:41 lisinopril (LISINOPRIL) Allergy Severe ANGIOEDEMA Verified 04/23/25 17:41 empagliflozin (Jardiance) Allergy Intermediate skin Verified 04/23/25 17:41 infection Review of Systems Review of Systems: All other systems are reviewed and are negative Constitutional: Reports as per HPI and Reports no additional constitutional complaints Eyes: Reports as per HPI and Reports no additional eye complaints Reports system reviewed and no additional complaints, except as documented Cardiovascular: Reports as per HPI and Reports no additional cardiovascular complaints Respiratory: Reports as per HPI and Reports no additional respiratory complaints Gastrointestinal: Reports as per HPI and Reports no additional gastrointestinal complaints Genitourinary: Reports no additional female genitourinary complaints Musculoskeletal: Reports no additional musculoskeletal complaints Skin/Breast: Reports system reviewed and no additional complaints, except as docu Psychiatric: Reports no additional psychiatric complaints Endocrine: Reports no additional endocrine complaints Hematologic/Lymphatic: Reports no additional hematologic/lymphatic complaints Allergic/Immunologic: Reports no additional allergic/immunologic complaints Reports system reviewed and no additional complaints, except as documented and Reports Abnormal speech present [facility] Past Medical History Medical History Post-menopausal Medicare annual wellness visit, initial Pre-op evaluation Precordial chest pain Acute electrocardiogram changes RBBB (right bundle branch block) COVID-19 vaccine series completed Screening for colon cancer Diverticular disease Basal cell carcinoma (BCC) in situ of skin Polymyalgia rheumatica GERD (gastroesophageal reflux disease) Anxiety Hypertension Angioedema Hypercholesteremia Obstructive sleep apnea Obesity (BMI 30-39.9) Type 2 diabetes mellitus with hyperglycemia Surgical History Hx of cataract extraction History of colonoscopy History of arthroplasty of right knee Hx of appendectomy History of cholecystectomy S/P ADRIÁN-BSO Family History Family History Father Prostate cancer Acute CVA (cerebrovascular accident) Mother Uterine cancer COPD (chronic obstructive pulmonary disease) Sister Melanoma Brother Melanoma Paternal Grandfather Acute CVA (cerebrovascular accident) Paternal Aunt Breast cancer Social History Social History Housing: House Are you a primary child care assistant to a significant other at home: No Do you presently have visiting nurse or other home services: No Alcohol intake: never Patient Tobacco Use Status: Former Tobacco user Tobacco use type: Cigarette Smoked in Last 30 Days: No e-Cigarette/Vaping Use: Never Used Second Hand Smoke Exposure: Yes Use of substances other than those prescribed or required for medical reasons: No Advance Directives: Yes Advance Directives on File: Yes Advance Directives Date on File: 04/12/21 service: No Current occupational status: employed 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 Blood pressure elevated. Heart rate elevated. Respiratory rate normal. Temperature normal. Oxygen saturation normal. Appearance: Alert. Oriented X3. No acute distress. Head: Normal external exam. Normocephalic. Atraumatic. No Pollard signs noted. No raccoon eyes noted Eyes: PERRLA. EOMI. Conjunctiva and sclera normal. Eyelids normal. ENT: TM's Normal. Pharynx normal. Uvula midline. Moist mucous membranes. No trismus noted. No drooling noted. No muffled voice noted. Neck: Normal inspection. Neck supple. FROM. No adenopathy. Thyroid Normal. No meningeal signs. No neck mass noted. CVS: Normal heart rate and rhythm. Heart sound normal. No murmurs noted. Pulses normal throughout. Respiratory: No respiratory distress. Painless inspiration. Breath sounds normal. No wheezes/rales/rhonchi noted. Chest nontender. No accessory muscle usage noted or decreased air movement noted. Abdomen: Soft and nontender. Bowel sounds normal in all 4 quadrants. No distention noted. No organomegaly noted. No visible injury noted. Back: No CVA tenderness. Full range of motion noted. Skin: Skin warm and dry. Normal skin color. Normal skin turgor. No rashes/lesions/lacerations noted. Extremities: No lower extremity edema. Extremities exhibit normal range of motion. Extremities nontender. Neuro: Mental status: Normal attention, orientation, memory, and affect. Cranial nerves: Pupils are equal, round and reactive to light, EOMI, visual carlisle are fall, face is symmetric, facial sensations are normal. Motor examination normal muscle tone, strength to 4 extremities. DTR are +2, planter's are flexor. Sensory exam; normal coordination, no ataxia, gait stable. Cerebellar exam: [id number]-ry-[id number] and ocje-ml-[id number] is normal. Extrapyramidal system: No tremors, no rigidity with normal facial expressions. Pronator drift not present Course Reevaluation(s) Reevaluation #1: Patient feels much better almost back to her baseline except for minimal some fogginess of the brain. Repeat neuro exam is unremarkable and unchanged with NIH score of 0 making the patient is not a candidate for thrombolysis. Time: 20:12 Medications Administered Generic Name Dose Route Start Last Admin Trade Name Freq PRN Reason Stop Dose Admin Enoxaparin Sodium 40 mg 04/23/25 19:45 04/23/25 20:07 Enoxaparin Sodium 40 Mg/0.4 Ml Syringe SUBCUT 40 mg Q24H SPENCER Administration Discontinued Medications Generic Name Dose Route Start Last Admin Trade Name Freq PRN Reason Stop Dose Admin Aspirin 81 mg 04/23/25 19:33 04/23/25 20:08 Aspirin 81 Mg Tab.Chew PO 12/04/25 19:34 81 mg ONCE ONE Administration Iohexol 70 ml 04/23/25 18:23 04/23/25 18:24 Iohexol 350 Mg/Ml 100 Ml Infus..Btl IV 04/23/25 18:24 70 ml ONCE ONE Administration Medical Decision Making Differential Diagnosis Differential Diagnoses: The differential diagnosis associated with the presentation includes (Hemorrhagic stroke, ischemic stroke, electrolyte derangement, severe anemia, cardiac events, pneumonia, pneumothorax.) Admission/Observation Consideration of admission/observation: Escalation of care including admission/observation considered Consult Healthcare Provider Management of the patient was discussed with: Hospitalist (Dr. Sweeney) Lab Data MDM Lab Attestation statement: I reviewed the patient's lab results. 04/23/25 17:49 04/23/25 17:49 Labs: Lab Results 04/23/25 04/23/25 Range/Units 17:49 18:01 WBC 10.4 (4.8-10.8) X10*3/uL RBC 5.11 (4.20-5.50) X10*6/uL Hgb 15.9 (12.0-16.0) g/dl Hct 46.6 (37.0-47.0) % MCV 91.2 (80.0-98.0) fL MCH 31.1 (27.0-33.0) pg MCHC 34.1 (31.0-35.0) g/dl RDW 11.7 (11.0-16.0) % Plt Count 296 (160-400) X10*3/uL MPV 9.0 L (9.4-12.3) fL Immature Gran % (Auto) 0.5 H (0.0-0.4) % Neut % (Auto) 60.1 (45-73) % Lymph % (Auto) 30.7 (20-40) % Sampson % (Auto) 5.9 (2-11) % Eos % (Auto) 2.2 (0-4) % Baso % (Auto) 0.6 (0-2) % Lymph # (Auto) 3.2 (1.2-4.9) X10*3/uL Sampson # (Auto) 0.6 (0.1-1.2) X10*3/uL Eos # (Auto) 0.2 (0.0-0.4) X10*3/uL Baso # (Auto) 0.1 (0.0-0.2) X10*3/uL Abs Immat Gran (auto) 0.05 H (0.00-0.03) X10*3/uL Absolute Neuts (auto) 6.3 (2.0-8.3) x10*3/uL Absolute Nucleated RBC 0.000 (0.0-0.012) X10*3/uL Nucleated RBC % (auto) 0.0 (0.0-0.2) /100WBC Hold Purple Top SEE NOTE PT 11.0 L (11.2-13.5) SEC Whole Blood PT 11.8 (11.1-13.5) sec INR 0.9 (0.9-1.1) Whole Blood INR 1.0 (0.9-1.1) APTT 30.1 (26.7-34.1) SEC Sodium 143 (135-145) mmol/L Potassium 3.8 (3.3-5.1) mmol/L Chloride 105 (96-108) mmol/L Carbon Dioxide 28 (22-29) mmol/L Anion Gap 14 (12-20) BUN 16 (9-16) mg/dL Creatinine 0.71 (0.5-1.4) mg/dL Estim Creat Clear Calc 69.9 Estimated GFR > 60 POC Glucose 124 H (60-115) mg/dL Random Glucose 131 H (60-115) mg/dL Calcium 10.6 H (8.4-10.2) mg/dL Troponin I High Sens < 2.7 (<3.5-17.0) ng/L Triglycerides 128 (<150) mg/dL Cholesterol 208 H (<200) mg/dL LDL Cholesterol, Calc 118 H (<100) mg/dL HDL Cholesterol 65 (>40) mg/dL Independent Interpretation I performed an independent interpretation of an: CT Scan (Patent head and neck CTA.) Radiology Impression Discussion of test interpretation with radiology: I have reviewed the radiologist's reading. NIH Stroke Scale Time: 17:52 Level of Consciousness: Alert Level of Consciousness Questions: Answers both questions correctly Level of Consciousness Commands: Performs both tasks correctly Best Gaze: Normal Visual: No visual loss Facial Palsy: Normal Motor Arm (Right): No drift Motor Arm (Left): No drift Motor Leg (Right): No drift Motor Leg (Left): No drift Limb Ataxia: Absent Sensory: Normal Best Language: No aphasia Dysarthia: Normal Extinction and Inattention: No abnormality Score: 0 Discharge Plan Discharge Clinical Impression: Brain TIA Patient Disposition: Admitted As Inpatient
[2025-04-23 17:55] LABS: MANUAL DIFF FLAG NO
[2025-04-23 18:04] VITALS: BP 171/81; PULSE 102; RESP 20; TEMP 36.9; O2SAT 96
[2025-04-23 18:05] LABS: INTERNATIONAL NORM RATIO 0.9 (0.9-1.1); Prothrombin Time 11.0 SEC (11.2-13.5)
[2025-04-23 18:08] LABS: Partial Thromboplastin Time 30.1 SEC (26.7-34.1)
[2025-04-23 18:10] LABS: Hematocrit 46.6 % (37.0-47.0); Hemoglobin 15.9 g/dl (12.0-16.0); Imm Gran Abs Auto 0.05 X10*3/uL (0.00-0.03); Imm Gran Pct Auto 0.5 % (0.0-0.4); Lymphocytes Absolute Auto 3.2 X10*3/uL (1.2-4.9); Mean Corpuscular HGB Conc 34.1 g/dl (31.0-35.0); Mean Corpuscular Hemoglobin 31.1 pg (27.0-33.0); Mean Corpuscular Volume 91.2 fL (80.0-98.0); NRBC Abs Auto 0.000 X10*3/uL (0.0-0.012); NRBC Pct Auto 0.0 /100WBC (0.0-0.2); Platelet Count 296 X10*3/uL (160-400); Red Blood Count 5.11 X10*6/uL (4.20-5.50); White Blood Count 10.4 X10*3/uL (4.8-10.8)
[2025-04-23 18:11] LABS: Anion Gap 14 (12-20); Blood Urea Nitrogen 16 mg/dL (9-16); Calcium 10.6 mg/dL (8.4-10.2); Carbon Dioxide 28 mmol/L (22-29); Chloride 105 mmol/L (96-108); Cholesterol 208 mg/dL (<200); Creatinine Clr Calc Pharmacy 69.9; Estimated Glomerular Filt Rate > 60; HDL Cholesterol 65 mg/dL (>40); Potassium 3.8 mmol/L (3.3-5.1); Sodium 143 mmol/L (135-145); Triglycerides 128 mg/dL (<150)
[2025-04-23 18:11] LABS: Prothrombin Time Whole Bld POC 11.8 sec (11.1-13.5); ~PT, ~INR - Anti Coag Clinic 1.0 (0.9-1.1)
[2025-04-23 18:12] LABS: Glucose, Whole Blood 124 mg/dL (60-115)
[2025-04-23 18:19] LABS: Troponin-I High Sensitivity < 2.7 ng/L (<3.5-17.0)
[2025-04-23] MEDS: iohexoL 350 MG/ML 100 ML INFUS..BTL 70 ML IV (18:24)
[2025-04-23 18:36] LABS: Stroke Lab Use COMPLETE
--- NOTE | 2025-04-23 18:42 | PC.NURSE ---
pt is alert and oriented, skin pwd, respirations even and unlabored, pt states around 1300 noticed that she is having trouble remembering things like she did not know if she had Thanksgiving, having trouble using her ipad not sure how log in and check her meds, feeling disconnected as the pt states also having some blurry vision on the left eye, denies headache or any pain, no dizziness, speech clear, no facial droop, moving all extremities, grasp strong and equal, no drift, pt is hypertensive but hx of HTN, pt is also having trouble remembering her meds
--- NOTE | 2025-04-23 19:44 | PM.IMHP ---
History of Present Illness Date of Service: 04/23/25 Chief Complaint: Word-finding difficulty 74-year-old female with a past medical history of HTN, HLD, dm, history of angioedema, ANKUSH, polymyalgia rheumatica; presented to the hospital with a chief complaint of stroke-like symptoms. Patient mentioned that after she went home she felt dizzy/foggy in the head; mentioned she lives alone. Later when her daughter called she was trying to talk but not able to express herself. Subsequently her doctor called ambulance and brought her to the hospital for further evaluation. Mentions that for the time she came to the hospital she felt better but still feel foggy. Denies any chest pain or palpitations. Denies any lightheadedness dizziness. Denies any numbness tingling or focal weakness. Review of all other systems is negative except mentioned above ER course: Per ER team, initially concern for expressive aphasia; exam was nonfocal; CT head and CT angio head and neck showed no acute findings; [facility] Medical History Post-menopausal Medicare annual wellness visit, initial Pre-op evaluation Precordial chest pain Acute electrocardiogram changes RBBB (right bundle branch block) COVID-19 vaccine series completed Screening for colon cancer Diverticular disease Basal cell carcinoma (BCC) in situ of skin Polymyalgia rheumatica GERD (gastroesophageal reflux disease) Anxiety Hypertension Angioedema Hypercholesteremia Obstructive sleep apnea Obesity (BMI 30-39.9) Type 2 diabetes mellitus with hyperglycemia Family History Father Prostate cancer Acute CVA (cerebrovascular accident) Mother Uterine cancer COPD (chronic obstructive pulmonary disease) Sister Melanoma Brother Melanoma Paternal Grandfather Acute CVA (cerebrovascular accident) Paternal Aunt Breast cancer Surgical History Hx of cataract extraction History of colonoscopy History of arthroplasty of right knee Hx of appendectomy History of cholecystectomy S/P ADRIÁN-BSO Social History Housing: House Are you a primary reproductive healthcare assistant to a significant other at home: No Do you presently have visiting nurse or other home services: No Alcohol intake: never Patient Tobacco Use Status: Former Tobacco user Tobacco use type: Cigarette e-Cigarette/Vaping Use: Never Used Second Hand Smoke Exposure: Yes Advance Directives Date on File: 04/12/21 service: No Current occupational status: employed 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 Cognitive needs: No Hearing needs: No Vision needs: Yes Meds Allergies Allergy/AdvReac Type Severity Reaction Status Date / Time cabergoline (CABERGOLINE) Allergy Severe ANGIOEDEMA Verified 04/23/25 17:41 lisinopril (LISINOPRIL) Allergy Severe ANGIOEDEMA Verified 04/23/25 17:41 empagliflozin (Jardiance) Allergy Intermediate skin Verified 04/23/25 17:41 infection Home Medications ?Medication ?Instructions ?Recorded ?Confirmed ?Last Taken ?Type cranberry fruit 400 mg capsule 1,200 mg PO DAILY 03/10/20 04/23/25 04/23/25 History vitamin B complex 1 cap PO DAILY 03/10/20 04/23/25 04/23/25 History psyllium husk 3.4 gram/5.4 gram 2 tsp PO DAILY 10/06/24 04/23/25 04/23/25 History oral powder (Metamucil) naproxen sodium 220 mg tablet 440 mg PO DAILY PRN Pain 11/10/24 04/23/25 Unknown History (Flanax (naproxen)) ascorbic acid (vitamin C) 1,000 mg 1,000 mg PO DAILY 02/03/25 04/23/25 04/23/25 History capsule acetaminophen 500 mg tablet 1,000 mg PO DAILY PRN Pain 04/23/25 04/23/25 Unknown History gabapentin 100 mg capsule 100 mg PO BEDTIME PRN Pain 04/23/25 04/23/25 Unknown History gabapentin 100 mg capsule 200 mg PO BEDTIME 04/23/25 04/23/25 04/22/25 History lorazepam 1 mg tablet 0.5 - 1 mg PO TID PRN anxiety 04/23/25 04/23/25 Unknown History semaglutide 2 mg/dose (8 mg/3 mL) 2 mg subcut FR 04/23/25 04/23/25 04/17/25 History subcutaneous pen injector Physical Exam Vital Signs and Narrative: Vital Signs: Last Vital Signs Temp 98.4 F 04/23/25 18:04 Pulse 102 H 04/23/25 18:04 Resp 20 04/23/25 18:04 BP 171/81 H 04/23/25 18:04 Pulse Ox 96 04/23/25 18:04 O2 Del Method Room Air 04/23/25 18:04 BMI result Body Mass Index 33.9 Gen: Appears be in no acute distress HEENT: NCAT, Moist mucosa. Pulmonary: Vesicular breath sounds, fair air entry CVS: Normal S1-S2 Abdomen: BS+, Soft, Nontender Extremities: Warm well perfused Neuro: Alert and awake. Results Labs 04/24/25 03:51 04/24/25 03:51 Labs: Laboratory Results - last 24 hr 04/23/25 04/23/25 17:49 18:01 MCV 91.2 MCH 31.1 MCHC 34.1 RDW 11.7 Plt Count 296 MPV 9.0 L Immature Gran % (Auto) 0.5 H Neut % (Auto) 60.1 Lymph % (Auto) 30.7 Mitchell % (Auto) 5.9 Eos % (Auto) 2.2 Baso % (Auto) 0.6 Lymph # (Auto) 3.2 Mitchell # (Auto) 0.6 Eos # (Auto) 0.2 Baso # (Auto) 0.1 Abs Immat Gran (auto) 0.05 H Absolute Neuts (auto) 6.3 Absolute Nucleated RBC 0.000 Nucleated RBC % (auto) 0.0 Hold Purple Top SEE NOTE PT 11.0 L Whole Blood PT 11.8 INR 0.9 Whole Blood INR 1.0 APTT 30.1 Anion Gap 14 Estim Creat Clear Calc 69.9 Estimated GFR > 60 POC Glucose 124 H Random Glucose 131 H Calcium 10.6 H Troponin I High Sens < 2.7 Triglycerides 128 Cholesterol 208 H LDL Cholesterol, Calc 118 H HDL Cholesterol 65 Assessment and Plan (1) Brain TIA: Status: Acute Plan 74-year-old female with a past medical history of HTN, HLD, dm, history of angioedema, ANKUSH, polymyalgia rheumatica; presented to the hospital with a chief complaint of stroke-like symptoms-> felt foggy and word-finding difficulty. Symptoms resolved. Admitted for TIA. TIA: CT head and CTA head and neck showed no acute Telemetry findings Neuro checks MRI brain Echocardiogram Neurology consult for further input PT/OT/MEDIA JOB TITLES eval Continue aspirin Diabetes: Insulin sliding scale Hypertension: Resume home medications DVT prophylaxis: Lovenox Code status: Full code . Quality Stroke Does the patient have a stroke diagnosis?: No VTE Prior VTE?: No VTE Risk Level:: Medical - moderate - high VTE Device Contraindication: Treatment Not Indicated VTE Drug Contraindication: N/A - Med Ordered
--- NOTE | 2025-04-23 20:22 | PC.NURSE ---
Pt medicated per mar Pts family at bedside Plan of care ongoing.
[2025-04-23 20:28] VITALS: PULSE 98; RESP 16; O2SAT 95
--- NOTE | 2025-04-23 20:30 | PC.NURSE ---
Pt with MRI Plan of care ongoing.
--- NOTE | 2025-04-23 21:09 | PC.NURSE ---
Pt returned from MRI Plan of care ongoing.
--- NOTE | 2025-04-23 21:19 | PC.NURSE ---
Pt POC 112 no insulin coverage req. Plan of care ongoing.
--- NOTE | 2025-04-23 21:27 | PHA.MEDREC ---
Pharmacy Consult ? Medication Reconciliation Pharmacy has completed the medication reconciliation. Spoke to patient (who had a medication list with her) to confirm med list. Per patient, she takes ozempic 2 mg on fridays and she's ok with missing a dose if she is staying here. She takes gabapentin 200 mg at bedtime and may take an additional 100 mg at bedtime if needed for pain. She confirmed she is still taking lorazepam 0.5-1 mg daily as needed and simvastatin 5 mg daily. Last dose of medications was this morning 04/23/25.
--- OUTSIDE RECORDS SUMMARY | 2025-04-23 22:19 | XMS_ITS | Clinical Summary ---
Author Organization [facility] Address [address] [place] [id number] Phone Care Team Providers Care Sand Sifter Name Role Phone Deon Crain MD Primary Care Provider [phone] Allergies Active Allergy Reactions Criticality Noted Date [...] VACCINES (50+ years) (2 of 2 - PCV20 or PCV21) 08/01/2017 08/01/2016 CREATININE LEVEL 07/24/2018 07/24/2017 POTASSIUM [...] Date/Time Associated Diagnosis Comments COMPREHENSIVE METABOLIC PANEL (CMP) Routine 07/24/2017 3:00 PM EST Non-seasonal allergic rhinitis, unspecified chronicity, unspecified trigger from Last 3 Months or Most Recently Relevant to Health Maintenance Results * (ABNORMAL) Comprehensive metabolic panel (07/24/2017 3:00 PM EST) SODIUM 142 133 - 146 mmol/L [facility] POTASSIUM 3.5 3.3 - 5.1 mmol/L [facility] CHLORIDE 100 96 - 108 mmol/L [facility] CO2 25 21 - 35 mmol/L [facility] BUN 15 6 - 19 mg/dL [facility] CREATININE 0.50 0.5 - 1.5 mg/dL [facility] GLUCOSE 84 70 - 99 mg/dL [facility] ALBUMIN 4.3 3.9 - 4.8 g/dL [facility] TOTAL PROTEIN 7.7 6.5 - 8.0 g/dL [facility] CALCIUM 10.6(H) 8.4 - 10.3 mg/dL [facility] ALKALINE PHOSPHATASE 84 39 - 117 U/L [facility] TOTAL BILIRUBIN 0.3 0.0 - 1.2 mg/dL [facility] AST 24 0 - 37 U/L [facility] ALT 28 0 - 40 U/L [facility] GLOBULIN 3.4 1 - 4.8 g/dL [facility] EGFR 101 >59 mL/min/1.7 3m2 [facility] Comment:If patient is black, multiply result by 1.159. The eGFR calculation has changed from the MDRD equation to the CKD-EPI equation as of July 24, 2017. ANION GAP 21(H) 10 - 20 mmol/L [facility] Blood 07/24/2017 3:00 PM EST 07/24/2017 3:07 PM EST us Triston Carlisle DO LAB BLOOD BKR ORDERABLES Fin al Result [facility] [address] [place] [address] from Last 3 Months or Most Recently Relevant to Health Maintenance Insurance [employer] Address: [place] [address] MEDICARE PART A & B [employer] [place]: [place] [address] MEDICARE PART A & B [employer] MED[employer] SUPPLEMENT MEDICARE PART A & B [employer] MED[employer] SUPPLEMENT MEDICARE PART A & B [employer] MED[employer] SUPPLEMENT MEDICARE PART A & B [employer] MED[employer] SUPPLEMENT MEDICARE PART A & B [facility] MEDEX SUPPLEMENT MEDICARE PART A & B [employer] SU[employer] Address: [id number] [place] [address] MEDICARE PART A & B [employer]) Address: [place] [phone] [place] [address] MEDICARE PART A & B Care Teams Sand Sifter Relationship Specialty Start Date End Date Deon Crain MD [address] [place] [address] [address] [place] [id number] PCP - General Internal Medicine 07/24/17 Additional Source Comments The information contained in this document represents components of the legal health record. It is not the complete legal health record.[facility]
--- OUTSIDE RECORDS SUMMARY | 2025-04-23 22:19 | XMS_ITS | Clinical Summary ---
Author Organization [facility] Address [address] [place] [address] Care Team Providers Care Archery Instructor Name Role Phone Unavailable Primary Care Provider [...] Bone Density 12/29/2015 COVID-19 Vaccine ( - 2024-2 6 season) 2025 Influenza (#1) 2025 RSV (1 [...]
--- OUTSIDE RECORDS SUMMARY | 2025-04-23 22:19 | XMS_ITS | Encounter Summary ---
Author Organization [facility] Address [address] [facility] [address] [place] [phone] Phone Care Team Providers Care Campground Cleaning Attendant Name Role Phone Deon Crain MD Primary Care Provider [phone] Encounter Details Date Type Department Care Team (Late st Contact Info) Description 08/03/2017 Transcribe Orders [facility] Phleb Main [address] [place] [address] Triston Carlisle, [address] [facility], [address] [id number] [email or web address] Elevated calcitonin level (Primary Dx) Social History [...] IONIZED CALCIUM 1.22 1.14 - 1.37 mmol/L [facility] Blood 08/03/2017 4:32 PM EDT 08/03/2017 4:35 PM EDT us Triston L Bayuk DO LAB BLOOD BKR ORDERABLES Fin al Result [facility] [address] [place] [address] documented in this encounter Visit Diagnoses Diagnosis Elevated calcitonin level- Primary documented in this encounter Care Teams Campground Cleaning Attendant Relationship Specialty Start Date End Date Deon Crain MD [address] [place] [address] PCP - General Internal Medicine 07/24/17 documented as of this encounter Additional Source Comments The information contained in this document represents components of the legal health record. It is not the complete legal health record.[facility]
--- OUTSIDE RECORDS SUMMARY | 2025-04-23 22:19 | XMS_ITS | Encounter Summary ---
Author Organization [facility] Address [address] [facility] [address] [place] [phone] Phone Care Team Providers Care Synthetic Plasterer Name Role Phone Deon Crain MD Primary Care Provider [phone] Encounter Details Date Type Department Care Team (Late st Contact Info) Description 07/24/2017 Transcribe Orders [facility] Phleb Main [address] [place] [address] Triston Carlisle, DO [address] [facility], [address] [phone] [email or web address] Non-seasonal allergic rhinitis, unspecified chronicity, unspecified trigger [...] INHIBITOR AG 33 19 - 37 mg/dL [facility] DPT OF LAB MED AND PAT+ Blood 07/24/2017 3:00 PM EST 07/24/2017 3:07 PM EST CS-Keys LAB BLOOD ORDERABLES Final R esult Performing Organization Address City/[facility]/ZIP Co de Phone Number [facility] DPT OF LAB MED AND PAT+ [address] [place] [address] * C1 inhibitor, functional (07/24/2017 3:00 PM EST) C1 INHIB FUNCTIONAL 87 %of norm [facility] DPT OF LAB MED AND PAT+ Comment: (NOTE) REFERENCE VALUE >67 (Normal) 41-67 (Equivocal) <41 (Abnormal) Blood 07/24/2017 3:00 PM EST 07/24/2017 3:07 PM EST CS-Keys LAB BLOOD ORDERABLES Final R [employer] [facility] Performing Organization Address City/[facility] Co de Phone Number [facility] DPT OF LAB MED AND PAT+ [address] [place] [address] * (ABNORMAL) CBC and differential (07/24/2017 3:00 PM EST) Pathologist [facility] WBC 10.73 3.40 - 11.20 K/uL [facility] RBC 4.96(H) 3.80 - 4.80 M/uL [facility] HGB 15.4(H) 12.0 - 15.0 g/dL [facility] HCT 45.6 36.0 - 46.0 % [facility] PLT 259 130 - 400 K/uL [facility] MCV 91.9 79.0 - 98.0 fL [facility] MCH 31.0 27.0 - 34.8 pg [facility] MCHC 33.8 31.5 - 36.0 g/dL [facility] RDW 12.6 10.8 - 14.6 % [facility] MPV 10.0 9.4 - 12.4 fl [facility] NRBC 0.00 /100 WBCs [facility] ABSOLUTE NRBC 0.00 K/uL [facility] DIFF METHOD Auto [facility] NEUTS 68.6 45.30 - 77.70 % [facility] LYMPHS 22.6 12.30 - 39.70 % [facility] MONOS 5.6 4.10 - 12.80 % [facility] EOS 2.2 0 - 7.2 % [facility] BASOS 0.5 0 - 2.80 % [facility] Granulocytes, immature (%) 0.5 0.0 - 0.9 % [facility] ABSOLUTE NEUTS 7.36 1.40 - 7.70 K/uL [facility] ABSOLUTE LYMPHS 2.43 0.60 - 3.20 K/uL [facility] ABSOLUTE MONOS 0.60(H) 0.11 - 0.59 K/uL [facility] ABSOLUTE EOS 0.24 0.01 - 0.50 K/uL [facility] ABSOLUTE BASOS 0.05 0.00 - 0.08 K/uL [facility] Granulocytes, immature 0.05 0.00 - 0.05 K/uL [facility] Blood 07/24/2017 3:00 PM EST 07/24/2017 3:07 PM EST us Triston Carlisle DO LAB BLOOD BKR ORDERABLES Fin al Result [address] [address] * (ABNORMAL) Comprehensive metabolic panel (07/24/2017 3:00 PM EST) SODIUM 142 133 - 146 mmol/L [facility] POTASSIUM 3.5 3.3 - 5.1 mmol/L [facility] CHLORIDE 100 96 - 108 mmol/L [facility] CO2 25 21 - 35 mmol/L [facility] BUN 15 6 - 19 mg/dL [facility] CREATININE 0.50 0.5 - 1.5 mg/dL [facility] GLUCOSE 84 70 - 99 mg/dL [facility] ALBUMIN 4.3 3.9 - 4.8 g/dL [facility] TOTAL PROTEIN 7.7 6.5 - 8.0 g/dL [facility] CALCIUM 10.6(H) 8.4 - 10.3 mg/dL [facility] ALKALINE PHOSPHATASE 84 39 - 117 U/L [facility] TOTAL BILIRUBIN 0.3 0.0 - 1.2 mg/dL [facility] AST 24 0 - 37 U/L [facility] ALT 28 0 - 40 U/L [facility] GLOBULIN 3.4 1 - 4.8 g/dL [facility] EGFR 101 >59 mL/min/1.7 3m2 [facility] Comment:If patient is black, multiply result by 1.159. The eGFR calculation has changed from the MDRD equation to the CKD-EPI equation as of July 24, 2017. ANION GAP 21(H) 10 - 20 mmol/L [facility] Blood 07/24/2017 3:00 PM EST 07/24/2017 3:07 PM EST [facility] LAB BLOOD BKR ORDERABLES Fin al Result Performing Organization Address [facility]/ZIP Co de Phone Number [facility] [address] [place] [address] * Complement C4 (07/24/2017 3:00 PM EST) COMPLEMENT C4 37 14 - 40 mg/dL [facility] DPT OF LAB MED AND PAT+ Blood 07/24/2017 3:00 PM EST 07/24/2017 3:07 PM EST [facility] LAB BLOOD BKR ORDERABLES Fin al Result Performing Organization Address City/[facility]/ZIP Co de Phone Number [facility] DPT OF LAB MED AND PAT+ [address] [place] [address] documented in this encounter Visit Diagnoses Diagnosis Non-seasonal allergic rhinitis, unspecified chronicity, unspecified trigger- Primary documented in this encounter Care Teams Synthetic Plasterer Relationship Specialty Start Date End Date Deon Crain MD [address] [place] [phone] PCP - General Internal Medicine 07/24/17 documented as of this encounter Additional Source Comments The information contained in this document represents components of the legal health record. It is not the complete legal health record.[facility]
--- NOTE | 2025-04-23 22:53 | PC.NURSE ---
Pt reporting she uses cpap at home Hospitalist notified waiting on orders Plan of care ongoing.
[2025-04-23 23:39] VITALS: PULSE 90; RESP 18; O2SAT 21
--- NOTE | 2025-04-24 00:08 | PC.NURSE ---
patient resting/sleeping with c pap in place. will defer nurse swallow screen until the morning.
[2025-04-24 01:57] VITALS: BP 130/78; PULSE 91; RESP 14; TEMP 36.9; O2SAT 97
[2025-04-24 04:00] LABS: MANUAL DIFF FLAG NO
[2025-04-24 04:01] LABS: Hematocrit 42.5 % (37.0-47.0); Hemoglobin 14.7 g/dl (12.0-16.0); Imm Gran Abs Auto 0.03 X10*3/uL (0.00-0.03); Imm Gran Pct Auto 0.3 % (0.0-0.4); Lymphocytes Absolute Auto 3.6 X10*3/uL (1.2-4.9); Mean Corpuscular HGB Conc 34.6 g/dl (31.0-35.0); Mean Corpuscular Hemoglobin 31.5 pg (27.0-33.0); Mean Corpuscular Volume 91.0 fL (80.0-98.0); NRBC Abs Auto 0.000 X10*3/uL (0.0-0.012); NRBC Pct Auto 0.0 /100WBC (0.0-0.2); Platelet Count 250 X10*3/uL (160-400); Red Blood Count 4.67 X10*6/uL (4.20-5.50); White Blood Count 9.8 X10*3/uL (4.8-10.8)
[2025-04-24 04:17] LABS: Alanine Aminotransferase 21 U/L (0-31); Albumin Level 4.0 g/dL (3.5-5.0); Alkaline Phosphatase 73 U/L (39-117); Anion Gap 13 (12-20); Aspartate Amino Transferase 20 U/L (5-31); Blood Urea Nitrogen 13 mg/dL (9-16); Calcium 9.7 mg/dL (8.4-10.2); Carbon Dioxide 26 mmol/L (22-29); Chloride 106 mmol/L (96-108); Cholesterol 184 mg/dL (<200); Creatinine Clr Calc Pharmacy 74.1; Estimated Glomerular Filt Rate > 60; HDL Cholesterol 55 mg/dL (>40); Potassium 4.1 mmol/L (3.3-5.1); Sodium 141 mmol/L (135-145); Total Protein 6.4 g/dL (6.5-8.0); Triglycerides 188 mg/dL (<150)
[2025-04-24 06:20] VITALS: BP 121/66; PULSE 83; RESP 19; TEMP 36.6; O2SAT 96
--- NOTE | 2025-04-24 07:00 | CA_ITS ---
Transthoracic Echocardiogram Patient (Last, First, Middle): Beckie Hardy P Gender: F Date of : 1950 Age: 74 Procedure Date: 04/24/2025 Procedure Type: Transthoracic Echocardiogram Location: [facility] Height: 157.48 cm Weight: 83.92 kg BSA: 1.85 m2 Heart Rate: 89 bpm BP: 121 / 66 mmHg Pipe Line Repairer: TO Referring MD: Jorge L Sweeney MD Symptoms: tia Study Quality: Adequate ECG Rhythm: Sinus Conclusions: - The left ventricular systolic function is mildly decreased. The calculated ejection fraction is 52% by biplane method. - No obvious valvular pathology seen on this study. Findings Procedure Information Contrast agent, definity, is being given per protocol without apparent complications. Left Ventricle Normal left ventricular cavity size. The left ventricular systolic function is mildly decreased. The calculated ejection fraction is 52% by biplane method. There is mild global hypokinesis. Diastolic function is normal for age. There is mild septal asymmetric hypertrophy. Right Ventricle Normal right ventricular cavity size and systolic function. Atria Both atria are normal in size. Aortic Valve There is a normal trileaflet aortic valve. There is mild calcification of the aortic valve. There is no aortic valve stenosis. There is no aortic valve regurgitation. Mitral Valve There is mild anterior mitral leaflet thickening. There is no mitral valve regurgitation. There is no mitral valve stenosis. Pulmonic Valve The pulmonic valve is likely normal. Tricuspid Valve There is mild tricuspid valve regurgitation. There is no evidence of pulmonary hypertension. Great Vessels The asc aorta is normal in size. Small plaque is seen in the sino tubular ridge. Venous The inferior vena cava is normal in size and collapses greater than 50% with inspiration. Pericardium/Pleural There is no evidence of pericardial effusion. Prior Study Comparison Changes noted compared to prior study dated: 02/01/2022. LVEF slightly lower. Recommendations, Care & Conclusions No obvious valvular pathology seen on this study. Measurements 2D Linear Measurements IVSd: 1.09 0.6-0.9/0.6-1.0 cm LVIDd: 4.96 3.9-5.3/4.2-5.9 cm LVIDd Index: 2.68 2.4-3.2/2.2-3.1 cm/m2 LVIDs: 3.28 2.0-3.6 cm LVPWd: 0.94 0.7-1.1 cm LA Diam: 2.90 2.7-3.8/3.0-4.0 cm LAIDs Index: 1.57 1.5-2.3 cm/m2 LV Mass: 228.44 67-162/88-224 g LV Mass Index: 123.48 43-95/49-115 g/m2 LVOT Diam: 2.00 3.0+(-)1.3 cm 2D Systolic Function EF 4C: 50.70 >55% EF 2C: 50.90 >55% EF BiP: 52.20 >55% Mitral Valve MV Pk E: 0.40 MV PK A: 0.71 MV Decel Time: 91.00 E/A: 0.60 E'Lateral: 7.62 E'Medial: 4.57 E/E' Med: 8.70 E/E' Lat: 5.20 PHT: 27.00 MVA PHT: 8.15 Decel [place]: 4.37 Aortic Valve AoV Pk Kem: 1.51 AoV Mn Kem: 1.03 AoV VTI: 0.26 AoV Pk Grad: 9.00 Aov Mn Grad: 5.00 LIANNE Cont.VTI: 2.21 LVOT LVOT Pk Kem: 0.95 LVOT Mn Kem: 0.63 LVOT VTI: 0.18 LVOT Pk Grad: 4.00 LVOT Mn Grad: 2.00 LVOT Diam: 2.00 LVOT Area: 3.14 Diastolic Function MV Pk E: 0.40 MV Pk A: 0.71 E/A: 0.60 E'Medial: 4.57 E/E' Med: 8.70 E' Laterial: 7.62 E/E' Lat: 5.20 Right Ventricle TAPSE (mm): 24.00 TVS' Kem: 11.40 Tricuspid Valve TR Pk Kem: 2.24 TR Pk Grad: 20.00 RA Press: 3.00 RVSP: 23.00 Great Vessels Aorta Sinus of Valsalva: 3.20 2.0-3.5 cm Ao Asc: 3.80 2.1-3.4 cm Updated in Other Vendor System with Status of Final Edgar Luz MD electronically signed on 04/24/2025 2:37:04 PM with status of Final
[2025-04-24 07:05] LABS: Glucose, Whole Blood 117 mg/dL (60-115)
[2025-04-24] MEDS: 0.9 % Sodium Chloride Flush 3 ML SYRINGE IVFLUSH (07:10)
[2025-04-24 07:28] VITALS: PULSE 88; RESP 18; O2SAT 95
--- NOTE | 2025-04-24 09:08 | MHC.CM.PN ---
Addendum entered by Goldie Lazo 04/24/25 10:19: CM assisted Patient with the completion of a HCP; she has named her Daughter/Alexus as her Agent. New HCP has been scanned into [facility] and placed on the chart. Original Note: CM addressed [facility] with Patient. 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 Home/self care is Patient's goal;she may benefit from a PT Eval to assist with disposition. CM has initiated and will follow for dc planning. PCP is Dr. Crain and Daughter/Alexus is HCP(HCP in the system names a Aramis as the primary Agent; he [address] Crain's office had the same HCP on file; CM will complete a new HCP with Patient today.
[2025-04-24 09:10] VITALS: BP 121/66; PULSE 83; O2SAT 96
[2025-04-24 10:23] VITALS: BMI 34.4
[2025-04-24 10:25] VITALS: BP 133/87; PULSE 90; RESP 16; TEMP 36.8; O2SAT 98
[2025-04-24] MEDS: Aspirin Enteric Coated 81 MG TABLET.DR PO (10:27)
[2025-04-24 11:29] LABS: Glucose, Whole Blood 124 mg/dL (60-115)
[2025-04-24 11:43] VITALS: BP 135/86; PULSE 88; RESP 20; TEMP 36.5; O2SAT 100
--- NOTE | 2025-04-24 11:59 | MHC.STROKE ---
Met with patient in 454. Pt resting with eyes closed, reports mild headache. Easily arousable to verbal stimuli. Stroke Education reviewed with patient. Pamphlet provided and reviewed. All questions answered. Pt's medical history reviewed with her including medications, activity, diet, and social history. Awaiting results of echo. Will continue to assist as needed.
--- NOTE | 2025-04-24 12:50 | P.CNNE_ITS ---
History of Present Illness Data of Consult Service Date: 04/24/25 Primary Care Provider: Deon Crain MD DASIA Butts is a 74-year-old female patient with past medical history of hypertension, hyperlipidemia, diabetes, angioedema, ANKUSH, polymyalgia rheumatica who presents to the hospital for stroke-like symptoms. She had noted feelings of dizziness and fogginess in her head and tried to call her daughter and it was noted that she was having difficulty expressing herself. Emergency room workup included a CT of the head and CT angio of the head which showed no abnormalities. An MRI of the brain was also performed showing some mild nonspecific foci of T2 FLAIR within the periventricular and subcortical white matter but no intracranial abnormalities or diffusion restriction. She tells me today that she continues to feel slightly ?out of it? and continues to have some difficulty with word finding. She notes that the sensation she had leading up to her hospitalization was much more profound. She feels that the difficulty with her speech represented more of a difficulty with word finding and difficulty expressing herself but she did not have any confusion of words and she was overall making relative sense to her daughter. She does have a history of migraine but generally does not have a headache accompanying her migraine symptoms. She will typically have a transient scotoma including what appears to be a pixilated area in her vision that lasts no more than a half an hour and dissipate on its own. She does not have headaches associated with these. These have been going on for years and are generally infrequent. She has never had any migraines associated with aphasia or other neurological symptoms. She does note that after her change in speech, she had 1 of her typical migraine visual scotomas/auras while in the emergency room. Review of Systems 2 Review of Systems: Yes all other systems are reviewed and are negative [facility] Past Medical History Medical History Post-menopausal Medicare annual wellness visit, initial Pre-op evaluation Precordial chest pain Acute electrocardiogram changes RBBB (right bundle branch block) COVID-19 vaccine series completed Screening for colon cancer Diverticular disease Basal cell carcinoma (BCC) in situ of skin Polymyalgia rheumatica GERD (gastroesophageal reflux disease) Anxiety Hypertension Angioedema Hypercholesteremia Obstructive sleep apnea Obesity (BMI 30-39.9) Type 2 diabetes mellitus with hyperglycemia Family History Family History Father Prostate cancer Acute CVA (cerebrovascular accident) Mother Uterine cancer COPD (chronic obstructive pulmonary disease) Sister Melanoma Brother Melanoma Paternal Grandfather Acute CVA (cerebrovascular accident) Paternal Aunt Breast cancer Surgical History Surgical History Hx of cataract extraction History of colonoscopy History of arthroplasty of right knee Hx of appendectomy History of cholecystectomy S/P ADRIÁN-BSO Social History Social History Housing: House Are you a primary home health care worker to a significant other at home: No Do you presently have visiting nurse or other home services: No Alcohol intake: never Patient Tobacco Use Status: Former Tobacco user Tobacco use type: Cigarette Smoked in Last 30 Days: No e-Cigarette/Vaping Use: Never Used Second Hand Smoke Exposure: Yes Use of substances other than those prescribed or required for medical reasons: No Currently Displaying Signs/Symptoms of Drug Intoxication Withdrawal: No Advance Directives: Yes Advance Directives on File: Yes Advance Directives Date on File: 04/12/21 Nutrition Risks: No Nutritional Risk service: No Current occupational status: employed 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 Cognitive needs: No Hearing needs: No Vision needs: Yes Meds Allergies Allergy/AdvReac Type Severity Reaction Status Date / Time cabergoline (CABERGOLINE) Allergy Severe ANGIOEDEMA Verified 04/23/25 17:41 lisinopril (LISINOPRIL) Allergy Severe ANGIOEDEMA Verified 04/23/25 17:41 empagliflozin (Jardiance) Allergy Intermediate skin Verified 04/23/25 17:41 infection Active Medications: Current Medications Acetaminophen (Acetaminophen 325 Mg Tablet) 650 mg PO Q6H PRN PRN Reason: Pain, Mild 1-3,fever,headache Last Admin: 04/24/25 10:28 Dose: 650 mg Aspirin (Aspirin Enteric Coated 81 Mg Tablet.) 81 mg PO DAILY SPENCER Last Admin: 04/24/25 10:27 Dose: 81 mg Atorvastatin Calcium (Atorvastatin Calcium 80 Mg Tablet) 80 mg PO DAILY SPENCER Last Admin: 04/24/25 10:28 Dose: 80 mg Calcium Carbonate (Calcium Carbonate 750 Mg Tab.Chew) 750 mg PO Q4H PRN PRN Reason: Heartburn Dextrose (Dextrose 50 % 25 Gm/50 Ml Syringe) 25 gm IVPUSH Q15M PRN; Protocol PRN Reason: per Hypoglycemia Standing Ord. Enoxaparin Sodium (Enoxaparin Sodium 40 Mg/0.4 Ml Syringe) 40 mg SUBCUT Q12H [facility] Last Admin: 04/24/25 10:29 Dose: 40 mg Famotidine (Famotidine 20 Mg Tablet) 20 mg PO BID [facility] Last Admin: 04/24/25 10:28 Dose: 20 mg Gabapentin (Gabapentin 100 Mg Capsule) 200 mg PO BEDTIME [facility] Glucose (Glucose Gel 15 Gm Gel..Gram.) 15 gm PO Q15M PRN; Protocol PRN Reason: per Hypoglycemia Standing Ord. Insulin Human Lispro (Insulin Lispro 100 Unit/Ml 3 Ml Vial) 0 unit SUBCUT QIDACHS [facility]; Protocol Last Admin: 04/24/25 11:44 Dose: Not Given Loratadine (Loratadine 10 Mg Tablet) 10 mg PO DAILY [facility] Last Admin: 04/24/25 10:27 Dose: 10 mg Lorazepam (Lorazepam 0.5 Mg Tablet) 0.5 mg PO TID PRN PRN Reason: Anxiety Losartan Potassium (Losartan Potassium 50 Mg Tablet) 100 mg PO BEDTIME [facility]; Protocol Magnesium Hydroxide (Milk Of Magnesia 30 Ml Oral.Susp) 30 ml PO DAILY PRN PRN Reason: Constipation Melatonin (Melatonin 3 Mg Tablet) 6 mg PO BEDTIME PRN PRN Reason: Insomnia Sodium Chloride (0.9 % Sodium Chloride Flush 3 Ml Syringe) [facility] Last Admin: 04/24/25 07:10 Dose: 3 ml Home Medications ?Medication ?Instructions ?Recorded ?Confirmed ?Last Taken ?Type cranberry fruit 400 mg capsule 1,200 mg PO DAILY 03/1004/23/25 04/23/25 History vitamin B complex 1 cap PO DAILY 03/10/20/09/1204/23/25 History psyllium husk 3.4 gram/5.4 gram 2 tsp PO DAILY 5 04/23/25 04/23/25 History oral powder (Metamucil) naproxen sodium 220 mg tablet 440 mg PO DAILY PRN Pain 11/10/24 04/23/25 Unknown History (Flanax (naproxen)) ascorbic acid (vitamin C) 1,000 mg 1,000 mg PO DAILY 0 02/03/25 04/23/25 04/23/25 History capsule acetaminophen 500 mg tablet 1,000 mg PO DAILY PRN Pain 04/23/25 04/23/25 Unknown History gabapentin 100 mg capsule 100 mg PO BEDTIME PRN Pain 1 06/24/24 04/23/25 Unknown History gabapentin 100 mg capsule 200 mg PO BEDTIME 04/23/25 1 06/24/24 04/22/25 History lorazepam 1 mg tablet 0.5 - 1 mg PO TID PRN anxiet y 04/23/25 04/23/25 Unknown History semaglutide 2 mg/dose (8 mg/3 mL) 2 mg subcut FR 04/2304/23/25 04/17/25 History subcutaneous pen injector Physical Exam 2 Vital Signs: Vital Signs: Last Vital Signs Temp 97.7 F 04/24/25 11:43 Pulse 88 04/24/25 11:43 Resp 20 04/24/25 11:43 BP 135/86 04/24/25 11:43 Pulse Ox 100 04/24/25 11:43 O2 Del Method Room Air 04/24/25 11:43 BMI result Body Mass Index 34.4 Const: General: cooperative, healthy appearing, comfortable and no acute distress Nutritional Appearance: well nourished Orientation/consciousness: patient oriented x3 Limitations: no limitations HEENT: Head: Yes normal to inspection and Yes normocephalic Eyes: General: appearance normal, both eyes and all related structures V isual Borrego: normal visual borrego by confrontation Alignment and Position: a lignment normal Periorbital: periorbital findings normal Eyelids: Yes eyelids normal Conjunctivae: conjunctivae normal Sclerae: sclerae normal Neuro: General: patient oriented x3 Cranial nerves: Yes CN's II-XII intact bilaterally and Yes Facial sensation intact/muscles of mastication intact C ognition (Neuro): normal cognition Gait exam (Neuro): Normal gait present Motor exam (neuro): 5/5 motor strength present throughout and no tremor noted Sensory Exam: Normal double simultaneous stimulation for sensation Romberg Test: Negative Pupils: Normal pupillary reactivity/response: bilateral Psych: Appearance: grossly normal Mental Status: mental status grossly normal Speech and movement: Normal speech and movement present and Clear speech present Affect: normal affect Attitude: cooperative Thought process: Normal thought process present Thought content: Normal thought content present Insight: Good insight present (Psych) Judgement: Good judgement present (Psych) Results Labs 04/24/25 03:51 04/24/25 03:51 Labs: Short CBC 04/23/25 04/24/25 Range/Units 17:49 03:51 WBC 10.4 9.8 (4.8-10.8) X10*3/uL Hgb 15.9 14.7 (12.0-16.0) g/dl Hct 46.6 42.5 (37.0-47.0) % Plt Count 296 250 (160-400) X10*3/uL BMP 04/23/25 04/24/25 17:49 03:51 Sodium 143 141 Potassium 3.8 4.1 Chloride 105 106 Carbon Dioxide 28 26 BUN 16 13 Creatinine 0.71 0.67 Calcium 10.6 H 9.7 D Liver Function 04/24/25 Range/Units 03:51 Total Bilirubin 0.4 (0.0-1.0) mg/dL AST 20 (5-31) U/L ALT 21 (0-31) U/L Alkaline Phosphatase 73 (39-117) U/L Albumin 4.0 (3.5-5.0) g/dL Assessment and Plan (1) Migraine with aura and without status migrainosus, not intractable: Status: Acute Plan Beckie is a 74-year-old female patient with past medical history of hypertension, hyperlipidemia, diabetes, angioedema, ANKUSH, polymyalgia rheumatica who presents to the hospital for stroke-like symptoms. She had noted feelings of dizziness and fogginess in her head and tried to call her daughter and it was noted that she was having difficulty expressing herself. Her workup was benign and overall symptoms suggest migraine especially given her history of migraine auras. I do recommend continuation of aspirin therapy and good control of blood pressure, cholesterol, and glucose. I am happy to see her in the clinic to follow up as an outpatient at which time we can discuss any need for preventive or acute therapy measures. Procedures Date of Service Date of Service: 04/24/25
--- NOTE | 2025-04-24 13:55 | MHC.STROKE ---
Spoke with RN providing care last evening, Charlotte Spencer. Patient did not have any swallowing issues when assessed prior to medication administration. Swallow passed.
--- NOTE | 2025-04-24 13:58 | PM.DS ---
DS: Providers Provider Date of Service: 04/24/25 Date of admission: 04/23/25 19:39 Date of discharge: 04/24/25 Primary care physician: Deon Crain MD Consults: 04/23/25 19:42 Consult to Neurology Routine Consulting Provider: Andrei Olivares Reason for consultation: tia DS: Diagnosis Discharge Diagnosis (1) Migraine with aura and without status migrainosus, not intractable: Status: Acute DS: Summary Hospital Course Hospital Course: From admission HPI: Date of Service: 04/23/25 Chief Complaint: Word-finding difficulty 74-year-old female with a past medical history of HTN, HLD, dm, history of angioedema, ANKUSH, polymyalgia rheumatica; presented to the hospital with a chief complaint of stroke-like symptoms. Patient mentioned that after she went home she felt dizzy/foggy in the head; mentioned she lives alone. Later when her daughter called she was trying to talk but not able to express herself. Subsequently her doctor called ambulance and brought her to the hospital for further evaluation. Mentions that for the time she came to the hospital she felt better but still feel foggy. Denies any chest pain or palpitations. Denies any lightheadedness dizziness. Denies any numbness tingling or focal weakness. Review of all other systems is negative except mentioned above ER course: Per ER team, initially concern for expressive aphasia; exam was nonfocal; CT head and CT angio head and neck showed no acute findings Hospital Course Pt was admitted to the hospital for experiencing stroke-like symptoms including feelings of dizziness, difficulty word finding, and fogginess in thinking. The patient's symptoms largely resolved while in the hospital, the pt continues to complain about feeling slightly ?out of it. Workup, however, was negative for acute stroke and largely benign. Pt underwent CT of head, CTA of head/neck, and MRI of brain, all of which were negative for acute abnormalities. Labs indicated elevated triglycerides and high normal cholesterol. Pt did undergo echocardiogram, though images were not read by time of discharge and pt should follow up with her PCP for final reading. Pt was seen and evaluated by Neurology who thought symptoms were more likely secondary to migraine with aura rather than TIA. Neurology recommendation however, is to start stroke prevention with high-intensity statin and aspirin therapy, as well as maintaining good control of blood pressure and glucose levels. Pt will be started on aspirin 81 mg and switch her statin to rosuvastatin 20 mg daily. Pt should follow up outpatient with Neurology for post hospitalization monitoring and migraine control. Pt was seen and evaluated by Physical therapy who suggested outpatient PT for chronic balance issues. Pt will need to follow up with PCP in order to arrange for outpatient PT therapy. Pt should otherwise resume all other home medications. Time Attestation Discharge Coordination Time (in mins): 35 Quality: Safe Use of Opioids Does Pt have an Active Cancer Diagnosis on the Problem List?: No Quality: Stroke Does the patient have a stroke diagnosis?: No Physical Exam Exam: Exam: General: AOx3, no acute distress Resp: CTA bilaterally CVS: S1, S2, RRR GI: +BS, NT, no distention Skin: Warm, dry Neuro: Cranial nerves II-XII grossly intact bilaterally. Motor grossly intact bilaterally. Negative pronator drift. Speech fluent and full. Sensation to light touch intact of upper and lower extremities bilaterally. Strength preserved and symmetric of upper and lower extremities bilaterally. Extremities: No edema Psych: Appropriate affect Vital Signs: Vital Signs: Last Vital Signs Temp 97.7 F 04/24/25 11:43 Pulse 88 04/24/25 11:43 Resp 20 04/24/25 11:43 BP 135/86 04/24/25 11:43 Pulse Ox 100 04/24/25 11:43 O2 Del Method Room Air 04/24/25 11:43 BMI result Body Mass Index 34.4 DS: Data Data Completed and Pending Labs on day of discharge: Laboratory Results - last 24 hr 04/23/25 04/23/25 04/23/25 17:49 18:01 21:17 WBC 10.4 RBC 5.11 Hgb 15.9 Hct 46.6 MCV 91.2 MCH 31.1 MCHC 34.1 RDW 11.7 Plt Count 296 MPV 9.0 L Immature Gran % (Auto) 0.5 H Neut % (Auto) 60.1 Lymph % (Auto) 30.7 Pacific % (Auto) 5.9 Eos % (Auto) 2.2 Baso % (Auto) 0.6 Lymph # (Auto) 3.2 Pacific # (Auto) 0.6 Eos # (Auto) 0.2 Baso # (Auto) 0.1 Abs Immat Gran (auto) 0.05 H Absolute Neuts (auto) 6.3 Absolute Nucleated RBC 0.000 Nucleated RBC % (auto) 0.0 Hold Purple Top SEE NOTE PT 11.0 L Whole Blood PT 11.8 INR 0.9 Whole Blood INR 1.0 APTT 30.1 Sodium 143 Potassium 3.8 Chloride 105 Carbon Dioxide 28 Anion Gap 14 BUN 16 Creatinine 0.71 Estim Creat Clear Calc 69.9 Estimated GFR > 60 POC Glucose 124 H 112 Random Glucose 131 H Calcium 10.6 H Total Bilirubin AST ALT Alkaline Phosphatase Troponin I High Sens < 2.7 Total Protein Albumin Triglycerides 128 Cholesterol 208 H LDL Cholesterol, Calc 118 H HDL Cholesterol 65 04/24/25 04/24/25 04/24/25 03:51 07:00 11:02 WBC 9.8 RBC 4.67 Hgb 14.7 Hct 42.5 MCV 91.0 MCH 31.5 MCHC 34.6 RDW 11.9 Plt Count 250 MPV 8.8 L Immature Gran % (Auto) 0.3 Neut % (Auto) 51.4 Lymph % (Auto) 37.1 Pacific % (Auto) 7.5 Eos % (Auto) 3.1 Baso % (Auto) 0.6 Lymph # (Auto) 3.6 Pacific # (Auto) 0.7 Eos # (Auto) 0.3 Baso # (Auto) 0.1 Abs Immat Gran (auto) 0.03 Absolute Neuts (auto) 5.0 Absolute Nucleated RBC 0.000 Nucleated RBC % (auto) 0.0 Hold Purple Top PT Whole Blood PT INR Whole Blood INR APTT Sodium 141 Potassium 4.1 Chloride 106 Carbon Dioxide 26 Anion Gap 13 BUN 13 Creatinine 0.67 Estim Creat Clear Calc 74.1 Estimated GFR > 60 POC Glucose 117 H 124 H Random Glucose 110 Calcium 9.7 D Total Bilirubin 0.4 AST 20 ALT 21 Alkaline Phosphatase 73 Troponin I High Sens Total Protein 6.4 L Albumin 4.0 Triglycerides 188 H Cholesterol 184 LDL Cholesterol, Calc 92 HDL Cholesterol 55 Discharge Plan Discharge Anticipated Discharge Date/Time: 04/24/25 12:09 Patient Disposition: Home, Self-Care Discharge Diagnosis: Migraine vs TIA Referrals: Raquel Austin CNP [Nurse Practitioner, Neurology] - 1 Week Referral Note: F/U for inpatient workup for migraine vs TIA Paras,Deon Kinsey MD [Primary Care Provider, Internal Medicine] - 1 Week Discharge Medications: New rosuvastatin 20 mg tablet 20 mg PO DAILY Qty: 90 0RF Rx Instructions: Take one tablet daily for cholesterol control aspirin 81 mg tablet 81 mg PO DAILY Qty: 90 0RF Rx Instructions: Take one tablet daily for stroke prevention. Continued fexofenadine [Jesusita Allergy] 180 mg tablet 180 mg PO DAILY Qty: 90 2RF (DME) Diabetic shoes and inserts See Rx Instructions .Route .MEDSUPPLY Qty: 1 0RF Rx Instructions: As directed metformin 500 mg tablet 500 mg PO BID Qty: 180 3RF acetaminophen 500 mg Tablet 1,000 mg PO DAILY PRN (Reason: Pain) gabapentin 100 mg capsule 200 mg PO BEDTIME lorazepam 1 mg tablet 0.5 - 1 mg PO TID PRN (Reason: anxiety) semaglutide 2 mg/dose (8 mg/3 mL) pen injector 2 mg subcut FR gabapentin 100 mg capsule 100 mg PO BEDTIME PRN (Reason: Pain) vitamin B complex Capsule 1 cap PO DAILY cranberry fruit 400 mg capsule 1,200 mg PO DAILY Rx Instructions: administer with a meal Metamucil 3.4 gram/5.4 gram powder 2 tsp PO DAILY Rx Instructions: mix into at least 8 oz of water or juice before administering losartan 100 mg tablet 100 mg PO BEDTIME Qty: 90 3RF famotidine 20 mg tablet 20 mg PO BID Qty: 180 2RF (DME) OneTouch Ultra Test Strip See Rx Instructions .Route Qty: 100 3RF Rx Instructions: test once a day ascorbic acid (vitamin C) 1,000 mg capsule 1,000 mg PO DAILY naproxen sodium [Flanax (naproxen)] 220 mg tablet 440 mg PO DAILY PRN (Reason: Pain) Discontinued simvastatin 5 mg tablet 5 mg PO DAILY 90 Days Qty: 90 2RF Discharge Orders: Discharge Order (Routine); Ordered 04/24/25 Ordered By: Shawn Tsang Activity on Discharge: As tolerated Stand Alone Forms: Patient Portal Discharge page Print Language: Swedish Care Plan Goals: See below Health Concerns: TIA Migraine Difficulty word finding Confusion Plan of Treatment: You were admitted to the hospital after experiencing stroke like symptoms including feelings of dizziness, difficulty word finding, and fogginess and thinking. You were symptoms largely resolved while in the ED, though you continue to feel that you are slightly ?out of it?. Workup in the hospital was ultimately negative for acute stroke, including negative CT of head, CTA of head/neck, and MRI of brain, though you are noted to have elevated triglycerides. Pt also monitored overnight on telemetry which failed to demonstrate any significant cardiac arrhythmias. You did receive an echocardiogram, however, results not ready by time of discharge. Please follow up with PCP for final results. You were seen and evaluated by Neurology who thought symptoms more likely secondary to migraine rather than TIA, however they also recommend continuing stroke prevention therapy with aspirin, high-intensity statin, and good control of glucose and blood pressure. -- you will be started on aspirin 81 mg daily for stroke prevention. -- your statin will be switched to high-intensity rosuvastatin 20 mg daily. You should stop taking your pravastatin. -- follow up with Neurology in 2 weeks. -- follow up with her PCP in 1 week for routine post hospitalization visit. -- you were seen and evaluated by Physical therapy who recommended outpatient physical therapy for chronic balance issues. This will need to be arranged by your PCP. -- you underwent echocardiogram, though final reading was not available at time of discharge. Follow up with PCP for imaging results. Assessment: See discharge summary
--- NOTE | 2025-04-24 14:03 | MHC.CM.PN ---
Patient has been medically cleared for dc to home today, self care.
--- NOTE | 2025-04-24 15:28 | MHC.SP.ADU ---
Referring provider: Jorge L Sweeney Reason for Referral: Stroke workup Type of Treatment: 56962 Evaluation Speech Sound Production WITH Language Date of Plan of Treatment: 04/24/25 Onset of Symptoms/Illness: 04/23/25 Date Treatment Started: 04/24/25 Medical Diagnosis: TIA Primary Speech Language Diagnosis: R47.01 Aphasia History Patient is a 74 year old female brought to the ED with stroke-like symptoms. Patient reported dizziness, difficulty expressing herself, and feeling foggy. In the ED, initial concern was expressive aphasia, exam was nonfocal, CT head and CT angio head and neck with no acute findings. 04/23 CXR also w/ no acute findings. 04/23 Brain MRI, No acute intracranial abnormality. No diffusion restriction. Patient's symptoms reportedly have since resolved and she passed her RN swallow screening. She was started on a regular texture diet and has been getting her meal trays. Hx includes GERD, ANKUSH, HTN, diabetes, diverticular disease. Medical History: Other: Medical History Post-menopausal Medicare annual wellness visit, initial Pre-op evaluation Precordial chest pain Acute electrocardiogram changes RBBB (right bundle branch block) COVID-19 vaccine series completed Screening for colon cancer Diverticular disease Basal cell carcinoma (BCC) in situ of skin Polymyalgia rheumatica GERD (gastroesophageal reflux disease) Anxiety Hypertension Angioedema Hypercholesteremia Obstructive sleep apnea Obesity (BMI 30-39.9) Type 2 diabetes mellitus with hyperglycemia Surgical History Hx of cataract extraction History of colonoscopy History of arthroplasty of right knee Hx of appendectomy History of cholecystectomy S/P ADRIÁN-BSO Respiratory Needs: Room Air Patient Orientation: Alert & Oriented x 4 Social History: Current Living Situation: Patient lives alone in a house. Swallowing History: Dysphagia Specific: Within Functional Limits Comments: Patient ate her entire lunch, reports no issues swallowing apart from a large vitamin pill she takes at home. She says that this one pill is sometimes hard for her to get down, but otherwise she swallows solids and liquids just fine. [employer] advised patient to try taking pill in a spoonful of puree to coat the pill. Pre-eval Risk for Aspiration: Neurological Condition Pre-evaluation Dietary Consistencies: Regular Pre-eval Liquid Intake: Thin Pre-eval Medication Intake: Whole with Liquid Assessment Speech Production: Within Functional Limits Clinical Impression: Intact Observations: Patient's speech sounds were precise and her conversational speech was 100% intelligible. Tests of Speech & Lang Adults: BNT Clinical Impression: Intact Observations: Patient correctly named 15/15 items on the Labelle Naming Test Short Form. She answered yes/no, open-ended, and responsive naming questions appropriately. Patient followed simple- and complex commands without difficulty. She recalled up to 7 digits at a time without error. Patient joked, told cohesive narratives, engaged in conversation with ease, and formulated complete sentences with appropriate use of syntax and semantics. Patient says that her memory was assessed months ago by an SENIOR BUSINESS ANALYST and that her performance was stellar and believes maybe [her] attention is the problem. No concerns revealed on assessment. Recommendation for Speech Therapy: NA:Typical Evaluation No concerns related to swallow, speech, or language. Patient reports her communication is back to baseline. Further ST intervention is no longer warranted at this level of care. Patient Education: Completed: Yes Patient/Caregiver Education: Described Results of Evaluation Patient expressed understanding of evaluation Comments/Barriers to Learning: Head Mechanic Clinican/Clinical Fellow: No Supervisory Statement: N/A Speech Language Pathologist: Monik Sadler M.A., CCC-[employer]
== END 2025-04-24 15:26 | disposition home or self-care (01) ==
LOC: HO.ED 18:40 → HO.EDOVER 19:45 → HO.IMC 04-24 07:15
PROVIDERS: Admitting Provider Hospitalist; Emergency Provider Emergency Medicine; PCP Internal Medicine; Visit Provider Student in an Organized Health Care Education/Training Program
DX: G43.109 Migraine with aura, not intractable, without status migrainosus (principal); H53.8 Other visual disturbances; R41.89 Other symptoms and signs involving cognitive functions and awareness; I45.10 Unspecified right bundle-branch block; I10 Essential (primary) hypertension; E11.9 Type 2 diabetes mellitus without complications; E78.00 Pure hypercholesterolemia, unspecified; K21.9 Gastro-esophageal reflux disease without esophagitis; G47.33 Obstructive sleep apnea (adult) (pediatric); Z87.891 Personal history of nicotine dependence; Z79.899 Other long term (current) drug therapy; Z79.84 Long term (current) use of oral hypoglycemic drugs
CPT/HCPCS: 36415; 70450; 70496; 70498; 70551; 71045; 80048; 80053; 80061; 82947; 84484; 85025; 85610; 85730; 92523; 93005; 93306; 94660; 96372; 97162; 97165; 99222; 99285; J1650; Q9957; Q9967

== ENCOUNTER → 2025-04-23 17:48 | Outpatient (BNV) | payer MEDICARE, SELFPAY | PROVIDERS: Admitting Provider Hospitalist; Emergency Provider Emergency Medicine; PCP Internal Medicine; Visit Provider Internal Medicine | DX: I45.10 Unspecified right bundle-branch block (principal) | CPT/HCPCS: 93010 ==

== ENCOUNTER → 2025-04-23 17:48 | Outpatient (BNV) | payer MEDICARE, SELFPAY | PROVIDERS: Emergency Provider Emergency Medicine; PCP Internal Medicine; Visit Provider Nuclear Medicine | DX: G45.9 Transient cerebral ischemic attack, unspecified (principal) | CPT/HCPCS: 70551 ==

== ENCOUNTER 2025-04-23 19:39 | Outpatient (BNV) | payer MEDICARE, SELFPAY | END 2025-04-24 07:00 | PROVIDERS: Admitting Provider Hospitalist; Emergency Provider Emergency Medicine; PCP Internal Medicine; Visit Provider Internal Medicine | DX: I42.2 Other hypertrophic cardiomyopathy (principal); I35.8 Other nonrheumatic aortic valve disorders; G45.9 Transient cerebral ischemic attack, unspecified | CPT/HCPCS: 93306 ==

== ENCOUNTER → 2025-04-23 19:39 | Outpatient (BNV) | payer MEDICARE, SELFPAY | PROVIDERS: Admitting Provider Hospitalist; Emergency Provider Emergency Medicine; PCP Internal Medicine; Visit Provider Hospitalist | DX: G45.9 Transient cerebral ischemic attack, unspecified (principal) | CPT/HCPCS: 99223 ==

== ENCOUNTER → 2025-04-23 19:39 | Outpatient (BNV) | payer MEDICARE, SELFPAY | PROVIDERS: Admitting Provider Hospitalist; Emergency Provider Emergency Medicine; PCP Internal Medicine; Visit Provider Nurse Practitioner | DX: G43.109 Migraine with aura, not intractable, without status migrainosus (principal) | CPT/HCPCS: 99222 ==

== ENCOUNTER 2025-04-27 12:48 | Outpatient (REF) | payer MEDICARE, SELFPAY ==
--- NOTE | ~2025-04-27 | MM_ITS ---
EXAMINATION: DXA BONE DENSITY AXIAL HISTORY: Z78.0 - Asymptomatic menopausal state TECHNIQUE: [employer] Dual energy absorptiometry (DEXA) of the lumbar spine, total left hip, and femoral neck was performed. COMPARISON: Comparison is made with the prior examination dated 04/25/2023. FINDINGS: The bone mineral density of the lumbar spine is 1.328 g/cm2, corresponding to a T-score of 1.3, and a Z-score of 2.4. This is indicative of normal bone mineral density. This represents a BMD change of -1.6% compared to the prior exam. This is not statistically significant. The bone mineral density of the left total hip is 1.027 g/cm2, corresponding to a T-score of 0.2, and a Z-score of 1.4. This is indicative of normal bone mineral density. This represents a BMD change of -4.7% compared to the prior exam. This is statistically significant. The bone mineral density of the left femoral neck is 0.875 g/cm2, corresponding to a T-score of -1.2, and a Z-score of 0.3. This is indicative of osteopenia. This represents a BMD change of -3.2% compared to the prior exam. FRACTURE RISK: The FRAX index suggests a ten year probability of major osteoporotic fracture of 14.7%, and of hip fracture 2.6%. MM/XR DEXA axial skeleton IMPRESSION: Based on bone mineral density, and according to World Health Organization (WHO) criteria, the diagnosis is consistent with osteopenia. Statistically, 68% of repeat scans fall within 1 SD (+/- 0.010 g/cm2 for AP spine L1-L4) and 1 SD (+/- 0.012 g/cm2 for femur total) FRAX is a trademark of the [employer]'s [place] [facility] Metabolic Bone Disease, a World Health Organization (WHO) Collaborating Center. Electronically signed by: Marcos Godfrey MD 04/27/2025 01:25 PM [facility]
== END 2025-04-27 12:49 | disposition home or self-care (01) ==
LOC: HO.MAMMO 12:48
PROVIDERS: PCP Internal Medicine
DX: Z78.0 Asymptomatic menopausal state (principal)
CPT/HCPCS: 77080

== ENCOUNTER → 2025-04-27 13:00 | Outpatient (BNV) | payer MEDICARE, SELFPAY | PROVIDERS: PCP Internal Medicine; Visit Provider Radiology Diagnostic Radiology | DX: E28.39 Other primary ovarian failure (principal) | CPT/HCPCS: 77080 ==

== ENCOUNTER 2025-04-28 08:00 | Outpatient (AMB) | payer MEDICARE, SELFPAY ==
--- NOTE | 2025-04-28 08:09 | A.OFFVIS_ITS ---
Vital Signs 04/28/25 08:15 Height 5 ft 2 in Weight 185 lb BMI 33.8 BP 120/80 Blood Pressure Location Rt brachial Position Sitting Respiration 16 Pulse 80 Pulse Oximetry (%) 97 Oxygen Delivery Method Room Air Intake Visit Reasons: recent er visit Unit Trust Manager Required: No Allergies cabergoline (CABERGOLINE) Allergy (Severe, Verified 04/28/25 08:16) ANGIOEDEMA lisinopril (LISINOPRIL) Allergy (Severe, Verified 04/28/25 08:16) ANGIOEDEMA empagliflozin (Jardiance) Allergy (Intermediate, Verified 04/28/25 08:16) skin infection HPI Comments Details: Beckie is a 74-year-old female patient with past medical history of hypertension, hyperlipidemia, diabetes, angioedema, ANKUSH, polymyalgia rheumatica who recently presented to the hospital for stroke-like symptoms. Emergency room workup included a CT of the head and CT angio of the head which showed no abnormalities. An MRI of the brain was also performed showing some mild nonspecific foci of T2 FLAIR within the periventricular and subcortical white matter but no intracranial abnormalities or diffusion restriction. During my bedside evaluation on 04/24/2025, she explained that her symptom onset was gradual and she felt ?out of it? with some difficulty with word finding. This has happened time to time but has never been so profound. Her daughter who was on the phone with her was also concerned. She did note that she has a history of migraine but generally she experiences migraine auras without actual head pain/headache. She describes a transient scotoma in her vision described as a pixilated area lasting no more than half an hour and dissipating on its own. She has not noticed any word-finding difficulties or difficulties expressing herself in association with her visual scotomas but does note that when she went to the emergency room after her recent event, she ended up experiencing a visual scotoma while in the emergency room not long after her experience with difficulty finding her words. She is here today in the office for a follow up visit and tells me that since her hospitalization, she has actually noticed a dull headache to the crown of her head which has been relatively constant aside from perhaps some short periods of time where she feels that perhaps she was more distracted than anything. She also feels that her left eye is slightly ?fuzzy? and having some difficulty focusing. Aside from this, she overall feels much better from the time of her discharge from the hospital. She still however has some difficulty with concentrating and feels that she is afraid she is going to forget things. She has not had any episodes of word-finding difficulties a similar to what she experienced prior to her hospitalization. [facility] Medical History (Updated 04/28/25 @ 08:38 by Raquel Austin CNP) Migraine with aura and without status migrainosus, not intractable Post-menopausal Medicare annual wellness visit, initial Pre-op evaluation Precordial chest pain Acute electrocardiogram changes RBBB (right bundle branch block) COVID-19 vaccine series completed Screening for colon cancer Diverticular disease Basal cell carcinoma (BCC) in situ of skin Polymyalgia rheumatica GERD (gastroesophageal reflux disease) Anxiety Hypertension Angioedema Hypercholesteremia Obstructive sleep apnea Obesity (BMI 30-39.9) Type 2 diabetes mellitus with hyperglycemia Surgical History Hx of cataract extraction History of colonoscopy History of arthroplasty of right knee Hx of appendectomy History of cholecystectomy S/P ADRIÁN-BSO Family History Father Prostate cancer Acute CVA (cerebrovascular accident) Mother Uterine cancer COPD (chronic obstructive pulmonary disease) Sister Melanoma Brother Melanoma Paternal Grandfather Acute CVA (cerebrovascular accident) Paternal Aunt Breast cancer Social History Housing: House Are you a primary certified social workers in health care to a significant other at home: No Do you presently have visiting nurse or other home services: No Alcohol intake: never Patient Tobacco Use Status: Former Tobacco user Tobacco use type: Cigarette e-Cigarette/Vaping Use: Never Used Second Hand Smoke Exposure: Yes Advance Directives Date on File: 04/12/21 service: No Current occupational status: employed 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 Cognitive needs: No Hearing needs: No Vision needs: Yes Review of Systems Const All systems reviewed & are unremarkable except as noted in HPI and below Physical Exam Const General: cooperative, healthy appearing, comfortable and no acute distress Nutritional Appearance: well nourished Orientation/consciousness: patient oriented x3 Limitations: no limitations HEENT Head: Yes normal to inspection and Yes normocephalic Eyes General: appearance normal, both eyes and all related structures Visual Borrego: normal visual borrego by confrontation Alignment and Position: alignment normal Periorbital: periorbital findings normal Eyelids: Yes eyelids normal Conjunctivae: conjunctivae normal Sclerae: sclerae normal Neuro General: patient oriented x3 Cranial nerves: Yes CN's II-XII intact bilaterally and Yes Facial sensation intact/muscles of mastication intact Cognition (Neuro): normal cognition Gait exam (Neuro): Normal gait present Motor exam (neuro): 5/5 motor strength present throughout and no tremor noted Sensory Exam: double simultaneous stimulation for sensation normal Romberg Test: Negative Pupils: Normal pupillary reactivity/response: bilateral Psych Appearance: grossly normal Mental Status: mental status grossly normal Speech and movement: Normal speech and movement present and Clear speech present Affect: normal affect Attitude: cooperative Thought process: Normal thought process present Thought content: Normal thought content present Insight: Good insight present (Psych) Judgement: Good judgement present (Psych) Assessment & Plan Assessment & Plan (1) Migraine aura without headache: Code(s): G43.109 - Migraine with aura, not intractable, without status migrainosus Category: Medical (2) Migraine with aura and without status migrainosus, not intractable: Code(s): G43.109 - Migraine with aura, not intractable, without status migrainosus Category: Medical Plan Beckie is a 74-year-old female patient with past medical history of hypertension, hyperlipidemia, diabetes, angioedema, ANKUSH, polymyalgia rheumatica who recently resented to the hospital for stroke-like symptoms here today for a follow-up visit in the office. Her in-hospital workup was reassuring and based on her history and symptomatology, her symptoms were most likely migraine. Since the time of our last visit, she has had a very low dull headache to the crown of her head and still some fuzziness to her vision and difficulty with concentration. I did give her a Nurtec in office today. Given her difficulty with the speech, we need to avoid Triptan especially given her age and cardiovascular risk factors. Triptan are contraindicated in migraine with a basilar features. I will send an order for Nurtec 75 mg as needed for acute migraine therapy which she was educated to take as soon as she experiences aura. -start magnesium oxide 400 mg daily for preventive measures -nurtec 75mg - box with 2 tablets given in office today. Lot number [id number], expiration date -follow up in 2 months or sooner if needed Medications: New rimegepant (Nurtec ODT) 75 mg PO Q OTHER DAY PRN 8 tabs 5RF migraine headache magnesium oxide 400 mg PO DAILY 90 tabs 3RF 90 days Coding Level of Care Code Est Pt Level 4 (58357) Diagnoses Migraine aura without headache G43.109 Migraine with aura and without status migrainosus, not intractable G43.109
[2025-04-28 08:15] VITALS: BP 120/80; PULSE 80; RESP 16; O2SAT 97; BMI 33.8
--- OUTSIDE RECORDS SUMMARY | 2025-04-28 08:25 | XMS_ITS | Encounter Summary ---
Author Organization [facility] Address [address] [facility] [address] [place] [address] Phone Care Team Providers Care Sap Bw Consultant Name Role Phone Deon Crain MD Primary Care Provider [phone] Encounter Details Date Type Department Care Team (Late st Contact Info) Description 07/24/2017 Transcribe Orders [facility] Phleb Main [address] [place] [address] Triston Carlisle, DO [address] [facility], [address] [id number] [email or web address] Non-seasonal allergic rhinitis, unspecified chronicity, unspecified trigger [...] INHIBITOR AG 33 19 - 37 mg/dL [facility] DPT OF LAB MED AND PAT+ Blood 07/24/2017 3:00 PM EST 07/24/2017 3:07 PM EST [facility] LAB BLOOD ORDERABLES Final R esult Performing Organization Address City/[facility]/ZIP Co de Phone Number [facility] DPT OF LAB MED AND PAT+ [address] [place] [address] * C1 inhibitor, functional (07/24/2017 3:00 PM EST) C1 INHIB FUNCTIONAL 87 %of norm [facility] DPT OF LAB MED AND PAT+ Comment: (NOTE) REFERENCE VALUE >67 (Normal) 41-67 (Equivocal) <41 (Abnormal) Blood 07/24/2017 3:00 PM EST 07/24/2017 3:07 PM EST [facility] LAB BLOOD ORDERABLES Final R [facility] Performing Organization Address City/[facility] Co de Phone Number [facility] DPT OF LAB MED AND PAT+ [address] [place] [address] * (ABNORMAL) CBC and differential (07/24/2017 3:00 PM EST) Pathologist [facility] WBC 10.73 3.40 - 11.20 K/uL [facility] RBC 4.96(H) 3.80 - 4.80 M/uL [facility] HGB 15.4(H) 12.0 - 15.0 g/dL [facility] HCT 45.6 36.0 - 46.0 % [facility] PLT 259 130 - 400 K/uL [facility] MCV 91.9 79.0 - 98.0 fL [facility] MCH 31.0 27.0 - 34.8 pg [facility] MCHC 33.8 31.5 - 36.0 g/dL [facility] RDW 12.6 10.8 - 14.6 % [facility] MPV 10.0 9.4 - 12.4 fl [facility] NRBC 0.00 /100 WBCs [facility] ABSOLUTE NRBC 0.00 K/uL [facility] DIFF METHOD Auto [facility] NEUTS 68.6 45.30 - 77.70 % [facility] LYMPHS 22.6 12.30 - 39.70 % [facility] MONOS 5.6 4.10 - 12.80 % [facility] EOS 2.2 0 - 7.2 % [facility] BASOS 0.5 0 - 2.80 % [facility] Granulocytes, immature (%) 0.5 0.0 - 0.9 % [facility] ABSOLUTE NEUTS 7.36 1.40 - 7.70 K/uL [facility] ABSOLUTE LYMPHS 2.43 0.60 - 3.20 K/uL [facility] ABSOLUTE MONOS 0.60(H) 0.11 - 0.59 K/uL [facility] ABSOLUTE EOS 0.24 0.01 - 0.50 K/uL [facility] ABSOLUTE BASOS 0.05 0.00 - 0.08 K/uL [facility] Granulocytes, immature 0.05 0.00 - 0.05 K/uL [facility] Blood 07/24/2017 3:00 PM EST 07/24/2017 3:07 PM EST us Triston Carlisle DO LAB BLOOD BKR ORDERABLES Fin al Result [address] [address] * (ABNORMAL) Comprehensive metabolic panel (07/24/2017 3:00 PM EST) SODIUM 142 133 - 146 mmol/L [facility] POTASSIUM 3.5 3.3 - 5.1 mmol/L [facility] CHLORIDE 100 96 - 108 mmol/L [facility] CO2 25 21 - 35 mmol/L [facility] BUN 15 6 - 19 mg/dL [facility] CREATININE 0.50 0.5 - 1.5 mg/dL [facility] GLUCOSE 84 70 - 99 mg/dL [facility] ALBUMIN 4.3 3.9 - 4.8 g/dL [facility] TOTAL PROTEIN 7.7 6.5 - 8.0 g/dL [facility] CALCIUM 10.6(H) 8.4 - 10.3 mg/dL [facility] ALKALINE PHOSPHATASE 84 39 - 117 U/L [facility] TOTAL BILIRUBIN 0.3 0.0 - 1.2 mg/dL [facility] AST 24 0 - 37 U/L [facility] ALT 28 0 - 40 U/L [facility] GLOBULIN 3.4 1 - 4.8 g/dL [facility] EGFR 101 >59 mL/min/1.7 3m2 [facility] Comment:If patient is black, multiply result by 1.159. The eGFR calculation has changed from the MDRD equation to the CKD-EPI equation as of July 24, 2017. ANION GAP 21(H) 10 - 20 mmol/L [facility] Blood 07/24/2017 3:00 PM EST 07/24/2017 3:07 PM EST [facility] LAB BLOOD BKR ORDERABLES Fin al Result Performing Organization Address [facility]/ZIP Co de Phone Number [facility] [address] [place] [address] * Complement C4 (07/24/2017 3:00 PM EST) COMPLEMENT C4 37 14 - 40 mg/dL [facility] DPT OF LAB MED AND PAT+ Blood 07/24/2017 3:00 PM EST 07/24/2017 3:07 PM EST [facility] LAB BLOOD BKR ORDERABLES Fin al Result Performing Organization Address City/[facility]/ZIP Co de Phone Number [facility] DPT OF LAB MED AND PAT+ [address] [place] [address] documented in this encounter Visit Diagnoses Diagnosis Non-seasonal allergic rhinitis, unspecified chronicity, unspecified trigger- Primary documented in this encounter Care Teams Sap Bw Consultant Relationship Specialty Start Date End Date Deon Crain MD [address] [place] [phone] PCP - General Internal Medicine 07/24/17 documented as of this encounter Additional Source Comments The information contained in this document represents components of the legal health record. It is not the complete legal health record.[facility]
--- OUTSIDE RECORDS SUMMARY | 2025-04-28 08:26 | XMS_ITS | Clinical Summary ---
Author Organization [facility] Address [address] [place] [address] Care Team Providers Care Plastic Tile Layer Name Role Phone Unavailable Primary Care Provider [...]
--- OUTSIDE RECORDS SUMMARY | 2025-04-28 08:26 | XMS_ITS | Clinical Summary ---
Author Organization [facility] Address [address] [place] [address] Phone Care Team Providers Care Residential Real Estate Assistant Name Role Phone Deon Crain MD Primary [...] EST) SODIUM 142 133 - 146 mmol/L [facility] POTASSIUM 3.5 3.3 - 5.1 mmol/L [facility] CHLORIDE 100 96 - 108 mmol/L [facility] CO2 25 21 - 35 mmol/L [facility] BUN 15 6 - 19 mg/dL [facility] CREATININE 0.50 0.5 - 1.5 mg/dL [facility] GLUCOSE 84 70 - 99 mg/dL [facility] ALBUMIN 4.3 3.9 - 4.8 g/dL [facility] TOTAL PROTEIN 7.7 6.5 - 8.0 g/dL [facility] CALCIUM 10.6(H) 8.4 - 10.3 mg/dL [facility] ALKALINE PHOSPHATASE 84 39 - 117 U/L [facility] TOTAL BILIRUBIN 0.3 0.0 - 1.2 mg/dL [facility] AST 24 0 - 37 U/L [facility] ALT 28 0 - 40 U/L [facility] GLOBULIN 3.4 1 - 4.8 g/dL [facility] EGFR 101 >59 mL/min/1.7 3m2 [facility] Comment:If patient is black, multiply result by 1.159. The eGFR calculation has changed from the MDRD equation to the CKD-EPI equation as of July 24, 2017. ANION GAP 21(H) 10 - 20 mmol/L [facility] Blood 07/24/2017 3:00 PM EST 07/24/2017 3:07 PM EST us Triston Carlisle DO LAB BLOOD BKR ORDERABLES Fin al Result [facility] [address] [place] [address] from Last 3 Months or Most Recently Relevant to Health Maintenance Insurance [employer] MEDEX SUPPLEMENT MEDICARE PART A & B [employer] MED[employer] SUPPLEMENT MEDICARE PART A & B [employer] SUPPLEMENT MEDICARE PART A & B [employer] SUPPLEMENT MEDICARE PART A & B [employer] SU[employer] MEDICARE PART A & B [employer] MED[employer] SUPPLEMENT MEDICARE PART A & B [facility] MEDEX SUPPLEMENT MEDICARE PART A & B [employer] MED[employer] SUPPLEMENT MEDICARE PART A & B [employer] SU[employer]LE[employer] MEDICARE PART A & B Care Teams Residential Real Estate Assistant Relationship Specialty Start Date End Date Deon Crain MD [address] [place] [address] [address] [place] [phone] PCP - General Internal Medicine 07/24/17 Additional Source Comments The information contained in this document represents components of the legal health record. It is not the complete legal health record.[facility]
--- OUTSIDE RECORDS SUMMARY | 2025-04-28 08:26 | XMS_ITS | Encounter Summary ---
Author Organization [facility] Address [address] [facility] [address] [place] [address] Phone Care Team Providers Care Mainframe Programmer Analyst Name Role Phone Deon Crain MD Primary Care Provider [phone] Encounter Details Date Type Department Care Team (Late st Contact Info) Description 08/03/2017 Transcribe Orders [facility] Phleb Main [address] [place] [address] Triston Carlisle, 269 [facility], [address] [id number] [email or web address] Elevated calcitonin level (Primary Dx) Social History [...] IONIZED CALCIUM 1.22 1.14 - 1.37 mmol/L [facility] Blood 08/03/2017 4:32 PM EDT 08/03/2017 4:35 PM EDT us Triston L Bayuk DO LAB BLOOD BKR ORDERABLES Fin al Result [facility] [address] [place] [address] documented in this encounter Visit Diagnoses Diagnosis Elevated calcitonin level- Primary documented in this encounter Care Teams Mainframe Programmer Analyst Relationship Specialty Start Date End Date Deon Crain MD [address] [facility] [address] [place] [phone] PCP - General Internal Medicine 07/24/17 documented as of this encounter Additional Source Comments The information contained in this document represents components of the legal health record. It is not the complete legal health record.[facility]
== END 2025-04-28 09:05 | disposition home or self-care (01) ==
LOC: HO.HSM 08:01
PROVIDERS: PCP Internal Medicine; Visit Provider Nurse Practitioner
DX: G43.109 Migraine with aura, not intractable, without status migrainosus (principal)
CPT/HCPCS: 99214

== ENCOUNTER → 2025-04-28 08:00 | Outpatient (BNVA) | payer MEDICARE, SELFPAY | PROVIDERS: PCP Internal Medicine; Visit Provider Nurse Practitioner | DX: G43.109 Migraine with aura, not intractable, without status migrainosus (principal) | CPT/HCPCS: 99212 ==

== ENCOUNTER 2025-05-01 09:25 | Outpatient (AMB) | payer MEDICARE, SELFPAY ==
[2025-05-01 09:31] VITALS: BP 130/68; PULSE 92; O2SAT 94; BMI 33.7
--- NOTE | 2025-05-01 09:31 | A.OFFPC_ITS ---
Vital Signs 05/01/25 09:31 Height 5 ft 2 in Weight 184 lb BMI 33.7 BP 130/68 Blood Pressure Location Lt brachial Position Sitting Pulse 92 Pulse Source Pulse Oximeter Pulse Oximetry (%) 94 Oxygen Delivery Method Room Air Intake Visit Reasons: TCM [facility] 04/24 TIA Allergies cabergoline (CABERGOLINE) Allergy (Severe, Verified 05/01/25 09:31) ANGIOEDEMA lisinopril (LISINOPRIL) Allergy (Severe, Verified 05/01/25 09:31) ANGIOEDEMA empagliflozin (Jardiance) Allergy (Intermediate, Verified 05/01/25 09:31) skin infection Tobacco use date assessed: 02/03/25 Fall risk assessment: No Falls in past year Last assessed Fall Risk: 05/01/25 Dental Screening Dental Screen Date: 02/03/25 HPI HPI Comments History of Present Illness Details 74-year-old female presents today for ansitional Care Management following hospitalization at [facility] from 04/23?04/24 for evaluation of stroke-like symptoms including dizziness, difficulty with word finding, and cognitive fogginess. She reports that symptoms improved significantly during admission but she still feels slightly ?out of it.? No new focal deficits, numbness, weakness, or speech difficulty today. She was evaluated by Neurology during hospitalization; imaging was negative for acute stroke. She also followed up with outpatient Neurology this week and was started on Nurtec for migraine treatment/prevention. No medication side effects reported. Denies chest pain, SOB, palpitations, syncope, or new headaches. Reports adherence to medications. Past Medical History: HTN, HLD, DM, history of angioedema, ANKUSH, polymyalgia rheumatica. [facility] Medical History (Updated 04/28/25 @ 08:38 by Raquel Austin CNP) Migraine with aura and without status migrainosus, not intractable Post-menopausal Medicare annual wellness visit, initial Pre-op evaluation Precordial chest pain Acute electrocardiogram changes RBBB (right bundle branch block) COVID-19 vaccine series completed Screening for colon cancer Diverticular disease Basal cell carcinoma (BCC) in situ of skin Polymyalgia rheumatica GERD (gastroesophageal reflux disease) Anxiety Hypertension Angioedema Hypercholesteremia Obstructive sleep apnea Obesity (BMI 30-39.9) Type 2 diabetes mellitus with hyperglycemia Surgical History Hx of cataract extraction History of colonoscopy History of arthroplasty of right knee Hx of appendectomy History of cholecystectomy S/P ADRIÁN-BSO Family History Father Prostate cancer Acute CVA (cerebrovascular accident) Mother Uterine cancer COPD (chronic obstructive pulmonary disease) Sister Melanoma Brother Melanoma Paternal Grandfather Acute CVA (cerebrovascular accident) Paternal Aunt Breast cancer Social History Housing: House Are you a primary nonfarm animal caretaker to a significant other at home: No Do you presently have visiting nurse or other home services: No Alcohol intake: never Patient Tobacco Use Status: Former Tobacco user Tobacco use type: Cigarette e-Cigarette/Vaping Use: Never Used Second Hand Smoke Exposure: Yes Advance Directives Date on File: 04/12/21 service: No Current occupational status: employed Current occupation: [employer] Cognitive needs: No Hearing needs: No Vision needs: Yes Questionnaire Thrive Questionnaire Date Thrive assessed: 09/30/24 I am a: Patient What is your living situation today?: I have a steady place to live Within the past 12 months, did the food you bought not last and you didn't have the money to get more?: Never true Within the past 12 months, did you worry whether your food would run out before you got money to buy more?: Never true Do you have trouble paying for medicines?: No Do you have trouble getting transportation to medical appointments?: No Do you have trouble paying your heating and electricity bill?: No Do you have trouble taking care of your child, family member or friend?: No Do you have trouble with day-to-day activities such as bathing, preparing meals, shopping, managing finances, etc.?: No Are you currently unemployed and looking for a job?: No Are you interested in more education?: No Please select the resources that you would like help with: None Currently or been in a relationship where the following occur: No concerns reported THRIVE Score: 0 SUSAN-7 AMB Questionnaire SUSAN-7 Date SUSAN - 7 assessed: 10/06/24 Source: Developed by Drs. Marcos Joshi, Margret Ochoa, Jeferson Mcintosh and colleagues, with an educational aaron from [employer]. Review of Systems Const All systems reviewed & are unremarkable except as noted in HPI and below Physical exam (Primary Care) Vital Signs: Last Vital Signs Pulse 92 05/01/25 09:31 BP 130/68 05/01/25 09:31 Pulse Ox 94 05/01/25 09:31 Oxygen Delivery Method Room Air 05/01/25 09:31 BMI result Body Mass Index 33.7 Tobacco/Smoking Status: Tobacco use Status Tobacco use date assessed 02/03/25 05/01/25 09:35 Patient Tobacco Use Status Former Tobacco user 05/01/25 09:35 Tobacco use type Cigarette 05/01/25 09:35 e-Cigarette/Vaping Use Never Used 05/01/25 09:35 Thrive Assessment: Date of Thrive Assessment Date Thrive assessed 09/30/24 05/01/25 09:35 Currently or been in a relationship where the following occur: No concerns reported Const General: no acute distress Nutritional Appearance: well nourished Orientation/consciousness: patient oriented x3 HENMT Head: Yes normocephalic Resp Effort & Inspection: normal respiratory effort and able to speak in complete sentences Auscultation: clear to auscultation bilaterally Cardio Heart sounds: S1 normal heart sound present and S2 normal heart sound present Neuro General: patient oriented x3, gait normal and moves all extremities Psych Speech and movement: Normal speech and movement present Coding Level of Care Code TCM Mod MDM <= 7 Days Diagnoses Brain TIA G45.9 Time Spent (min) 20 Assessment & Plan Assessment & Plan (1) Brain TIA: Code(s): G45.9 - Transient cerebral ischemic attack, unspecified Category: Medical Plan: Continue aspirin 81 mg daily as stroke prophylaxis. Continue rosuvastatin 20 mg daily; recheck lipid panel in 6?8 weeks. Continue Nurtec per Neurology for migraine prevention/treatment; monitor for frequency and severity of symptoms. Reinforce tight control of BP and glucose. Encourage hydration, sleep hygiene, and consistent CPAP use for ANKUSH. Educated patient on red-flag symptoms requiring immediate ER evaluation: sudden unilateral weakness, facial droop, new speech difficulty, severe headache, worsening dizziness, or syncope.
== END 2025-05-01 10:13 | disposition home or self-care (01) ==
LOC: HO.HMCH 09:26
PROVIDERS: PCP Internal Medicine; Visit Provider Nurse Practitioner Family
DX: G45.9 Transient cerebral ischemic attack, unspecified (principal)

== ENCOUNTER → 2025-05-01 09:25 | Outpatient (BNVA) | payer MEDICARE, SELFPAY | PROVIDERS: PCP Internal Medicine; Visit Provider Nurse Practitioner Family | DX: Z09 Encounter for follow-up examination after completed treatment for conditions other than malignant neoplasm (principal); G45.9 Transient cerebral ischemic attack, unspecified | CPT/HCPCS: 99495 ==